=== PATIENT | male | born 1990 | race Caucasian/White ===

== ENCOUNTER 2023-03-29 13:38 | Outpatient (OUT) | payer OTHER, SELFPAY ==
--- NOTE | 2023-03-29 13:41 | MR_ITS ---
The [address] [address] Patient Name: JOSE DAVIS MRN: [facility]:[id number] date: 1990 Sex: M Assigned Patient Location: MRI Current Patient Location: Accession/Order Number: [id number] Exam Date: 03/29/2023 14:15 Report Date: 03/30/2023 05:11 At the request of: JOSÉ MANUEL MARIE Procedure: MR lumbar spine wo/w con EXAM: MR lumbar spine wo/w con HISTORY: Lumbar Myelopathy G95.9 COMPARISON: None. TECHNIQUE: Multiplanar multi sequential images of the lumbar spine were acquired with and without IV contrast. FINDINGS: There is mild straightening of the normal lumbar lordotic curvature. Vertebral body heights are preserved. The lumbar spine alignment is maintained without evidence for spondylolisthesis. Multilevel Schmorl's nodes are visualized. There is a Schmorl's visualized along the superior and inferior endplate of T12. Schmorl's node along the inferior endplate of L1, superior endplate of L2, L3 and L4. Moderate disc space narrowing at L5-S1 and mild disc space narrowing within the remainder of the lumbar spine. Multilevel disc desiccation noted. No occult fractures are visualized. No abnormal marrow infiltrative lesions. The conus medullaris terminates at the L1 level. The conus appears normal in size and configuration. No pathologic enhancement is visualized within the lumbar spine. 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 L1-L2: Mild disc bulge, the central canal is patent. No significant neuroforaminal narrowing visualized. L2-L3: Disc bulge and with facet arthrosis and mild ligamentum flavum thickening, the central canal is mildly narrowed and measures approximately 8 mm in AP diameter. No significant neuroforaminal narrowing visualized. L3-L4: Disc bulging with mild facet arthrosis and ligamentum flavum thickening, the central canal is minimally narrowed and measures approximately 9 mm in AP diameter. Mild right neuroforaminal narrowing. L4-L5: Disc bulge extending into the bilateral neuroforamina with moderate right and mild left facet arthrosis, the central canal is patent. There is mild to moderate right and moderate left neuroforaminal narrowing. There is abutment of the exiting left L4 nerve root from the adjacent disc protrusion. L5-S1: There is a left foraminal/extraforaminal zone disc protrusion with annular fissure, the central canal is patent. Mild facet arthrosis visualized with mild to moderate left neuroforaminal narrowing. There is abutment of the exiting left L5 nerve root from the adjacent disc protrusion. MR/MR lumbar spine wo/w con IMPRESSION: 1. Disc bulge at the L4-L5 level extending into the bilateral neuroforamina with associated facet arthrosis the central canal is patent. There is mild to moderate right and moderate left neuroforaminal narrowing with abutment of the exiting left L4 nerve root from the adjacent disc protrusion. 2. There is a left foraminal/extraforaminal zone disc protrusion with annular fissure at the L5-S1 level without evidence for central canal narrowing. Mild facet arthrosis visualized with mild to moderate left neuroforaminal narrowing with abutment of the exiting left L5 nerve root from the adjacent disc protrusion. 3. 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 Electronically authenticated by: HUMA GONZALEZ Date: 03/30/2023 05:11
== END 2023-03-29 13:39 | disposition home or self-care (01) ==
LOC: MRI 13:38
PROVIDERS: PCP Family Medicine; Visit Provider Family Medicine
DX: G95.9 Disease of spinal cord, unspecified (principal); M42.00 Juvenile osteochondrosis of spine, site unspecified
CPT/HCPCS: 72158; A9575

== ENCOUNTER 2024-01-22 15:15 | Emergency (ER) | payer OTHER, SELFPAY ==
[2024-01-22 15:23] VITALS: BP 136/86; PULSE 91; O2SAT 99; BMI 19.8
--- OUTSIDE RECORDS SUMMARY | 2024-01-22 15:32 | XMS_ITS | CCD ---
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 Name Role Phone NICO WEBB Unavailable Unavailable LYNN BOOKER Unavailable Unavailable HOUSE, DR BLOOD Attending Unavailable HOUSE, DR BLOOD Consulting Unavailable HOUSE, DR BLOOD Primary Care Unavailable HOUSE, DR BLOOD Admitting Unavailable House, DO Blood Primary Care Provider MD Kareem Crocker Attending Provider [phone] ALIA Rodgers Attending Provider JEREMI MARIE Primary Care Physician [phone] DO Jeremi Marie Primary Care Provider MD Kareem Crocker Attending Provider DO Laci Moss Attending Provider DO Jeremi Marie Primary Care Provider [phone] ALIA Rodgers Attending Provider Laci Elder Admitting Unavailable Laci Moss Attending Unavailable Jeremi Marie Primary Care Unavailable Jaime Rodgers Admitting Unavailable Jaime Rodgers Attending Unavailable Jeremi Marie Primary Care Unavailable Kareem Crocker Admitting Unavailable Kareem Crocker Attending Unavailable Jeremi Marie Primary Care Unavailable Jaime Rodgers Admitting Unavailable Jaime Rodgers Attending Unavailable Jeremi Marie Primary Care Unavailable JARON Rodgers Admitting Unavailabl e JEREMI MARIE Referring Unavailable Jessica Rodgers Attending Unavailable Laci Moss Admitting Unavailable Laci Moss Attending Unavailable JAIME RODGERS Referring Unavailable Laci Moss Attending Unavailable Laci Moss Referring Unavailable DO Laci Moss Admitting Unavailabl e Laci Moss Attending Unavailable Laci Moss Referring Unavailable Jessica Rodgers Admitting Unavailable Jessica Rodgers Attending Unavailable Jessica Rodgers Referring Unavailable JEREMI MARIE Primary Care Unavailable HOUSE, DO JEREMI P Attending Unavailable HOUSE, JEREMI P Primary Care Unavailable HOUSE, DO JEREMI P Attending Unavailable HOUSE, JEREMI P Primary Care Unavailable HOUSE, DO JEREMI P Attending Unavailable Krishan Munoz MD Attending Unavailable HOUSE, JEREMI P Primary Care Unavailable HOUSE, JEREMI P Primary Care Unavailable Krishan Munoz MD Attending Unavailable HOUSE, JEREMI P Primary Care Unavailable HOUSE, DO JEREMI P Attending Unavailable Allergies Allergy Classification Reported Allergen(s) Allergy Type Date of Onset Reaction(s) Facility Acetaminophen (1 source) Acetaminophen Drug Allergy 8 [facility] Benzodiazepines (1 source) LORazepam Drug Allergy 8 Drowsy [facility] Opioid Agonists (1 source) HYDROcodone Drug Allergy 8 [facility] Penicillins (antibiotic) (1 source) Penicillins Drug Allergy 8 [facility] (3 sources) Acetaminophen / HYDROcodone; Translations: [Vicodin] Drug Allergy 5 [facility] Repository (3 sources) LORazepam; Translations: [Ativan] Drug Allergy 5 [facility] Rep[facility] (11 sources) Penicillins; Translations: [penicillins] Drug allergy (disorder) 5 Pharyngeal swelling (finding) [facility] Repository (5 sources) Acetaminophen; Translations: [acetaminophen] Drug Allergy 8 [facility] (5 sources) HYDROcodone; Translations: [hydrocodone] Drug Allergy 8 [facility] (10 sources) LORazepam; Translations: [Lorazepam] Drug Allergy 8 Nausea and vomiting (disorder) [facility] Comment on above: NAUSEA (5 sources) Acetaminophen / HYDROcodone; Translations: [acetaminophen-hy drocodone] Drug Allergy Swelling (finding) [facility] (1 source) Penicillins Drug allergy (disorder) 4 [facility] Repository (1 source) Penicillin; Translations: [penicillin] Drug Allergy [facility] Repository Medications Current Medications Medication Drug Class(es) Dates Sig (Normalized) Sig (Original) acetaminophen 500 mg oral tablet (10 sources) Start: 09-12-2023 take 2 tablets by mouth every six hours Tylenol Extra Strength 500 mg oral tablet 1,000 mg = 2 tab(s), Oral, q6hr, Refills(s) 0 Start Date: 09/12/23 Status: Ordered Start: 07-17-2023 take 500 mg by mouth four times daily Acetaminophen Active 500 MG PO Four times daily July 17, 2023 1:00am ARIPiprazole 5 mg oral tablet (5 sources) Atypical Antipsychotic Start: 12-16-2017 take 5 mg by mouth once daily at bedtime Aripiprazole Active 5 MG PO Daily at bedtime December 16, 2017 12:00am Suboxone (10 sources) Partial Opioid Agonist, Opioid Antagonist Start: 09-12-2023 Suboxone See Instructions, Refill(s) 0, 2-8mg tab BID Start Date: 09/12/23 Status: Ordered Start: 12-09-2017 take 8.2 mg under th e tongue twice daily Buprenorphine-Naloxone Active 8.2 MG SUBLINGUAL Twice daily December 09, 2017 12:00am busPIRone hydrochloride 10 mg oral tablet (5 sources) Start: 12-16-2017 take 10 mg by mouth three times daily Buspirone Active 10 MG PO Three times daily December 16, 2017 12:00am clonazePAM 0.5 mg oral tablet (15 sources) Benzodiazepine Start: 07-17-2023 take 1 tablet by mouth twice daily ClonazePAM 0.5 mg Tab 0.5 mg = 1 tab(s), Oral, BID, Refills(s) 0 Start Date: 09/12/23 Status: Ordered Start: 12-09-2017 End: 12-16-2017 take 0.5 mg by mouth twice daily Clonazepam Discontinued 0.5 MG PO Twice daily December 09, 2017 12:00am December 16, 2017 11:25am Rx filled 10/21/17 gabapentin 400 mg oral capsule (10 sources) Anti-epileptic Agent Start: 12-16-2017 take 400 mg by mouth three times daily Gabapentin Active 400 MG PO Three times daily December 16, 2017 12:00am Start: 06-09-2012 take 300 mg by mouth three times daily Neurontin 300 mg, Oral, TID, Refills(s) 0 Start Date: 06/09/12 Status: Ordered lidocaine 0.05 mg/mg medicated patch (5 sources) Antiarrhythmic, Amide Local Anesthetic Start: 07-17-2023 apply 1 dose topically once daily Lidocaine Active 1 PATCH TOPICAL Daily July 17, 2023 1:00am leave on most painful area for up to 12 hrs mirtazapine 30 mg oral tablet (5 sources) Start: 12-16-2017 take 30 mg by mouth once daily at bedtime Mirtazapine Active 30 MG PO Daily at bedtime December 16, 2017 12:00am nicotine 2 mg chewing gum (5 sources) Cholinergic Nicotinic Agonist Start: 12-16-2017 Nicotine (Polacrilex) (Nicorelief) 2 mg Gum Active 4 MG BUCCAL Q2H 60 December 16, 2017 12:00am prazosin 1 mg oral capsule (5 sources) alpha-Adrenergic Jessica Start: 12-16-2017 take 1 mg by mouth once daily at bedtime Prazosin Active 1 MG PO Daily at bedtime December 16, 2017 12:00am QUEtiapine 50 mg oral tablet (15 sources) Atypical Antipsychotic Start: 07-17-2023 take 1 tablet by mouth at bedtime quetiapine 50 mg oral tablet 50 mg = 1 tab(s), Oral, Bedtime, Refills(s) 0 Start Date: 09/12/23 Status: Ordered Start: 12-09-2017 End: 12-16-2017 take 1 tablet by mouth once daily Quetiapine (Seroquel) 200 mg Tablet Discontinued 200 MG PO Daily December 09, 2017 12:00am December 16, 2017 11:26am Rx filled 10/12/17 vilazodone hydrochloride 40 mg oral tablet (10 sources) Start: 07-17-2023 take 1 tablet by mouth once daily vilazodone 40 mg oral tablet 40 mg = 1 tab(s), Oral, Daily, Refills(s) 0 Start Date: 09/12/23 Status: Ordered Completed/Discontinued Medications Medication Drug Class(es) Dates Sig (Normalized) Sig (Original) amphetamine aspartate 2.5 mg / amphetamine sulfate 2.5 mg / dextroamphetamine saccharate 2.5 mg / dextroamphetamine sulfate 2.5 mg oral tablet (5 sources) Central Nervous System Stimulant Start: 12-09-2017 End: 12-16-2017 take 1 tablet by mouth three times daily Dextroamphetamine- Amphetamine (Adderall) 10 mg Tablet Discontinued 10 MG PO Three times daily December 09, 2017 12:00am December 16, 2017 11:25am Rx filled 11/09/17 One A Day [employer] Complete (5 sources) Start: 09-12-2023 take 1 tablet by mouth once daily One A Day [employer] Complete 1 tab(s), Oral, Daily, Refill(s) 0 Start Date: 09/12/23 Status: Ordered predniSONE 20 mg oral tablet (5 sources) Start: 07-17-2023 End: 12-12-2023 Prednisone Discontinued 0 PO daily July 17, 2023 1:00am December 12, 2023 1:05pm Take 3 tablets by mouth once daily for three day , then two tablets by mouth once daily for three days, then one tablet by mouth for 1 day traZODone hydrochloride 50 mg oral tablet (5 sources) Serotonin Reuptake Inhibitor Start: 12-16-2017 End: 12-12-2023 take 150 mg by mouth once daily at bedtime Trazodone Discontinued 150 MG PO Daily at bedtime 45 December 16, 2017 12:00am December 12, 2023 1:06pm vortioxetine 20 mg oral tablet (5 sources) Start: 12-09-2017 End: 12-16-2017 take 1 tablet by mouth once daily Vortioxetine (Trintellix) 20 mg Tablet Discontinued 20 MG PO Daily December 09, 2017 12:00am December 16, 2017 11:26am Rx filled 10/11/17 Problems Active Problems Problem Classification Problem Date Documented Date Episodic/Chronic Anxiety disorders (5 sources) Anxiety 09-12-2023 Chronic Medical examination/evaluatio n (1 source) Encounter for other general examination; Translations: [Encounter for other general examination] Onset: 11-30-2017 Episodic Mood disorders (13 sources) Episodic mood disorder; Translations: [Unspecified mood [affective] disorder] Onset: 08-22-2023 12-09-2017 Chronic Osteoarthritis (5 sources) Osteoarthritis 09-12-2023 Chronic Other nervous system disorders (5 sources) Neuropathy; Translations: [Polyneuropathy, unspecified] 07-17-2023 Chronic Other nervous system disorders (3 sources) Polyneuropathy, unspecified; Translations: [Mononeuritis of unspecified site] Onset: 08-22-2023 07-17-2023 Chronic Spondylosis; intervertebral disc disorders; other back problems (8 sources) Degeneration of lumbar intervertebral disc; Translations: [Other intervertebral disc degeneration, lumbar region] Onset: 08-22-2023 07-17-2023 Chronic Spondylosis; intervertebral disc disorders; other back problems (13 sources) Spinal stenosis of lumbar region; Translations: [Spinal stenosis, lumbar region without neurogenic claudication] Onset: 08-22-2023 07-18-2023 Episodic Substance-related disorders (5 sources) Smoker 09-12-2023 Chronic Comment on above: Added secondary to d ocumentation in Social History. Unclassified (3 sources) CONTACT W/AND (SUSP) EXPOS COVID-19; Translations: [CONTACT W/AND (SUSP) EXPOS COVID-19] Onset: 12-28-2020 Unclassified (1 source) Low back pain, unspecified; Translations: [Low back pain, unspecified] Onset: 09-19-2023 Past or Other Problems Problem Classification Problem Date Documented Da te Episodic/Chronic Unclassified (1 source) CONTACT W/AND (SUSP) EXPOS COVID-19; Translations: [CONTACT W/AND (SUSP) EXPOS COVID-19] Onset: 12-19-2020 Results Test Name Value Interpretation Reference Range Facility Insuranceon 01-08-2024 Insurance [id number]#1.00OTGTIFF [facility] Main OR Intraoperative Recor don 12-30-2023 Main OR Intraoperative Record Main OR Intraoperative Record IntraOp Document Type FTPM Summary Primary Physician: Laci Moss DO Finalized Date/Time: 12/30/23 14:56:10 Pt. Name: JOSE JANE/Sex: 1990 Male Med Rec #: [id number] Physician: Laci Moss DO Financial #: [id number] Pt. Type: P Room/Bed: / Admit/Disch: 12/30/23 13:25:36 - Institution: Case Times FTPM Entry 1 Patient Times In Room 12/30/23 14:47:00 Out Room 12/30/23 14:57:00 Procedure Times Start 12/30/23 14:50:00 Stop 12/30/23 14:56:00 Anesthesia Times Last Modified By: Zhanna Coronado RN 12/30/23 14:56:06 Case Attendance FTPM Entry 1 Entry 2 Entry 3 Case Attendee Laci Moss DO, RN, Zhanna Dent RN, Susan Quinn Role Performed Surgeon - Primary Firm Administrator - Primary Scrub - Primary Time In 12/30/23 14:47:00 12/30/23 14:47:00 12/30/23 14:47:00 Time Out 12/30/23 14:57:00 12/30/23 14:57:00 12/30/23 14:57:00 Procedure TRANSFORAMINAL EPIDURAL TRANSFORAMINAL EPIDURAL TRANSFORAMINAL EPIDURAL STEROID STEROID STEROID INJECTIO(Bilateral) INJECTIO(Bilateral) INJECTIO(Bilateral) Comments Last Modified By: Cliff QUINTANILLA, Zhanna Coronado RN, Zhanna Gaytan RN 12/30/23 14:56:07 12/30/23 14:56:07 12/30/23 14:56:07 Entry 4 Case Attendee Cely Whitaker Role Performed Drapery Installer Time In 12/30/23 14:47:00 Time Out 12/30/23 14:57:00 Procedure TRANSFORAMINAL EPIDURAL STEROID INJECTIO(Bilateral) Comments Last Modified By: Zhanna Coronado RN 12/30/23 14:56:07 Perioperative Protocols FTPM Pre-Care Text: Implements protective measures prior to operative or invasive procedure, confirms identity before the operative or invasive procedure, verifies operative procedure, surgical site, and laterality Entry 1 Procedure(s) TRANSFORAMINAL EPIDURAL Patient Identity Birthday, ID Band STEROID Verified (select at Check, Patient INJECTIO(Bilateral) least 2): Participation Consents / H and P H&P, Surgery/Procedure Operative Site Present Verified Consent Marking Verified Surgical Site Yes Laterality Verified Yes Verified Procedure Verified Yes Correct Patient Yes Position Verified Availability Equipment, Medication, Prep Dry Yes Verified (If X-ray Applicable) PreOp Antibiotic No Time Out Cliff QUINTANILLA, Zhanna Hollingsworth, Harsha Dent RN, Ajay Monroy DO, Bradford A., Ott, Amy Time Out Complete 12/30/23 14:47:00 Outcomes Met? Yes Last Modified By: Zhanna Coronado RN 12/30/23 14:47:49 Post-Care Text: The patient is free from signs and symptoms of injury caused by extraneous objects Allergy Information FTPM Pre-Care Text: Verifies allergies Entry 1 Allergies Reviewed? Yes Allergies Reviewed Self/Patient With Outcomes Met? Yes Last Modified By: Zhanna Coronado RN 12/30/23 14:46:16 Post-Care Text: The patient received appropriate medication(s) safely administered during the perioperative period Surgical Procedures FTPM Entry 1 Procedure Description Procedure TRANSFORAMINAL EPIDURAL Modifiers Bilateral STEROID INJECTION Surgeon Description L5/S1 TFESI Primary Procedure Yes Primary Surgeon Laci Moss DO 12/30/23 14:50:00 Stop 12/30/23 14:56:00 Anesthesia Type None Surgical Service Pain Management Wound Class 1 - Clean Last Modified By: Zhanna Coronado RN 12/30/23 14:56:08 General Case Data FTPM Pre-Care Text: Classifies surgical wound, implements aseptic technique, initiates traffic control Entry 1 Case Information OR Pain Proc Room Case Level Level 2 Wound Class 1 - Clean Specialty Pain Management Preop Diagnosis M54.16 Postop Same As Preop Yes Postop Diagnosis M54.16 Outcomes Met? Yes Last Modified By: Zhanna Coronado RN 12/30/23 14:48:01 Post-Care Text: The patient is free from signs and symptoms of infection Skin Assessment (Pre Procedure) FTPM Pre-Care Text: Implements protective measures to prevent skin/ tissue injury due to thermal or mechanical sources Evaluates for signs and symptoms of physical injury to skin and tissue Entry 1 Skin Integrity Intact, [place], Warm, & Skin Abnormality No Dry Outcomes Met? Yes Last Modified By: Zhanna Coronado RN 12/30/23 14:46:23 Post-Care Text: The patient is free from signs and symptoms of injury caused by extraneous objects Patient Positioning FTPM Pre-Care Text: Identifies physical alterations that require additional precautions for procedure-specific positioning, verifies presence of prosthetics or corrective devices, positions the patient, evaluates the patient for signs and symptoms of injury as a result of positioning Entry 1 Procedure TRANSFORAMINAL EPIDURAL Body Position Prone STEROID INJECTIO(Bilateral) Feet Uncrossed? Yes Left Arm Position Resting at Side Right Arm Position Resting at Side Left Leg Position Extended Right Leg Position Extended Positioning Device Pillow Under Head Large, Safety Stra (more content not included)... Normal [facility] Main OR Preoperative Recordo n 12-30-2023 Main OR Preoperative Record Main OR Preoperative Record Holding Area Document Type FTPM Summary Primary Physician: Laci Moss DO Finalized Date/Time: 12/30/23 13:34:55 Pt. Name: JOSE JANE Julissa Gonsalez/Sex: 1990 Male Med Rec #: [id number] Physician: Laci Moss DO Financial #: [id number] Pt. Type: P Room/Bed: / Admit/Disch: 12/30/23 13:25:36 - Institution: Case Times Holding FTPM Pre-Care Text: Verifies consent for planned procedure, identifies individual values and wishes concerning care, includes family members in perioperative teaching Secures patient's records' belongings, and valuables, maintains patient's dignity and privacy, and maintains patient confidentiality Entry 1 In Holding 12/30/23 13:27:00 Outcomes Met? Yes Last Modified By: Armando Stuart RN 12/30/23 13:28:01 Post-Care Text: The patient participates in decisions affecting his or her perioperative plan of care The patient's right to privacy is maintained Surgery Checklist FTPM Entry 1 Patient Birthday, ID Band Procedure History and Physical, Identification: Check, Patient Verification: Surgical Consent, With Participation Patient NPO after Midnight: No Date/Time: 12/30/23 13:28:00 Results Reviewed Yovani darden 0930 Personal Items: Glasses Comments: Personal Items Glasses Complaints of Pain: Yes Comment: Pain Comment: 12/20 Lower back Operative Site Yes Marking: Marked By: Dr. Moss Location: Bilateral L5/S1 Availability Equipment, X-Ray Verified: Does Patient Smoke Yes If Yes to Smoking. 1 PPD Cigars or Cigarettes. How much per day? Patient states Yes Comment - Adult Delma Neighbor postop adult Supervision supervision available Case Cancelled in No Holding Area see comments below for reason Last Modified By: Armando Stuart RN 12/30/23 13:30:46 Finalized By: Armando Stuart RN Document Signatures Signed By: Armando Stuart RN 12/30/23 13:34 Normal [facility] Rad - MRI Reporton 4 Rad - MRI Report [id number]#1.00OTGTIFF [facility] Rad - Other Radiology Report on 12-16-2023 Rad - Other Radiology Report [id number]#1.00OTGTIFF [facility] MRI Spine Cervical w/o Contr felice 12-13-2023 MRI Spine Cervical w/o Contrast Exam Date/Time: 12/10/2023 18:51 EDT Reason for Exam: M54.12 M54.2 Report IMPRESSION: NO HIGH-GRADE NEUROFORAMINAL OR SPINAL CANAL STENOSIS. NORMAL APPEARANCE OF THE CERVICAL SPINAL CORD. EXAM: MRI of the cervical spine without contrast. History: Status. Posterior left shoulder pain. Bilateral arm weakness. Technique: Multiplanar multisequence MRI of the cervical spine was performed without contrast. Comparison: Cervical spine radiographs 12/10/2023 Findings: Craniocervical junction is within normal limits. No cervical cord signal abnormality is identified. No aggressive bone marrow signal abnormality. Cervical spine alignment is preserved. Intervertebral disc heights are preserved. C2-C3: No significant disc bulge. Mild bilateral uncovertebral hypertrophy. No neuroforaminal or spinal canal stenosis. C3-C4: No significant disc bulge, spinal canal or neuroforaminal stenosis. C4-C5: No significant disc bulge, spinal canal or neuroforaminal stenosis. C5-C6: No significant disc bulge, spinal canal or neuroforaminal stenosis. C6-C7: No significant disc bulge, spinal canal or neuroforaminal stenosis. C7-T1: No significant disc bulge, spinal canal or neuroforaminal stenosis. Visualized paravertebral soft tissues are grossly unremarkable. Report Ordering Provider: Jessica Rodgers FINAL REPORT Dictated: 12/13/2023 11:48 am aCrlos Figueroa DO Signed (Electronic Signature): 12/13/2023 11:48 am Signed by: Carlos Figueroa DO Transcribed by: MAGGI Technologist: IVETT Technical Comments None Normal [facility] XR Spine Cervical 4 or 5 Vie wson 12-13-2023 XR Spine Cervical 4 or 5 Views Exam Date/Time: 12/10/2023 19:04 EDT Reason for Exam: Neck Pain Report IMPRESSION: ESSENTIALLY NEGATIVE CERVICAL SPINE. EXAM: XR Spine Cervical 4 or 5 Views DATE: 12/10/2023 6:49 PM CLINICAL HISTORY: Neck Pain. COMPARISON: None available. TECHNIQUE: AP, lateral, oblique, and odontoid radiographs of the cervical spine were obtained. FINDINGS: Straightening of the normal cervical lordosis is probably related to patient positioning and/or muscle spasm. There is no compression, fracture, significant degenerative changes, subluxation, bony neural foraminal narrowing, worrisome bone destruction, or other findings of concern identified. The visualized paraspinous soft tissues are unremarkable. Ordering Provider: Jessica Rodgers FINAL REPORT Dictated: 12/13/2023 1:47 pm Jostin Garza MD Signed (Electronic Signature): 12/13/2023 1:47 pm Signed by: Jostin Garza MD Transcribed by: MAGGI Technologist: SERGEY Technical Comments Radiation Dose: Ka,r in mGy = na DAP = na Normal [facility] Consultation/Specialist Note on 12-12-2023 Consultation/Special ist Note [id number] Insurance [id number] spine 6V w bending on 12-12-2023 XR lumbar spine 6V w bending [facility] Main Central [address] [place] [address] XRay Report Signed Patient: Jose Jane MR#: [id number] : 1990 Acct:[id number] Age/Sex: 33 / M ADM Date: 12/12/23 Loc: XD Room: Type: [facility] Attending Dr: Jaime Rodgers BANDOLEER PACKER-C Copies to: ALIA Duran Ordering Provider: ALIA Duran Date of Service: 12/12/23 XR/XR lumbar spine 6V w bending: M48.061 - Spinal stenosis, lumbar region without neurogen... LUMBAR SPINE - 6 views CLINICAL HISTORY: Low back pain for 15 years radiating into both hips and legs. COMPARISON: Lumbar spine 02/29/2012 FINDINGS: Vertebral body heights appear maintained. Mild diffuse degenerative disc disease with endplate and facet joint degenerative changes. No pathological motion on flexion or extension views. Restricted sidebending. XR/XR lumbar spine 6V w bending IMPRESSION: MILD DIFFUSE DEGENERATIVE DISC DISEASE WITHOUT ACUTE BONY PROCESS. Impression dictated by: Reece Polo Jr., D.O.12/12/2023 3:18 PM Dictation Location: [place] [address] Transcribed By: [facility] 12/12/23 1518 Dictated By: Reece Polo Jr, DO 12/12/23 1517 Signed By: 12/12/23 1518 Normal [facility] Outside Recordson 11-29-2023 Outside Records [id number]#1.00OTGTIFF Normal [facility] Outside Records Officeon Outside Records Office [id number]#1.00TIFF Normal [facility] Consent for Procedure/Surger yon 10-16-2023 Consent for Procedure/Surgery [id number]#1.00TIFF Normal [facility] Discharge Instructionson Discharge Instructions [id number]#1.00TIFF Normal [facility] IntraOperative Documentson 0 10-16-2023 IntraOperative Documents [id number]#1.00TIFF Normal [facility] IntraOperative Documents [id number]#1.00TIFF [facility] Consent for Treatmenton Consent for Treatment [id number]#1.00TIFF [facility] Main OR Intraoperative Recor don 10-15-2023 Main OR Intraoperative Record IntraOp Document Type FT Summary Primary Physician: Laci Moss DO Finalized Date/Time: 10/15/23 15:13:45 Pt. Name: JOSE JANE Julissa DarbyB./Sex: 1990 Male Med Rec #: [id number] Physician: Laci Moss DO Financial #: [id number] Pt. Type: P Room/Bed: / Admit/Disch: 10/15/23 13:39:34 - Institution: Case Times FTPM Entry 1 Patient Times In Room 10/15/23 15:08:00 Out Room 10/15/23 15:14:00 Procedure Times Start 10/15/23 15:11:00 Stop 10/15/23 15:13:00 Anesthesia Times Last Modified By: Cliff QUINTANILLA, Zhanna Hollingsworth 10/15/23 15:13:34 Case Attendance FTPM Entry 1 Entry 2 Entry 3 Case Attendee Laci Moss DO, RN, Saira Hallman RN Role Performed Surgeon - Primary Firm Administrator - Primary Scrub - Primary Time In 10/15/23 15:08:00 10/15/23 15:08:00 10/15/23 15:08:00 Time Out 10/15/23 15:14:00 10/15/23 15:14:00 10/15/23 15:14:00 Procedure LUMBAR EPIDURAL STEROID LUMBAR EPIDURAL STEROID LUMBAR EPIDURAL STEROID INJECTION(.) INJECTION(.) INJECTION(.) Comments Last Modified By: Cliff QUINTANILLA, Zhanna Coronado RN, Zhanna Coronado RN, Zhanna Hollingsworth 10/15/23 15:13:35 10/15/23 15:13:35 10/15/23 15:13:35 Entry 4 Entry 5 Case Attendee Hamida Nickerson RTKrishan Role Performed Drapery Installer Drapery Installer Time In 10/15/23 15:08:00 10/15/23 15:08:00 Time Out 10/15/23 15:14:00 10/15/23 15:14:00 Procedure LUMBAR EPIDURAL STEROID LUMBAR EPIDURAL STEROID INJECTION(.) INJECTION(.) Comments Last Modified By: Cliff QUINTANILLA, Zhanna Coronado RN, Zhanna Hollingsworth 10/15/23 15:13:35 10/15/23 15:13:35 Perioperative Protocols FTPM Pre-Care Text: Implements protective measures prior to operative or invasive procedure, confirms identity before the operative or invasive procedure, verifies operative procedure, surgical site, and laterality Entry 1 Procedure(s) LUMBAR EPIDURAL STEROID Patient Identity Birthday, ID Band INJECTION(.) Verified (select at Check, Patient least 2): Participation Consents / H and P HandP, Surgery/Procedure Operative Site Present Verified Consent Marking Verified Surgical Site Yes Laterality Verified Yes Verified Procedure Verified Yes Correct Patient Yes Position Verified Availability Equipment, Medication, Prep Dry Yes Verified (If X-ray Applicable) PreOp Antibiotic No Time Out Zhanna Coronado RN, Harsha Ardon RN, Ajay Chávez DO, Bradford A., Hamida Nickerson, Alexi RTKrishan P Time Out Complete 10/15/23 15:08:00 Outcomes Met? Yes Last Modified By: Zhanna Coronado RN 10/15/23 15:10:33 Post-Care Text: The patient is free from signs and symptoms of injury caused by extraneous objects Allergy Information FTPM Pre-Care Text: Verifies allergies Entry 1 Allergies Reviewed? Yes Allergies Reviewed Self/Patient With Outcomes Met? Yes Last Modified By: Zhanna Coronado RN 10/15/23 15:10:39 Post-Care Text: The patient received appropriate medication(s) safely administered during the perioperative period Surgical Procedures FTPM Entry 1 Procedure Description Procedure LUMBAR EPIDURAL STEROID Modifiers . INJECTION Surgeon Description L4/5 AKILA Primary Procedure Yes Primary Surgeon Laci Moss DO Start 10/15/23 15:11:00 Stop 10/15/23 15:13:00 Anesthesia Type None Surgical Service Pain Management Wound Class 1 - Clean Last Modified By: Zhanna Coronado RN 10/15/23 15:13:36 General Case Data FTPM Pre-Care Text: Classifies surgical wound, implements aseptic technique, initiates traffic control Entry 1 Case Information OR Pain Proc Room Case Level Level 2 Wound Class 1 - Clean Specialty Pain Management Preop Diagnosis M48.062 Postop Same As Preop Yes Postop Diagnosis M48.062 Outcomes Met? Yes Last Modified By: Zhanna Coronado RN 10/15/23 15:10:49 Post-Care Text: The patient is free from signs and symptoms of infection Skin Assessment (Pre Procedure) FTPM Pre-Care Text: Implements protective measures to prevent skin/ tissue injury due to thermal or mechanical sources Evaluates for signs and symptoms of physical injury to skin and tissue Entry 1 Skin Integrity Intact, [place], Warm, and Skin Abnormality No Dry Outcomes Met? Yes Last Modified By: Zhanna Coronado RN 10/15/23 15:10:58 Post-Care Text: The patient is free from signs and symptoms of injury caused by extraneous objects Patient Positioning FTPM Pre-Care Text: Identifies physical alterations that require additional precautions for procedure-specific positioning, verifies presence of prosthetics or corrective devices, positions the patient, evaluates the patient for signs and symptoms of injury as a result of positioning Entry 1 Procedure LUMBAR EPIDURAL STEROID Body Position Prone INJECTION(.) Feet Uncrossed? Yes Left Arm Position Resting at Side Right Arm Position Resting at Side Left Leg Position Extended Right Leg Position Extended Positioning Device Pillow (more content not included)... Normal [facility] Main OR Preoperative Recordo n 10-15-2023 Main OR Preoperative Record Holding Area Document Type FTPM Summary Primary Physician: Laci Moss DO Finalized Date/Time: 10/15/23 14:01:15 Pt. Name: JOSE JANE/Sex: 1990 Male Med Rec #: [id number] Physician: Laci Moss DO Financial #: [id number] Pt. Type: P Room/Bed: / Admit/Disch: 10/15/23 13:39:34 - Institution: Case Times Holding FTPM Pre-Care Text: Verifies consent for planned procedure, identifies individual values and wishes concerning care, includes family members in perioperative teaching Secures patient's records' belongings, and valuables, maintains patient's dignity and privacy, and maintains patient confidentiality Entry 1 In Holding 10/15/23 13:59:00 Outcomes Met? Yes Last Modified By: Elyse Badillo RN 10/15/23 13:59:41 Post-Care Text: The patient participates in decisions affecting his or her perioperative plan of care The patient's right to privacy is maintained Surgery Checklist FTPM Entry 1 Patient Birthday, ID Band Procedure History and Physical, Identification: Check, Patient Verification: Surgical Consent, With Participation Patient NPO after Midnight: No Date/Time: 10/15/23 13:59:00 Results Reviewed 1100 cup of coffee Personal Items: Glasses Comments: Personal Items Pt. wearing glasses. Complaints of Pain: Yes Comment: Pain Comment: 12/20 lower back pain Operative Site Yes Marking: Marked By: Dr. Moss Location: L4-L5 Availability Equipment, X-Ray Verified: Does Patient Smoke Yes If Yes to Smoking. 1 1/2 PPD cigarettes Cigars or Cigarettes. How much per day? Patient states Yes Comment - Adult uncle-Goran postop adult Supervision supervision available Case Cancelled in No Holding Area see comments below for reason Last Modified By: Elyse Badillo RN 10/15/23 14:01:13 Finalized By: Elyse Badillo RN Document Signatures Signed By: Elyse Badillo RN 10/15/23 14:01 [facility] Outside Records Officeon Outside Records Office [id number]#1.00TIFF [facility] Patient Correspondenceon Patient Correspondence [id number]#1.00TIFF [facility] Insurance Correspondence Off iceon 09-24-2023 Insurance Correspondence Office [id number]#2.00TIFF [facility] Orders Officeon 09-18-2023 Orders Office [id number]#1.00TIFF [facility] Outside Records Officeon Outside Records Office [id number]#1.00TIFF [facility] Consent for Treatmenton Consent for Treatment [id number]#1.00TIFF [facility] Consultation Noteon 09-12-19 Consultation Note Patient is presentin with complaints of neck and low back pain. He states that his low back pain is worse with any standing or walking but is present all the time he rates his pain as a 5/10 but can be a 10/10 in severity. He also has neck pain without radiation into his bilateral upper extremities. 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 He has had pain for several years and has been maintained on Suboxone therapy as well as gabapentin for his pain. We did review his lumbar spine MRI and discussed that he has mild central canal stenosis at L2/3 and L3/4. He has completed a full course of recent physical therapy per his report for his neck and low back without significant lasting relief. He has medication use is limited due to his current pain contract and he would like to see what else can be done about his pain. MARTÍN Score: 72% PHQ-2: 6 Patient denies any symptoms of progressively worsening upper/lower extremity weakness, progressively worsening gait abnormality, new onset bowel/bladder incontinence/ urinary retention, or saddle anesthesia. No new or worsening symptoms of fever, chills, night sweats. 14 Point Review of systems negative unless otherwise noted. General: No acute distress. Patient appears well-nourished. HEENT: Head is normocephalic and external ears are normal in appearance. Cardiovascular: No signs of poor perfusion and no peripheral edema Pulmonary: Nonlabored breathing, symmetric chest movement. GI: Abdomen nondistended Integumentary: No lesions Musculoskeletal: Tender palpation cervical lumbar paraspinal musculature. Neurologic: Alert, oriented x3. 5/5 strength grossly in the bilateral upper extremities. Sensation intact to light touch in the bilateral upper extremities. 5/5 strength grossly in the bilateral lower extremities. Sensation intact to light touch in the bilateral lower extremities. Special Testing: Positive Randa sign on the left only, Spurling's negative bilaterally, mild tenderness palpation in cervical paraspinal musculature, seated straight leg raise test did reproduce mild radicular symptoms bilaterally. History, physical examination, and personal review of pertinent imaging results indicate a diagnosis of: -Lumbar stenosis with neurogenic claudication -Cervical radiculopathy Plan: -We lengthy discussion about current symptoms and treatments for this, we discussed performing L4-5 interlaminar epidural steroid injection under fluoroscopic guidance -Relation to his neck we discussed performing cervical spine x-rays and if there are no significant findings on this we can consider an MRI, we also discussed that if he develops any symptoms of significant narrowing in his neck such as weakness in his upper extremities gait instability or any other red flag signs such as loss of bowel or bladder function or changes that are significant bowel or bladder function he should seek emergent care in the ED Patient was counseled on the above diagnosis and treatment, all questions were answered and patient agrees to adhere to the plan above. Risk and benefits of appropriate procedures and medications were reviewed as well with patient, who voiced understanding and agreeance. Patient was counseled on appropriate use of opioids if prescribed or renewed today and naloxone was offered to patient if opioids were prescribed or maintained at this visit. PHQ-2 scoring reviewed with patient and discussed seeking treatment for depression or mood disorder as appropriate. Patient was counseled on smoking cessation and/or continuing to abstain from nicotine/tobacco products as appropriate based on history; as smoking/nicotine can contribute to increased pain overall and decreased wound healing. Patient counseled on maintaining a healthy BMI as part of the total treatment of their pain and to reduce stress/strain on joints. Patient invited to return or call with any questions or concerns that arise. [facility] Comment on above: Result Comment: Elec tronically Signed By: Laci Moss DO\.br\Date and Time Signed: 09/12/23 12:36 EDT HIPAA Forms Officeon 024 HIPAA Forms Office [id number]#1.00TIFF [facility] Legal Correspondence Officeo n 09-12-2023 Legal Correspondence Office [id number]#1.00TIFF [facility] Legal Correspondence Office [id number]#1.00TIFF [facility] Office/Clinic Note-Physician on 09-12-2023 Office/Clinic Note-Physician [id number]#1.00TIFF [facility] Patient Correspondenceon Patient Correspondence [id number]#1.00TIFF [facility] Patient Correspondence [id number]#1.00TIFF Normal [facility] Patient Correspondence [id number]#1.00TIFF Normal [facility] Patient Correspondence [id number]#1.00TIFF Normal [facility] Patient Correspondence [id number]#1.00TIFF Normal [facility] Patient History Officeon Patient History Office [id number]#1.00TIFF Normal [facility] Physician Orderon 09-12-2023 Physician Order [id number]#1.00TIFF Normal [facility] Outside Records Officeon Outside Records Office [id number]#1.00TIFF Normal [facility] Radiology Outside Office Deputy Clerk Of [address] yon 08-23-2023 Radiology Outside Office Copy [id number]#1.00TIFF Normal [facility] Referrals Officeon Referrals Office [id number]#1.00TIFF Normal [facility] A1C with Estimated Average G luon 08-22-2023 Glucose [Mass/Vol] 111 mg/dL Normal [facility] Comment on above: Result Comment: PERF ORMED BY: [place] [address] PATHOLOGIST HEALTH AND WELLNESS DIRECTOR BRENDA MOE M.D. Performed By: #### A NA, VITB6, RPR W RFX, RA #### [facility] , #### CRP, [id number], TSH3, T4F, A1C WTH eA, ESR #### [address] [place] Antinuclear Antibodieson 08-22-2023 Antinuclear Abs, IFA Negative Normal . [facility] Comment on above: Result Comment: Nega tive <1:80 Borderline 1:80 Positive >1:80 ICAP nomenclature: AC-0 For more information about Hep-2 cell patterns use ANApatterns.org, the official website for the International Consensus on Antinuclear Antibody ([place]) Patterns (ICAP). Performed at: [facility] [address] [id number] Wedding Coordinator: Reuben Couch PhD, Phone: [phone] Performed By: #### A NA, VITB6, RPR W RFX, RA #### [facility] , #### CRP, [id number], TSH3, T4F, A1C WT eA, ESR #### [address] C reactive protein [Mass/vol ume] in Serum or PlasmaOrdered By: Jaime Rodgers on 08-22-2023 CRP [Mass/Vol] < 0.5 mg/dL 0.0-0.5 [facility] C-Reactive Proteinon 024 CRP [Mass/Vol] mg/L Normal 0.0-0.5 [facility] Comment on above: Performed By: #### A NA, VITB6, RPR W RFX, RA #### [facility] , #### CRP, [id number], TSH3, T4F, A1C [facility] eA, ESR #### [facility] [address] [place] [address] Erythrocyte Sedimentation Ra sandeep 08-22-2023 ESR (Bld) [Velocity] 8 mm/h Normal 0-14 [facility] Comment on above: Result Comment: PERF ORMED BY: [place] [address] PATHOLOGIST HEALTH AND WELLNESS DIRECTOR BRENDA MOE M.D. Performed By: #### A NA, VITB6, RPR W RFX, RA #### [facility] , #### CRP, [id number], TSH3, T4F, A1C WTH eA, ESR #### [facility] [address] [id number] [facility] Erythrocyte sedimentation ra te by Photometric methodOrdered By: Jaime Rodgers on 08-22-2023 ESR Photometric method (Bld) [Velocity] 8 mm/hr 0-14 [facility] Folate [Mass/volume] in Seru m or PlasmaOrdered By: Jaime Rodgers on 08-22-2023 Folate [Mass/Vol] 39.0 ng/mL >5.9 [facility] Comment on above: Folate reference ran ge: >5.9 ng/mlThe WHO technical consultation on folate and vitamin [id number] has determined that folate concentrations lessthan 4 ng/ml are considered deficient. Glucose mean value [Mass/vol ume] in Blood Estimated from glycated hemoglobinOrdered By: Jaime Rodgers on 08-22-2023 Average glucose Estimated from glycated hemoglobin (Bld) [Mass/Vol] 111 mg/dL [facility] Hemoglobin A1c percentageOrd ered By: Jaime Rodgers on 08-22-2023 HbA1c (Bld) [Mass fraction] 5.5 % Normal 4.3-5.6 [facility] Comment on above: Increased risk for d iabetes: 5.7 - 6.4diabetes: >6.4glycemic control for adults with diabetes: <7.0 Result Comment: Incr eased risk for diabetes: 5.7 - 6.4 diabetes: >6.4 glycemic control for adults with diabetes: <7.0 Performed By: #### A NA, VITB6, RPR W RFX, RA #### [facility] , #### CRP, [id number], TSH3, T4F, A1C WT eA, ESR #### [facility] [address] [id number] [facility] Patient Letteron 08-22-2023 Patient Letter [id number]#1.00OTGTIFF [facility] RPR w/rfx to Quant TP Abson 08-22-2023 RPR, Rfx Quant RPR Non-Reactive Normal Non Reactive [facility] Comment on above: Result Comment: Perf ormed at: - [facility] [place] [address] Wedding Coordinator: Reuben Couch PhD, Phone: [phone] PERFORMED BY: [place] [address] PATHOLOGIST HEALTH AND WELLNESS DIRECTOR BRENDA MOE M.D. Performed By: #### A NA, VITB6, RPR W RFX, RA #### [facility] , #### CRP, [id number], TSH3, T4F, A1C WTH eA, ESR #### [facility] [address] [place] [address] [place] Reagin Ab [Presence] in Seru m by RPROrdered By: Jaime Rodgers on 08-22-2023 Reagin Ab RPR Ql (S) Non-Reactive Non Reactive [facility] Comment on above: Performed at: [facility] [place] [address]Lab Director: Reuben Couch PhD, Phone: [phone] Rheumatoid Factoron 08-22-19 Rheumatoid Factor <10.0 Normal <14.0 [facility] Comment on above: Result Comment: Perf ormed at: - [facility] [address] [id number] Wedding Coordinator: Reuben Couch PhD, Phone: [phone] Performed By: #### A NA, VITB6, RPR W RFX, RA #### [facility] , #### CRP, [id number], TSH3, T4F, A1C WTH eA, ESR #### [facility] [address] [place] [address] [place] Serum homogeneous pattern an tinuclear antibody ([place]) titerOrdered By: Jaime Rodgers on 08-22-2023 Homogenous nuclear Ab pattern (S) [Titer] N/A [facility] Serum nuclear antibody titer Ordered By: Jaime Rodgers on 08-22-2023 Nuclear Ab (S) [Titer] Negative . [facility] Comment on above: Negative <1:80 Borde rline 1:80 Positive >1:80ICAP nomenclature: AC-0For more information about Hep-2 cell patterns useANApatterns.org, the official website for theInternational Consensus on Antinuclear Antibody ([place])Patterns (ICAP).Performed at: [address] [id number] Director: Reuben Couch PhD, Phone: [phone] Serum or plasma pyridoxine m easurement (mass/volume)Ordered By: Jaime Rodgers on 08-22-2023 Pyridoxine [Mass/Vol] 31.5 ug/L 3.4-65.2 [facility] Comment on above: This test was develo ped and its performance characteristicsdetermined by [employer]. It has not been cleared orapproved by the Food and Drug Administration. Deficiency: <3.4 Marginal: 3.4 - 5.1 Adequate: >5.1Performed at: [address] [id number] Director: Houston Bobo MD, Phone: [phone] Serum or plasma rheumatoid f actor measurement (units/volume)Ordered By: Jaime Rodgers on 08-22-2023 Rheumatoid factor Qn [IU]/mL <14.0 [facility] Comment on above: Performed at: [facility] [address] [id number] Director: Reuben Couch PhD, Phone: [phone] Thyrotropin [Units/volume] i n Serum or PlasmaOrdered By: Jaime Rodgers on 08-22-2023 TSH Qn 1.29 m[IU]/L Normal 0.45-5.33 [facility] Comment on above: Result Comment: PERF ORMED BY: [facility] [address] [place] [address] PATHOLOGIST HEALTH AND WELLNESS DIRECTOR BRENDA MOE M.D. Performed By: #### A NA, VITB6, RPR W RFX, RA #### [facility] , #### CRP, [id number], TSH3, T4F, A1C WTH eA, ESR #### [facility] [address] Thyroxine (T4) free [Mass/vo lume] in Serum or PlasmaOrdered By: Jaime Rodgers on 08-22-2023 Free T4 [Mass/Vol] 0.90 ng/dL Normal 0.61-1.12 [facility] Comment on above: Performed By: #### A NA, VITB6, RPR W RFX, RA #### [facility] , #### CRP, [id number], TSH3, T4F, A1C WTH eA, ESR #### [facility] [address] [place] [address] Vit. B12/Folate Profileon Folate 39.0 ng/mL Normal >5.9 [facility] Comment on above: Result Comment: Khadra te reference range: >5.9 ng/ml The WHO technical consultation on folate and vitamin b12 deficiencies has determined that folate concentrations less than 4 ng/ml are considered deficient. Performed By: #### A NA, VITB6, RPR W RFX, RA #### [facility] , #### CRP, [id number], TSH3, T4F, A1C WT eA, ESR #### [facility] [address] [place] [address] Vitamin B12 ser/plasOrdered By: Jaime Rodgers on 08-22-2023 Cobalamin (Vitamin B12) [Mass/Vol] 710 pg/mL Normal 180-914 [facility] Comment on above: Performed By: #### A NA, VITB6, RPR W RFX, RA #### [facility] , #### CRP, [id number], TSH3, T4F, A1C WT eA, ESR #### [facility] [address] [place] [address] Vitamin B6on 08-22-2023 Vitamin B6 31.5 Normal 3.4-65.2 [facility] Comment on above: Result Comment: This test was developed and its performance characteristics determined by [facility]. It has not been cleared or approved by the Food and Drug Administration. Deficiency: <3.4 Marginal: 3.4 - 5.1 Adequate: >5.1 Performed at: [facility] [address] [id number] Wedding Coordinator: Houston Bobo MD, Phone: [phone] PERFORMED BY: [facility] [address] [place] [address] PATHOLOGIST HEALTH AND WELLNESS DIRECTOR BRENDA MOE M.D. Performed By: #### A NA, VITB6, RPR W RFX, RA #### [facility] , #### CRP, [id number], TSH3, T4F, A1C WTH eA, ESR #### [place] [id number] [facility] Outside Recordson 07-18-2023 Outside Records [id number]#1.00[facility] Rad - Other Radiology Report on 06-26-2023 Rad - Other Radiology Report [id number]#1.00[facility] Patient Provided Health Data on 02-14-2023 Patient Provided Health Data [id number]#1.00[facility] Patient Handouton 02-13-2023 Patient Handout [id number]#[address] [place] [address] Covid-19 PCR (CVDTBH)on SARS-CoV-2 (COVID-19) RNA JAHAIRA+probe Ql (Unsp spec) Not detected Normal NOT DETECTED [facility] Comment on above: Result Comment: This test is not yet approved or cleared by the [place] FDA. When there are no FDA-approved or cleared tests available, and other criteria are met, FDA can make tests available under an emergency access mechanism called an Emergency Use Authorization (EUA). The EUA for this test is supported by the Adjunct Instructor Of Women'S Studies of Health and Human Service's (HHS's) declaration that circumstances exist to justify the emergency use of in vitro diagnostics for the detection and/or diagnosis of the virus that causes COVID-19. This EUA will remain in effect (meaning this test can be used) for the duration of the COVID-19 declaration justifying emergency of IVDs, unless it is terminated or revoked by FDA (after which the test may no longer be used). When diagnostic testing is negative, the possibility of a false negative should be considered in the context of a patient's recent exposures and the presence of clinical signs and symptoms consistent with SARS-CoV-2. Performed By: #### C PRIYANKAAGS, CVDTB #### [facility] [address] [place] [address] Renetta Lafleur SYMPTOMATIC COVID-19 ANTIGEN on 12-19-2020 EUA Statement SEE BELOW Normal [facility] Comment on above: Result Comment: This test has not been FDA cleared or approved, but has been authorized by the FDA under an Emergency Use Authorization (EUA) for use by authorized laboratories certified under CLIA that meet the requirements to perform moderate or high complexity testing. This test has been authorized only for the detection of proteins from SARS-CoV-2, not for any other viruses or pathogens. The emergency use of this test is authorized for the duration of the declaration that circumstances exist justifying the authorization of emergency use of in vitro diagnostic tests for detection and/or diagnosis of Covid-19 under section 564(b)(1) of the Act, 21 U.S.C. 360bbb-3(b)(1), unless the declaration is terminated or authorization is revoked sooner. Performed By: #### C VDAGS, CVDTB #### [facility] [address] [place] [id number] Renetta Lafleur SARS-CoV-2 (COVID-19) RNA JAHAIRA+probe Ql (Unsp spec) Negative Normal NEGATIVE [facility] Comment on above: Result Comment: CONF IRMATION BY PCR PENDING PER CDC GUIDELINES/ SYMPTOMATIC PATIENT. Performed By: #### C VDAGS, CVDTB #### [facility] [address] [place] [address] Renetta Lafleur CBC with Diffon 11-30-2017 Abs. Basophil 0.10 k/uL Normal 0.0-0.2 [facility] Comment on above: Performed By: #### C DP, CP, LIP, EDTOX ####[facility] [place] [address] Abs.Neutrophil (Seg) 6.70 k/uL Normal 1.3-9.[address] [facility] Comment on above: Performed By: #### C DP, CP, LIP, EDTOX ####[facility] [place] [address] Basophils/100 WBC Auto (Bld) 1 % Normal 0-2 [facility] Comment on above: Performed By: #### C DP, CP, LIP, EDTOX ####[address] [address] Eosinophils 0.10 10*3/uL Normal 0.0-0.4 [facility] Comment on above: Performed By: #### C DP, CP, LIP, EDTOX ####[address] [facility] [place] [address] Eosinophils/100 leukocytes 2 % Normal 0-4 [facility] Comment on above: Performed By: #### C DP, CP, LIP, EDTOX ####[place] [address] [place] [facility] [place] [address] Erythrocyte distribution width Auto Ratio (RBC) 12.7 % Normal 11.5-14.9 [facility] Comment on above: Performed By: #### C DP, CP, LIP, EDTOX ####[address] [place] [address] Erythrocytes (RBC) 4.38 10*6/uL Low 4.5-5.[address] [facility] Comment on above: Performed By: #### C DP, CP, LIP, EDTOX ####[facility] [place] [address].[place] [address] Hematocrit (HCT) 39.1 % Low 41-53 [facility] Comment on above: Performed By: #### C DP, CP, LIP, EDTOX ####[address] [address] Hemoglobin mass conc (Bld) 13.2 g/dL Low 13.5-17.5 [facility] Comment on above: Performed By: #### C DP, CP, LIP, EDTOX ####[address] [address] Lymphocytes 1.80 10*3/uL Normal 1.0-4.8 [facility] Comment on above: Performed By: #### C DP, CP, LIP, EDTOX ####[address] [address] Lymphocytes/100 leukocytes 19 % Low 24-44 [facility] Comment on above: Performed By: #### C DP, CP, LIP, EDTOX ####[address] [address] MCH 30.1 pg Normal 26-34 [facility] Comment on above: Performed By: #### C DP, CP, LIP, EDTOX ####[address] [address] MCHC mass conc (RBC) 33.7 g/dL Normal 31-[address] [facility] Comment on above: Performed By: #### C DP, CP, LIP, EDTOX ####[address] [address] MCV 89.3 fL Normal 80-100 [facility] Comment on above: Performed By: #### C DP, CP, LIP, EDTOX ####[facility] [place] [address] Monocytes 0.60 10*3/uL Normal 0.1-1.3 [facility] Comment on above: Performed By: #### C DP, CP, LIP, EDTOX ####[facility] [place] [address] Monocytes/100 leukocytes 7 % Normal 1-7 [facility] Comment on above: Performed By: #### C DP, CP, LIP, EDTOX ####[facility] [place] [address].[place] [address] Neutrophil (Seg) 71 % High 36-66 [facility] Comment on above: Performed By: #### C DP, CP, LIP, EDTOX ####[facility] [place] [address].[place] [address] Platelet mean volume (PMV) 7.7 fL Normal 6.0-12.0 [facility] Comment on above: Performed By: #### C DP, CP, LIP, EDTOX ####[facility] [place] [address].[place] [address] Platelets 249 10*3/uL Normal 150-450 [facility] Comment on above: Performed By: #### C DP, CP, LIP, EDTOX ####[facility] [place], [place] [address] [address] WBC (Leukocytes) 9.3 10*3/uL Normal 3.5-11.0 [facility] Comment on above: Performed By: #### C DP, CP, LIP, EDTOX ####[place] [address] [place] [address] Abs.Imm.Granulocyte NOT REPORTED Normal 0.00-0.30 [facility] Comment on above: Performed By: #### C DP, CP, LIP, EDTOX ####[facility] [facility] [place] [address] Auto Diff Performed NOT REPORTED Normal [facility] Comment on above: Performed By: #### C DP, CP, LIP, EDTOX ####[facility] [place] [address] Erythrocyte morphology NOT REPORTED Normal [facility] Comment on above: Performed By: #### C DP, CP, LIP, EDTOX ####[address] [place] [address] Immature granulocytes #/vol (Bld) NOT REPORTED Normal 0 [facility] Comment on above: Performed By: #### C DP, CP, LIP, EDTOX ####[address] [place] [address] NRBC Automated NOT REPORTED Normal [facility] Comment on above: Performed By: #### C DP, CP, LIP, EDTOX ####[address] [place] [address] Platelets NOT REPORTED Normal [facility] Comment on above: Performed By: #### C DP, CP, LIP, EDTOX ####[address] [place] [address] WBC Morphology NOT REPORTED Normal [facility] Comment on above: Performed By: #### C DP, CP, LIP, EDTOX ####[address] [place] [address] Comp Metabolic Profon 2017 (cont.) Normal [facility] Comment on above: Result Comment: Aver age GFR for 20-29 years old: 116 mL/min/1.73sq mChronic Kidney Disease: <60 mL/min/1.73sq mKidney failure: <15 mL/min/1.73sq meGFR calculated using average adult body mass. Additional eGFR calculator available at:http://www.[employer].com/multiple_crcl_2012.htm Performed By: #### C DP, CP, LIP, EDTOX ####[facility] [place] [address] Alanine aminotransferase (ALT) 26 U/L Normal 5-41 [facility] Comment on above: Performed By: #### C DP, CP, LIP, EDTOX ####[facility] [place] [address] Albumin 4.1 g/dL Normal 3.5-5.2 [facility] Comment on above: Performed By: #### C DP, CP, LIP, EDTOX ####[address] [facility] [place] [address] Alkaline Phos 78 U/L Normal 40-129 [facility] Comment on above: Performed By: #### C DP, CP, LIP, EDTOX ####[address] [place] [address] Anion gap 12 mmol/L Normal 9-17 [facility] Comment on above: Performed By: #### C DP, CP, LIP, EDTOX ####[address] [place] [address] Aspartate aminotransferase (AST) 24 U/L Normal <40 [facility] Comment on above: Performed By: #### C DP, CP, LIP, EDTOX ####[address] [place] [address] Bilirubin Ql (U) 0.56 mg/dL Normal 0.3-1.2 [facility] Comment on above: Performed By: #### C DP, CP, LIP, EDTOX ####[address] [place] [address] Calcium 9.0 mg/dL Normal 8.6-10.4 [facility] Comment on above: Performed By: #### C DP, CP, LIP, EDTOX ####[place] [address] [place] [address] Chloride 103 mmol/L Normal 98-107 [facility] Comment on above: Performed By: #### C DP, CP, LIP, EDTOX ####[place] [address] [place] [address] CO2 24 mmol/L Normal 20-31 [facility] Comment on above: Performed By: #### C DP, CP, LIP, EDTOX ####[place] [address] [place] [address] Creatinine 0.62 mg/dL Low 0.70-1.20 [facility] Comment on above: Performed By: #### C DP, CP, LIP, EDTOX ####[place] [address] [place] [address] GFR, Amer >60 Normal >60 [facility] Comment on above: Performed By: #### C DP, CP, LIP, EDTOX ####[place] [address] [place] [address] GFR,non Amer >60 Normal >[address] [facility] Comment on above: Performed By: #### C DP, CP, LIP, EDTOX ####[place] [address] [place] [address] Glucose mass conc 80 mg/dL Normal 70-99 [facility] Comment on above: Performed By: #### C DP, CP, LIP, EDTOX ####[place] [address] [place] [address] Potassium molar conc 4.0 mmol/L Normal 3.7-5.[address] [facility] Comment on above: Performed By: #### C DP, CP, LIP, EDTOX ####[facility] [place] [address] Protein 6.4 g/dL Normal 6.4-8.3 [facility] Comment on above: Performed By: #### C DP, CP, LIP, EDTOX ####[facility] [place] [address] Sodium 139 mmol/L Normal 135-144 [facility] Comment on above: Performed By: #### C DP, CP, LIP, EDTOX ####[facility] [place] [address] Urea nitrogen 15 mg/dL Normal 6-20 [facility] Comment on above: Performed By: #### C DP, CP, LIP, EDTOX ####[facility] [place] [address] Albumin/Globulin Ratio NOT REPORTED Normal 1.0-2.5 [facility] Comment on above: Performed By: #### C DP, CP, LIP, EDTOX ####[facility] [place] [address] BUN/CRE Ratio NOT REPORTED Normal 9-20 [facility] Comment on above: Performed By: #### C DP, CP, LIP, EDTOX ####[facility] [place] [address] Staging: NOT REPORTED Normal [facility] Comment on above: Performed By: #### C DP, CP, LIP, EDTOX ####[facility] [place] [address] Drug Scr, Abuse, Uron 2017 Amphetamine(s),Ur Negative Normal NEG [facility] Comment on above: Result Comment: (Pos itive cutoff 1000 ng/mL) Performed By: #### U AX, SORAIDA ####[address] [address] Barbiturate(s),Ur Negative Normal NEG [facility] Comment on above: Result Comment: (Pos itive cutoff 200 ng/mL) Performed By: #### U AX, SORAIDA ####[address] [address] Base excess Negative Normal NEG [facility] Comment on above: Result Comment: (Pos itive cutoff 300 ng/mL) Performed By: #### U AX, SORAIDA ####[address] [address] Benzodiazepine(s) Negative Normal NEG [facility] Comment on above: Result Comment: (Pos itive cutoff 200 ng/mL) Performed By: #### U AX, SORAIDA ####[address] [address] Cannabinoid(s),Ur Negative Normal NEG [facility] Comment on above: Result Comment: (Pos itive cutoff 50 ng/mL) Performed By: #### U AX, SORAIDA ####[address] [address] Interpretive Info Assay provides medic al screening only. The absence of expected drug(s) and/or Normal [facility] Comment on above: Result Comment: meta bolite(s) may indicate diluted or adulterated urine, limitations of testing or timing of collection.Testing for legal purposes should be confirmed by another method. To request confirmation of test result, please call the lab within 7 days of sample submission. Performed By: #### U AX, SORAIDA ####[address] [address] Opiate(s), Ur Negative Normal NEG [facility] Comment on above: Result Comment: (Pos itive cutoff 300 ng/mL) Performed By: #### U AX, SORAIDA ####[address] [address] Oxycodone, Urine Negative Normal NEG [facility] Comment on above: Result Comment: (Pos itive cutoff 100 ng/mL) Performed By: #### U AX, SORAIDA ####[address] [address] Phencyclidine, Ur Negative Normal NEG [facility] Comment on above: Result Comment: (Pos itive cutoff 25 ng/mL) Performed By: #### U AX, SORAIDA ####[address] [address] Urine, methadone presence Negative Normal NEG [facility] Comment on above: Result Comment: (Pos itive cutoff 300 ng/mL) Performed By: #### U AX, SORAIDA ####[address] [address] Buprenorphrine, Ur NOT REPORTED Normal NEG [facility] Comment on above: Performed By: #### U AX, SORAIDA ####[address] [address] MDMA, Urine NOT REPORTED Normal NEG [facility] Comment on above: Performed By: #### U AX, SORAIDA ####[address] [address] Methamphetamine, Ur NOT REPORTED Normal NEG [facility] Comment on above: Performed By: #### U AX, SORAIDA ####[address] [address] Propoxyphene,Urine NOT REPORTED Normal NEG [facility] Comment on above: Performed By: #### U AX, SORAIDA ####[address] [address] Urine, tricyclic antidepressants NOT REPORTED Normal NEG [facility] Comment on above: Performed By: #### U AX, SORAIDA ####[address] [address] Lactic Acidon 11-30-2017 Lactate 0.5 mmol/L Normal 0.5-2.2 [facility] Comment on above: Performed By: #### L ACTIC ####[address] [address] Lactic Acid,Whole Bl NOT REPORTED Normal 0.7-2.1 [facility] Comment on above: Performed By: #### L ACTIC ####[address] [address] Lipaseon 11-30-2017 Lipase 9 U/L Low 13-60 [facility] Comment on above: Performed By: #### C DP, CP, LIP, EDTOX ####[address] [address] Tox Scr, Bld, EDon 8 Acetaminophen mass conc <5 Low 10-30 [facility] Comment on above: Performed By: #### C DP, CP, LIP, EDTOX ####[address] [address] Salicylate <1 Low 3-10 [facility] Comment on above: Performed By: #### C DP, CP, LIP, EDTOX ####[address] [address] Ethanol mg/dL Normal <10 [facility] Comment on above: Performed By: #### C DP, CP, LIP, EDTOX ####[address] [address] Ethanol percent <0.010 Normal [facility] Comment on above: Performed By: #### C DP, CP, LIP, EDTOX ####[address] [address] UA w/Reflex Cultureon 2017 Acetoacetic Acid,Ur Negative Normal NEG [facility] Comment on above: Performed By: #### U AX, SORAIDA ####[address] [address] Bilirubin, SemiQt,Ur Negative Normal NEG [facility] Comment on above: Performed By: #### U AX, SORAIDA ####[address] [address] Color YELLOW Normal YEL [facility] Comment on above: Performed By: #### U AX, SORAIDA ####[address] [address] Comment Microscopic exam not performed based on chemical results unless requested in Normal [facility] Comment on above: Result Comment: orig inal order. Performed By: #### U AX, SORAIDA ####[address] [address] Glucose,Semi-qnt,Ur Negative Normal NEG [facility] Comment on above: Performed By: #### U AX, SORAIDA ####[address] [address] Hemoglobin, Ur Negative Normal NEG [facility] Comment on above: Performed By: #### U AX, SORAIDA ####[address] [address] Leuckocyte Esterase Negative Normal NEG [facility] Comment on above: Performed By: #### U AX, SORAIDA ####[address] [address] Nitrite,Ur Negative Normal NEG [facility] Comment on above: Performed By: #### U AX, SORAIDA ####[address] [address] PH,Ur 6.5 Normal 5.0-8.0 [facility] Comment on above: Performed By: #### U AX, SORAIDA ####[address] [address] Protein, Semi-qnt,Ur Negative Normal NEG [facility] Comment on above: Performed By: #### U AX, SORAIDA ####[address] [address] Spec. [place],Ur 1.003 Normal 1.000-1.030 [facility] Comment on above: Performed By: #### U AX, SORAIDA ####[address] [address] Turbidity CLEAR Normal CLEAR [facility] Comment on above: Performed By: #### U AX, SORAIDA ####[address] [address] Urobilinogen,Ur Normal Normal NORM [facility] Comment on above: Performed By: #### U AX, SORAIDA ####[address] [address] Vital Signs Date Time Vital Sign Value Performing Clinician Facility 12-30-2023 14:58-0400 Heart rate 73 /min Laci Moss [facility] 12-30-2023 14:58-0400 SaO2% (BldA) [Mass fraction] 95 % Laci Moss [facility] 12-30-2023 14:58-0400 Diastolic blood pressure 82 mm[Hg] Laci Moss [facility] 12-30-2023 14:58-0400 Mean blood pressure 93 mm[Hg] Laci Moss [facility] 12-30-2023 14:58-0400 Systolic blood pressure 115 mm[Hg] Laci Moss [facility] 12-30-2023 14:58-0400 Respiratory rate 16 /min Laci Moss [facility] 12-30-2023 14:49-0400 Diastolic blood pressure 75 mm[Hg] Laci Moss [facility] 12-30-2023 14:49-0400 Heart rate 74 /min Laci Moss [facility] 12-30-2023 14:49-0400 SaO2% (BldA) [Mass fraction] 98 % Laci Moss [facility] 12-30-2023 14:49-0400 Systolic blood pressure 124 mm[Hg] Laci Moss [facility] 12-30-2023 13:29-0400 Heart rate 98 /min Laci Moss [facility] 12-30-2023 13:29-0400 SaO2% (BldA) [Mass fraction] 95 % Laci Moss [facility] 12-30-2023 13:29-0400 Body temperature 98.06 [degF] Laci Ajay [facility] 12-30-2023 13:28-0400 Diastolic blood pressure 64 mm[Hg] Laci Ajay [facility] 12-30-2023 13:28-0400 Mean blood pressure 87 mm[Hg] Laci Moss [facility] 12-30-2023 13:28-0400 Systolic blood pressure 134 mm[Hg] Laci Moss [facility] 12-30-2023 13:27-0400 Respiratory rate 14 /min Laci Moss [facility] 12-12-2023 12:59-0400 Body weight 67.13 kg DO Jeremi Marie Work Phone: [facility] 11-18-2023 14:41-0400 Diastolic blood pressure 84 mm[Hg] Jessica Rodgers [facility] 11-18-2023 14:41-0400 Heart rate 103 /min Jessicajuany Rodgers [facility] 11-18-2023 14:41-0400 Mean blood pressure 99 mm[Hg] Jessica Rodgers [facility] 11-18-2023 14:41-0400 Respiratory rate 14 /min Jessica Rodgers [facility] 11-18-2023 14:41-0400 Systolic blood pressure 130 mm[Hg] Jessica Rodgers [facility] 10-15-2023 15:17-0400 Heart rate 60 /min Laci Moss [facility] 10-15-2023 15:17-0400 SaO2% (BldA) [Mass fraction] 98 % Laci Moss [facility] 10-15-2023 15:17-0400 Diastolic blood pressure 68 mm[Hg] Laci Moss [facility] 10-15-2023 15:17-0400 Mean blood pressure 87 mm[Hg] Laci Moss [facility] 10-15-2023 15:17-0400 Systolic blood pressure 125 mm[Hg] Laci Moss [facility] 10-15-2023 15:17-0400 Respiratory rate 16 /min Laci Moss [facility] 10-15-2023 15:12-0400 Diastolic blood pressure 78 mm[Hg] Aguero Moss [facility] 10-15-2023 15:12-0400 Heart rate 61 /min Aguero Ajay [facility] 10-15-2023 15:12-0400 SaO2% (BldA) [Mass fraction] 99 % Aguero Ajay [facility] 10-15-2023 15:12-0400 Systolic blood pressure 120 mm[Hg] Laci Moss [facility] 10-15-2023 13:51-0400 Heart rate 106 /min Laci Moss [facility] 10-15-2023 13:51-0400 SaO2% (BldA) [Mass fraction] 96 % Aguero Ajay [facility] 10-15-2023 13:50-0400 Diastolic blood pressure 86 mm[Hg] Laci Moss [facility] 10-15-2023 13:50-0400 Mean blood pressure 104 mm[Hg] Laci Moss [facility] 10-15-2023 13:50-0400 Systolic blood pressure 138 mm[Hg] Laci Moss [facility] 10-15-2023 13:50-0400 Body temperature 98.06 [degF] Laci Moss [facility] 10-15-2023 13:50-0400 Respiratory rate 16 /min Laci Moss [facility] 09-12-2023 10:52-0400 Diastolic blood pressure 74 mm[Hg] Laci Moss [facility] 09-12-2023 10:52-0400 Heart rate 86 /min Laci Moss [facility] 09-12-2023 10:52-0400 Mean blood pressure 90 mm[Hg] Laci Moss [facility] 09-12-2023 10:52-0400 Respiratory rate 16 /min Laci Moss [facility] 09-12-2023 10:52-0400 Systolic blood pressure 122 mm[Hg] Laci Moss [facility] 07-17-2023 11:15-0500 Body height 177.8 cm DO Jeremi Marie Work Phone: [facility] 07-17-2023 11:15-0500 Body mass index (BMI) [Ratio] 22.6 kg/m2 DO Jeremi Marie Work Phone: [facility] 07-17-2023 11:15-0500 Body weight 71.66 kg DO Jeremi Marie Work Phone: [facility] Encounters Encounter Date Encounter Type Care Provider Facility Start: 01-16-2024 End: 01-16-2024 ambulatory JEREMI P HOUSE Facility:[facility]ennifer Start: 01-01-2024 End: 01-01-2024 ambulatory JEREMI P HOUSE Facility:[facility]ennifer Start: 12-30-2023 End: 12-30-2023 ambulatory Laci Moss [place] [place]: 12-30-2023 End: 12-30-2023 Pain Management Laci Moss [facility] Start: 12-12-2023 End: 12-12-2023 Patient encounter procedure DO Jeremi Jamel Work Phone: [facility] Neuro[facility] Work Phone: Start: 12-12-2023 End: 12-12-2023 ambulatory DO Jeremi House Work Phone: [facility] Work Phone: Start: 12-10-2023 End: 12-10-2023 ambulatory Jessica Rodgers [place] Start: 12-10-2023 End: 12-10-2023 Patient encounter procedure Jessica Rodgers [facility] Start: 11-18-2023 End: 11-18-2023 ambulatory PA-C Jessica Rodgers [place] Start: 11-18-2023 End: 11-18-2023 Pain Management Jessicajuany Rodgers [facility] Start: 10-24-2023 End: 10-24-2023 ambulatory DO Jeremi House Work Phone: [facility] Work Phone: Start: 10-24-2023 End: 10-24-2023 Discharged Recurring DO Jeremi House Work Phone: [facility] [place] Work Phone: Start: 10-15-2023 End: 10-15-2023 ambulatory Laci Moss [place] Start: 10-15-2023 End: 10-15-2023 Pain Management Laci Moss [facility] Start: 10-02-2023 End: 10-02-2023 ambulatory JEREMI P HOUSE Facility:[facility] Cli jennifer Start: 09-19-2023 End: 09-19-2023 ambulatory DO Jeremi House Work Phone: [facility] Work Phone: Start: 09-19-2023 End: 09-19-2023 Discharged Recurring DO Jeremi House Work Phone: [facility] [place] Work Phone: Start: 09-12-2023 End: 09-12-2023 ambulatory Laci Moss [place] Start: 09-12-2023 End: 09-12-2023 Pain Management Laci QuinnSadiq Moss [facility] Start: 08-22-2023 End: 08-22-2023 Patient encounter procedure DO Jeremi Marie Work Phone: [facility] [place] Work Phone: Start: 08-22-2023 End: 08-22-2023 ambulatory DO Jeremi Marie Work Phone: [facility] Work Phone: Start: 08-22-2023 Registered Recurring DO Abdelrahman s Jamel Work Phone: [facility] [place] Work Phone: Start: 07-17-2023 End: 07-17-2023 Patient encounter procedure DO Jeremi Marie Work Phone: [facility] Neuro[facility] Work Phone: Start: 07-02-2023 End: 07-02-2023 ambulatory [facility]I MARIE [facility] Start: 05-16-2023 End: 05-16-2023 ambulatory Krishan Munoz MD [facility]ennifer Start: 02-13-2023 End: 02-13-2023 ambulatory JEREMI MARIE [facility] jennifer Start: 12-19-2020 End: 12-20-[address] JEREMI MARIE Facility: Start: 11-30-2017 End: 11-30-2017 Emergency department patient visit NICO WEBB [facility] Procedures Date Procedure Procedure Detail Performing Clinician Start: 12-12-2023 X-ray of lumbar spin e, six views including bending views DO Jeremi Marie Work Phone: Start: 10-15-2023 Epidural injection o f lumbar spine using fluoroscopic guidance Jessica Rodgers Comment on above: L4-L5 60% relief x 2 days Start: 11-30-2017 Assay of lipase NICO GIORDANO Start: 11-30-2017 Blood count complete auto&auto difrntl wbc NICO WEBB Start: 11-30-2017 Comprehensive metabo lic panel NICO WEBB Start: 11-30-2017 LACTIC ACID, PLASMA JAM ZARA WEBB Start: 11-30-2017 TOX SCR, BLD, ED NICO WEBB Start: 11-30-2017 EKG 12-LEAD NICO HENRY Start: 11-30-2017 URINE DRUG SCREEN NICO WEBB Start: 11-30-2017 URINE RT REFLEX TO CULTURE NICO TRACEY ft (qualifier value) Rubens Moss Comment on above: 4th grade Knee region structur e (body structure) Laci Moss Plan of Treatment Date Care Activity Detail Author Start: 12-12-2023 X-ray of lumbar spin e, six views including bending views XR lumbar spine 6V w bending [facility] Start: 08-22-2023 Pyridoxine [Mass/vol ume] in Serum or Plasma [facility] Start: 08-22-2023 Rheumatoid factor [Units/volume] in Serum or Plasma [facility] Start: 08-22-2023 [facility] Start: 07-17-2023 Patient referral [facility] Work Phone: Glucose measurement estimated from glycated hemoglobin [facility] Homogenous nuclear A b pattern [Titer] in Serum [facility] Nuclear Ab [Titer] i n Serum [facility] Patient referral [facility] Work Phone: Reagin Ab [Presence] in Serum by RPR [facility] XR Lumbar spine Views [facility] Payers Date Payer Category Payer Self-pay [id number] 1990 Unknown [id number] 2.16.84 [id number] 1990 Unknown [id number] 2.16.8 [id number] 1988 Unknown [id number] 2.16.8 40.1.694728.3.579.2.727 1988 Unknown [id number] 2.16.8 40.1.533803.3.579.2.727 1988 Unknown [id number] 2.16.8 40.1.671541.3.579.2.727 1988 Unknown [id number] 2.16.8 40.1.775632.3.579.2.727 1988 Unknown [id number] 2.16.8 40.1.591330.3.579.2.718 1988 Unknown [id number] 2.16.8 40.1.558600.3.579.2.718 1988 Unknown [id number] 2.16.8 40.1.223733.3.579.2.718 1988 Unknown [id number] 2.16.8 40.1.804709.3.579.2.718 1988 Unknown [id number] 2.16.8 40.1.335660.3.579.2.718 1988 Unknown [id number] 2.16.8 40.1.847674.3.579.2.718 1959 Unknown [id number] Unknown [facility] [id number] Unknown [id number] 2.16.8 40.1.103321.3.579.2.531 Unknown [id number] 2.16.8 40.1.834306.3.579.2.531 Unknown [id number] 2.16.8 40.1.504932.3.579.2.531 Unknown [id number] 2.16.8 40.1.201362.3.579.2.531 Social History Date Type Detail Facility Start: 12[facility]09[facility] Start: 1990 Sex Assigned At Male [facility] Start: 09-12-2023 Tobacco smoking status Heavy t obacco smoker (finding) [facility] Sex Assigned At Male [facility] Functional Status Date Assessment Result Facility 12-30-2023 Functional Status N/A [facility] 11-18-2023 Functional Status N/A [facility] 10-15-2023 Functional Status N/A [facility] 09-12-2023 Functional Status N/A [facility] Clinical Notes 04-18-2023 to 12-30-2023 Note Date & Type Note Facility 12-30-2023 Note Operative Report Diagnosis: M54.16, lumbar radiculopathy Procedure: Bilateral L5/S1 lumbar transforaminal epidural steroid injections under fluoroscopic guidance Anesthesia: Local Complications: none After informed consent was obtained, the patient was brought to the procedure suite placed in the prone position. Pulse oximetry and blood pressure were monitored throughout. The low back area is prepped and draped in usual sterile fashion. Using fluoroscopic guidance, skin and subcutaneous tissue overlying the medial trajectory of the neuroforamina were anesthetized with 2% lidocaine. A 22-gauge Sprotte needles were then advanced under fluoroscopic guidance to the appropriate foramina. Needle tip positions were confirmed under at least 2 fluoroscopic views. Injection of contrast revealed appropriate spread of the dye without vascular uptake. Next, at each site, 1.5 mL of 1.0% lidocaine with 5 mg of dexamethasone was injected through each needle tip. The needles were then removed and the patient was then transferred to the recovery room in stable condition. The pain tolerated the procedure well. There were no apparent complications. Follow-up: The patient will update us on the response to this procedure, and agrees to comply to currently prescribed/recommended therapies. [facility] Comment on above: Result Comment: Elec tronically Signed By: Laci Moss DO\.br\Date and Time Signed: 12/30/23 14:56 EDT 12-30-2023 Evaluation + Plan note Extrac faraz from: Title:Bilateral L5/S1 transf oraminal epidural steroid injection Author:Laci Moss DO Date:12/30/23 Diagnosis: M54.16, lumbar ra diculopathy Procedure: Bilateral L5/S1 lumbar transforaminal epidural steroid injections under fluoroscopic guidance Anesthesia: Local Complications: none After informed consent was obtained, the patient was brought to the procedure suite placed in the prone position. Pulse oximetry and blood pressure were monitored throughout. The low back area is prepped and draped in usual sterile fashion. Using fluoroscopic guidance, skin and subcutaneous tissue overlying the medial trajectory of the neuroforamina were anesthetized with 2% lidocaine. A 22-gauge Sprotte needles were then advanced under fluoroscopic guidance to the appropriate foramina. Needle tip positions were confirmed under at least 2 fluoroscopic views. Injection of contrast revealed appropriate spread of the dye without vascular uptake. Next, at each site, 1.5 mL of 1.0% lidocaine with 5 mg of dexamethasone was injected through each needle tip. The needles were then removed and the patient was then transferred to the recovery room in stable condition. The pain tolerated the procedure well. There were no apparent complications. Follow-up: The patient will update us on the response to this procedure, and agrees to comply to currently prescribed/recommended therapies. Future Appointments Appointment Date:01/24/2024 01:15:00 PM Scheduled Provider:Jessica Rodgers PA-C Location:.[facility] [place] Appointment Type:Pain Management - Follow Up (FT) [facility] 07-31-2024 Note From: JEREMI MARIE DO To: [facility] Clinical Pool ([facility]); Sent: 12/11/2023 11:56:05 EDT Subject: FW: Medication Management Due Date/Time: 12/12/2023 11:45:00 EDT Caller Name: JOSE JANE; Caller Number: H From: [id number] To: JEREMI MARIE DO Sent: December 11, 2023 10:45:18 AM CDT Subject: Medication Management Due: December 12, 2023 12:08:27 AM CDT On Hold Pending Signature Drug: clonazePAM (clonazePAM 0.5 mg oral tablet), 1 tab(s) Oral BID Quantity: 60 tab(s) Days Supply: 30 Refills: 0 Substitutions Allowed Notes from Pharmacy: Dispensed Drug: clonazePAM (clonazePAM 0.5 mg oral tablet), take 1 tablet by mouth twice a day Quantity: 60 tab(s) Days Supply: 30 Refills: 0 Substitutions Allowed Notes from Pharmacy: From: Lina Meneses MA To: [facility][id number] Sent: 12/11/2023 13:39:16 EDT Subject: FW: Medication Management Not Approved: Refill not appropriate, proposal sent to provider clonazePAM (CLONAZEPAM 0.5 MG TABLET) take 1 tablet by mouth twice a day Qty: 60 tab(s) Days Supply: 30 Refills: 0 Substitutions Allowed Route To Pharmacy - [facility] #[id number] Signed by Lina Meneses [facility]07-18-2024 Note From: JEREMI MARIE DO To: [facility] Clinical Pool ([facility]); Sent: 11/28/2023 16:30:55 EDT Subject: FW: Medication Management Due Date/Time: 11/29/2023 15:43:00 EDT Caller Name: RYAN JOSE; Caller Number: H From: [facility] #[id number] To: JEREMI MARIE DO Sent: November 28, 2023 2:43:31 PM CDT Subject: Medication Management Due: November 29, 2023 12:12:54 AM CDT On Hold Pending Signature Drug: gabapentin (gabapentin 300 mg oral capsule), 1 cap(s) Oral TID Quantity: 90 cap(s) Days Supply: 30 Refills: 0 Substitutions Allowed Notes from Pharmacy: Dispensed Drug: gabapentin (gabapentin 300 mg oral capsule), take 1 capsule by mouth three times a day Quantity: 90 cap(s) Days Supply: 30 Refills: 0 Substitutions Allowed Notes from Pharmacy: From: Fanny Raman To: [facility] #[id number] Sent: 11/28/2023 17:19:25 EDT Subject: FW: Medication Management Not Approved: proposed to provider gabapentin (GABAPENTIN 300 MG CAPSULE) take 1 capsule by mouth three times a day Qty: 90 cap(s) Days Supply: 30 Refills: 0 Substitutions Allowed Route To Pharmacy - [facility] #[id number] Signed by [facility]07-08-2024 NoteConsultation Note Patient: JOSE JANE Age: 33 years Sex: Male : 1990 Associated Diagnoses: None Author: Jessica Rodgers PA-C Subjective Chief complaint 11/18/2023 14:41 EDT lower back pain . Patient is a 33-year-old male. He presents today for follow-up after undergoing an L4-5 epidural steroid injection. This gave him 60% relief but unfortunate, only for 2 days. He continues to have lower back pain with left greater than right radiating leg pain. He has pain that goes down both legs to his ankles but he states that the left leg is worse. He rates it a 5/10 but states that he is miserable. His pain is unbearable. He previously saw a surgeon and they recommended him to have injections first. He states that this most recent injection did help but only short-term. He states that if he cannot get some long-term relief he wants to just have the surgery. He also has neck pain with intermittent arm pain and numbness and tingling in his hands. He did nothave the x-ray and the MRI was denied due to his insurance with no therapy. He has since done a full course of physical therapy and unfortunately, did not get any long-term relief. He still continuesto have the above-mentioned symptoms. This affects his ability to do things throughout the day. Affects his quality of life. Affects his activities. He is not having the MRI once again. In regards to his pain he has been on gabapentin with some relief. He is also on Suboxone. He is aware that his medication options are limited. Health Status Allergies: Allergic Reactions (Selected) Severe Penicillins- Swelling of throat. Vicodin- Swelling. Mild Ativan- Nausea and vomiting., Allergies (3) Active Severity Reaction penicillins Severe Swelling of throat Vicodin Severe Swelling Ativan Mild Nausea and vomiting Current medications: (Selected) Documented Medications Documented ClonazePAM 0.5 mg Tab: 0.5 mg = 1 tab(s), Oral, BID, Refills(s) 0 Neurontin: 300 mg, Oral, TID, Refills(s) 0 One A Day Men's Complete: 1 tab(s), Oral, Daily, Refill(s) 0 Suboxone: See Instructions, Refill(s) 0, 2-8mg tab BID Tylenol Extra Strength 500 mg oral tablet: 1,000 mg = 2 tab(s), Oral, q6hr, Refills(s) 0 quetiapine 50 mg oral tablet: 50 mg = 1 tab(s), Oral, Bedtime, Refills(s) 0 vilazodone 40 mg oral tablet: 40 mg = 1 tab(s), Oral, Daily, Refills(s) 0 Problem list: All Problems Smoker / SNOMED CT 523948713 / Confirmed Added secondary to documentation in Social History. Anxiety / SNOMED CT 48810313 / Confirmed Depression / SNOMED CT 9046506267 / Confirmed Osteoarthritis / SNOMED CT 2861610504 / Confirmed Objective Vital Signs 11/18/2023 14:41 EDT Peripheral Pulse Rate 103 bpm HI Respiratory Rate 14 br/min Systolic Blood Pressure 130 mmHg Diastolic Blood Pressure 84 mmHg Mean Arterial Pressure, Cuff 99 mmHg General: Alert and oriented, No acute distress. Eye: Normal conjunctiva. HENT: Normocephalic, Normal hearing. Cardiovascular: No edema. Musculoskeletal Normal range of motion. Normal strength. 5/5 strength throughout Left positive straight leg raise Negative Randa's Integumentary: Warm, Dry, [place]. Neurologic: Alert, Oriented. Psychiatric: Cooperative, Appropriate mood & affect. 14 point review of systems was negative unless otherwise noted. Results Review Lumbar MRI. 07/19/2023. L4-5 disc bulge extending into the bilateral neural foramina with moderate right and mild left facet arthritis. Mild to moderate right and moderate left foraminal narrowing. L5-S1 left-sided disc protrusion with annular tear. Facet arthritis. Mild to moderate left-sided foraminal narrowing. Impression and Plan Patient is a 33-year-old male with a past medical history significant for lumbar stenosis, lumbar neuritis, lumbar degenerative disease, lumbar disc bulge, cervical neuritis and neck pain. At this time, unfortunately patient continues to have lower back pain with left greater than right radiating leg pain. This affects his ambulatory status. This affects his quality of life. This affects his activities and affects his ability to do the things he wants to do. We once again reviewed the MRI. We discussed different options. I recommended to patient a bilateral L5-S1 transforaminal epidural steroid injection under fluoroscopy for both diagnostic and therapeutic purposes based on his MRI findings, his pain pattern, and his failure to improve with conservative treatments. He will follow-up 2 weeks after the injection for reevaluation. Call the clinic sooner if necessary. In the meantime, in regards to his neck pain with intermittent arm pain he has since undergone a full course of physical therapy without improvement. Since he has now failed all reasonable conservative treatments I recommended to patient a cervical x-ray as well as MRI scan for possible injection options versus surgicalconsultation depend on the results. Patient is agreeab (more content not included)...[facility]:Result Comment: Electronically Signed By: Jessica Rodgers PA-C\.br\Date and Time Signed: 11/18/23 15:04 [id number] Evaluation + Plan noteExtracted from: Title:Pain Managment Follow up Author:Jessica Bustos Date:11/18/23 Impression and Plan Patient is a 33-year-old male with a past medical history significant for lumbar stenosis, lumbar neuritis, lumbar degenerative disease, lumbar disc bulge, cervical neuritis and neck pain. At this time, unfortunately patient continues to have lower back pain with left greater than right radiating leg pain. This affects his ambulatory status. This affects his quality of life. This affects his activities and affects his ability to do the things he wants to do. We once again reviewed the MRI. We discussed different options. I recommended to patient a bilateral L5-S1 transforaminal epidural steroid injection under fluoroscopy for both diagnostic and therapeutic purposes based on his MRI findings, his pain pattern, and his failure to improve with conservative treatments. He will follow-up 2 weeks after the injection for reevaluation. Call the clinic sooner if necessary. In the meantime, in regards to his neck pain with intermittent arm pain he has since undergone a full course of physical therapy without improvement. Since he has now failed all reasonable conservative treatments I recommended to patient a cervical x-ray as well as MRI scan for possible injection options versus surgical consultation depend on the results. Patient is agreeable. Follow-up after. MARTÍN score: 62%. [facility]07-01-2024 Note From: JEREMI MARIE DO To: [facility] Clinical [facility] Sent: 11/09/2023 11:52:39 EDT Subject: FW: Medication Management Due Date/Time: 11/09/2023 11:51:00 EDT Caller Name: JOSE JANE; Caller Number: H From: [facility] #[id number] To: JEREMI MARIE DO Sent: November 08, 2023 10:51:33 AM CDT Subject: Medication Management Due: November 09, 2023 12:18:39 AM CDT On Hold Pending Signature Drug: clonazePAM (clonazePAM 0.5 mg oral tablet), 1 tab(s) Oral BID Quantity: 60 tab(s) Days Supply: 30 Refills: 0 Substitutions Allowed Notes from Pharmacy: Dispensed Drug: clonazePAM (clonazePAM 0.5 mg oral tablet), take 1 tablet by mouth twice a day Quantity: 60 tab(s) Days Supply: 30 Refills: 0 Substitutions Allowed Notes from Pharmacy: From: Fanny Raman To: [facility] #[id number] Sent: 11/11/2023 08:52:56 EDT Subject: FW: Medication Management Not Approved: proposed to provider clonazePAM (CLONAZEPAM 0.5 MG TABLET) take 1 tablet by mouth twice a day Qty: 60 tab(s) Days Supply: 30 Refills: 0 Substitutions Allowed Route To [facility]acy - [facility][id number] Signed by [facility]06-21-2024 Note From: JEREMI MARIE DO Cc: [facility] Clinical [place] ([facility]); Sent: 10/31/2023 20:40:39 EDT Subject: FW: Medication Management Due Date/Time: 11/01/2023 18:43:00 EDT Caller Name: JOSE JANE; Caller Number: H From: [facility] #[id number] To: JEREMI MARIE DO Sent: October 31, 2023 5:43:21 PM CDT Subject: Medication Management Due: November 01, 2023 12:06:54 AM CDT On Hold Pending Signature Drug: gabapentin (gabapentin 300 mg oral capsule), 1 cap(s) Oral TID Quantity: 90 cap(s) Days Supply: 30 Refills: 0 Substitutions Allowed Notes from Pharmacy: Dispensed Drug: gabapentin (gabapentin 300 mg oral capsule), take 1 capsule by mouth three times a day Quantity: 90 cap(s) Days Supply: 30 Refills: 0 Substitutions Allowed Notes from Pharmacy: From: Susy Parra LPN To: [facility] #[id number] Sent: 11/01/2023 08:19:24 EDT Subject: FW: Medication Management Not Approved: proposal sent to provider gabapentin (GABAPENTIN 300 MG CAPSULE) take 1 capsule by mouth three times a day Qty: 90 cap(s) Days Supply: 30 Refills: 0 Substitutions Allowed Route To Pharmacy - [facility] #[id number] Signed by Susy Parra [facility]06-05-2024 Note [id number] NoteDiagnosis: M48.062, lumbar stenosis with neurogenic claudication Procedure: L4/5 lumbar interlaminar epidural steroid injection under fluoroscopic guidance Anesthesia: Local Complications: none After informed consent was obtained, the patient was brought to the procedure suite and placed in the prone position. Pulse oximetry and blood pressure were monitored throughout. Low back areas prepped and draped in the usual sterile fashion. Using fluoroscopic guidance, the skin and subcutaneous tissue overlying the needle trajectory were anesthetized with 2% lidocaine. A 17-gauge Touhy needle was inserted and directed by fluoroscopy. Entry into the epidural space was confirmed using the [id number] technique and 2 cc of air. Injection of contrast revealed appropriate spread without vascular uptake. 4 mL of normal saline plus 40 mg of methylprednisolone was then injected. The needlewas removed and the patient was then transferred to the recovery room in stable condition. The patient tolerated the procedure well. There were no apparent complications. Follow-up: The patient will update us on the response to this procedure, and agrees to continue currently prescribed/recommended therapies.[facility] Comment on above:Result Comment: Electronically Signed By: Laci Moss DO\Date and Time Signed: 10/15/23 15:14 [id number] Note From: JEREMI MARIE DO To: [facility] Sent: 10/10/2023 14:17:56 EDT Subject: FW: Medication Management Due Date/Time: 10/11/2023 12:32:00 EDT Caller Name: RYAN JOSE; Caller Number: H From: [facility][id number] To: JEREMI MARIE DO Sent: October 10, 2023 11:32:09 AM CDT Subject: Medication Management Due: October 11, 2023 12:13:46 AM CDT On Hold Pending Signature Drug: clonazePAM (clonazePAM 0.5 mg oral tablet), 1 tab(s) Oral BID Quantity: 60 tab(s) Days Supply: 30 Refills: 0 Substitutions Allowed Notes from Pharmacy: Dispensed Drug: clonazePAM (clonazePAM 0.5 mg oral tablet), take 1 tablet by mouth twice a day Quantity: 60 tab(s) Days Supply: 30 Refills: 0 Substitutions Allowed Notes from Pharmacy: From: Fanny Raman To: [facility] #[id number] Sent: 10/10/2023 16:25:15 EDT Subject: FW: Medication Management Not Approved: proposed to provider clonazePAM (CLONAZEPAM 0.5 MG TABLET) take 1 tablet by mouth twice a day Qty: 60 tab(s) Days Supply: 30 Refills: 0 Substitutions Allowed Route To Pharmacy - [facility] #[id number] Signed by [facility]05-20-2024 Note From: JEREMI MARIE DO To: [facility] Sent: 09/30/2023 07:45:59 EDT Subject: FW: Medication Management Due Date/Time: 09/30/2023 11:11:00 EDT Caller Name: RYAN JOSE; Caller Number: From: [facility][id number] To: JEREMI MARIE DO Sent: September 29, 2023 10:11:05 AM CDT Subject: Medication Management Due: September 30, 2023 12:03:08 AM CDT On Hold Pending Signature Drug: gabapentin (gabapentin 300 mg oral capsule), 1 cap(s) Oral TID Quantity: 90 cap(s) Days Supply: 30 Refills: 0 Substitutions Allowed Notes from Pharmacy: Dispensed Drug: gabapentin (gabapentin 300 mg oral capsule), take 1 capsule by mouth three times a day Quantity: 90 cap(s) Days Supply: 30 Refills: 0 Substitutions Allowed Notes from Pharmacy: From: Fanny Raman To: [facility] #[id number] Sent: 09/30/2023 11:50:18 EDT Subject: FW: Medication Management Not Approved: proposed to provider gabapentin (GABAPENTIN 300 MG CAPSULE) take 1 capsule by mouth three times a day Qty: 90 cap(s) Days Supply: 30 Refills: 0 Substitutions Allowed Route To Pharmacy - [facility] #[id number] Signed by [facility]05-02-2024 Evaluation + Plan note Extracted from: Title:chronic pain Author:Laci Moss DO Date:09/12/23 Patient is presenting with c omplaints of neck and low back pain. He states that his low back pain is worse with any standing or walking but is present all the time he rates his pain as a 5/10 but can be a 10/10 in severity. He also has neck pain without radiation into his bilateral upper extremities. 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 He has had pain for several years and has been maintained on Suboxone therapy as well as gabapentin for his pain. We did review his lumbar spine MRI and discussed that he has mild central canal stenosis at L2/3 and L3/4. He has completed a full course of recent physical therapy per his report for his neck and low back without significant lasting relief. He has medication use is limited due to his current pain contract and he would like to see what else can be done about his pain. MARTÍN Score: 72% PHQ-2: 6 Patient denies any symptoms of progressively worsening upper/lower extremity weakness, progressively worsening gait abnormality, new onset bowel/bladder incontinence/ urinary retention, or saddle anesthesia. No new or worsening symptoms of fever, chills, night sweats. 14 Point Review of systems negative unless otherwise noted. General: No acute distress. Patient appears well-nourished. HEENT: Head is normocephalic and external ears are normal in appearance. Cardiovascular: No signs of poor perfusion and no peripheral edema Pulmonary: Nonlabored breathing, symmetric chest movement. GI: Abdomen nondistended Integumentary: No lesions Musculoskeletal: Tender palpation cervical lumbar paraspinal musculature. Neurologic: Alert, oriented x3. 5/5 strength grossly in the bilateral upper extremities. Sensation intact to light touch in the bilateral upper extremities. 5/5 strength grossly in the bilateral lower extremities. Sensation intact to light touch in the bilateral lower extremities. Special Testing: Positive Randa sign on the left only, Spurling's negative bilaterally, mild tenderness palpation in cervical paraspinal musculature, seated straight leg raise test did reproduce mild radicular symptoms bilaterally. History, physical examination, and personal review of pertinent imaging results indicate a diagnosis of: -Lumbar stenosis with neurogenic claudication -Cervical radiculopathy Plan: -We lengthy discussion about current symptoms and treatments for this, we discussed performing L4-5 interlaminar epidural steroid injection under fluoroscopic guidance -Relation to his neck we discussed performing cervical spine x-rays and if there are no significant findings on this we can consider an MRI, we also discussed that if he develops any symptoms of significant narrowing in his neck such as weakness in his upper extremities gait instability or any other red flag signs such as loss of bowel or bladder function or changes that are significant bowel or bladder function he should seek emergent care in the ED Patient was counseled on the above diagnosis and treatment, all questions were answered and patient agrees to adhere to the plan above. Risk and benefits of appropriate procedures and medications were reviewed as well with patient, who voiced understanding and agreeance. Patient was counseled on appropriate use of opioids if prescribed or renewed today and naloxone was offered to patient if opioids were prescribed or maintained at this visit. PHQ-2 scoring reviewed with patient and discussed seeking treatment for depression or mood disorder as appropriate. Patient was counseled on smoking cessation and/or continuing to abstain from nicotine/tobacco products as appropriate based on history; as smoking/nicotine can contribute to increased pain overall and decreased wound healing. Patient counseled on maintaining a healthy BMI as part of the total treatment of their pain and to reduce stress/strain on joints. Patient invited to return or call with any questions or concerns that arise. [facility]04-18-2024 Note From: JEREMI MARIE DO To: [facility] Clinical Pool ([facility]); Sent: 08/29/2023 12:16:35 EDT Subject: FW: Medication Management Due Date/Time: 08/30/2023 11:21:00 EDT Caller Name: JOSE JANE; Caller Number: H From: [facility] #[id number] To: JEREMI MARIE DO Sent: August 29, 2023 10:21:53 AM CDT Subject: Medication Management Due: August 30, 2023 12:07:54 AM CDT On Hold Pending Signature Drug: gabapentin (gabapentin 300 mg oral capsule), 1 cap(s) Oral TID Quantity: 90 cap(s) Days Supply: 30 Refills: 0 Substitutions Allowed Notes from Pharmacy: Dispensed Drug: gabapentin (gabapentin 300 mg oral capsule), take 1 capsule by mouth three times a day Quantity: 90 cap(s) Days Supply: 30 Refills: 0 Substitutions Allowed Notes from Pharmacy: From: Fanny Raman To: [id number] Sent: 08/29/2023 13:12:35 EDT Subject: FW: Medication Management Not Approved: proposed to provider gabapentin (GABAPENTIN 300 MG CAPSULE) take 1 capsule by mouth three times a day Qty: 90 cap(s) Days Supply: 30 Refills: 0 Substitutions Allowed Route To Pharmacy - [facility] #[id number] Signed by [facility]04-05-2024 Evaluation + Plan note Extracted from: Title:L4/5 interlaminar epid ural steroid injection Author:Laci Moss DO Date:10/15/23 Diagnosis: M48.062, lumbar s tenosis with neurogenic claudication Procedure: L4/5 lumbar interlaminar epidural steroid injection under fluoroscopic guidance Anesthesia: Local Complications: none After informed consent was obtained, the patient was brought to the procedure suite and placed in the prone position. Pulse oximetry and blood pressure were monitored throughout. Low back areas prepped and draped in the usual sterile fashion. Using fluoroscopic guidance, the skin and subcutaneous tissue overlying the needle trajectory were anesthetized with 2% lidocaine. A 17-gauge Touhy needle was inserted and directed by fluoroscopy. Entry into the epidural space was confirmed using the wyvl-hw-glvhwgbujn technique and 2 cc of air. Injection of contrast revealed appropriate spread without vascular uptake. 4 mL of normal saline plus 40 mg of methylprednisolone was then injected. The needle was removed and the patient was then transferred to the recovery room in stable condition. The patient tolerated the procedure well. There were no apparent complications. Follow-up: The patient will update us on the response to this procedure, and agrees to continue currently prescribed/recommended therapies. Future Appointments Appointment Date:11/18/2023 02:30:00 PM Scheduled Provider:Jessica Rodgers PA-C Location:[facility] Appointment Type:Pain Management - Follow Up (FT) [facility]04-03-2024 Note From: JEREMI MARIE DO To: [facility] Clinical Pool ([facility]); Sent: 08/13/2023 16:05:42 EDT Subject: FW: Medication Management Due Date/Time: 08/14/2023 15:36:00 EDT Caller Name: JOSE JANE; Caller Number: H From: [id number] To: JEREMI MARIE DO Sent: August 13, 2023 2:36:52 PM CDT Subject: Medication Management Due: August 14, 2023 12:03:34 AM CDT On Hold Pending Signature Drug: clonazePAM (clonazePAM 0.5 mg oral tablet), 1 tab(s) Oral BID Quantity: 60 tab(s) Days Supply: 30 Refills: 0 Substitutions Allowed Notes from Pharmacy: Dispensed Drug: clonazePAM (clonazePAM 0.5 mg oral tablet), take 1 tablet by mouth twice a day Quantity: 60 tab(s) Days Supply: 30 Refills: 0 Substitutions Allowed Notes from Pharmacy: From: Fanny Raman To: [facility] #[id number] Sent: 08/14/2023 08:44:23 EDT Subject: FW: Medication Management Not Approved: proposed to provider for signature clonazePAM (CLONAZEPAM 0.5 MG TABLET) take 1 tablet by mouth twice a day Qty: 60 tab(s) Days Supply: 30 Refills: 0 Substitutions Allowed Route To Pharmacy - [facility] #[id number] Signed by [facility]03-19-2024 Note From: JEREMI MARIE DO To: [facility] Sent: 07/30/2023 13:51:47 EDT Subject: FW: Medication Management Due Date/Time: 07/31/2023 12:36:00 EDT Caller Name: JOSE JANE; Caller Number: H From: [facility] #[id number] To: JEREMI MARIE DO Sent: July 30, 2023 11:36:56 AM CDT Subject: Medication Management Due: July 31, 2023 12:08:59 AM CDT On Hold Pending Signature Drug: gabapentin (gabapentin 300 mg oral capsule), 1 cap(s) Oral TID Quantity: 90 cap(s) Days Supply: 30 Refills: 0 Substitutions Allowed Notes from Pharmacy: Dispensed Drug: gabapentin (gabapentin 300 mg oral capsule), take 1 capsule by mouth three times a day Quantity: 90 cap(s) Days Supply: 30 Refills: 0 Substitutions Allowed Notes from Pharmacy: From: Fanny Raman To: [facility] #[id number] Sent: 07/30/2023 17:25:12 EDT Subject: FW: Medication Management Not Approved: PROPOSED TO PROVIDER FOR SIGNATURE gabapentin (GABAPENTIN 300 MG CAPSULE) take 1 capsule by mouth three times a day Qty: 90 cap(s) Days Supply: 30 Refills: 0 Substitutions Allowed Route To Pharmacy - [facility] #[id number] Signed by [facility]03-04-2024 Note From: JEREMI MARIE DO To: [facility] Clinical Pool ([facility]); Sent: 07/15/2023 11:01:10 EST Subject: FW: Medication Management Due Date/Time: 07/16/2023 10:53:00 EST Caller Name: JOSE JANE; Caller Number: H From: [facility] #[id number] To: JEREMI MARIE DO Sent: July 15, 2023 9:53:25 AM [employer]OR [employer] Subject: Medication Management Due: July 16, 2023 12:01:35 AM 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 Pending Signature Drug: clonazePAM (clonazePAM 0.5 mg oral tablet), 1 tab(s) Oral BID Quantity: 60 tab(s) Days Supply: 30 Refills: 0 Substitutions Allowed Notes from Pharmacy: Dispensed Drug: clonazePAM (clonazePAM 0.5 mg oral tablet), take 1 tablet by mouth twice a day Quantity: 60 tab(s) Days Supply: 30 Refills: 0 Substitutions Allowed Notes from Pharmacy: From: Fanny Raman To: [facility] #[id number] Sent: 07/15/2023 13:44:06 EST Subject: FW: Medication Management Not Approved: sent clonazePAM (CLONAZEPAM 0.5 MG TABLET) take 1 tablet by mouth twice a day Qty: 60 tab(s) Days Supply: 30 Refills: 0 Substitutions Allowed Route To Pharmacy - [facility] #[id number] Signed by [facility]12-07-2023 Note From: JEREMI MARIE DO To: [facility] Clinical Pool ([facility] Sent: 04/15/2023 13:44:09 EST Subject: FW: Medication Management Due Date/Time: 04/16/2023 13:30:00 EST Caller Name: JOSE JANE; Caller Number: H From: [facility] #[id number] To: JEREMI MARIE DO Sent: April 15, 2023 12:30:06 PM [employer] Subject: Medication Management Due: April 16, 2023 12:04:19 AM 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 Pending Signature Drug: clonazePAM (clonazePAM 0.5 mg oral tablet), 1 tab(s) PO BID Quantity: 60 tab(s) Days Supply: 30 Refills: 0 Substitutions Allowed Notes from Pharmacy: Dispensed Drug: clonazePAM (clonazePAM 0.5 mg oral tablet), take 1 tablet by mouth twice a day Quantity: 60 tab(s) Days Supply: 30 Refills: 0 Substitutions Allowed Notes from Pharmacy: From: JESSICA MENESES To: [facility] #[id number] Sent: 04/18/2023 10:50:58 EST Subject: FW: Medication Management Not Approved: duplicate clonazePAM (CLONAZEPAM 0.5 MG TABLET) take 1 tablet by mouth twice a day Qty: 60 tab(s) Days Supply: 30 Refills: 0 Substitutions Allowed Route To Pharmacy - [facility] #[id number] Signed by JESSICA MENESES [facility]* Diagnosis Onset Date Resolution Status Lumbar degenerative disc disease acute Lumbar stenosis acute Mood disorder acute Neuropathy acute [facility] Work Phone: Evaluation noteNo assessment information available [facility] Work Phone: Evaluation note* Diagnosis Onset Date Resolution Status Lumbar radiculopathy acute Sacral radiculopathy acute [facility] Work Phone: Hospital course Narrative No data available for this section [facility] No data available for this section [facility] No data available for this section [facility] Summary Purpose Family History No Family History Records FoundNo Family History Records Found No data available for this section No data available for this section No data available for this section No data available for this section No Family History Records Found No data available for this section No Family History Records FoundNo Family History Records Found Advance Directives No Advanced Directives Records Found Advance Directive Response Recorded Date/ Time Advance Directives No May 23, 2018 2:08pm Chief Complaint and Reason for Visit Chief Complaint Ref Dr Marie lumbar myelopathy spinal stenosis lumbar,strenth endurance balance Reason for Visit Lumbar degenerative disc disease Lumbar stenosis Mood disorder Neuropathy Chief Complaint Ref Dr Marie lumbar myelopathy M48.061 M51.36 G62.9 F39 spinal stenosis lumbar,strenth endurance balance Reason for Visit Lumbar degenerative disc disease Lumbar stenosis Mood disorder Neuropathy Chief Complaint M48.061 M51.36 G62.9 F39 spinal stenosis lumbar,strenth endurance balance radiculopathy , Cervical region Chief Complaint spinal stenosis lumb ar,strenth endurance balance radiculopathy , Cervical region m48.061 m51.36 f39 follow up low back up Chief Complaint spinal stenosis lumb ar,strenth endurance balance radiculopathy , Cervical region m48.061 m51.36 f39 follow up low back up Reason for Visit Lumbar radiculopathy Sacral radiculopathy Additional Source Comments (unrecognized sect ion and content) No Status Records FoundNo Status Records FoundNo Status Records FoundNo Status Records FoundNo Status Records Found INFORMATION SOURCE (unrecogn ized section and content) DATE CREATED AUTHOR 12/01/2017 [facility] DATE CREATED AUTHOR AUTHOR'S ORGANIZ ATION 12/30/2020 [facility] DATE CREATED AUTHOR AUTHOR'S ORGANIZ ATION 12/15/2023 [facility] DATE CREATED AUTHOR AUTHOR'S ORGANIZ ATION 01/02/2024 [facility] DATE CREATED AUTHOR AUTHOR'S ORGANIZ ATION 01/18/2024 [facility] Care Teams (unrecognized sec tion and content) Team Status: Active Member Role Status Dates Jeremi Marie DO Primary Care Provider Active Team Status: Inactive Member Role Status Dates ALIA Griggs Attending Provider Active Start: July 17, 2023 End: July 17, 2023 Jeremi Marie DO Primary Care Provider Active Start: July 17, 2023 End: July 17, 2023 Team Status: Active Member Role Status Dates Jeremi Marie DO Primary Care Provider Active Start: August 22, 2023 Kareem Crocker MD Attending Provider Active Star t: August 22, 2023 Team Status: Inactive Member Role Status Dates Jeremi Marie DO Primary Care Provider Active Start: August 22, 2023 End: August 22, 2023 ALIA Griggs Attending Provider Active Start: August 22, 2023 End: August 22, 2023 Team Status: Inactive Member Role Status Dates Jeremi Marie DO Primary Care Provider Active Start: September 19, 2023 End: September 19, 2023 Kareem Crocker MD Attending Provider Active Star t: September 19, 2023 End: September 19, 2023 Team Status: Inactive Member Role Status Dates Jeremi Marie DO Primary Care Provider Active Start: October 24, 2023 End: October 24, 2023 Laci Moss DO Attending Provider Active St art: October 24, 2023 End: October 24, 2023 Team Status: Active Member Role Status Vianney Jeremi Marie DO Primary Care Provider Active Start: December 12, 2023 ALIA Griggs Attending Provider Active Start: December 12, 2023 Team Status: Inactive Member Role Status Vianney Marie DO Primary Care Provider Active Start: December 12, 2023 End: December 12, 2023 Radha Snowden APRN Attending Provider Active Start: December 12, 2023 End: December 12, 2023 Team Status: Inactive Member Role Status Vianney Jeremi Marie DO Primary Care Provider Active Start: December 12, 2023 End: December 12, 2023 ALIA Griggs Attending Provider Active Start: December 12, 2023 End: December 12, 2023 Goals (unrecognized section and content) Goals may be documented in a n alternate section No data available for this sectionGoals may be documented in an alternate section No data available for this sectionGoals may be documented in an alternate section No data available for this section No data available for this sectionGoals may be documented in an alternate sectionGoals may be documented in an alternate section No data available for this section FOR RECORDS PERTAINING TO PATIENTS WHO ARE OR HAVE BEEN ENROLLED IN A CHEMICAL DEPENDENCY/SUBSTANCEABUSE PROGRAM, SOME INFORMATION MAY BE OMITTED. This clinical summary was aggregated from multiple sources. Caution should be exercised in using it in the provision of clinical care. This summary normalizes information from multiple sources, and as a consequence, information in this document may materially change the coding, format and clinical context of patient data. In addition, data may be omitted in some cases. CLINICAL DECISIONS SHOULD BE BASED ON THE PRIMARY CLINICAL RECORDS. [facility]. provides no warranty or guarantee of the accuracy or completeness of information in this document.
[2024-01-22] MEDS: KETOROLAC TROMETHAMINE 60 MG/2 ML VIAL IM (16:00)
--- NOTE | 2024-01-22 16:10 | CT_ITS ---
[address] [address] Patient Name: JOSE DAVIS MRN: [id number] date: 1990 Sex: M Assigned Patient Location: ER Current Patient Location: Accession/Order Number: [id number] Exam Date: 01/22/2024 17:19 Report Date: 01/22/2024 19:14 At the request of: LUIS HUERTA Procedure: CT lumbar spine wo con EXAMINATION: CT lumbar spine wo con HISTORY: radicular pain injection 2 weeks ago. COMPARISON: MRI lumbar spine 03/29/2023 TECHNIQUE: CT lumbar spine without contrast. Dose reduction techniques were achieved by using: automated exposure control and/or adjustment of mA and /or kV according to patient size and/or use of iterative reconstruction technique.. FINDINGS: Straightening of the lumbar spine. Dextroconvex scoliosis. Degenerative trace retrolisthesis at L3-L4. No compression fractures. Endplate undulation at all levels throughout the lumbar spine suggestive of endplate Schmorl's nodes. Scattered mild to moderate disc space narrowing. L5-S1: Mild bilateral facet arthropathy. No spinal canal stenosis. Asymmetric moderate left foraminal stenosis. L4-L5: Moderate facet arthropathy without spinal canal stenosis. Moderate right and severe left foraminal stenosis. L3-L4: Disc bulge and mild facet arthropathy with mild spinal canal stenosis. No foraminal stenosis. L2-L3: Disc bulge with mild spinal canal stenosis. No foraminal stenosis. T12-L1 and L1-L2: No stenosis. CT/CT lumbar spine wo con IMPRESSION: 1. No compression fracture or subluxation. 2. No bony destruction or erosion. Redemonstration of scattered degenerative endplate Schmorl's nodes throughout the lumbar spine. If there is concern for infection, MRI with intravenous contrast recommended. 3. Moderate degenerative disc disease and facet arthropathy in the lumbar spine as described above. Electronically authenticated by: KG STOREY Date: 01/22/2024 19:14
--- NOTE | 2024-01-22 16:47 | ED.GENADUL1 ---
HPI HPI - General Adult General Chief complaint: Back Pain/Injury Stated complaint: Back Pain Time Seen by Provider: 01/22/24 15:27 Source: patient Mode of arrival: walk-in Limitations: no limitations History of Present Illness HPI narrative: Patient presents ED complaining of low back pain. This is a chronic problem for him. He is in pain management and he gets injections in his back. He is on Suboxone as well. He states he did not do anything new or different to his back but it has been flared up the past couple of days. He said it hurts to lay flat but feels better when he is kneeling down and bending over. He has a doctor's appointment tomorrow that he is just trying to make it to. No numbness or tingling in the lower extremities. I watched him ambulate in the ED. No loss of bowel or bladder function. No fevers no vomiting. Patient just reports the pain is difficult to manage so he came in for further evaluation. Related Data Home Medications ?Medication ?Instructions ?Recorded ?Confirmed buprenorphine 8 mg-naloxone 2 mg tab sublingual 01/22/24 sublingual tablet clonazepam 0.5 mg tablet mg 01/22/24 gabapentin 300 mg capsule mg 01/22/24 lidocaine 5 % topical patch patch 01/22/24 quetiapine 50 mg tablet mg 01/22/24 vilazodone 40 mg tablet mg 01/22/24 Allergies Allergy/AdvReac Type Severity Reaction Status Date / Time Penicillins Allergy Severe Anaphylaxis Verified 01/22/24 15:23 acetaminophen [From Vicodin] AdvReac Mild Hives Verified 01/22/24 15:23 hydrocodone [From Vicodin] AdvReac Mild Hives Verified 01/22/24 15:23 lorazepam [From Ativan] AdvReac Mild Confusion Verified 01/22/24 15:23 Opioid HPI Opioid Management Most Recent Opioid Data: Last Pain Scale 10 01/22/24 16:52 Last MAR Pain Assessment 01/22/24 16:52 Review of Systems ROS Status of ROS 10 or more systems reviewed and unremarkable except as noted in history and below PFSH PFSH Social History Little interest or pleasure in doing things: not at all Feeling down, depressed, or hopeless: not at all Exam Narrative Exam Narrative: Time Seen: [] Vital Signs: [Per nurse's notes.] General: [Alert] Skin: [Warm, dry, no rash.] Head: [Normocephalic, atraumatic.] Neck: [Supple, trachea midline.] Eye: [Pupils are equal, round and reactive to light, extraocular movements are intact, normal conjunctiva.] Cardiovascular: [Regular rate and rhythm, no murmur.] Respiratory: [Lungs are clear to auscultation, respirations are non-labored, breath sounds are equal.] Chest wall: [No tenderness, no deformity.] Gastrointestinal: [Soft, nontender, non distended, normal bowel sounds.] MSK: 5 out of 5 muscle strength x 4 extremities no calf pain or edema. Tenderness in the lumbar spine worse in the right paraspinal area. Normal distal pulses and sensation Psychiatric: [Cooperative, appropriate mood & affect.] Neurological: [Alert and oriented to person, place, time, and situation, no focal neurological deficit observed.] Constitutional Vital Signs, click to edit/add: Last Vital Signs Pulse 62 01/22/24 18:06 Resp 22 H 01/22/24 18:06 BP 115/85 01/22/24 18:06 Pulse Ox 96 01/22/24 18:06 O2 Del Method Room Air 01/22/24 15:23 Course Vital Signs Vital signs: Vital Signs Pulse Rate 91 H 01/22/24 15:23 Respiratory Rate 22 H 01/22/24 15:23 Blood Pressure 136/86 01/22/24 15:23 Pulse Oximetry 99 01/22/24 15:23 Oxygen Delivery Method Room Air 01/22/24 15:23 Pulse Rate 62 01/22/24 18:06 Respiratory Rate 22 H 01/22/24 18:06 Blood Pressure 115/85 01/22/24 18:06 Pulse Oximetry 96 01/22/24 18:06 Oxygen Delivery Method Room Air 01/22/24 15:23 Medical Decision Making MDM Narrative Medical decision making narrative: CT scan shows degenerative changes. Patient has chronic back issues and is scan is consistent with chronic findings. Patient has denied any fevers denies IV drug use. Patient was given Toradol which was not enough for the pain. I did give him IM Dilaudid and some Valium to help with muscle relaxation and pain control. He states it slightly better and was able to lay down for the CAT scan but he still tearful and states his pain just never really goes away. I offered admission for pain control and he declined because he states he has to make it to his appointment tomorrow for his Suboxone. Patient instructed to return if worsening symptoms, follow-up tomorrow as scheduled. Differential Diagnosis Differential Diagnosis: Lumbar radiculopathy, epidural abscess, epidural hematoma, cauda equina, sc Medical Records Medical records reviewed: Yes I reviewed the patient's medical records Imaging Data CT scan - abdomen: Radiologist's impression: ITS Impressions Lumbar Spine CT 01/22/24 16:10 IMPRESSION: 1. No compression fracture or subluxation. 2. No bony destruction or erosion. Redemonstration of scattered degenerative endplate Schmorl's nodes throughout the lumbar spine. If there is concern for infection, MRI with intravenous contrast recommended. 3. Moderate degenerative disc disease and facet arthropathy in the lumbar spine as described above. Electronically authenticated by: KG STOREY Date: 01/22/2024 18:13 Discharge Plan Discharge Chief Complaint: Back Pain/Injury Clinical Impression: Lumbar radiculopathy Patient Disposition: Home, Self-Care Time of Disposition Decision: 18:20 Condition: Fair Mode of Transportation: Private Vehicle Prescriptions / Home Meds: No Action clonazepam 0.5 mg tablet lidocaine 5 % adhesive patch,medicated gabapentin 300 mg capsule buprenorphine-naloxone 8-2 mg tablet, sublingual SUBLINGUAL quetiapine 50 mg tablet vilazodone 40 mg tablet Print Language: Kiswahili Instructions: Back Pain (ED) Referrals: JOSÉ MANUEL MARIE [Primary Care Provider] - 1 week
[2024-01-22] MEDS: DIAZEPAM 2 MG TABLET PO (16:52)
[2024-01-22] MEDS: HYDROMORPHONE HCL 0.5 MG/0.5 ML SYRINGE IM (16:52)
[2024-01-22 18:06] VITALS: BP 115/85; PULSE 62; O2SAT 96
== END 2024-01-22 18:27 | disposition home or self-care (01) ==
PROVIDERS: Emergency Provider Emergency Medicine; PCP Family Medicine
DX: M51.16 Intervertebral disc disorders with radiculopathy, lumbar region (principal); F11.20 Opioid dependence, uncomplicated
CPT/HCPCS: 72131; 96372; 99285; J1170; J1885

== ENCOUNTER 2024-07-11 17:34 | Emergency (ER) | payer OTHER, SELFPAY ==
--- NOTE | 2024-07-11 17:39 | ED.GENADUL1 ---
HPI HPI - General Adult General Chief complaint: Allergic Reaction Stated complaint: allergic reaction Time Seen by Provider: 07/11/24 17:38 History of Present Illness HPI narrative: Patient is a 34-year-old male with a history of IV drug abuse currently on Buprenorphine-Nalox 8-2 Mg Tab treatment who presents with concerns of itching palms. Pt reports on Saturday he was cleaning with bleach and he was with his cousin who is mixing together multiple ingredients to try a new topical cream ( bees wax, almond oil. oregano, coconut oil. purple corn flour, eva hip and white tea) - from memory, he notes the swelling and irritation since very localized to bilateral hands mostly involving the palms. Patient denies any difficulty breathing denies abdominal pain denies any lip or tongue swelling. Notes relief with using topical ice packs but feels the need to constantly itch his palms. He denies any new medications and denies any drug use. Patient admits he has not slept in a few days because of symptoms and thought he should have come sooner for treatment. He does not know if it was the bleach or the hand cream that he tried that was homemade that irritated his hands. Related Data Home Medications ?Medication ?Instructions ?Recorded ?Confirmed buprenorphine 8 mg-naloxone 2 mg 1 tab sublingual BID 01/22/24 07/11/24 sublingual tablet clonazepam 0.5 mg tablet 0.5 mg PO BID 01/22/24 07/11/24 gabapentin 300 mg capsule 300 mg PO TID 01/22/24 07/11/24 quetiapine 50 mg tablet 50 mg PO BEDTIME 01/22/24 07/11/24 vilazodone 40 mg tablet 40 mg PO DAILY 01/22/24 07/11/24 Previous Rx's ?Medication ?Instructions ?Recorded famotidine 20 mg tablet (Pepcid) 20 mg PO BID 7 days #14 tabs 07/11/24 hydroxyzine pamoate 25 mg capsule 25 mg PO TID PRN itching 7 days 07/11/24 #21 caps prednisone 20 mg tablet 20 mg PO BID 5 days #10 tabs 07/11/24 Allergies Allergy/AdvReac Type Severity Reaction Status Date / Time Penicillins Allergy Severe Anaphylaxis Verified 01/22/24 15:23 acetaminophen (From Vicodin) AdvReac Mild Hives Verified 01/22/24 15:23 hydrocodone (From Vicodin) AdvReac Mild Hives Verified 01/22/24 15:23 lorazepam (From Ativan) AdvReac Mild Confusion Verified 01/22/24 15:23 Opioid HPI Opioid Management Most Recent Opioid Data: Last Pain Scale 10 01/22/24 16:52 01/22/24 Review of Systems ROS Constitutional Denies: fever or chills Eyes Denies: change in vision Ears, nose, mouth, and throat Denies: throat pain, neck pain or throat swelling Cardiovascular Denies: chest pain, palpitations or edema Respiratory Denies: shortness of breath, cough or wheezing Gastrointestinal Denies: abdominal pain, nausea or vomiting Genitourinary Denies: painful urination Musculoskeletal Denies: back pain, neck pain, extremity pain or extremity swelling Integumentary/Breast Reports: itching and redness; Denies: rash, skin pain, skin tenderness or skin swelling Neurological Denies: headache Psychiatric Denies: anxiety, mood swings or panic attacks Endocrine Denies: excessive urination Hematologic/Lymphatic Denies: easy bruising PFSH PFSH Social History Little interest or pleasure in doing things: not at all Feeling down, depressed, or hopeless: not at all Exam Narrative Exam Narrative: Nurses notes and vital signs reviewed and patient is not hypoxic. General: The patient appears well and in no apparent distress. Patient is resting comfortably on cart. Skin: Warm, dry, no pallor noted. Hive formation noted to bilateral volar wrists palms both diffusely erythematous from patient constantly rubbing no skin peeling or sloughing. No petechiae patient has full motion of fingers and thumb bilateral hands without evidence of pain or infection. No evidence of burrowing or crusting . Age indeterminate scarring and track torrez greatest in left ac region. no abscess. Head: Normocephalic, atraumatic Neck: Supple, trachea mid-line, no tenderness, no lymphadenopathy Eye: Pupils are equal, round and reactive to light, EOMI Ears, Nose, Mouth, and Throat: external exam unremarkable. No lip or tongue swelling. uvula without swelling, voice is clear. Cardiovascular: Regular Rate and Rhythm Respiratory: Patient is in no distress, no accessory muscle use, lungs are clear to auscultation, no wheezing, rales or rhonchi. Chest Wall: no tenderness Back: non-tender, no CVA tenderness Musculoskeletal: normal ROM, no tenderness, no swelling GI: Normal bowel sounds, no tenderness to palpation, no masses appreciated. No rebound, guarding, or rigidity noted. Neurological: A&O x4 Psychiatric: Cooperative Constitutional Vital Signs, click to edit/add: Last Vital Signs Temp 98.1 F 07/11/24 17:40 Pulse 85 07/11/24 17:40 Resp 18 07/11/24 17:40 BP 149/76 H 07/11/24 17:40 Pulse Ox 99 07/11/24 17:47 O2 Del Method Room Air 07/11/24 17:47 Course Vital Signs Vital signs: Vital Signs Temperature 98.1 F 07/11/24 17:40 Pulse Rate 85 07/11/24 17:40 Respiratory Rate 18 07/11/24 17:40 Blood Pressure 149/76 H 07/11/24 17:40 Pulse Oximetry 99 07/11/24 17:40 Oxygen Delivery Method Room Air 07/11/24 17:40 Temperature 98.1 F 07/11/24 17:40 Pulse Rate 85 07/11/24 17:40 Respiratory Rate 18 07/11/24 17:40 Blood Pressure 149/76 H 07/11/24 17:40 Pulse Oximetry 99 07/11/24 17:47 Oxygen Delivery Method Room Air 07/11/24 17:47 Medical Decision Making MDM Narrative Medical decision making narrative: No evidence of systemic allergic reaction patient has very localized reaction to the bilateral palms slight hive formation on the volar wrist, and was examined with evidence of remote track torrez from IV drug abuse but no diffuse hives or irritation. We discussed the precipitating events with using bleach on his hands for cleaning and then using a homemade hand rub. Patient will avoid this hand rub we discussed using ice 20 minutes on 20 minutes off but avoid thermal injury he will be prescribed Vistaril for the itching and a short course of prednisone for hopeful relief along with Pepcid twice a day. Patient encouraged to follow-up with his family doctor for reevaluation and may return to the ER if symptoms worsen or new symptoms develop. The patient is to followup with primary care physician in next 1-2 days or to return to the emergency department should any of the signs or symptoms worsen or new symptoms develop. Patient had questions answered. The patient agrees with the following Diagnosis and Treatment plan and the patient will be discharged home. Discharge Plan Discharge Chief Complaint: Allergic Reaction Clinical Impression: Allergic reaction, Localized hives, Pruritus of both hands Patient Disposition: Home, Self-Care Time of Disposition Decision: 17:50 Condition: Good Prescriptions / Home Meds: New prednisone 20 mg tablet 20 mg PO BID 5 Days Qty: 10 0RF hydroxyzine pamoate 25 mg capsule 25 mg PO TID PRN (Reason: itching) 7 Days Qty: 21 0RF famotidine [Pepcid] 20 mg tablet 20 mg PO BID 7 Days Qty: 14 0RF No Action clonazepam 0.5 mg tablet 0.5 mg PO BID gabapentin 300 mg capsule 300 mg PO TID buprenorphine-naloxone 8-2 mg tablet, sublingual 1 tab SUBLINGUAL BID quetiapine 50 mg tablet 50 mg PO BEDTIME vilazodone 40 mg tablet 40 mg PO DAILY Print Language: [place] Instructions: Urticaria (ED) Additional Instructions: recommend cool compress. avoid latex gloves Call pcp for close follow up. Referrals: JOSÉ MANUEL MARIE [Primary Care Provider] - As soon as possible Discharge Date/Time: 07/11/24 18:11
[2024-07-11 17:40] VITALS: BP 149/76; PULSE 85; TEMP 36.7; O2SAT 99; BMI 20.1
--- OUTSIDE RECORDS SUMMARY | 2024-07-11 17:40 | XMS_ITS | CCD ---
Author Organization [facility] CliniSynv Care Team Providers Care Assurance Manager Name Role Phone NICO WEBB Unavailable Unavailable LYNN BOOKER Unavailable Unavailable HOUSE, DR BLOOD Attending Unavailable HOUSE, DR BLOOD Consulting Unavailable HOUSE, DR BLOOD Primary Care Unavailable HOUSE, DR BLOOD Admitting Unavailable Cynthia, DO Blood Primary Care Provider MD Kareem Crocker Attending Provider ALIA Low Attending Provider JEREMI MARIE Primary Care Physician [phone] DO Jeremi Marie Primary Care Provider MD Kareem Crocker Attending Provider DO Laci Moss Attending Provider [phone] DO Jeremi Marie Primary Care Provider ALIA Low Attending Provider Laci Elder Admitting Unavailable Laci Moss Attending Unavailable Jeremi Marie Primary Care Unavailable Lesvia Low Admitting Unavailable Lesvia Low Attending Unavailable Jeremi Marie Primary Care Unavailable Kareem Crocker Admitting Unavailable Kareem Crocker Attending Unavailable Jeremi Marie Primary Care Unavailable Lesvia Low Admitting Unavailable Lesvia Low Attending Unavailable Jeremi Marie Primary Care Unavailable Yanet Low Admitting Unavailable Yanet Low Attending Unavailable Ana Maria Yanet Referring Unavailable CLARITA LowC Yanet Admitting Unavailabl e JEREMI MARIE Referring Unavailable Yanet Low Attending Unavailable JEREMI MARIE Referring Unavailable Ana Maria Yanet Admitting Unavailable Yanet Low Attending Unavailable Laci Moss Admitting Unavailable Laci Moss Attending Unavailable LESVIA LOW Referring Unavailable Laci Moss Attending Unavailable Laci Moss Referring Unavailable DO Laci Moss Admitting Unavailabl e Laci Moss Attending Unavailable Laci Moss Referring Unavailable House, DO Blood Primary Care Provider BAILEY WORTHINGTON Attending Unavailable HOUSE, JEREMI Ramos Referring Unavailable Sarah MEHTA, Jessica Costa Unavailable Cynthia PETTY, Jeremi Ramos Primary Care Provider Maribel SENIOR SHAREPOINT DEVELOPER.COMPUTER GRAPHIC ARTIST, Radha Unavailable Unavailable Primary Care Provider UnavailEVETTE Covarrubias S Attending Unavailable MARIBEL, RADHA Referring Unavailable JAY, EVETTE Attending Unavailable ELIA, JALEN C Admitting Unavailable ELIA, JALEN C Attending Unavailable ELIA, JALEN C Attending Unavailable SALLOUHAJESSIKA Attending Unavailable HOUSE, DO JEREMI P Attending Unavailable HOUSE, JEREMI P Primary Care Unavailable HOUSE, JEREMI P Primary Care Unavailable HOUSE, DO JEREMI P Attending Unavailable HOUSE, DO JEREMI P Attending Unavailable [...] Facility Acetaminophen (1 source) Acetaminophen Drug Allergy 12-10-19 18 [facility] Benzodiazepines (1 source) LORazepam Drug Allergy 12-10-19 18 Drowsy [facility] Opioid Agonists (1 source) HYDROcodone Drug Allergy 12-10-19 18 [facility] Penicillins (antibiotic) (1 source) Penicillins Drug Allergy 12-10-19 18 [facility] (3 sources) Acetaminophen / HYDROcodone; Translations: [Vicodin] Drug Allergy 12-19-19 15 [facility] Repository (3 sources) LORazepam; Translations: [Ativan] Drug Allergy 12-19-19 15 [facility] Repository (16 sources) Penicillins; Translations: [penicillins] Drug allergy (disorder) 02-19-20 02 Pharyngeal swelling (finding) [facility] Repository (14 sources) Acetaminophen; Translations: [acetaminophen] Drug Allergy 12-10-19 18 [facility] (17 sources) HYDROcodone; Translations: [hydrocodone] Drug Allergy 12-10-19 18 [facility] (20 sources) LORazepam; Translations: [Lorazepam] Drug Allergy 06-12-19 14 Nausea and vomiting (disorder), Swelling, Confusion [facility] Comment on above: NAUSEA (11 sources) Acetaminophen / HYDROcodone; Translations: [acetaminophen-hy drocodone] Drug Allergy 06-12-19 14 Swelling (finding), [facility] (1 source) Penicillins Drug allergy (disorder) 12-12-19 [facility] Repository (8 sources) Acetaminophen / HYDROcodone; Translations: [HYDROCODONE-ACET AMINOPHEN] Drug Allergy 06-12-19 14 [facility] (6 sources) Penicillins Drug Intolerance 02-19-20 02 Anaphylaxis [facility] (7 sources) Penicillins Propensity to adverse reactions 02-19-20 Anaphylaxis [facility] (1 source) Penicillin; Translations: [penicillin] Drug Allergy [facility] Repository Medications Current Medications Medication Drug Class(es) Dates Sig (Normalized) Sig (Original) acetaminophen 500 mg oral tablet (20 sources) Start: 09-12-2023 take 2 tablets by mouth every six hours Tylenol Extra Strength 500 mg oral tablet 1,000 mg = 2 tab(s), Oral, q6hr, Refills(s) 0 Start Date: 09/12/23 Status: Ordered Start: 07-17-2023 Acetaminophen 500 MG capsule Four times daily 07/17/2023 Active take 1 tablet by leola th every eight hours as needed acetaminophen (Tylenol 8 HOUR) 650 mg ER tablet Take 1 tablet (650 mg) by mouth every 8 hours if needed for mild pain (1 - 3). Do not crush, chew, or split. Active ARIPiprazole 5 mg oral tablet (6 sources) Atypical Antipsychotic Start: 12-16-2017 take 5 mg by mouth once daily at bedtime Aripiprazole Active 5 MG PO Daily at bedtime December 16, 2017 12:00am buprenorphine 8 mg / naloxone 2 mg sublingual tablet (20 sources) Partial Opioid Agonist, Opioid Antagonist Start: 01-23-2024 buprenorphine-nalo xone (Suboxone) 8-2 MG SL tablet DISSOLVE ONE TABLET UNDER THE TONGUE TWICE DAILY 01/23/2024 Active Start: 09-12-2023 Suboxone See I nstructions, Refill(s) 0, 2-8mg tab BID Start Date: 09/12/23 Status: Ordered Start: 12-09-2017 buprenorphine- nalOXone SL (SUBOXONE) 8-2 mg subl DISSOLVE ONE TABLET UNDER THE TONGUE TWICE DAILY 12/09/2017 Active buprenorphine HCl/naloxone HCl (SUBOXONE SUBLINGUAL) (3 sources) Start: 09-12-2023 take 1 tablet under the tongue twice daily buprenorphine HCl/naloxone HCl (SUBOXONE SUBLINGUAL) See Instructions, Refill(s) 0, 2-8mg tab BID 09/12/2023 Active busPIRone hydrochloride 10 mg oral tablet (6 sources) Start: 12-16-2017 take 10 mg by mouth three times daily Buspirone Active 10 MG PO Three times daily December 16, 2017 12:00am calcium chloride 0.0014 meq/ml / potassium chloride 0.004 meq/ml / sodium chloride 0.103 meq/ml / sodium lactate 0.028 meq/ml injectable solution (1 source) Start: 06-12-2024 End: 06-12-2024 take 75 mL intravenously every hour 75 mL/hr, intravenous, Continuous, Starting on Sat06/12/24 at 1045, For 2 hours, Recovery (only) cephalexin 500 mg oral capsule (2 sources) Cephalosporin Antibacterial Start: 06-12-2024 End: 06-19-2024 take 1 capsule by mouth twice daily cephalexin (Keflex) 500 mg capsule Indications: Nasal congestion , Deviated nasal septum , Nasal deformity Take 1 capsule (500 mg) by mouth 2 times a day for 7 days. 14 capsule 06/12/2024 06/19/2024 Active clonazePAM 0.5 mg oral tablet (20 sources) Benzodiazepine Start: 07-17-2023 take 1 tablet by mouth twice daily ClonazePAM 0.5 mg Tab 0.5 mg = 1 tab(s), Oral, BID, Refills(s) 0 Start Date: 09/12/23 Status: Ordered Start: 12-09-2017 End: 12-16-2017 take 0.5 mg by mouth twice daily Clonazepam Discontinued 0.5 MG PO Twice daily December 09, 2017 12:00am December 16, 2017 11:25am Rx filled 10/21/17 fluticasone propionate 0.05 mg/actuat metered dose nasal spray (8 sources) Corticosteroid Start: 02-25-2024 End: 02-24-2025 fluticasone (Flonase) 50 mcg/actuation nasal spray 2 sprays once daily. 02/25/2024 02/24/2025 Active Start: 02-25-2024 End: 02-24-2025 take 2 spray(s) nasal route once daily fluticasone (Flonase) 50 MCG/ACT nasal spray Indications: DNS (deviated nasal septum) Administer 2 sprays into each nostril Daily Shake gently. Before first use, prime pump. After use, clean tip and replace cap. 48 g 3 02/25/2024 02/24/2025 Active gabapentin 300 mg oral capsule (20 sources) Anti-epileptic Agent Start: 01-28-2024 End: 01-28-2024 take 300 mg by mouth three times daily Gabapentin Discontinued 300 MG PO Three times daily January 28, 2024 9:50am January 28, 2024 9:51am Start: 12-16-2017 End: 01-28-2024 take 400 mg by mouth three times daily Gabapentin Discontinued 400 MG PO Three times daily December 16, 2017 12:00am January 28, 2024 9:50am Start: 06-09-2012 gabapentin (Ne urontin) 300 MG capsule Three times daily 01/28/2024 Active lidocaine 0.05 mg/mg medicated patch (10 sources) Antiarrhythmic, Amide Local Anesthetic Start: 07-17-2023 apply 1 dose topically once daily Lidocaine Active 1 PATCH TOPICAL Daily July 17, 2023 1:00am leave on most painful area for up to 12 hrs Start: 05-20-2013 LIDOCAINE 5 %( 700 mg/patch) as directed. 05/20/2013 Active mirtazapine 30 mg oral tablet (6 sources) Start: 12-16-2017 take 30 mg by mouth once daily at bedtime Mirtazapine Active 30 MG PO Daily at bedtime December 16, 2017 12:00am mupirocin 0.02 mg/mg topical ointment (2 sources) RNA Synthetase Inhibitor Antibacterial Start: 06-12-2024 End: 07-12-2024 mupirocin (Bactroban) 2 % ointment Indications: Nasal congestion , Deviated nasal septum , Nasal deformity Apply 1 Application topically 3 times a day. Apply to inner nostrils. 15 g 06/12/2024 07/12/2024 Active ondansetron 4 mg disintegrating oral tablet (2 sources) Serotonin-3 Receptor Antagonist Start: 06-12-2024 End: 06-15-2024 take 1 tablet by mouth every eight hours for nausea ondansetron ODT (Zofran-ODT) 4 mg disintegrating tablet Indications: Nasal congestion , Deviated nasal septum , Nasal deformity Dissolve 1 tablet (4 mg) in the mouth every 8 hours if needed for nausea or vomiting for up to 3 days. 9 tablet 06/12/2024 06/15/2024 Active Start: 06-12-2024 4 mg, intraven ous, Once as needed, nausea/vomiting, first line, Starting on Sat06/12/24 at 1015, For 1 dose, Recovery (only), When administering via IV Push, administer over 3-5 minutes. oxyCODONE hydrochloride 5 mg oral tablet (2 sources) Opioid Agonist Start: 06-12-2024 End: 06-19-2024 take 2 tablets by mouth every six hours for pain oxyCODONE (Roxicodone) 5 mg immediate release tablet Indications: Nasal congestion , Deviated nasal septum , Nasal deformity Take 2 tablets (10 mg) by mouth every 6 hours if needed for severe pain (7 - 10) for up to 7 days. 28 tablet 06/12/2024 06/19/2024 Active oxygen (O2) therapy (1 source) Start: 06-12-2024 take 1 mL by inhalation every hour inhalation, at 2 mL/hr, Continuous PRN - O2/gases, other, Starting on Sat06/12/24 at 1015, Recovery (only), Titrate cannula versus simple face mask to O2 saturation , Device: Nasal Cannula, Rate in liters per minute: 2 LPM, Keep O2 Sat Above: 92%, Indications: invasive surgical procedure oxymetazoline hydrochloride 0.5 mg/ml nasal spray (2 sources) Start: 06-12-2024 End: 06-26-2024 take 1 spray(s) nasal route twice daily as needed oxymetazoline 0.05 % nasal spray Indications: Nasal congestion , Deviated nasal septum , Nasal deformity Administer 1 spray into each nostril 2 times a day as needed (Only for nose bleeds as needed) for up to 14 days. Use as needed for post operative bleeding from the nose. 15 mL 06/12/2024 06/26/2024 Active prazosin 1 mg oral capsule (6 sources) alpha-Adrenergic Jessica Start: 12-16-2017 take 1 mg by mouth once daily at bedtime Prazosin Active 1 MG PO Daily at bedtime December 16, 2017 12:00am QUEtiapine 50 mg oral tablet (20 sources) Atypical Antipsychotic Start: 07-17-2023 take 1 tablet by mouth at bedtime quetiapine 50 mg oral tablet 50 mg = 1 tab(s), Oral, Bedtime, Refills(s) 0 Start Date: 09/12/23 Status: Ordered Start: 12-09-2017 End: 12-16-2017 take 1 tablet by mouth once daily Quetiapine (Seroquel) 200 mg Tablet Discontinued 200 MG PO Daily December 09, 2017 12:00am December 16, 2017 11:26am Rx filled 10/12/17 sodium chloride 0.111 meq/ml nasal spray (2 sources) Start: 06-12-2024 End: 07-12-2024 sodium chloride (Page) 0.65 % nasal spray Indications: Nasal congestion , Deviated nasal septum , Nasal deformity Administer 1 spray into each nostril every 4 hours. Every 4 hours while awake. 50 mL 2 06/12/2024 07/12/2024 Active vilazodone hydrochloride 40 mg oral tablet (20 sources) Start: 07-17-2023 take 1 tablet by mouth once daily vilazodone 40 mg oral tablet 40 mg = 1 tab(s), Oral, Daily, Refills(s) 0 Start Date: 09/12/23 Status: Ordered Completed/Discontinued Medications Medication Drug Class(es) Dates Sig (Normalized) Sig (Original) albuterol 0.83 mg/ml inhalation solution (1 source) beta2-Adrenergic Agonist Start: 06-12-2024 End: 06-12-2024 2.5 mg, nebulization, Once, On Sat06/12/24 at 1045, For 1 dose, Preprocedure Start: 06-12-2024 End: 06-12-2024 2.5 mg, nebulization, Once, On Sat06/12/24 at 1045, For 1 dose, Preprocedure amphetamine aspartate 2.5 mg / amphetamine sulfate 2.5 mg / dextroamphetamine saccharate 2.5 mg / dextroamphetamine sulfate 2.5 mg oral tablet (6 sources) Central Nervous System Stimulant Start: 12-09-2017 End: 12-16-2017 take 1 tablet by mouth three times daily Dextroamphetamine-Amphetamine (Adderall) 10 mg Tablet Discontinued 10 MG PO Three times daily December 09, 2017 12:00am December 16, 2017 11:25am Rx filled 11/09/17 methylPREDNISolone 4 mg oral tablet (3 sources) Corticosteroid End: 05-21-2024 methylPREDNISolone (Medrol Dospak) 4 mg tablets TAKE BY MOUTH DIRECTED ON PACKAGE 05/21/2024 Discontinued (Med List Cleanup) nicotine 2 mg chewing gum (6 sources) Cholinergic Nicotinic Agonist Start: 12-16-2017 End: 01-28-2024 Nicotine (Polacrilex) (Nicorelief) 2 mg Gum Discontinued 4 MG BUCCAL Q2H 60 December 16, 2017 12:00am January 28, 2024 9:50am One A Day Men's Complete (6 sources) Start: 09-12-2023 take 1 tablet by mouth once daily One A Day Men's Complete 1 tab(s), Oral, Daily, Refill(s) 0 Start Date: 09/12/23 Status: Ordered predniSONE 20 mg oral tablet (6 sources) Start: 07-17-2023 End: 12-12-2023 Prednisone Discontinued 0 PO daily July 17, 2023 1:00am December 12, 2023 1:05pm Take 3 tablets by mouth once daily for three day , then two tablets by mouth once daily for three days, then one tablet by mouth for 1 day traZODone hydrochloride 50 mg oral tablet (6 sources) Serotonin Reuptake Inhibitor Start: 12-16-2017 End: 12-12-2023 take 150 mg by mouth once daily at bedtime Trazodone Discontinued 150 MG PO Daily at bedtime 45 December 16, 2017 12:00am December 12, 2023 1:06pm vortioxetine 20 mg oral tablet (6 sources) Start: 12-09-2017 End: 12-16-2017 take 1 tablet by mouth once daily Vortioxetine (Trintellix) 20 mg Tablet Discontinued 20 MG PO Daily December 09, 2017 12:00am December 16, 2017 11:26am Rx filled 6/1/18 Problems Active Problems Problem Classification Problem Date Documented Date Episodic/Chronic Anxiety disorders (9 sources) Anxiety; Translations: [Anxiety disorder, unspecified] Onset: 06-12-2024 09-12-2023 Chronic Cancer; other and unspecified primary (3 sources) H/O: malignant neoplasm; Translations: [Personal history of malignant neoplasm of other organs and systems] Onset: 06-12-2024 06-12-2024 Episodic Medical examination/evaluatio n (1 source) Encounter for other general examination; Translations: [Encounter for other general examination] Onset: 11-30-2017 Episodic Mood disorders (20 sources) Episodic mood disorder; Translations: [Unspecified mood [affective] disorder] Onset: 08-22-2023 12-09-2017 Chronic Osteoarthritis (9 sources) Osteoarthritis; Translations: [Unspecified osteoarthritis, unspecified site] Onset: 06-12-2024 09-12-2023 Chronic Other acquired deformities (1 source) Alar collapse; Translations: [Nasal alar collapse] 05-21-2024 Episodic Other acquired deformities (7 sources) Finding of nasal deformity; Translations: [Acquired deformity of nose] Onset: 05-21-2024 05-21-2024 Episodic Other acquired deformities (4 sources) Acquired deformity of nose; Translations: [Acquired deformity of nose] Onset: 05-21-2024 Episodic Other bone disease and musculoskeletal deformities (10 sources) Juvenile osteochondrosis of spine; 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, site unspecified] Onset: 02-17-2024 02-17-2024 Chronic Other lower respiratory disease (1 source) Difficulty breathing; Translations: [Other abnormalities of breathing] 05-21-2024 Episodic Other nervous system disorders (12 sources) Neuropathy; Translations: [Polyneuropathy, unspecified] Onset: 02-17-2024 07-17-2023 Chronic Other nervous system disorders (3 sources) Polyneuropathy, unspecified; Translations: [Mononeuritis of unspecified site] Onset: 08-22-2023 07-17-2023 Chronic Other nervous system disorders (1 source) Chronic pain syndrome; Translations: [Chronic pain syndrome] 06-16-2024 Chronic Other nervous system disorders (1 source) Other chronic pain; Translations: [Chronic bilateral low back pain with bilateral sciatica] Onset: 04-17-2024 Chronic Other upper respiratory disease (17 sources) Deviated nasal septum; Translations: [Deviated nasal septum] Onset: 02-25-2024 02-25-2024 Episodic Other upper respiratory disease (13 sources) Hypertrophy of nasal turbinates; Translations: [Hypertrophy of nasal turbinates] Onset: 02-25-2024 02-25-2024 Episodic Other upper respiratory disease (7 sources) Nasal obstruction; Translations: [Other specified disorders of nose and nasal sinuses] Onset: 05-21-2024 04-15-2024 Episodic Other upper respiratory disease (8 sources) Nasal congestion; Translations: [Nasal congestion] Onset: 05-21-2024 05-21-2024 Episodic Other upper respiratory disease (2 sources) Nasal congestion; Translations: [Nasal congestion] Onset: 05-21-2024 Episodic Other upper respiratory disease (4 sources) Deviated nasal septum; Translations: [Deviated nasal septum] Onset: 05-21-2024 Episodic Other upper respiratory disease (4 sources) Hypertrophy of nasal turbinates; Translations: [Hypertrophy of nasal turbinates] Onset: 05-21-2024 Episodic Other upper respiratory disease (2 sources) Other specified disorders of nose and nasal sinuses; Translations: [Other specified disorders of nose and nasal sinuses] Onset: 06-18-2024 Episodic Spondylosis; intervertebral disc disorders; other back problems (15 sources) Degeneration of lumbar intervertebral disc; Translations: [Other intervertebral disc degeneration, lumbar region] Onset: 08-22-2023 07-17-2023 Chronic Spondylosis; intervertebral disc disorders; other back problems (20 sources) Spinal stenosis of lumbar region; Translations: [Spinal stenosis, lumbar region without neurogenic claudication] Onset: 08-22-2023 07-18-2023 Episodic Substance-related disorders (16 sources) Smoker; Translations: [Nicotine dependence, unspecified, uncomplicated] Onset: 02-17-2024 09-12-2023 Chronic Comment on above: Added secondary to d ocumentation in Social History. Substance-related disorders (3 sources) Opioid abuse; Translations: [Opioid use, unspecified, uncomplicated] Onset: 06-12-2024 06-12-2024 Episodic Unclassified (3 sources) CONTACT W/AND (SUSP) EXPOS COVID-19; Translations: [CONTACT W/AND (SUSP) EXPOS COVID-19] Onset: 12-28-2020 Unclassified (1 source) Low back pain, unspecified; Translations: [Low back pain, unspecified] Onset: 09-19-2023 Past or Other Problems Problem Classification Problem Date Documented Da te Episodic/Chronic Unclassified (1 source) CONTACT W/AND (SUSP) EXPOS COVID-19; Translations: [CONTACT W/AND (SUSP) EXPOS COVID-19] Onset: 12-19-2020 Unclassified (3 sources) Onset: 05-21-2024 Resolved: 06-18-2024 05-21-2024 Results Test Name Value Interpretation Reference Range Facility Controlled Substances Agreem mel 06-24-2024 Controlled Substances Agreements [id number] ) GILLES JANE ([id number]) 1990 M Date Time Provider Department 06/16/24 2:20 PM EVETTE SINGH SPNSMN During your visit today, we recorded the following information about you: Pulse Respiration Blood pressure Weight 75/minute 18/minute 123/68 67.5 kg Height 1.803 m Evette Singh APRN.COMPUTER GRAPHIC ARTIST 06/16/2024 4:49 PM Signed SPINE SURGERY NEW PATIENT This is an in person visit DATE OF SERVICE: June 16, 2024 This is an in-person visit. SUBJECTIVE HISTORY OF PRESENT ILLNESS: Gilles Jane is a 34 year old male presenting with father. CHIEF COMPLAINT: chronic back pain into BLE PREVIOUS SPINAL SURGERY: None DURATION OF SYMPTOMS: Greater Than 1 Year Saw Evette Thompson PA-C 04/17/2024: Gilles Jane is a 34 year old male presenting today with chronic back pain > bilateral leg pain. CT lumbar spine reviewed. Patient states that he does have lumbar MRI, which was done in June 2023. He will request that imaging be sent over to office for review. He will contact office when this is sent over. Consider VV with surgical JERICHO for review. Gilles Jane will proceed with getting lumbar MRI uploaded to [facility] for review. BUBBA Thompson is currently on leave and patient was scheduled with me today for follow up to review previous MRI. He reports chronic back pain since he was 18 yo Pain Radiation: midline lumbar spine, into the tailbone, in the anus, bilateral posterior thigh, left posterior and anterior lower leg into the left foot; right lower leg PREVIOUS CONSERVATIVE TREATMENTS: -Suboxone -opioids: oxycodone 5mg -Gabapentin 300 mg TID -Physical Therapy (Multiple courses) -Lumbar Epidural Steroid Injections (Multiple) -Lumbar Radiofrequency Ablation (Multiple) ACTIVE PROBLEM LIST Scheuermann Disease Smoker PAST MEDICAL HISTORY Diagnosis Date Scheuermann disease Smoker PAST SURGICAL HISTORY Procedure Laterality Date PAST SURGICAL HISTORY OF left leg repair-fracture, ACL. meniscus, Social History Tobacco Use Smoking status: Every Day Current packs/day: 1.00 Types: Cigarettes Substance Use Topics Alcohol use: No Drug use: No ALLERGIES Allergen Reactions Lorazepam Swelling Penicillins Vicodin [Hydrocodon* Hives MEDICATIONS: clonazePAM (KLONOPIN) 0.5 mg tablet Take 0.5 mg by mouth two times a day. gabapentin (NEURONTIN) 300 mg capsule Take 300 mg by mouth three times a day. buprenorphine HCl/naloxone HCl (SUBOXONE SUBLINGUAL) See Instructions, Refill(s) 0, 2-8mg tab BID vilazodone (VIIBRYD) 40 mg tablet Take 40 mg by mouth once daily. QUEtiapine (SEROQUEL) 50 mg tablet Take 50 mg by mouth once daily. buprenorphine-nalOXone SL (SUBOXONE) 8-2 mg subl DISSOLVE ONE TABLET UNDER THE TONGUE TWICE DAILY LIDOCAINE 5 %(700 mg/patch) as directed. OBJECTIVE: PHYSICAL EXAM GENERAL APPEARANCE: Well nourished, well developed. NEURO PSYCH: Patient oriented to person, place, and time. Tearful, in distress MUSCULOSKELETAL VISUAL INSPECTION CERVICAL: WNL THORACIC: WNL LUMBAR: WNL GAIT: Normal. DATA REVIEW [facility] records independently reviewed Images independently reviewed with the patient 03/2023 MRI lumbar spine images and REPORT reviewed - mild-moderate left L4 foraminal stenosis - mild facet arthropathy L3/4, L4/5 12/2023 XR lumbar 01/2024 CT lumbar ASSESSMENT/PLAN G89.4 Chronic pain syndrome (primary encounter diagnosis) M54.41, M54.42, G89.29 Chronic 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 Gilles Jane is a 34 year old male with CC of chronic back pain into BLE. Notes sx since 18yo. Lumbar spine imaging with mild spondylosis without neural compression of significance Gilles Jane is not a candidate for surgery at this time. Surgery is not indicated [facility] Follow up with spine surgery: Not required I spent a total of 15 minutes on the date of the service which included preparing to see the patient, [id number] patient care, completing clinical documentation, obtaining and/or reviewing separately obtained history, performing a medically appropriate examination, counseling and educating the patient/family/caregiver, and independently interpreting results (not separately reported). SIGNATURE: Evette Singh APRN.COMPUTER GRAPHIC ARTIST PATIENT NAME: Gilles Jane DATE: June 16, 2024 TIME: 2:55 PM PAGER: Allergies As of Date: 06/16/2024 Noted Allergy Reaction LORAZEPAM 06/12/2013 7 - Swelling PENICILLINS 02/18/2002 VICODIN (HYDROCODONE-ACETAMINOPHE* 4 - Hives Date Reviewed: 06/16/2024 Reviewed by: Lyudmila Hutson MA - Fully Assessed Reason for Visit: Established Patient [175] Primary Visit Diagnosis:Chronic pain syndrome [G89.4] Other Visit Diagnosis: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, M54.42, G89.29] Order(s):CONSULT TO CENTER (more content not included)... Normal [facility] Tirso 05-29-2024 HASMUKHN Telephone (NIQ) BUCKGILLES Costa ([id number]) 1990 M Date Time Provider Department 05/29/24 EVETTE THOMPSON During your visit today, we recorded the following information about you: Ankit Parragalo 05/29/2024 9:58 AM Signed Pt called to check on his MRI imaging from [facility]. It's not available on [employer] AND no report scanned. Pt asked me to obtain imaging AND report and update him and wanted to schedule another appt. Pls call back with update He will request that imaging be sent over to office for review. He will contact office when this is sent over. Consider VV with surgical JERICHO for review MekhialejandraAnkit castanogalo 06/02/2024 9:14 AM Signed Received the following record(s) via fax. -Cathy - Report MR Lumbar Spine wo/w 03/29/23 Record(s) scanned into pt's chart. Lizbet Parra Ankit Parragalo 06/04/2024 2:31 PM Signed MRI is available on [employer] Allergies As of Date: 05/29/2024 Noted Allergy Reaction LORAZEPAM 06/12/2013 7 - Swelling PENICILLINS 02/18/2002 VICODIN (HYDROCODONE-ACETAMINOPHE* 4 - Hives Date Reviewed: 04/17/2024 Reviewed by: Mi French OCCA - Fully Assessed Reason for Visit: Patient Question [6787] Prescriptions as of 06/04/2024 - clonazePAM (KLONOPIN) 0.5 mg tablet Take 0.5 mg by mouth two times a day. - gabapentin (NEURONTIN) 300 mg capsule Take 300 mg by mouth three times a day. - buprenorphine HCl/naloxone HCl (SUBOXONE SUBLINGUAL) See Instructions, Refill(s) 0, 2-8mg tab BID - vilazodone (VIIBRYD) 40 mg tablet Take 40 mg by mouth once daily. - QUEtiapine (SEROQUEL) 50 mg tablet Take 50 mg by mouth once daily. - buprenorphine-nalOXone SL (SUBOXONE) 8-2 mg subl DISSOLVE ONE TABLET UNDER THE TONGUE TWICE DAILY - LIDOCAINE 5 %(700 mg/patch) as directed. Problem List As Of Date 05/29/2024 Noted Resolved Scheuermann disease [M42.00] Smoker [F17.200] Encounter Status:Closed by ANTASARI, MOERVITA on 06/04/24 [facility] CNOVon 04-17-2024 CNOV Office Visit (SPNSMN ) GILLES JANE ([id number]) 1990 M Date Time Provider Department 04/17/24 2:20 PM EVETTE THOMPSON SPNSMN During your visit today, we recorded the following information about you: Pulse Blood pressure Weight Height 92/minute 125/84 68.5 kg 1.803 m Evette Thompson PA-C 04/17/2024 3:17 PM Signed SPINE SURGERY OUTPATIENT CONSULT This is an in-person visit. SERVICE DATE: 04/17/2024 PCP: No primary care provider on file. REFERRING PROVIDER: [facility] [id number] Consult requested for an opinion regarding the evaluation and treatment of back pain. My final impression and recommendations will be communicated back to the requesting physician by way of the shared medical record or letter via US mail. SUBJECTIVE Gilles Jane is a 34 year old male presenting alone. CHIEF COMPLAINT: Back pain, leg pain HISTORY OF PRESENT ILLNESS C/o chronic back pain (lumbar > thoracic) > left leg pain > right leg pain (L4-L5) x many years. Notes subjective leg weakness and difficulty walking. Pain is constant without specific aggravating or alleviating factors. Patient is not currently working due to pain. 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 CMT: -Suboxone -Gabapentin 300 mg TID -Physical Therapy (Multiple courses) -Lumbar Epidural Steroid Injections (Multiple) -Lumbar Radiofrequency Ablation (Multiple) PRECIPITATING EVENT: None DURATION OF SYMPTOMS: Greater Than 1 Year PAIN EVALUATION 04/17/2024 1432 Pain Level: 5 Pain Location: Back Description: Sharp;Shooting;Tingling;Numb ness;Aching;Tightness Duration Amount of Time: 16 Duration Units: Years Frequency: Continuous Intervention/Comfort measure: Relaxation Pain Radiation: down the right and left thigh, below the right and left knee, and to the right and left foot/feet DERMATOMAL DISTRIBUTION: Right: L4 and L5 Left: L4 and L5 AMBULATORY STATUS: Independent Community Distances ANTIPLATELET OR ANTICOAGULATION STATUS: No PREVIOUS CONSERVATIVE TREATMENTS: SEE HPI PREVIOUS SPINAL SURGERY: None ACTIVE PROBLEM LIST Scheuermann Disease Smoker PAST MEDICAL HISTORY Diagnosis Date Scheuermann disease Smoker PAST SURGICAL HISTORY Procedure Laterality Date PAST SURGICAL HISTORY OF left leg repair-fracture, ACL. meniscus, FAMILY HISTORY Problem Relation Age of Onset other (DDD [Other]) Mother Social History Tobacco Use Smoking status: Every Day Current packs/day: 1.00 Types: Cigarettes Substance Use Topics Alcohol use: No Drug use: No ALLERGIES Allergen Reactions Lorazepam Swelling Penicillins Vicodin [Hydrocodon* Hives MEDICATIONS: clonazePAM (KLONOPIN) 0.5 mg tablet Take 0.5 mg by mouth two times a day. gabapentin (NEURONTIN) 300 mg capsule Take 300 mg by mouth three times a day. buprenorphine HCl/naloxone HCl (SUBOXONE SUBLINGUAL) See Instructions, Refill(s) 0, 2-8mg tab BID vilazodone (VIIBRYD) 40 mg tablet Take 40 mg by mouth once daily. QUEtiapine (SEROQUEL) 50 mg tablet Take 50 mg by mouth once daily. buprenorphine-nalOXone SL (SUBOXONE) 8-2 mg subl DISSOLVE ONE TABLET UNDER THE TONGUE TWICE DAILY LIDOCAINE 5 %(700 mg/patch) as directed. REVIEW OF SYSTEMS: PAIN ASSESSMENT: See HPI. GENERAL: Denies fever, chills malaise and weight loss. HEENT: No recent change in vision or hearing. CARDIOVASCULAR: Denies chest pain, history of A-fib, valvular disease, or pacemaker/ICD. RESPIRATORY: Denies SOB, sputum production, and hemoptysis. GI: Denies GI ulcers, inflammatory disease, or liver disease. : Denies change in frequency or urgency, kidney disease, and burning with urination. MUSCULOSKELETAL: Positive for See HPI SKIN: Denies rash or itching. PSYCHOLOGICAL: Denies uncontrolled depression or anxiety. NEURO: Denies CVA, seizures, headaches. ENDOCRINE: Denies diabetes, thyroid disease. HEMATOLOGY/LYMPHOLOGY: Denies cancer, bleeding or clotting disorders, anemia,and DVT's. ALLERGIC/IMMUNOLOGICAL: Denies risks for infection, or recent MRSA infections. Patient Entered Questionnaires PROMIS Score Percentiles Percentiles provide an indication of how the patient's score ranks in relation to the general population. Higher percentile rankings indicate better function/quality of life. 50th percentile is the average of the general population and indicates half of respondents had a worse score. Depression Screenin06/12/2013 PHQ-9 Score 10 06/12/2013 PHQ-9 Self-harm Question Question 9 Not at all PHQ-9 Self-Harm (Item 9) response options: 0 Not at all 1 Several days 2 More than half the days 3 Nearly every day PHQ-9 Levels: 0-4 No to mild depression 5-9 Mild depression 10-14 Moderate depression 15-19 Moderately severe depression 20-27 Severe depression OBJECTIVE: PHYSICAL EXAM BP 125/84 Pu (more content not included)... Normal [facility] Consultation/Specialist Note on 03-04-2024 Consultation/Special ist Note [id number][facility]ation/Specialist Note on 01-29-2024 Consultation/Special ist Note [id number]#1.[facility] Consultation/Special ist Note [id number]#1.[facility] Outside Recordson 01-23-2024 Outside Records [id number]#[facility]-2024 Insurance [id number]#1.[facility] Main OR Intraoperative Recor don 12-30-2023 Main OR Intraoperative Record Main OR Intraoperative Record IntraOp Document Type FTPM Summary Primary Physician: Laci Moss DO Finalized Date/Time: 12/30/23 14:56:10 Pt. Name: GILLES JANE/Sex: 1990 Male Med Rec #: [id number] Physician: Laci Moss DO Financial #: [id number] Pt. Type: P Room/Bed: / Admit/Disch: 12/30/23 [...] Susan Quinn Role Performed Surgeon - Primary Machine Operator Packaging - Primary Scrub - Primary Time In 12/30/23 14:47:00 12/30/23 14:47:00 12/30/23 14:47:00 Time Out 12/30/23 14:57:00 12/30/23 14:57:00 12/30/23 14:57:00 Procedure TRANSFORAMINAL EPIDURAL TRANSFORAMINAL EPIDURAL TRANSFORAMINAL EPIDURAL STEROID STEROID STEROID INJECTIO(Bilateral) INJECTIO(Bilateral) INJECTIO(Bilateral) Comments Last Modified By: Cliff QUINTANILLA, Zhanna Coronado RN, Zhanna Gaytan RN 12/30/23 14:56:07 12/30/23 14:56:07 12/30/23 14:56:07 Entry 4 Case Attendee Cely Whitaker Role Performed Heliotherapist Time In 12/30/23 14:47:00 Time Out 12/30/23 [...] No Time Out Zhanna Coronado RN, Harsha Dent RN, Ajay Monroy DO, Bradford [...] Yes Primary Surgeon Laci Moss DO Start 12/30/23 14:50:00 Stop 12/30/23 14:56:00 Anesthesia Type [...] and tissue Entry 1 Skin Integrity Intact, College, Warm, & Skin Abnormality No Dry Outcomes [...] Safety Stra (more content not included)... Normal [facility] Main OR Preoperative Recordo n 12-30-2023 Main OR Preoperative Record Main OR Preoperative Record Holding Area Document Type FTPM Summary Primary Physician: Laci Moss DO Finalized Date/Time: 12/30/23 13:34:55 Pt. Name: GILLES JANE/Sex: 1990 Male Med Rec #: [id number] Physician: Laci Moss DO Financial #: [id number] Pt. Type: P Room/Bed: / Admit/Disch: 12/30/23 [...] Date/Time: 12/30/23 13:28:00 Results Reviewed Yovani darden 0777 Personal Items: Halina Comments: Personal Items Glasses Complaints of Pain: [...] By: Armando Stuart RN 12/30/23 13:34 Normal [facility] Rad - MRI Reporton Rad - MRI Report [id number]#1.00OTGTIFF [facility] Rad - Other Radiology Report on 12-16-2023 Rad - Other Radiology Report [id number]#1.00OTGTIFF [facility] MRI Spine Cervical w/o Contr felice 12-13-2023 [...] tissues are grossly unremarkable. Report Ordering Provider: Yanet Low FINAL REPORT Dictated: 12/13/2023 11:48 am Carlos Figueroa DO Signed (Electronic Signature): 12/13/2023 11:48 am Signed by: Carlos Figueroa DO Transcribed by: MAGGI Technologist: IVETT Technical Comments None Normal [facility] XR Spine Cervical 4 or 5 Vie [...] paraspinous soft tissues are unremarkable. Ordering Provider: Yanet Low FINAL REPORT Dictated: 12/13/2023 1:47 pm Jostin Garza MD Signed (Electronic Signature): 12/13/2023 1:47 pm Signed by: Jostin Garza MD Transcribed by: MAGGI Technologist: SERGEY Technical Comments Radiation Dose: Ka,r in mGy = na DAP = na Normal [facility] Consultation/Specialist Note on 12-12-2023 Consultation/Special ist Note [id number]#1.00OTGTIFF [facility] Insuranceon 12-12-2023 Insurance [id number]#1.00OTGTIFF [facility] XR lumbar spine 6V w bending on 12-12-2023 XR lumbar spine 6V w bending [facility] Main [address] [address] XRay Report Signed Patient: Gilles Jane MR#: [id number] 1409 : 1990 Acct:[id number] Age/Sex: 33 / M ADM Date: 12/12/23 Loc: XD Room: Type: [facility] Attending Dr: Lesvia ROJO Copies to: ALIA Duran Ordering Provider: ALIA [...] Polo Jr., D.O.12/12/2023 3:18 PM Dictation Location: [place] [address] Transcribed By: [facility] 12/12/23 1518 Dictated By: Reece Polo Jr, DO 12/12/23 1517 Signed By: 12/12/23 1518 Normal [facility] Outside Recordson 11-29-2023 Outside Records [id number]#1.00OTGTIFF [facility] Outside Records Officeon Outside Records Office [id number]#1.00TIFF Normal [facility] Consent for Procedure/Surger yon 10-16-2023 Consent for Procedure/Surgery [id number]#1.00TIFF Normal [facility] Discharge Instructionson Discharge Instructions [id number]#1.00TIFF Normal [facility] IntraOperative Documentson 0 10-16-2023 IntraOperative Documents [id number]#1.00TIFF Normal [facility] IntraOperative Documents [id number]#1.00TIFF Normal [facility] Consent for Treatmenton Consent for Treatment [id number]#1.00TIFF Normal [facility] Main OR Intraoperative Recor don 10-15-2023 Main OR Intraoperative Record IntraOp Document Type FTPM Summary Primary Physician: Laci Moss DO Finalized Date/Time: 10/15/23 15:13:45 Pt. Name: BUCKGILLES/Sex: 1990 Male Med Rec #: [id number] Physician: Laci Moss DO Financial #: [id number] Pt. Type: P Room/Bed: / Admit/Disch: 10/15/23 13:39:34 - Institution: Case Times FTPM Entry 1 Patient Times In Room 10/15/23 15:08:00 Out Room 10/15/23 15:14:00 Procedure Times Start 10/15/23 15:11:00 Stop 10/15/23 15:13:00 Anesthesia Times Last Modified By: Cliff QUINTANILLA, Zhanna Hollingsworth 10/15/23 15:13:34 Case Attendance FTPM Entry 1 Entry 2 Entry 3 Case Attendee Laci Moss DO, RN, Zhanna Ardon RN, Saira Role Performed Surgeon - Primary Machine Operator Packaging - Primary Scrub - Primary Time In 10/15/23 15:08:00 10/15/23 15:08:00 10/15/23 15:08:00 Time Out 10/15/23 15:14:00 10/15/23 15:14:00 10/15/23 15:14:00 Procedure LUMBAR EPIDURAL STEROID LUMBAR EPIDURAL STEROID LUMBAR EPIDURAL STEROID INJECTION(.) INJECTION(.) INJECTION(.) Comments Last Modified By: Cliff QUINTANILLA, Zhanna Croonado RN, Zhanna Gaytan RN 10/15/23 15:13:35 10/15/23 15:13:35 10/15/23 15:13:35 Entry 4 Entry 5 Case Attendee Hamida Nickerson, Krishan P Role Performed Heliotherapist Heliotherapist Time In 10/15/23 15:08:00 10/15/23 15:08:00 Time Out 10/15/23 15:14:00 10/15/23 15:14:00 Procedure LUMBAR EPIDURAL STEROID LUMBAR EPIDURAL STEROID INJECTION(.) INJECTION(.) Comments Last Modified By: Zhanna Coronado RN, RN, Kayla J 10/15/23 15:13:35 10/15/23 15:13:35 Perioperative Protocols FTPM [...] Antibiotic No Time Out Zhanna Coronado RN, Given María Elena Ardon RN, Ajay Chávez DO, Bradford A., Daniel, Alissa M, Roll RT, Daniel P Time Out Complete 10/15/23 15:08:00 Outcomes [...] and tissue Entry 1 Skin Integrity Intact, College, Warm, and Skin Abnormality No Dry Outcomes [...] Device Pillow (more content not included)... Normal [facility] Main OR Preoperative Recordo n 10-15-2023 Main OR Preoperative Record Holding Area Document Type FTPM Summary Primary Physician: Laci Moss DO Finalized Date/Time: 10/15/23 14:01:15 Pt. Name: GILLES JANE/Sex: 1990 Male Med Rec #: [id number] Physician: Laci Moss DO Financial #: [id number] Pt. Type: P Room/Bed: / Admit/Disch: 10/15/23 [...] Signed By: Elyse Badillo RN 10/15/23 14:01 Normal [facility] Outside Records Officeon Outside Records Office [id number]#1.00TIFF Normal [facility] Patient Correspondenceon Patient Correspondence [id number]#1.00TIFF Normal [facility] Insurance Correspondence Off iceon 09-24-2023 Insurance Correspondence Office [id number]#2.00TIFF Normal [facility] Orders Officeon 09-18-2023 Orders Office [id number]#1.00TIFF Normal [facility] Outside Records Officeon Outside Records Office [id number]#1.00TIFF Normal [facility] Consent for Treatmenton Consent for Treatment [id number]#1.00TIFF Normal [facility] Consultation Noteon 09-12-19 Consultation Note Patient [...] 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 [facility] Comment on above: Result Comment: Elec tronically Signed By: Laci Moss DO\.br\Date and Time Signed: 09/12/23 12:36 EDT HIPAA Forms Officeon 024 HIPAA Forms Office [id number]#1.00TIFF [facility] Legal Correspondence Officeo n 09-12-2023 Legal Correspondence Office [id number]#1.00TIFF [facility] Legal Correspondence Office [id number]#1.00TIFF Normal [facility] Office/Clinic Note-Physician on 09-12-2023 Office/Clinic Note-Physician [id number]#1.00TIFF Normal [facility] Patient Correspondenceon Patient Correspondence [id number]#1.00TIFF Normal [facility] Patient Correspondence [id number]#1.00TIFF Normal [facility] Patient Correspondence [id number]#1.00TIFF Normal [facility] Patient Correspondence [id number]#1.00TIFF Normal [facility] Patient Correspondence [id number]#1.00TIFF Normal [facility] Patient History Officeon Patient History Office [id number]#1.00TIFF Normal [facility] Physician Orderon 09-12-2023 Physician Order [id number]#1.00TIFF Normal [facility] Outside Records Officeon Outside Records Office [id number]#1.00TIFF Normal [facility] Radiology Outside Office Fabric Inspector yon 08-23-2023 Radiology Outside Office Copy [id number]#1.00TIFF Normal [facility] Referrals Officeon Referrals Office [id number]#1.00TIFF Normal [facility] A1C with Estimated Average G luon 08-22-2023 Glucose [Mass/Vol] 111 mg/dL Normal [facility] Comment on above: Result Comment: PERF ORMED BY: [place] [address] PATHOLOGIST LIVESTOCK NUTRITIONIST BRENDA MOE M.D. Performed By: #### A NA, VITB6, RPR W RFX, RA #### [facility] , #### CRP, [id number], TSH3, T4F, A1C WTH eA, ESR #### [address] [place] Antinuclear Antibodieson 08-22-2023 Antinuclear Abs, IFA Negative Normal . [facility] Comment on above: Result Comment: Nega tive <1:80 Borderline 1:80 Positive >1:80 ICAP nomenclature: AC-0 For more information about Hep-2 cell patterns use ANApatterns.org, the official website for the International Consensus on Antinuclear Antibody ([place]) Patterns (ICAP). Performed at: - [facility] [id number] T[employer] Specialist: Reuben Couch PhD, Phone: [phone] Performed By: #### A NA, VITB6, RPR W RFX, RA #### [facility] , #### CRP, [id number], TSH3, T4F, A1C WTH eA, ESR #### [address] C reactive protein [Mass/vol ume] in Serum or PlasmaOrdered By: Lesvia Low on 08-22-2023 CRP [Mass/Vol] < 0.5 mg/dL 0.0-0.5 [facility] C-Reactive Proteinon 024 CRP [Mass/Vol] mg/L Normal 0.0-0.5 [facility] Comment on above: Performed By: #### A NA, VITB6, RPR W RFX, RA #### [facility] , #### CRP, [id number], TSH3, T4F, A1C WTH eA, ESR #### [place] [address] [place] Erythrocyte Sedimentation Ra sandeep 08-22-2023 ESR (Bld) [Velocity] 8 mm/h Normal 0-14 [facility] Comment on above: Result Comment: PERF ORMED BY: [facility] [address] [place] [address] PATHOLOGIST LIVESTOCK NUTRITIONIST BRENDA MOE M.D. Performed By: #### A NA, VITB6, RPR W RFX, RA #### [facility] , #### CRP, [id number], TSH3, T4F, A1C WTH eA, ESR #### [facility] [address] [place] [id number] [facility] Erythrocyte sedimentation ra te by Photometric methodOrdered By: Lesvia Low on 08-22-2023 ESR Photometric method (Bld) [Velocity] 8 mm/hr 0-14 [facility] Folate [Mass/volume] in Seru m or PlasmaOrdered By: Lesvia Low on 08-22-2023 Folate [Mass/Vol] 39.0 ng/mL >5.9 [facility] Comment on above: Folate reference ran ge: >5.9 ng/mlThe WHO technical consultation on folate and vitamin [id number] has determined that folate concentrations lessthan 4 ng/ml are considered deficient. Glucose mean value [Mass/vol ume] in Blood Estimated from glycated hemoglobinOrdered By: Lesvia Low on 08-22-2023 Average glucose Estimated from glycated hemoglobin (Bld) [Mass/Vol] 111 mg/dL [facility] Hemoglobin A1c percentageOrd ered By: Lesvia Low on 08-22-2023 HbA1c (Bld) [Mass fraction] 5.5 % Normal 4.3-5.6 [facility] Comment on above: Increased risk for d iabetes: 5.7 - 6.4diabetes: >6.4glycemic control for adults with diabetes: <7.0 Result Comment: Incr eased risk for diabetes: 5.7 - 6.4 diabetes: >6.4 glycemic control for adults with diabetes: <7.0 Performed By: #### A NA, VITB6, RPR W RFX, RA #### [facility] , #### CRP, [id number], TSH3, T4F, A1C WTH eA, ESR #### [facility] [address] [place] [address] [place] Patient Letteron 08-22-2023 Patient Letter [id number]#1.00OTGTIFF [facility] RPR w/rfx to Quant TP Abson 08-22-2023 RPR, Rfx Quant RPR Non-Reactive Normal Non Reactive [facility] Comment on above: Result Comment: Perf ormed at: [facility] [id number] T[employer] Specialist: Reuben Couch PhD, Phone: [phone] PERFORMED BY: [place] [address] PATHOLOGIST LIVESTOCK NUTRITIONIST BRENDA MOE M.D. Performed By: #### A NA, VITB6, RPR W RFX, RA #### [facility] , #### CRP, [id number], TSH3, T4F, A1C WTH eA, ESR #### [facility] [address] [place] [address] Reagin Ab [Presence] in Seru m by RPROrdered By: Lesvia Low on 08-22-2023 Reagin Ab RPR Ql (S) Non-Reactive Non Reactive [facility] Comment on above: Performed at: [facility] [employer] [id number] Director: Reuben Couch PhD, Phone: [phone] Rheumatoid Factoron 08-22-19 Rheumatoid Factor <10.0 Normal <14.0 [facility] Comment on above: Result Comment: Perf ormed at: [facility] [facility] [id number] T[employer] Specialist: Reuben Couch PhD, Phone: [phone] Performed By: #### A NA, VITB6, RPR W RFX, RA #### [facility] , #### CRP, [id number], TSH3, T4F, A1C WTH eA, ESR #### [facility] [address] Serum homogeneous pattern an tinuclear antibody ([place]) titerOrdered By: Lesvia Low on 08-22-2023 Homogenous nuclear Ab pattern (S) [Titer] N/A [facility] Serum nuclear antibody titer Ordered By: Lesvia Low on 08-22-2023 Nuclear Ab (S) [Titer] Negative . [facility] Comment on above: Negative <1:80 Borde rline 1:80 Positive >1:80ICAP nomenclature: AC-0For more information about Hep-2 cell patterns useANApatterns.org, the official website for theInternational Consensus on Antinuclear Antibody ([place])Patterns (ICAP).Performed at: [facility] [employer] [id number] Director: eRuben Couch PhD, Phone: [phone] Serum or plasma pyridoxine m easurement (mass/volume)Ordered By: Lesvia Low on 08-22-2023 Pyridoxine [Mass/Vol] 31.5 ug/L 3.4-65.2 [facility] Comment on above: This test was develo ped and its performance characteristicsdetermined by [employer]. It has not been cleared orapproved by the Food and Drug Administration. Deficiency: <3.4 Marginal: 3.4 - 5.1 Adequate: >5.1Performed at: [facility] [employer] [id number] Director: Houston Bobo MD, Phone: [phone] Serum or plasma rheumatoid f actor measurement (units/volume)Ordered By: Lesvia Low on 08-22-2023 Rheumatoid factor Qn [IU]/mL <14.0 [facility] Comment on above: Performed at: [address] [id number] Director: Reuben Couch PhD, Phone: [phone] Thyrotropin [Units/volume] i n Serum or PlasmaOrdered By: Lesvia Low on 08-22-2023 TSH Qn 1.29 m[IU]/L Normal 0.45-5.33 [facility] Comment on above: Result Comment: PERF ORMED BY: [place] [address] PATHOLOGIST LIVESTOCK NUTRITIONIST BRENDA MOE M.D. Performed By: #### A NA, VITB6, RPR W RFX, RA #### [facility] , #### CRP, [id number], TSH3, T4F, A1C WTH eA, ESR #### [facility] [address] [place] [address] Thyroxine (T4) free [Mass/vo lume] in Serum or PlasmaOrdered By: Lesvia Low on 08-22-2023 Free T4 [Mass/Vol] 0.90 ng/dL Normal 0.61-1.12 [facility] Comment on above: Performed By: #### A NA, VITB6, RPR W RFX, RA #### [facility] , #### CRP, [id number], TSH3, T4F, A1C WT eA, ESR #### [facility] [address] [place] [address] Vit. B12/Folate Profileon Folate 39.0 ng/mL Normal >5.9 [facility] Comment on above: Result Comment: Khadra te reference range: >5.9 ng/ml The WHO technical consultation on folate and vitamin b12 deficiencies has determined that folate concentrations less than 4 ng/ml are considered deficient. Performed By: #### A NA, VITB6, RPR W RFX, RA #### [facility] , #### CRP, [id number], TSH3, T4F, A1C WT eA, ESR #### [facility] [address] [place] [address] Vitamin B12 ser/plasOrdered By: Lesvia Low on 08-22-2023 Cobalamin (Vitamin B12) [Mass/Vol] 710 pg/mL Normal 180-914 [facility] Comment on above: Performed By: #### A NA, VITB6, RPR W RFX, RA #### [facility] , #### CRP, [id number], TSH3, T4F, A1C WTH eA, ESR #### [facility] [address] [id number] [facility] Vitamin B6on 08-22-2023 Vitamin B6 31.5 Normal 3.4-65.2 [facility] Comment on above: Result Comment: This test was developed and its performance characteristics determined by [facility]. It has not been cleared or approved by the Food and Drug Administration. Deficiency: <3.4 Marginal: 3.4 - 5.1 Adequate: >5.1 Performed at: [address] [id number] [employer] Specialist: Houston Bobo MD, Phone: [phone] PERFORMED BY: [place] [address] PATHOLOGIST LIVESTOCK NUTRITIONIST BRENDA MOE M.D. Performed By: #### A NA, VITB6, RPR W RFX, RA #### [facility] , #### CRP, [id number], TSH3, T4F, A1C WTH eA, ESR #### [address] [id number] [facility] Outside [employer]son 07-18-2023 Outside Records [id number] (CVDTBH)on SARS-CoV-2 (COVID-19) RNA JAHAIRA+probe Ql (Unsp spec) Not detected Normal NOT DETECTED [facility] Comment on above: Result Comment: This test is not yet approved or cleared by the [place] FDA. When there are no FDA-approved or cleared tests available, and other criteria are met, FDA can make tests available under an emergency access mechanism called an Emergency Use Authorization (EUA). The EUA for this test is supported by the [employer] of Health and Human Service's (HHS's) declaration [...] consistent with SARS-CoV-2. Performed By: #### C AMY, CVDTB #### [facility] [address] [place] [address] Renetta Lafleur SYMPTOMATIC COVID-19 ANTIGEN on 12-19-2020 EUA Statement SEE BELOW Normal [facility] Comment on above: Result Comment: This test [...] is revoked sooner. Performed By: #### C AMY, CVDTB #### [facility] [address] [place] [address] Renetta Lafleur SARS-CoV-2 (COVID-19) RNA JAHAIRA+probe Ql (Unsp spec) Negative Normal NEGATIVE [facility] Comment on above: Result Comment: CONF IRMATION BY PCR PENDING PER CDC GUIDELINES/ SYMPTOMATIC PATIENT. Performed By: #### C AMY, CVDTB #### [facility] [address] [place] [address] Renetta Lafleur CBC with Diffon 11-30-2017 Abs. Basophil 0.10 k/uL Normal 0.0-0.2 [facility] Comment on above: Performed By: #### C DP, CP, LIP, EDTOX ####[facility] [place] [address] Abs.Neutrophil (Seg) 6.70 k/uL Normal 1.3-9.[address] [facility] Comment on above: Performed By: #### C DP, CP, LIP, EDTOX ####[facility] [place] [address] Basophils/100 WBC Auto (Bld) 1 % Normal 0-2 [facility] Comment on above: Performed By: #### C DP, CP, LIP, EDTOX ####[address] [place] [address] Eosinophils 0.10 10*3/uL Normal 0.0-0.4 [facility] Comment on above: Performed By: #### C DP, CP, LIP, EDTOX ####[facility] [facility] [address] Eosinophils/100 leukocytes 2 % Normal 0-4 [facility] Comment on above: Performed By: #### C DP, CP, LIP, EDTOX ####[facility] [place] [address].[place] [address] Erythrocyte distribution width Auto Ratio (RBC) 12.7 % Normal 11.5-14.9 [facility] Comment on above: Performed By: #### C DP, CP, LIP, EDTOX ####[address] [facility] [address] Erythrocytes (RBC) 4.38 10*6/uL Low 4.5-5.[address] [facility] Comment on above: Performed By: #### C DP, CP, LIP, EDTOX ####[address] [address] [place] [address] Hematocrit (HCT) 39.1 % Low 41-53 [facility] Comment on above: Performed By: #### C DP, CP, LIP, EDTOX ####[facility] [place] [address] Hemoglobin mass conc (Bld) 13.2 g/dL Low 13.5-17.5 [facility] Comment on above: Performed By: #### C DP, CP, LIP, EDTOX ####[facility] [place], [place] [address] [place] [address] Lymphocytes 1.80 10*3/uL Normal 1.0-4.8 [facility] Comment on above: Performed By: #### C DP, CP, LIP, EDTOX ####[address] [place] [address] Lymphocytes/100 leukocytes 19 % Low 24-44 [facility] Comment on above: Performed By: #### C DP, CP, LIP, EDTOX ####[address] [place] [address] MCH 30.1 pg Normal 26-34 [facility] Comment on above: Performed By: #### C DP, CP, LIP, EDTOX ####[address] [facility] [address] MCHC mass conc (RBC) 33.7 g/dL Normal 31-[address] [facility] Comment on above: Performed By: #### C DP, CP, LIP, EDTOX ####[address] [place] [address] MCV 89.3 fL Normal 80-100 [facility] Comment on above: Performed By: #### C DP, CP, LIP, EDTOX ####[address] [address] [place] [address] Monocytes 0.60 10*3/uL Normal 0.1-1.3 [facility] Comment on above: Performed By: #### C DP, CP, LIP, EDTOX ####[facility] [place] [address] Monocytes/100 leukocytes 7 % Normal 1-7 [facility] Comment on above: Performed By: #### C DP, CP, LIP, EDTOX ####[facility] [place] [address] Neutrophil (Seg) 71 % High 36-66 [facility] Comment on above: Performed By: #### C DP, CP, LIP, EDTOX ####[address] [address] [place] [address] Platelet mean volume (PMV) 7.7 fL Normal 6.0-12.0 [facility] Comment on above: Performed By: #### C DP, CP, LIP, EDTOX ####[facility] [place], [place] [address]fr[address] [place] [address] Platelets 249 10*3/uL Normal 150-450 [facility] Comment on above: Performed By: #### C DP, CP, LIP, EDTOX ####[address] [place] [address] WBC (Leukocytes) 9.3 10*3/uL Normal 3.5-11.0 [facility] Comment on above: Performed By: #### C DP, CP, LIP, EDTOX ####[address] [address] [place] [address] Abs.Imm.Granulocyte NOT REPORTED Normal 0.00-0.30 [facility] Comment on above: Performed By: #### C DP, CP, LIP, EDTOX ####[address] [address] [facility] [place] [address] Auto Diff Performed NOT REPORTED Normal [facility] Comment on above: Performed By: #### C DP, CP, LIP, EDTOX ####[facility] [facility] [place] [address] Erythrocyte morphology NOT REPORTED Normal [facility] Comment on above: Performed By: #### C DP, CP, LIP, EDTOX ####[address] [place] [address] Immature granulocytes #/vol (Bld) NOT REPORTED Normal 0 [facility] Comment on above: Performed By: #### C DP, CP, LIP, EDTOX ####[address] [place] [address] NRBC Automated NOT REPORTED Normal [facility] Comment on above: Performed By: #### C DP, CP, LIP, EDTOX ####[address] [address] Platelets NOT REPORTED Normal [facility] Comment on above: Performed By: #### C DP, CP, LIP, EDTOX ####[address] [address] WBC Morphology NOT REPORTED Normal [facility] Comment on above: Performed By: #### C DP, CP, LIP, EDTOX ####[address] [address] Comp Metabolic Profon 2017 (cont.) Normal [facility] Comment on above: Result Comment: Aver age GFR for 20-29 years old: 116 mL/min/1.73sq mChronic Kidney Disease: <60 mL/min/1.73sq mKidney failure: <15 mL/min/1.73sq meGFR calculated using average adult body mass. Additional eGFR calculator available at:http://www.[employer].com/multiple_crcl_2012.htm Performed By: #### C DP, CP, LIP, EDTOX ####[facility] [place] [address] Alanine aminotransferase (ALT) 26 U/L Normal 5-41 [facility] Comment on above: Performed By: #### C DP, CP, LIP, EDTOX ####[address] [facility] [address] Albumin 4.1 g/dL Normal 3.5-5.2 [facility] Comment on above: Performed By: #### C DP, CP, LIP, EDTOX ####[address] [place] [address] Alkaline Phos 78 U/L Normal 40-129 [facility] Comment on above: Performed By: #### C DP, CP, LIP, EDTOX ####[facility] [place] [address].[place] [address] Anion gap 12 mmol/L Normal 9-17 [facility] Comment on above: Performed By: #### C DP, CP, LIP, EDTOX ####[address] [place] [address] Aspartate aminotransferase (AST) 24 U/L Normal <40 [facility] Comment on above: Performed By: #### C DP, CP, LIP, EDTOX ####[address] [place] [address] Bilirubin Ql (U) 0.56 mg/dL Normal 0.3-1.2 [facility] Comment on above: Performed By: #### C DP, CP, LIP, EDTOX ####[address] [place] [address] Calcium 9.0 mg/dL Normal 8.6-10.4 [facility] Comment on above: Performed By: #### C DP, CP, LIP, EDTOX ####[facility] [place] [address] Chloride 103 mmol/L Normal 98-107 [facility] Comment on above: Performed By: #### C DP, CP, LIP, EDTOX ####[facility] [place] [address] CO2 24 mmol/L Normal 20-31 [facility] Comment on above: Performed By: #### C DP, CP, LIP, EDTOX ####[facility] [place] [address] Creatinine 0.62 mg/dL Low 0.70-1.20 [facility] Comment on above: Performed By: #### C DP, CP, LIP, EDTOX ####[facility] [place] [address] GFR, Amer >60 Normal >60 [facility] Comment on above: Performed By: #### C DP, CP, LIP, EDTOX ####[facility] [place] [address] GFR,non Amer >60 Normal >[address] [facility] Comment on above: Performed By: #### C DP, CP, LIP, EDTOX ####[facility] [place] [address] Glucose mass conc 80 mg/dL Normal 70-99 [facility] Comment on above: Performed By: #### C DP, CP, LIP, EDTOX ####[facility] [place] [address] Potassium molar conc 4.0 mmol/L Normal 3.7-5.[address] [facility] Comment on above: Performed By: #### C DP, CP, LIP, EDTOX ####[facility] [place] [address] Protein 6.4 g/dL Normal 6.4-8.3 [facility] Comment on above: Performed By: #### C DP, CP, LIP, EDTOX ####[address] [address] [place] [address] Sodium 139 mmol/L Normal 135-144 [facility] Comment on above: Performed By: #### C DP, CP, LIP, EDTOX ####[facility] [place] [address] Urea nitrogen 15 mg/dL Normal 6-20 [facility] Comment on above: Performed By: #### C DP, CP, LIP, EDTOX ####[address] [address] [place] [address] Albumin/Globulin Ratio NOT REPORTED Normal 1.0-2.5 [facility] Comment on above: Performed By: #### C DP, CP, LIP, EDTOX ####[facility] [place] [address] BUN/CRE Ratio NOT REPORTED Normal 9-20 [facility] Comment on above: Performed By: #### C DP, CP, LIP, EDTOX ####[facility] [place] [address] Staging: NOT REPORTED Normal [facility] Comment on above: Performed By: #### C DP, CP, LIP, EDTOX ####[address] [address] [place] [address] Drug Scr, Abuse, Uron 2017 Amphetamine(s),Ur Negative Normal NEG [facility] Comment on above: Result Comment: (Pos itive cutoff 1000 ng/mL) Performed By: #### U AX, SORAIDA ####[address] [address] Barbiturate(s),Ur Negative Normal [facility] Comment on above: Result Comment: (Pos itive cutoff 200 ng/mL) Performed By: #### U AX, SORAIDA ####[address] [address] Base excess Negative Normal [facility] Comment on above: Result Comment: (Pos itive cutoff 300 ng/mL) Performed By: #### U AX, SORAIDA ####[address] [address] Benzodiazepine(s) Negative Normal [facility] Comment on above: Result Comment: (Pos itive cutoff 200 ng/mL) Performed By: #### U AX, SORAIDA ####[address] [address] Cannabinoid(s),Ur Negative Normal [facility] Comment on above: Result Comment: (Pos itive cutoff 50 ng/mL) Performed By: #### U AX, SORAIDA ####[address] [address] Interpretive Info Assay provides medic al screening only. The absence of expected drug(s) and/or Normal [facility] Comment on above: Result Comment: meta bolite(s) may indicate diluted or adulterated urine, limitations of testing or timing of collection.Testing for legal purposes should be confirmed by another method. To request confirmation of test result, please call the lab within 7 days of sample submission. Performed By: #### U AX, SORAIDA ####[address] [address] Opiate(s), Ur Negative Normal NEG [facility] Comment on above: Result Comment: (Pos itive cutoff 300 ng/mL) Performed By: #### U AX, SORAIDA ####[address] [address] Oxycodone, Urine Negative Normal NEG [facility] Comment on above: Result Comment: (Pos itive cutoff 100 ng/mL) Performed By: #### U AX, SORAIDA ####[address] [address] Phencyclidine, Ur Negative Normal NEG [facility] Comment on above: Result Comment: (Pos itive cutoff 25 ng/mL) Performed By: #### U AX, SORAIDA ####[address] [address] Urine, methadone presence Negative Normal NEG [facility] Comment on above: Result Comment: (Pos itive cutoff 300 ng/mL) Performed By: #### U AX, SORAIDA ####[address] [address] Buprenorphrine, Ur NOT REPORTED Normal NEG [facility] Comment on above: Performed By: #### U AX, SORAIDA ####[address] [address] MDMA, Urine NOT REPORTED Normal NEG [facility] Comment on above: Performed By: #### U AX, SORAIDA ####[address] [address] Methamphetamine, Ur NOT REPORTED Normal NEG [facility] Comment on above: Performed By: #### U AX, SORAIDA ####[address] [address] Propoxyphene,Urine NOT REPORTED Normal NEG [facility] Comment on above: Performed By: #### U AX, SORAIDA ####[facility] [place] [address] Urine, tricyclic antidepressants NOT REPORTED Normal NEG [facility] Comment on above: Performed By: #### U AX, SORAIDA ####[address] [address] Lactic Acidon 11-30-2017 Lactate 0.5 mmol/L Normal 0.5-2.2 [facility] Comment on above: Performed By: #### L ACTIC ####[address] [address] Lactic Acid,Whole Bl NOT REPORTED Normal 0.7-2.1 [facility] Comment on above: Performed By: #### L ACTIC ####[address] [address] Lipaseon 11-30-2017 Lipase 9 U/L Low 13-60 [facility] Comment on above: Performed By: #### C DP, CP, LIP, EDTOX ####[address] [address] Tox Scr, Bld, EDon 8 Acetaminophen mass conc <5 Low 10-30 [facility] Comment on above: Performed By: #### C DP, CP, LIP, EDTOX ####[address] [address] Salicylate <1 Low 3-10 [facility] Comment on above: Performed By: #### C DP, CP, LIP, EDTOX ####[address] [address] Ethanol mg/dL Normal <10 [facility] Comment on above: Performed By: #### C DP, CP, LIP, EDTOX ####[address] [place] [address] Ethanol percent <0.010 Normal [facility] Comment on above: Performed By: #### C DP, CP, LIP, EDTOX ####[address] [place] [address] UA w/Reflex Cultureon 2017 Acetoacetic Acid,Ur Negative Normal NEG [facility] Comment on above: Performed By: #### U AX, SORAIDA ####[address] [address] Bilirubin, SemiQt,Ur Negative Normal NEG [facility] Comment on above: Performed By: #### U AX, SORAIDA ####[address] [address] Color YELLOW Normal YEL [facility] Comment on above: Performed By: #### U AX, SORAIDA ####[address] [address] Comment Microscopic exam not performed based on chemical results unless requested in Normal [facility] Comment on above: Result Comment: orig inal order. Performed By: #### U AX, SORAIDA ####[address] [address] Glucose,Semi-qnt,Ur Negative Normal NEG [facility] Comment on above: Performed By: #### U AX, SORAIDA ####[address] [address] Hemoglobin, Ur Negative Normal NEG [facility] Comment on above: Performed By: #### U AX, SORAIDA ####[address] [place] [address] Leuckocyte Esterase Negative Normal NEG [facility] Comment on above: Performed By: #### U AX, SORAIDA ####[facility] [place] [address] Nitrite,Ur Negative Normal NEG [facility] Comment on above: Performed By: #### U AX, SORAIDA ####[address] [address] PH,Ur 6.5 Normal 5.0-8.0 [facility] Comment on above: Performed By: #### U AX, SORAIDA ####[facility] [place] [address] Protein, Semi-qnt,Ur Negative Normal NEG [facility] Comment on above: Performed By: #### U AX, SORAIDA ####[address] [address] Spec. [place],Ur 1.003 Normal 1.000-1.030 [facility] Comment on above: Performed By: #### U AX, SORAIDA ####[address] [address] Turbidity CLEAR Normal CLEAR [facility] Comment on above: Performed By: #### U AX, SORAIDA ####[address] [address] Urobilinogen,Ur Normal Normal NORM [facility] Comment on above: Performed By: #### U AX, SORAIDA ####[address] [address] Vital Signs Date Time Vital Sign Value Performing Clinician Facility 06-18-2024 11:21-0500 Body height 177.8 cm Jessika Lainez PA-C Work Phone: [facility] 06-18-2024 11:21-0500 Body mass index (BMI) [Ratio] 22.1 kg/m2 Jessika Lainez PA-C Work Phone: [facility] 06-18-2024 11:21-0500 Body weight 69.85 kg Jessika Lainez PA-C Work Phone: [facility] 06-16-2024 15:16-0500 Body height 180.3 cm Evette Samantha SENIOR SHAREPOINT DEVELOPER.COMPUTER GRAPHIC ARTIST Work Phone: [facility] 06-16-2024 15:16-0500 Body mass index (BMI) [Ratio] 20.77 kg/m2 Evette Samantha SENIOR SHAREPOINT DEVELOPER.COMPUTER GRAPHIC ARTIST Work Phone: [facility] 06-16-2024 15:16-0500 Body weight 67.55 kg Evette Samantha SENIOR SHAREPOINT DEVELOPER.COMPUTER GRAPHIC ARTIST Work Phone: [facility] 06-16-2024 15:16-0500 Diastolic blood pressure 68 mm[Hg] Evette Samantha SENIOR SHAREPOINT DEVELOPER.COMPUTER GRAPHIC ARTIST Work Phone: [facility] 06-16-2024 15:16-0500 Heart rate 75 /min Evette Samantha SENIOR SHAREPOINT DEVELOPER.COMPUTER GRAPHIC ARTIST Work Phone: [facility] 06-16-2024 15:16-0500 Respiratory rate 18 /min Evette Samantha SENIOR SHAREPOINT DEVELOPER.COMPUTER GRAPHIC ARTIST Work Phone: [facility] 06-16-2024 15:16-0500 Systolic blood pressure 123 mm[Hg] Evette Samantha SENIOR SHAREPOINT DEVELOPER.COMPUTER GRAPHIC ARTIST Work Phone: [facility] 06-12-2024 11:25-0500 Body temperature 97.7 [degF] Jalen Rodrigez MD Work Phone: [facility] 06-12-2024 11:25-0500 Diastolic blood pressure 82 mm[Hg] Jalen Rodrigez MD Work Phone: [facility] 06-12-2024 11:25-0500 Heart rate 62 /min Jalen Rodrigez MD Work Phone: [facility] 06-12-2024 11:25-0500 Respiratory rate 16 /min Jalen Rodrigez MD Work Phone: 0([phone] [place] [address] 06-12-2024 11:25-0500 SaO2% (BldA) [Mass fraction] 96 % Jalen Rodrigez MD Work Phone: 5(616)177-196536 [place] [address] 06-12-2024 11:25-0500 Systolic blood pressure 138 mm[Hg] Jalen Rodrigez MD Work Phone: 3(873)079-242836 [place] [address] 06-12-2024 07:34-0500 Body height 177.8 cm Jalen Rodrigez MD Work Phone: 9(095)667-640236 [place] [address] 06-12-2024 07:34-0500 Body mass index (BMI) [Ratio] 21.98 kg/m2 Jalen Rodrigez MD Work Phone: 3([phone])952-742036 [place] [address] 06-12-2024 07:34-0500 Body weight 69.5 kg Jalen Rodrigez MD Work Phone: 4(780)192-861836 [place] [address] 05-21-2024 15:17-0500 Body height 172.7 cm Jalen Rodrigez MD Work Phone: 5(728)909-720936 [place] [address] 05-21-2024 15:17-0500 Body mass index (BMI) [Ratio] 22.06 kg/m2 Jalen Rodrigez MD Work Phone: [phone])774-573936 [place] [address] 05-21-2024 15:17-0500 Body weight 65.82 kg Jalen Rodrigez MD Work Phone: 3(276)614-937536 [place] [address] 04-17-2024 14:46-0500 Body height 180.3 cm Evette Thompson PA-C Work Phone: [facility] 04-17-2024 14:46-0500 Body mass index (BMI) [Ratio] 21.06 kg/m2 Evette Thompson PA-C Work Phone: [facility] 04-17-2024 14:46-0500 Body weight 68.49 kg Evette Thompson PA-C Work Phone: [facility] 04-17-2024 14:46-0500 Diastolic blood pressure 84 mm[Hg] Evette Thompson PA-C Work Phone: [facility] 04-17-2024 14:46-0500 Heart rate 92 /min Evette Thompson PA-C Work Phone: [facility] 04-17-2024 14:46-0500 Systolic blood pressure 125 mm[Hg] Evette Thompson PA-C Work Phone: [facility] 04-15-2024 14:31-0500 Body height 177.8 cm Bailey Worthington MD Work Phone: [facility] 04-15-2024 14:31-0500 Body mass index (BMI) [Ratio] 21.81 kg/m2 Bailey Worthington MD Work Phone: [facility] 04-15-2024 14:31-0500 Body weight 68.95 kg Bailey Worthington MD Work Phone: [facility] 04-15-2024 14:31-0500 Diastolic blood pressure 63 mm[Hg] Bailey Worthington MD Work Phone: [facility] 04-15-2024 14:31-0500 Systolic blood pressure 105 mm[Hg] Bailey Worthington MD Work Phone: [facility] 02-25-2024 13:54-0400 Body height 177.8 cm Bailey Worthington MD Work Phone: [facility] 02-25-2024 13:54-0400 Body mass index (BMI) [Ratio] 21.24 kg/m2 Bailey Worthington MD Work Phone: [facility] 02-25-2024 13:54-0400 Body weight 67.13 kg Bailey Worthington MD Work Phone: [facility] 02-25-2024 13:54-0400 Diastolic blood pressure 60 mm[Hg] Bailey Worthington MD Work Phone: [facility] 02-25-2024 13:54-0400 Systolic blood pressure 103 mm[Hg] Bailey Worthington MD Work Phone: [facility] 01-28-2024 09:36-0400 Body height 177.8 cm DO Jeremi Marie Work Phone: [facility] 01-28-2024 09:36-0400 Body mass index (BMI) [Ratio] 20.7 kg/m2 DO Jeremi Marie Work Phone: [facility] 01-28-2024 09:36-0400 Body weight 65.77 kg DO Jeremi Marie Work Phone: [facility] 01-24-2024 13:44-0400 Diastolic blood pressure 99 mm[Hg] Yanetjuany Low [facility] 01-24-2024 13:44-0400 Heart rate 129 /min Yanetjuany Low [facility] 01-24-2024 13:44-0400 Mean blood pressure 109 mm[Hg] Yanet Low [facility] 01-24-2024 13:44-0400 Respiratory rate 20 /min Yanet Low [facility] 01-24-2024 13:44-0400 Systolic blood pressure 129 mm[Hg] Yanetjuany Low [facility] 12-30-2023 14:58-0400 Heart rate 73 /min Laci Moss [facility] 12-30-2023 14:58-0400 SaO2% (BldA) [Mass fraction] 95 % Laci Moss [facility] 12-30-2023 14:58-0400 Diastolic blood pressure 82 mm[Hg] Laci Moss [facility] 12-30-2023 14:58-0400 Mean blood pressure 93 mm[Hg] Laci Moss [facility] 12-30-2023 14:58-0400 Systolic blood pressure 115 mm[Hg] Laci Moss [facility] 12-30-2023 14:58-0400 Respiratory rate 16 /min Aguero Ajay [facility] 12-30-2023 14:49-0400 Diastolic blood pressure 75 mm[Hg] Aguero Ajay [facility] 12-30-2023 14:49-0400 Heart rate 74 /min Laci Moss [facility] 12-30-2023 14:49-0400 SaO2% (BldA) [Mass fraction] 98 % Aguero Ajay [facility] 12-30-2023 14:49-0400 Systolic blood pressure 124 mm[Hg] Laci Moss [facility] 12-30-2023 13:29-0400 Heart rate 98 /min Laci Moss [facility] 12-30-2023 13:29-0400 SaO2% (BldA) [Mass fraction] 95 % Laci Ajay [facility] 12-30-2023 13:29-0400 Body temperature 98.06 [degF] Laci Moss [facility] 12-30-2023 13:28-0400 Diastolic blood pressure 64 mm[Hg] Laci Moss [facility] 12-30-2023 13:28-0400 Mean blood pressure 87 mm[Hg] Laci Moss [facility] 12-30-2023 13:28-0400 Systolic blood pressure 134 mm[Hg] Laci Moss [facility] 12-30-2023 13:27-0400 Respiratory rate 14 /min Laci Moss [facility] 12-12-2023 12:59-0400 Body weight 67.13 kg DO Jeremi Marie Work Phone: [facility] 11-18-2023 14:41-0400 Diastolic blood pressure 84 mm[Hg] Yanet Low [facility] 11-18-2023 14:41-0400 Heart rate 103 /min Yanet Low [facility] 11-18-2023 14:41-0400 Mean blood pressure 99 mm[Hg] Yanet Low [facility] 11-18-2023 14:41-0400 Respiratory rate 14 /min Yanet Low [facility] 11-18-2023 14:41-0400 Systolic blood pressure 130 mm[Hg] Yanet Low [facility] 10-15-2023 15:17-0400 Heart rate 60 /min Laci Moss [facility] 10-15-2023 15:17-0400 SaO2% (BldA) [Mass fraction] 98 % Laci Moss [facility] 10-15-2023 15:17-0400 Diastolic blood pressure 68 mm[Hg] Laci Moss [facility] 10-15-2023 15:17-0400 Mean blood pressure 87 mm[Hg] Laci Moss [facility] 10-15-2023 15:17-0400 Systolic blood pressure 125 mm[Hg] Laci Moss [facility] 10-15-2023 15:17-0400 Respiratory rate 16 /min Laci Moss [facility] 10-15-2023 15:12-0400 Diastolic blood pressure 78 mm[Hg] Laci Moss [facility] 10-15-2023 15:12-0400 Heart rate 61 /min Laci Moss [facility] 10-15-2023 15:12-0400 SaO2% (BldA) [Mass fraction] 99 % Laci Moss [facility] 10-15-2023 15:12-0400 Systolic blood pressure 120 mm[Hg] Laci Moss [facility] 10-15-2023 13:51-0400 Heart rate 106 /min Laci Moss [facility] 10-15-2023 13:51-0400 SaO2% (BldA) [Mass fraction] 96 % Laci Moss [facility] 10-15-2023 13:50-0400 Diastolic blood pressure 86 mm[Hg] Laci Moss [facility] 10-15-2023 13:50-0400 Mean blood pressure 104 mm[Hg] Laci Moss [facility] 10-15-2023 13:50-0400 Systolic blood pressure 138 mm[Hg] Laci Moss [facility] 10-15-2023 13:50-0400 Body temperature 98.06 [degF] Laci Moss [facility] 10-15-2023 13:50-0400 Respiratory rate 16 /min Laci Ajay [facility] 09-12-2023 10:52-0400 Diastolic blood pressure 74 mm[Hg] Laci Moss [facility] 09-12-2023 10:52-0400 Heart rate 86 /min Aguero Ajay [facility] 09-12-2023 10:52-0400 Mean blood pressure 90 mm[Hg] Laci Moss [facility] 09-12-2023 10:52-0400 Respiratory rate 16 /min Laci Moss [facility] 09-12-2023 10:52-0400 Systolic blood pressure 122 mm[Hg] Laci Moss [facility] 07-17-2023 11:15-0500 Body height 177.8 cm DO Jeremi Marie Work Phone: [facility] 07-17-2023 11:15-0500 Body mass index (BMI) [Ratio] 22.6 kg/m2 DO Jeremi Marie Work Phone: [facility] 07-17-2023 11:15-0500 Body weight 71.66 kg DO Jeremi Marie Work Phone: [facility] Encounters Encounter Date Encounter Type Care Provider Facility Start: 06-30-2024 End: 06-30-2024 ambulatory JEREMI MARIE Facility:[facility] Cli jennifer Start: 06-23-2024 ambulatory DO JEREMI MARIE Faci lity:[facility] Start: 06-18-2024 End: 06-18-2024 ambulatory [facility] Ambulatory Start: 06-18-2024 End: 06-18-2024 Postop follow up visit related to original px [facility] JARON Work Phone: [facility] Comment on above: Nasal deformity (Noemí elisabet Dx); Nasal obstruction; Hypertrophy of inferior nasal turbinate; Deviated nasal septum Start: 06-16-2024 End: 06-16-2024 ambulatory EVETTE SINGH Facility:[facility] Start: 06-16-2024 End: 06-16-2024 Patient encounter procedure Evette Singh SENIOR SHAREPOINT DEVELOPER.COMPUTER GRAPHIC ARTIST Work Phone: [facility] Comment on above: Chronic pain syndrom e (Primary Dx); Chronic 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 Start: 06-12-2024 End: 06-12-2024 ambulatory JALEN RODRIGEZ [facility] Start: 06-12-2024 End: 06-12-2024 Subsequent hospital visit by physician Jalen Rodrigez MD Work Phone: [facility] Comment on above: Nasal congestion (Pr imary Dx); Deviated nasal septum; Nasal deformity Start: 05-29-2024 End: 06-04-2024 Telephone encounter Evette Thompson PA-C Work Phone: Neurology Comment on above: Patient Question Start: 05-21-2024 End: 05-21-2024 ambulatory JALEN RODRIGEZ [facility] Ambulatory Start: 05-21-2024 End: 05-21-2024 Office consultation new/estab patient 40 min Jalen Rodrigez MD Work Phone: [facility] Comment on above: Deviated septum (Noemí elisabet Dx); Deviated nasal septum; Nasal alar collapse; Hypertrophy of inferior nasal turbinate; Nasal congestion; Nasal obstruction; Nasal deformity; Difficulty breathing Start: 04-17-2024 End: 04-17-2024 ambulatory RADHA LÓPEZ Facility:[facility] Start: 04-17-2024 End: 04-17-2024 Patient encounter procedure Evette Thompson PA-C Work Phone: [facility] Comment on above: Chronic bilateral lo w back pain with bilateral sciatica (Primary Dx) Start: 04-15-2024 End: 04-15-2024 Office outpatient visit 15 minutes Bailey Worthington MD Work Phone: [facility] Comment on above: Nasal obstruction (P rimary Dx); DNS (deviated nasal septum) Start: 04-15-2024 End: 04-15-2024 Bamboo flowsheet Bailey Worthington MD Work Phone: [facility] Start: 04-15-2024 End: 04-15-2024 Bamboo flowsdaniel Worthington MD Work Phone: [facility] Start: 03-23-2024 End: 03-23-2024 ambulatory DO JEREMI MARIE Facility:[facility] Cli jennifer Start: 02-25-2024 End: 02-25-2024 Nathanboo flowsdaniel Worthington MD Work Phone: [facility] Start: 02-25-2024 End: 02-25-2024 Bamboo flowsheet Bailey Worthington MD Work Phone: [facility] Start: 02-25-2024 End: 02-25-2024 ambulatory BAILEY WORTHINGTON Not Available Start: 02-25-2024 End: 02-25-2024 Office outpatient new 45 minutes Bailey Worthington MD Work Phone: [facility] Comment on above: DNS (deviated nasal septum) (Primary Dx); Hypertrophy of both inferior nasal turbinates Start: 02-06-2024 End: 04-01-2024 Chart abstracting Unk Pcp (Hist) Neurology Start: 01-28-2024 End: 01-28-2024 ambulatory DO Jeremi House Work Phone: [facility] Work Phone: Start: 01-28-2024 End: 01-28-2024 Patient encounter procedure DO Jeremi House Work Phone: [facility] Work Phone: Start: 01-24-2024 End: 01-24-2024 ambulatory JEREMI P HOUSE Facility:[facility] Start: 01-24-2024 End: 01-24-2024 Patient encounter procedure Yanet Low [facility] Start: 01-16-2024 End: 01-16-2024 ambulatory DO JEREMI P HOUSE Facility:[facility] Cli jennifer Start: 01-01-2024 End: 01-01-2024 ambulatory DO JEREMI P HOUSE Facility:[facility] Cli jennifer Start: 12-30-2023 End: 12-30-2023 ambulatory Laci Moss Facility:[facility] Start: 12-30-2023 End: 12-30-2023 Pain Management Laci Moss [facility] Start: 12-12-2023 End: 12-12-2023 Patient encounter procedure DO Jeremi House Work Phone: [facility] Work Phone: Start: 12-12-2023 End: 12-12-2023 ambulatory DO Jeremi House Work Phone: [facility] Work Phone: Start: 12-10-2023 End: 12-10-2023 ambulatory Yanetjuany Low Facility:[facility] Start: 12-10-2023 End: 12-10-2023 Patient encounter procedure Yanet Low [facility] Start: 11-18-2023 End: 11-18-2023 ambulatory PA-C Yanet Low Facility:[facility] Start: 11-18-2023 End: 11-18-2023 Pain Management Yanetjuany Low [facility] Start: 10-24-2023 End: 10-24-2023 ambulatory DO Jeremi House Work Phone: [facility] Work Phone: Start: 10-24-2023 End: 10-24-2023 Discharged Recurring DO Jeremi House Work Phone: [facility] [place] Work Phone: Start: 10-15-2023 End: 10-15-2023 ambulatory Laci Moss Facility:[facility] Start: 10-15-2023 End: 10-15-2023 Pain Management Laci Moss [facility] Start: 10-02-2023 End: 10-02-2023 ambulatory JEREMI P HOUSE Facility:[facility] Cli jennifer Start: 09-19-2023 End: 09-19-2023 ambulatory DO Jeremi House Work Phone: [facility] Work Phone: Start: 09-19-2023 End: 09-19-2023 Discharged Recurring DO Jeremi House Work Phone: [facility] [place] Work Phone: Start: 09-12-2023 End: 09-12-2023 ambulatory Laic Moss Facility:[facility] Start: 09-12-2023 End: 09-12-2023 Pain Management Laci Moss [facility] Start: 08-22-2023 End: 08-22-2023 Patient encounter procedure DO Jeremi Marie Work Phone: [facility] [place] Work Phone: Start: 08-22-2023 End: 08-22-2023 ambulatory DO Jeremi Marie Work Phone: [facility] Work Phone: Start: 08-22-2023 Registered Recurring DO Abdelrahman s Cynthia Work Phone: [facility] [place] Work Phone: Start: 07-17-2023 End: 07-17-2023 Patient encounter procedure DO Jeremi Marie Work Phone: [facility] Work Phone: Start: 07-02-2023 End: 07-02-2023 ambulatory JEREMI MARIE Facility:[facility] Cli jennifer Start: 12-19-2020 End: 12-20-[address] JEREMI MARIE Facility:[facility] Start: 11-30-2017 End: 11-30-2017 Emergency department patient visit [facility] Procedures Date Procedure Procedure Detail Performing Clinician Start: 06-12-2024 PULSE OXIMETRY, CONTINUOUS Bentley Vásquez MD Work Phone: Start: 12-30-2023 Injection of nerve r oot of lumbar spine using fluoroscopic guidance Yanet Low Comment on above: Relief 0% Start: 12-12-2023 X-ray of lumbar spin e, six views including bending views DO Jeremi Marie Work Phone: Start: 10-15-2023 Epidural injection o f lumbar spine using fluoroscopic guidance Yanet Low Comment on above: L4-L5 60% relief x 2 days Start: 11-30-2017 Assay of lipase NICO Rachel GIORDANO Start: 11-30-2017 Blood count complete auto&auto difrntl wbc NICO WEBB Start: 11-30-2017 Comprehensive metabo lic panel NICO WEBB Start: 11-30-2017 LACTIC ACID, PLASMA JAM ZARA ZIMMERMANJULIETTETHI Start: 11-30-2017 TOX SCR, BLD, ED NICO TRACEY Start: 11-30-2017 EKG 12-LEAD NICO HENRY Start: 11-30-2017 URINE DRUG SCREEN NICO WEBB Start: 11-30-2017 URINE RT REFLEX TO CULTURE NICO TRACEY Start: 08-10-2005 Lipid 1996 panel - S gladis or Plasma Unk (Hist) ft (qualifier value) Rubens Moss Comment on above: 4th grade Knee region structur e (body structure) Laci Moss Plan of Treatment Date Care Activity Detail Author Start: 2038 Zoster Vaccines (1 o f 2) Zoster Vaccines (1 of 2) [facility] Start: 08-14-2024 End: 08-14-2024 Patient encounter procedure 08/14/2024 1:00 PM EDT Office Visit [facility] [address] [place] [address] [place] [address] [place], [place] [id number] 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, M54.42, G89.29] [facility] Comment on above: 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, M54.42, G89.29] Start: 06-17-2024 End: 06-17-2024 Patient encounter procedure 06/17/2024 11:00 AM EST Office Visit [facility] [address] [place] [address] Jessika Lainez PA-C [address] [place] [address] [facility] Start: 06-12-2024 Subsequent hospital visit by physician 06/12/[address] [facility] [place] [address] [place] [address] [place] [address] [place] [address] [facility] OR Start: 06-12-2024 End: 06-12-2024 Septoplasty/submucous resecj w/wo cartilage grf SEPTOPLASTY, NOSE, WITH NASAL TURBINATE REDUCTION Deviated nasal septum Hypertrophy of inferior nasal turbinate Nasal congestion Nasal deformity 06/12/2024 8:40 AM EST [facility] Start: 04-17-2024 End: 04-17-2024 Patient encounter procedure 04/17/2024 2:20 PM EST Office Visit [facility] [address] [id number] Evette Thompson PA-C [address] [place] [address] [facility]bar [facility] Comment on above: Lumbar Spine Start: 01-28-2024 Patient referral [facility] Work Phone: Start: 01-12-2024 Covid-19 Vaccine ( season) Covid-19 Vaccine ( season) [facility] Start: 01-12-2024 Influenza vaccination Influenza Vacc ine (#1) [facility] Start: 12-12-2023 X-ray of lumbar spin e, six views including bending views XR lumbar spine 6V w bending [facility] Start: 08-22-2023 Pyridoxine [Mass/volume] in Serum or Plasma [facility] Start: 08-22-2023 Rheumatoid factor [Units/volume] in Serum or Plasma [facility] Start: 08-22-2023 [facility] Start: 07-17-2023 Patient referral [facility] Work Phone: Start: 2023 Lipid panel Lipid Screening [facility] Start: 2010 DTaP/Tdap/Td Vaccine s (1 - Tdap) DTaP/Tdap/Td Vaccines (1 - Tdap) [facility] Start: 2007 Hepatitis A Vaccines (1 of 2 - Risk 2-dose series) Hepatitis A Vaccines (1 of 2 - Risk 2-dose series) [facility] Start: 2007 Hepatitis B Vaccine (1 of 3 - 19+ 3-dose series) Hepatitis B Vaccine (1 of 3 - 19+ 3-dose series) [facility] Start: 2007 Hepatitis B Vaccines (1 of 3 - 19+ 3-dose series) Hepatitis B Vaccines (1 of 3 - 19+ 3-dose series) [facility] Start: 2007 Pneumococcal vaccination Pneumococcal Vaccine (1 of 2 - PCV) [facility] Start: 2007 Pneumococcal Vaccine : Pediatrics and At-Risk Adult Patients (1 of 2 - PCV) Pneumococcal Vaccine: Pediatrics and At-Risk Adult Patients (1 of 2 - PCV) [facility] Start: 2007 Urine microalbumin profile DTaP,Tdap,Td Vaccine (1 - Tdap) [facility] Start: 2006 Anxiety Screening Anxiety Screening [facility] Start: 2006 Depression Screening Depression Scre ening [facility] Start: 2006 Hepatitis C screening Hepatitis C Sc reening [facility] Start: 2006 HIV screening HIV Screening [facility] Start: 2001 Varicella vaccination Varicell a Vaccines (1 of 2 - 13+ 2-dose series) [facility] Start: 1994 Pneumococcal vaccination Pneumococcal Vaccine (1 of 2 - PCV) [facility] Start: 1989 MMR Vaccines (1 of 1 - Standard series) MMR Vaccines (1 of 1 - Standard series) [facility] Start: 1988 HIV screening HIV Screening [facility] Start: 1988 Lipid panel Lipid Panel [facility] Start: 1988 Yearly Adult Physical Yearly Adult P [facility] Glucose measurement estimated from glycated hemoglobin [facility] Homogenous nuclear A b pattern [Titer] in Serum [facility] Nuclear Ab [Titer] i n Serum [facility] Patient referral [facility] Work Phone: Reagin Ab [Presence] in Serum by RPR [facility] Septoplasty/submucou s resecj w/wo cartilage grf SEPTOPLASTY, NOSE, WITH NASAL TURBINATE REDUCTION Deviated nasal septum Hypertrophy of inferior nasal turbinate Nasal congestion Nasal deformity [facility] XR Lumbar spine Views [facility] Payers Date Payer Category Payer Self-pay [id number] 2023 Medicaid [employer] [facility] [id number] 2023-Present [phone] [address] [place] [address] Medicaid [id number] 2023 Medicaid (Managed Care) 1.2. [id number] 2023 [facility] [id number] 1988 Unknown [id number] 2.840.1.454030.3.579.2. 593 1988 Unknown [id number] 2.16.840.1.632959.3.579.2. 727 1988 Unknown [id number] 2.16.840.1.276170.3.579.2. 727 1988 Unknown [id number] 2.16.840.1.072705.3.579.2. 727 1988 Unknown [id number] 2.16.840.1.403425.3.579.2. 727 1988 Unknown [id number] 2.16.840.1.074778.3.579.2. 727 1988 Unknown [id number] 2.16.840.1.674647.3.579.2. 727 1988 Unknown [id number] 2.16.840.1.825627.3.579.2. 1259 1988 Unknown [id number] 2.16.840.1.057672.3.579.2. 1245 1988 Unknown [id number] 2.16.840.1.566900.3.579.2. 1244 1988 Unknown [id number] 2.16.840.1.091986.3.579.2. 1244 1988 Unknown [id number] 2.16.840.1.441602.3.579.2. 718 1988 Unknown [id number] 2.16.840.1.353654.3.579.2. 718 1988 Unknown [id number] 2.16.840.1.379431.3.579.2. 718 1988 Unknown [id number] 2.16.840.1.769644.3.579.2. 718 1988 Unknown [id number] 2.16.840.1.817223.3.579.2. 718 1988 Unknown [id number] 2.16.840.1.895233.3.579.2. 718 1959 Unknown [id number] Unknown [facility] [id number] Unknown [id number] 2.16.840.1.651180.3.579.2. 531 Unknown [id number] 2.16.840.1.592055.3.579.2. 531 Unknown [id number] 2.16.840.1.394266.3.579.2. 531 Unknown [id number] 2.16.840.1.951125.3.579.2. 531 Social History Date Type Detail Facility Start: 12-09-2017 [facility] Start: 1990 Sex Assigned At Male F [facility] Start: 09-12-2023 Tobacco smoking status Heavy t obacco smoker (finding) [facility] Start: 02-25-2024 End: 05-21-2024 Sex Assigned At Male [facility] Start: 02-25-2024 End: 05-21-2024 Tobacco smoking status NHIS Smokes tobacco daily [facility] History of tobacco use Cigarette Smoker [facility] Start: 02-25-2024 Tobacco use and exposure Former smokeless tobacco user [facility] History of tobacco use Chews Tobacco [facility] Start: 02-25-2024 End: 04-15-2024 Alcoholic beverage intake Ex-drinker (finding) [facility] Start: 02-25-2024 End: 05-21-2024 History of Social function [facility] Start: 1988 Sex assigned at Not on file [facility] Start: 12-27-2021 End: 06-16-2024 Alcoholic beverage intake Current non-drinker of alcohol (finding) [facility] National Score (1-100), lower number is lower risk 73 [facility] Start: 05-21-2024 Tobacco use and exposure User of smokeless tobacco [facility] Work Phone: Start: 05-21-2024 End: 06-18-2024 Alcoholic beverage intake Lifetime non-drinker (finding) [facility] Work Phone: Start: 05-11-2024 End: 06-18-2024 Exposure to SARS-CoV-2 (event) Not sure [facility] Functional Status Date Assessment Result Facility 01-24-2024 Functional Status N/A [facility] 12-30-2023 Functional Status N/A [facility] 11-18-2023 Functional Status N/A [facility] 10-15-2023 Functional Status N/A [facility] 09-12-2023 Functional Status N/A [facility] Clinical Notes 07-15-2023 to 06-30-2024 Jessika Lainez PA-C - 06/18/2024 11:15 AM Evette Almaguer APRN.CNP - 06/16/2024 2:20 PM ESTDischarleonor Sánchez MD - 06/12/2024 7:22 AM Kelvin Sánchez MD - 06/12/2024 7:22 AM EST Note Date & Type Note Facility 06-30-2024 Note Entered by PRATEEK MARIE DO on June 30, 2024 12:12:52 EST From: JEREMI MARIE DO To: [id number] Sent: 06/30/2024 12:12:51 EST Subject: Medication Management Submitted: Complete:vilazodone (vilazodone 40 mg oral tablet) Signed by JEREMI MARIE DO 06/30/2024 12:12:00 EST Approved with modifications: vilazodone (vilazodone 40 mg tablet) TAKE 1 TABLET BY MOUTH ONCE DAILY Qty: 30 tab(s) Days Supply: 30 Refills: 2 Substitutions Allowed Route To Pharmacy - [id number] Patient matched by JEREMI MARIE DO on 06/30/2024 12:12:17 EST From: [id number] To: CYNTHIAJEREMI Rachel Sent: June 30, 2024 10:52:19 AM PLASTICS TECHNICIAN Subject: Medication Management Due: July 01, 2024 10:31:01 AM PLASTICS TECHNICIAN On Hold Pending Signature Drug: vilazodone (vilazodone 40 mg oral tablet), TAKE 1 TABLET BY MOUTH ONCE DAILY Quantity: 30 tab(s) Days Supply: 30 Refills: 0 Substitutions Allowed Notes from Pharmacy: Dispensed Drug: vilazodone (vilazodone 40 mg oral tablet), TAKE 1 TABLET BY MOUTH ONCE DAILY Quantity: 30 tab(s) Days Supply: 30 Refills: 1 Substitutions Allowed Notes from Pharmacy: [facility] 06-18-2024 History of Presen t illness Narrative Images from the original note were not included. Facial Plastic & Reconstructive Surgery POV s/p nasal surgery on 06/12/24 Doing well, endorses improved breathing bilaterally Continues salt water sprays and ointment to nares Nasal splint removed Septum midline Nasal airway patent Incisions c/d/I Plan: Continue nasal saline sprays and ointment to nares RTC 4-6 months or sooner if needed Jessika Lainez PA-C documented in this encounter [facility] Work Phone: 06-16-2024 History of Presen t illness Narrative SPINE SURGERY NEW PATIENT This is an in person visit DATE OF SERVICE: June 16, 2024 This is an in-person visit. SUBJECTIVE HISTORY OF PRESENT ILLNESS: Gilles Jane is a 34 year old male presenting with father. CHIEF COMPLAINT: chronic back pain into BLE PREVIOUS SPINAL SURGERY: None DURATION OF SYMPTOMS: Greater Than 1 Year Saw Evette Thompson PA-C 04/17/2024: Gilles Jane is a 34 year old male presenting today with chronic back pain > bilateral leg pain. CT lumbar spine reviewed. Patient states that he does have lumbar MRI, which was done in June 2023. He will request that imaging be sent over to office for review. He will contact office when this is sent over. Consider VV with surgical JERICHO for review. Gilles Jane will proceed with getting lumbar MRI uploaded to [facility] for review. BUBBA Thompson is currently on leave and patient was scheduled with me today for follow up to review previous MRI. He reports chronic back pain since he was 18 yo Pain Radiation: midline lumbar spine, into the tailbone, in the anus, bilateral posterior thigh, left posterior and anterior lower leg into the left foot; right lower leg PREVIOUS CONSERVATIVE TREATMENTS: -Suboxone -opioids: oxycodone 5mg -Gabapentin 300 mg TID -Physical Therapy (Multiple courses) -Lumbar Epidural Steroid Injections (Multiple) -Lumbar Radiofrequency Ablation (Multiple) ACTIVE PROBLEM LIST Scheuermann Disease Smoker PAST MEDICAL HISTORY Diagnosis Date Scheuermann disease Smoker PAST SURGICAL HISTORY Procedure Laterality Date PAST SURGICAL HISTORY OF left leg repair-fracture, ACL. meniscus, Social History Tobacco Use Smoking status: Every Day Current packs/day: 1.00 Types: Cigarettes Substance Use Topics Alcohol use: No Drug use: No ALLERGIES Allergen Reactions Lorazepam Swelling Penicillins Vicodin [Hydrocodon* Hives MEDICATIONS: clonazePAM (KLONOPIN) 0.5 mg tablet Take 0.5 mg by mouth two times a day. gabapentin (NEURONTIN) 300 mg capsule Take 300 mg by mouth three times a day. buprenorphine HCl/naloxone HCl (SUBOXONE SUBLINGUAL) See Instructions, Refill(s) 0, 2-8mg tab BID vilazodone (VIIBRYD) 40 mg tablet Take 40 mg by mouth once daily. QUEtiapine (SEROQUEL) 50 mg tablet Take 50 mg by mouth once daily. buprenorphine-nalOXone SL (SUBOXONE) 8-2 mg subl DISSOLVE ONE TABLET UNDER THE TONGUE TWICE DAILY LIDOCAINE 5 %(700 mg/patch) as directed. OBJECTIVE: PHYSICAL EXAM GENERAL APPEARANCE: Well nourished, well developed. NEURO PSYCH: Patient oriented to person, place, and time. Tearful, in distress MUSCULOSKELETAL VISUAL INSPECTION CERVICAL: WNL THORACIC: WNL LUMBAR: WNL GAIT: Normal. DATA REVIEW [facility] records independently reviewed Images independently reviewed with the patient 03/2023 MRI lumbar spine images and REPORT reviewed - mild-moderate left L4 foraminal stenosis - mild facet arthropathy L3/4, L4/5 12/2023 XR lumbar 01/2024 CT lumbar ASSESSMENT/PLAN G89.4 Chronic pain syndrome (primary encounter diagnosis) M54.41, M54.42, G89.29 Chronic 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 Gilles Jane is a 34 year old male with CC of chronic back pain into BLE. Notes sx since 18yo. Lumbar spine imaging with mild spondylosis without neural compression of significance Gilles Jane is not a candidate for surgery at this time. Surgery is not indicated [facility] Follow up with spine surgery: Not required I spent a total of 15 minutes on the date of the service which included preparing to see the patient, [id number] patient care, completing clinical documentation, obtaining and/or reviewing separately obtained history, performing a medically appropriate examination, counseling and educating the patient/family/caregiver, and independently interpreting results (not separately reported). SIGNATURE: Evette Singh APRN.CNP PATIENT NAME: Gilles Jane DATE: June 16, 2024 TIME: 2:55 PM PAGER: documented in this encounter [facility] 06-16-2024 Note HNO ID: [id number] Author: EVETTE SINGH APRN.CNP Service: ? Author Type: Nurse Practitioner Type: Progress Notes Filed: 06/16/2024 16:49 Note Text: SPINE SURGERY NEW PATIENT This is an in person visit DATE OF SERVICE: June 16, 2024 This is an in-person visit. SUBJECTIVE HISTORY OF PRESENT ILLNESS: Gilles Jane is a 34 year old male presenting with father. CHIEF COMPLAINT: chronic back pain into BLE PREVIOUS SPINAL SURGERY: None DURATION OF SYMPTOMS: Greater Than 1 Year Saw Evette Thompson PA-C 04/17/2024: Gilles Jane is a 34 year old male presenting today with chronic back pain > bilateral leg pain. CT lumbar spine reviewed. Patient states that he does have lumbar MRI, which was done in June 2023. He will request that imaging be sent over to office for review. He will contact office when this is sent over. Consider VV with surgical JERICHO for review. Gilles Jane will proceed with getting lumbar MRI uploaded to [facility] for review. BUBBA Thompson is currently on leave and patient was scheduled with me today for follow up to review previous MRI. He reports chronic back pain since he was 18 yo Pain Radiation: midline lumbar spine, into the tailbone, in the anus, bilateral posterior thigh, left posterior and anterior lower leg into the left foot; right lower leg PREVIOUS CONSERVATIVE TREATMENTS: -Suboxone -opioids: oxycodone 5mg -Gabapentin 300 mg TID -Physical Therapy (Multiple courses) -Lumbar Epidural Steroid Injections (Multiple) -Lumbar Radiofrequency Ablation (Multiple) ACTIVE PROBLEM LIST Scheuermann Disease Smoker PAST MEDICAL HISTORY Diagnosis Date Scheuermann disease Smoker PAST SURGICAL HISTORY Procedure Laterality Date PAST SURGICAL HISTORY OF left leg repair-fracture, ACL. meniscus, Social History Tobacco Use Smoking status: Every Day Current packs/day: 1.00 Types: Cigarettes Substance Use Topics Alcohol use: No Drug use: No ALLERGIES Allergen Reactions Lorazepam Swelling Penicillins Vicodin [Hydrocodon* Hives MEDICATIONS: clonazePAM (KLONOPIN) 0.5 mg tablet Take 0.5 mg by mouth two times a day. gabapentin (NEURONTIN) 300 mg capsule Take 300 mg by mouth three times a day. buprenorphine HCl/naloxone HCl (SUBOXONE SUBLINGUAL) See Instructions, Refill(s) 0, 2-8mg tab BID vilazodone (VIIBRYD) 40 mg tablet Take 40 mg by mouth once daily. QUEtiapine (SEROQUEL) 50 mg tablet Take 50 mg by mouth once daily. buprenorphine-nalOXone SL (SUBOXONE) 8-2 mg subl DISSOLVE ONE TABLET UNDER THE TONGUE TWICE DAILY LIDOCAINE 5 %(700 mg/patch) as directed. OBJECTIVE: PHYSICAL EXAM GENERAL APPEARANCE: Well nourished, well developed. NEURO PSYCH: Patient oriented to person, place, and time. Tearful, in distress MUSCULOSKELETAL VISUAL INSPECTION CERVICAL: WNL THORACIC: WNL LUMBAR: WNL GAIT: Normal. DATA REVIEW [facility] records independently reviewed Images independently reviewed with the patient 03/2023 MRI lumbar spine images and REPORT reviewed - mild-moderate left L4 foraminal stenosis - mild facet arthropathy L3/4, L4/5 12/2023 XR lumbar 01/2024 CT lumbar ASSESSMENT/PLAN G89.4 Chronic pain syndrome (primary encounter diagnosis) M54.41, M54.42, G89.29 Chronic 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 Gilles Jane is a 34 year old male with CC of chronic back pain into BLE. Notes sx since 18yo. Lumbar spine imaging with mild spondylosis without neural compression of significance Gilles Jane is not a candidate for surgery at this time. Surgery is not indicated [facility] Follow up with spine surgery: Not required I spent a total of 15 minutes on the date of the service which included preparing to see the patient, [id number] patient care, completing clinical documentation, obtaining and/or reviewing separately obtained history, performing a medically appropriate examination, counseling and educating the patient/family/caregiver, and independently interpreting results (not separately reported). SIGNATURE: Evette Singh APRN.COMPUTER GRAPHIC ARTIST PATIENT NAME: Gilles Jane DATE: June 16, 2024 TIME: 2:55 PM PAGER: [facility] 06-12-2024 Hospital Discharg e saman Rodrigez MD - 06/12/2024 7:25 AM EST NASAL SURGERY Important Phone Numbers Dr. Jalen Rodrigez: [phone] Evenings/Weekends Emergency: [phone] - please ask for the ENT resident on-call At Home after Surgery: Head Elevation: Keep your head elevated (the height of 2 pillows is appropriate) for 3 days to help with swelling. Ice: Apply cold compresses to the cheeks and forehead, up to 20 minutes of each hour while awake after surgery, for the first 48 hours. This will help reduce swelling and bruising. Nasal Packing: If you have splints inside the nose that are sutured into place, they will be removed at your follow-up appointment. Nasal Care: Use nasal saline spray, 4 sprays to each nostril every 2-3 hours while awake. This will help keep the nasal passages moist and prevent scabbing in the nose. It is normal to feel congested for several weeks after surgery. Do not blow your nose for two weeks after surgery. Incision/Cast Care: If you have an incision on the nose, apply antibiotic ointment four times a day. The incision will heal most optimally if it is kept moist and clean. You can use hydrogen peroxide on Q-tips to gently clean any crusts. Do not rub but gently dab the incision to clean. If you have a cast or dressing on the outside of your nose, this will remain in place until follow-up. If the cast falls off, do not worry. Tape it to your nose at nighttime while you sleep and if/when you wear glasses. Shower: You may shower 24 hours after surgery. Do not let the shower spray hit your face/nose directly and do not soak your face in water. If you have a cast or dressing on the outside of the nose, try to keep it as dry as possible. Towel blot your nose/cast after your shower. Bleeding: Most patients have mild, active bleeding the first night. Some blood-tinged drainage is normal for 1-2 weeks after surgery. Afrin nasal spray may be helpful for bleeding after surgery but should not be used for more than 3 days. Excessive bleeding that does not stop is not expected; please call the office or seek medical attention if this occurs. Medications: Take the medications as prescribed. You can take Tylenol in addition to the narcotic pain medication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 Description: Sharp;Shooting;Tingling;Numbnes s;Aching;Tightness Duration Amount of Time: 16 Duration Units: Years Frequency: Continuous Intervention/Comfort measure: Relaxation Pain Radiation: down the right and left thigh, below the right and left knee, and to the right and left foot/feet DERMATOMAL DISTRIBUTION: Right: L4 and L5 Left: L4 and L5 AMBULATORY STATUS: Independent Community Distances ANTIPLATELET OR ANTICOAGULATION STATUS: No PREVIOUS CONSERVATIVE TREATMENTS: SEE HPI PREVIOUS SPINAL SURGERY: None ACTIVE PROBLEM LIST Scheuermann Disease Smoker PAST MEDICAL HISTORY Diagnosis Date Scheuermann disease Smoker PAST SURGICAL HISTORY Procedure Laterality Date PAST SURGICAL HISTORY OF left leg repair-fracture, ACL. meniscus, FAMILY HISTORY Problem Relation Age of Onset other (DDD [Other]) Mother Social History Tobacco Use Smoking status: Every Day Current packs/day: 1.00 Types: Cigarettes Substance Use Topics Alcohol use: No Drug use: No ALLERGIES Allergen Reactions Lorazepam Swelling Penicillins Vicodin [Hydrocodon* Hives MEDICATIONS: clonazePAM (KLONOPIN) 0.5 mg tablet Take 0.5 mg by mouth two times a day. gabapentin (NEURONTIN) 300 mg capsule Take 300 mg by mouth three times a day. buprenorphine HCl/naloxone HCl (SUBOXONE SUBLINGUAL) See Instructions, Refill(s) 0, 2-8mg tab BID vilazodone (VIIBRYD) 40 mg tablet Take 40 mg by mouth once daily. QUEtiapine (SEROQUEL) 50 mg tablet Take 50 mg by mouth once daily. buprenorphine-nalOXone SL (SUBOXONE) 8-2 mg subl DISSOLVE ONE TABLET UNDER THE TONGUE TWICE DAILY LIDOCAINE 5 %(700 mg/patch) as directed. REVIEW OF SYSTEMS: PAIN ASSESSMENT: See HPI. GENERAL: Denies fever, chills malaise and weight loss. HEENT: No recent change in vision or hearing. CARDIOVASCULAR: Denies chest pain, history of A-fib, valvular disease, or pacemaker/ICD. RESPIRATORY: Denies SOB, sputum production, and hemoptysis. GI: Denies GI ulcers, inflammatory disease, or liver disease. : Denies change in frequency or urgency, kidney disease, and burning with urination. MUSCULOSKELETAL: Positive for See HPI SKIN: Denies rash or itching. PSYCHOLOGICAL: Denies uncontrolled depression or anxiety. NEURO: Denies CVA, seizures, headaches. ENDOCRINE: Denies diabetes, thyroid disease. HEMATOLOGY/LYMPHOLOGY: Denies cancer, bleeding or clotting disorders, anemia,and DVT's. ALLERGIC/IMMUNOLOGICAL: Denies risks for infection, or recent MRSA infections. Patient Entered Questionnaires PROMIS Score Percentiles Percentiles provide an indication of how the patient's score ranks in relation to the general population. Higher percentile rankings indicate better function/quality of life. 50th percentile is the average of the general population and indicates half of respondents had a worse score. Depression Screenin06/12/2013 PHQ-9 Score 10 06/12/2013 PHQ-9 Self-harm Question Question 9 Not at all PHQ-9 Self-Harm (Item 9) response options: 0 Not at all 1 Several days 2 More than half the days 3 Nearly every day PHQ-9 Levels: 0-4 No to mild depression 5-9 Mild depression 10-14 Moderate depression 15-19 Moderately severe depression 20-27 Severe depression OBJECTIVE: PHYSICAL EXAM BP 125/84 Pulse 92 Ht 180.3 cm (5' 11 ) Wt 68.5 kg (151 lb) BMI 21.06 kg/m GENERAL APPEARANCE: Well nourished, well developed, and no apparent distress. NEURO PSYCH: Patient oriented to person, place, and time. Mood pleasant. Benign affect. MUSCULOSKELETAL VISUAL INSPECTION CERVICAL: WNL THORACIC: WNL LUMBAR: WNL PALPATION: SPINOUS PROCESS: No pain. PARASPINALS: No pain. MUSCLE BULK: Normal and symmetrical in the upper & lower extremities. MUSCLE TONE: Normal. MOTOR: 5/5 in all muscle groups. SENSORY: Normal sensory exam GAIT: Normal. REFLEXES: +2 to bilateral U/L extremities. PROPRIOCEPTION: Normal. LONG TRACT SIGNS: No clonus. No Hoffmans. STRAIGHT LEG TEST: Ipsilateral: Negative. Contralateral: Negative. L'HERMITTES SIGN: Not tested. SPURLING'S TEST: Not tested. DATA REVIEW Imaging and outside records independently reviewed Images independently reviewed with the patient CT L 01/22/24: - No compression fracture or subluxation - No bony destruction or erosion. Re demonstration of scattered Degenerative end plate schmorl's nodes throughout. - Moderate DDD, foraminal stenosis, and facet arthropathy - No spinal canal stenosis ASSESSMENT/PLAN (M54.42, M54.41, G89.29) Chronic bilateral low back pain with bilateral sciatica (primary encounter diagnosis) Gilles Jane is a 34 year old male presenting today with chronic back pain > bilateral leg pain. CT lumbar spine reviewed. Patient states that he does have lumbar MRI, which was done in June 2023. He will request that imaging be sent over to office for review. He will contact office when this is sent over. Consider VV with surgical JERICHO for review. Gilles Jane will proceed with getting lumbar MRI uploaded to [facility] for review. 1. No Orders Entered Today 2. Follow up: Following above Imaging Ordered: None The majority of the visit was spent counseling and/or coordinating care for the patient. The patient was counseled regarding low back pain. Total face to face time was 45 minutes. SIGNATURE: Evette Thompson PA-C PATIENT NAME: Gilles Jane DATE: April 17, 2024 TIME: 2:58 PM PAGER:[phone] documented in this encounter [facility] 04-15-2024 History of Presen t illness Narrative Subjective Patient ID: Gilles Jane is a 34 y.o. male who presents for Deviated Nasal Septum (Recheck nose.) Pt reports no sig improvement in sx. Has had multiple untreated nasal fx. Review of Systems All other systems reviewed and are negative. Family History Problem Relation Name Age of Onset Cancer Mother Hypertension Father Active Ambulatory Problems Diagnosis Date Noted Lumbar degenerative disc disease 02/17/2024 Lumbar stenosis 02/17/2024 Mood disorder (CMS/HCC) 02/17/2024 Neuropathy 02/17/2024 Lumbar radiculopathy 02/17/2024 Sacral radiculopathy 02/17/2024 Scheuermann disease 02/17/2024 Smoker 02/17/2024 DNS (deviated nasal septum) 02/25/2024 Hypertrophy of both inferior nasal turbinates 02/25/2024 Resolved Ambulatory Problems Diagnosis Date Noted No Resolved Ambulatory Problems Past Medical History: Diagnosis Date Fracture of nasal bones Nasal septal deformity Past Surgical History: Procedure Laterality Date COLONOSCOPY 2013 FOOT SURGERY around 4th grade [employer] 2006 Allergies Allergen Reactions Penicillins Anaphylaxis Other Reaction(s): Hives Acetaminophen Hives Hydrocodone Other Reaction(s): Hives Hydrocodone-Acetaminophen Hives Lorazepam Swelling Other Reaction(s): Confusion, Drowsy Current Outpatient Medications on File Prior to Visit Medication Sig Dispense Refill Acetaminophen 500 MG capsule Four times daily buprenorphine-naloxone (Suboxone) 8-2 MG SL tablet DISSOLVE ONE TABLET UNDER THE TONGUE TWICE DAILY clonazePAM (KlonoPIN) 0.5 MG tablet fluticasone (Flonase) 50 MCG/ACT nasal spray Administer 2 sprays into each nostril Daily Shake gently. Before first use, prime pump. After use, clean tip and replace cap. 48 g 3 gabapentin (Neurontin) 300 MG capsule Three times daily methylPREDNISolone (Medrol Dospak) 4 MG tablets TAKE BY MOUTH DIRECTED ON PACKAGE QUEtiapine (SEROquel) 50 MG tablet vilazodone (Viibryd) 40 mg tablet Take 40 mg by mouth Daily No current facility-administered medications on file prior to visit. Objective Last Recorded Vitals Vitals: 04/15/24 1431 BP: 105/63 ENT Physical Exam Constitutional Appearance: patient appears well-developed, well-nourished and well-groomed, Communication/Voice: communication appropriate for developmental age; vocal quality normal; Nose Nose comments: Severe cartilaginous deviation to the left with displacement of the caudal septum into the RT nostril Assessment/Plan Diagnoses and all orders for this visit: Nasal obstruction DNS (deviated nasal septum) Pt has a severe cartilaginous deviation but will clearly benefit from surgery. Due to the severity of the deviation I will have him see Dr Rodrigez documented in this encounter [facility] 04-13-2024 Note - From: JEREMI MARIE DO To: [facility] Clinical Pool ([facility]); Sent: 04/13/2024 07:31:36 EST Subject: FW: Medication Management Due Date/Time: 04/13/2024 11:38:00 EST Caller Name: GILLES JANE; Caller Number: Rosa From: [facility] [id number] To: JEREMI MARIE DO Sent: April 10, 2024 10:38:07 AM PLASTICS TECHNICIAN Subject: Medication Management Due: April 11, 2024 12:19:32 AM PLASTICS TECHNICIAN On Hold Pending Signature Drug: clonazePAM (clonazePAM 0.5 mg oral tablet), 1 tab(s) Oral BID,x30 day(s) Quantity: 60 tab(s) Days Supply: 0 Refills: 0 Substitutions Allowed Notes from Pharmacy: Dispensed Drug: clonazePAM (clonazePAM 0.5 mg oral tablet), TAKE 1 TABLET BY MOUTH TWICE DAILY Quantity: 60 tab(s) Days Supply: 30 Refills: 0 Substitutions Allowed Notes from Pharmacy: On Hold Pending Signature Drug: clonazePAM (clonazePAM 0.5 mg oral tablet), 1 tab(s) Oral BID,x30 day(s) Quantity: 60 tab(s) Days Supply: 0 Refills: 0 Substitutions Allowed Notes from Pharmacy: Dispensed Drug: clonazePAM (clonazePAM 0.5 mg oral tablet), TAKE 1 TABLET BY MOUTH TWICE DAILY Quantity: 60 tab(s) Days Supply: 30 Refills: 0 Substitutions Allowed Notes from Pharmacy: On Hold Pending Signature Drug: clonazePAM (clonazePAM 0.5 mg oral tablet), 1 tab(s) Oral BID,x30 day(s) Quantity: 60 tab(s) Days Supply: 0 Refills: 0 Substitutions Allowed Notes from Pharmacy: Dispensed Drug: clonazePAM (clonazePAM 0.5 mg oral tablet), TAKE 1 TABLET BY MOUTH TWICE DAILY Quantity: 60 tab(s) Days Supply: 30 Refills: 0 Substitutions Allowed Notes from Pharmacy: From: Fanny Raman To: [id number] Sent: 04/13/2024 08:47:18 EST Subject: FW: Medication Management Not Approved: proposed to provider clonazePAM (clonazepam 0.5 mg tablet) TAKE 1 TABLET BY MOUTH TWICE DAILY Qty: 60 tab(s) Days Supply: 30 Refills: 0 Substitutions Allowed Route To Pharmacy - [id number] Signed by Fanny Raman Not Approved: proposed to provider clonazePAM (clonazepam 0.5 mg tablet) TAKE 1 TABLET BY MOUTH TWICE DAILY Qty: 60 tab(s) Days Supply: 30 Refills: 0 Substitutions Allowed Route To Pharmacy - [id number] Signed by Fanny Raman Not Approved: proposed to provider clonazePAM (clonazepam 0.5 mg tablet) TAKE 1 TABLET BY MOUTH TWICE DAILY Qty: 60 tab(s) Days Supply: 30 Refills: 0 Substitutions Allowed Route To Pharmacy - [facility] Signed by Fanny Raman [facility] 04-01-2024 Note HNO ID: [id number] Author: JENNY HILLIARD APRN.COMPUTER GRAPHIC ARTIST Service: ? Author Type: Nurse Practitioner Type: Progress Notes Filed: 04/01/2024 14:11 Note Text: Per Triage: Gilles Jane is a 34 year old male that reports symptoms of LBP, pelvic pain, R>L leg pian, numbness, weakness, difficulty walking. Referring provider: Radha López MD Is this a 2nd opinion and offered surgery?: yes, not offered surgery Out of state: no BMI: 21 A1C: n/a Previous Spine Surgery: no CMT: PT Injection Gabapentin Tylenol Topicals Suboxone Studies (Reports unless indicated) CT L 01/22/24: - No compression fracture or subluxation - No bony destruction or erosion. Re demonstration of scattered Degenerative end plate schmorl's nodes throughout. - Moderate DDD, foraminal stenosis, and facet arthropathy - No spinal canal stenosis Disposition: Please schedule with medical spine or surgical spine JERIC[facility]. Indications for recommendations: will need an MRI for evaluation of neural compression Please advise pt to send/upload images prior to visit or hand carry on CD to visit (spine MRIs, xrays) [facility] 04-01-2024 History of Presen t illness Narrative Per Triage: Gilles Jane is a 34 year old male that reports symptoms of LBP, pelvic pain, R>L leg pian, numbness, weakness, difficulty walking. Referring provider: Radha López MD Is this a 2nd opinion and offered surgery?: yes, not offered surgery Out of state: no BMI: 21 A1C: n/a Previous Spine Surgery: no CMT: PT Injection Gabapentin Tylenol Topicals Suboxone Studies (Reports unless indicated) CT L 01/22/24: - No compression fracture or subluxation - No bony destruction or erosion. Re demonstration of scattered Degenerative end plate schmorl's nodes throughout. - Moderate DDD, foraminal stenosis, and facet arthropathy - No spinal canal stenosis Disposition: Please schedule with medical spine or surgical spine JERICHO. Indications for recommendations: will need an MRI for evaluation of neural compression Please advise pt to send/upload images prior to visit or hand carry on CD to visit (spine MRIs, xrays) Patient name: Gilles Jane Are you being referred by a [facility] Provider or Pain Management Provider at [facility]? No If answer is YES please schedule directly with surgeon, triage does not need to be completed. Is this a self-referral No If not, who is the Referring Provider Radha López MD Is this a 2nd opinion from another spine surgeon? Yes Were you offered surgery? No MRI/CT/myelogram within 12 months? Yes If NO , please refer to medical spine or PCP to complete above imaging, triage does not need to be completed If YES, please ask for the name/address of the facility where the MRI/CT/myelogram was completed: [facility] - [address] [place] [address] MRI/CT/myelogram viewable in Epic: No If not, please provide [phone] to fax in imaging reports for review. Also, please inform patient to hand carry imaging disc to appointment. XR (spine) within 12 months: Yes If YES, please ask for the name/address of the facility where the XR was completed: [address] [place] [id number] Dr. Pinzon's patients: Have you had previous EMG/Nerve Conduction Study, Ultrasound, or MRI for these same symptoms? If YES, please ask for the name/address of the facility where they were completed: Requested provider (First and Last name): Are you interested in a virtual visit if offered? Yes 1. Where are you having symptoms related to this visit? Lb/hips/legs/feet - pelvis area feels the worse - r worse then l - numbness & tinglyness in legs - feels like I was butt raped & they broke my back - weakness in legs - pain is different everyday mostly intense throbbing/sharp - pt has to change position every 5-10 mins due to pain, no walking devices, adls slowed Back pain Yes Leg pain Yes Arm pain No Neck pain No 2. Are you having any of the following symptoms: Difficulty walking Yes Numbness Yes Weakness Yes Trouble using your hands? No 3. Have you had any injections or physical therapy in the last 12 months? Yes If YES then please ask for the name/address of the facility where the injections and/or physical therapy was completed [facility]j - [facility] - [address], [place] [address] PT - [address] [place] [id number] [facility] - [address], [place] [address] Have you tried any other kinds of non-surgical treatments in the last 12 months? (For example: NSAIDS, muscle relaxants, analgesics, oral steroids, Chiropractor, Acupuncture): gabapentin, tylenol, can't tolerate heat, ice, lidocaine patches 4. Are you currently taking daily prescribed narcotic medications for your current symptoms (For example Oxycodone, Hydrocodone, Tramadol, Morphine, Other)? Yes suboxone for pain 5. Have you had previous spinal surgery for this same symptoms? No If YES please ask for the name of facility/address of where the surgery was completed: Additional Comments [phone] documented in this encounter [facility] 2024 Note - From: JEREMI MARIE DO To: [facility] Clinical [place] [place] Sent: 03/05/2024 16:00:43 EDT Subject: FW: Medication Management Due Date/Time: 2024 14:54:00 EDT Caller Name: GILLES JANE; Caller Number: H From: [facility] #[id number] To: JEREMI MARIE DO Sent: March 05, 2024 1:54:49 PM CDT Subject: Medication Management Due: 2024 9:47:20 AM CDT On Hold Pending Signature Drug: gabapentin (gabapentin 300 mg oral capsule), 1 cap(s) Oral TID Quantity: 90 cap(s) Days Supply: 0 Refills: 0 Substitutions Allowed Notes from Pharmacy: Dispensed Drug: gabapentin (gabapentin 300 mg oral capsule), TAKE 1 CAPSULE BY MOUTH THREE TIMES DAILY Quantity: 90 cap(s) Days Supply: 30 Refills: 0 Substitutions Allowed Notes from Pharmacy: From: Fanny Raman To: [facility] #[id number] Sent: 2024 09:01:05 EDT Subject: FW: Medication Management Not Approved: proposed to provider gabapentin (gabapentin 300 mg capsule) TAKE 1 CAPSULE BY MOUTH THREE TIMES DAILY Qty: 90 cap(s) Days Supply: 30 Refills: 0 Substitutions Allowed Route To Pharmacy - [facility] #[id number] Signed by Danisha [facility] 02-25-2024 History of Presen t illness Narrative Subjective Patient ID: Gilles Jane is a 33 y.o. male who presents for Deviated Nasal Septum Pt reports he has nasal obstruction, especially at night. Blockage especially bad in the left. Pt has had multiple untreated nasal fractures. Pt states he has had no tx yet. Review of Systems All other systems reviewed and are negative. Family History Problem Relation Name Age of Onset Cancer Mother Hypertension Father Active Ambulatory Problems Diagnosis Date Noted Lumbar degenerative disc disease 02/17/2024 Lumbar stenosis 02/17/2024 Mood disorder (CMS/HCC) 02/17/2024 Neuropathy 02/17/2024 Lumbar radiculopathy 02/17/2024 Sacral radiculopathy 02/17/2024 Scheuermann disease 02/17/2024 Smoker 02/17/2024 Resolved Ambulatory Problems Diagnosis Date Noted No Resolved Ambulatory Problems Past Medical History: Diagnosis Date Fracture of nasal bones Nasal septal deformity Past Surgical History: Procedure Laterality Date COLONOSCOPY 2013 FOOT SURGERY around 4th grade KNEE JOINT MANIPULATION 2007 Allergies Allergen Reactions Penicillins Anaphylaxis Other Reaction(s): Hives Acetaminophen Hives Hydrocodone Other Reaction(s): Hives Hydrocodone-Acetaminophen Hives Lorazepam Swelling Other Reaction(s): Confusion, Drowsy Current Outpatient Medications on File Prior to Visit Medication Sig Dispense Refill Acetaminophen 500 MG capsule Four times daily buprenorphine-naloxone (Suboxone) 8-2 MG SL tablet DISSOLVE ONE TABLET UNDER THE TONGUE TWICE DAILY clonazePAM (KlonoPIN) 0.5 MG tablet gabapentin (Neurontin) 300 MG capsule Three times daily QUEtiapine (SEROquel) 50 MG tablet vilazodone (Viibryd) 40 mg tablet Take 40 mg by mouth Daily No current facility-administered medications on file prior to visit. Objective Last Recorded Vitals Vitals: 02/25/24 1354 BP: 103/60 ENT Physical Exam Constitutional Appearance: patient appears well-developed and well-nourished, Head and Face Appearance: head appears normal and face appears atraumatic; Ear Ear comments: Sergio ears normal Nose External Nose: external nose normal; Internal Nose: nasal obstruction present; nasal septal deviation present; bilateral inferior turbinates with hypertrophy; Oral Cavity/Oropharynx Lips: normal; Teeth: normal; Gums: gingiva normal; Tongue: normal; Oral mucosa: normal; Hard palate: normal; Neck Neck: neck normal; neck palpation normal; Thyroid: thyroid normal; Respiratory Inspection: breathing unlabored; normal breathing rate; Auscultation: breath sounds are clear; Cardiovascular Inspection: extremities are warm and well perfused; no peripheral edema present; Auscultation: regular rate and rhythm; Assessment/Plan Diagnoses and all orders for this visit: DNS (deviated nasal septum) Hypertrophy of both inferior nasal turbinates Pt has a sig DNS to the left and sergio IT hyp. I will tx with flonase 6 weeks to see if improved. May need plastics referral due to severe cartilaginous bowing documented in this encounter [facility] 02-11-2024 Note - From: JEREMI MARIE DO To: [facility] Clinical Pool ([facility]); Sent: 02/11/2024 11:54:36 EDT Subject: FW: Medication Management Due Date/Time: 02/12/2024 11:25:00 EDT Caller Name: GILLES JANE; Caller Number: H From: [facility] #[id number] To: JEREMI MARIE DO Sent: February 11, 2024 10:25:35 AM CDT Subject: Medication Management Due: February 12, 2024 12:04:16 AM CDT On Hold Pending Signature Drug: clonazePAM (clonazePAM 0.5 mg oral tablet), 1 tab(s) Oral BID Quantity: 60 tab(s) Days Supply: 0 Refills: 0 Substitutions Allowed Notes from Pharmacy: Dispensed Drug: clonazePAM (clonazePAM 0.5 mg oral tablet), TAKE 1 TABLET BY MOUTH TWICE DAILY Quantity: 60 tab(s) Days Supply: 30 Refills: 0 Substitutions Allowed Notes from Pharmacy: From: Fanny Raman To: [facility] #[id number] Sent: 02/11/2024 12:02:46 EDT Subject: FW: Medication Management Not Approved: proposed to provider clonazePAM (clonazepam 0.5 mg tablet) TAKE 1 TABLET BY MOUTH TWICE DAILY Qty: 60 tab(s) Days Supply: 30 Refills: 0 Substitutions Allowed Route To Pharmacy - [facility] #[id number] Signed by Fanny Raman [facility] 02-06-2024 Note HNO ID: [id number] Author: ?, ?, ? Service: ? Author Type: ? Type: Progress Notes Filed: 04/01/2024 14:11 Note Text: Patient name: Gilles Jane Are you being referred by a [facility] for Spine Health Provider or Pain Management Provider at [facility]? No If answer is YES please schedule directly with surgeon, triage does not need to be completed. Is this a self-referral No If not, who is the Referring Provider Radha López MD Is this a 2nd opinion from another spine surgeon? Yes Were you offered surgery? No MRI/CT/myelogram within 12 months? Yes If NO , please refer to medical spine or PCP to complete above imaging, triage does not need to be completed If YES,? please ask for the name/address of the facility where the MRI/CT/myelogram was completed: [address] [address] MRI/CT/myelogram viewable in Epic: No If not, please provide [phone] to fax in imaging reports for review. Also, please inform patient to hand carry imaging disc to appointment. XR (spine) within 12 months: Yes If YES,? please ask for the name/address of the facility where the XR was completed: [place] [address] [place] [address] Dr. Pinzon's patients: Have you had previous EMG/Nerve Conduction Study, Ultrasound, or MRI for these same symptoms? If YES,? please ask for the name/address of the facility where they were completed: Requested provider (First and Last name): Are you interested in a virtual visit if offered? Yes 1. Where are you having symptoms related to this visit? Lb/hips/legs/feet - pelvis area feels the worse - r worse then l - numbness AND tinglyness in legs - feels like I was butt raped AND they broke my back - weakness in legs - pain is different everyday mostly intense throbbing/sharp - pt has to change position every 5-10 mins due to pain, no walking devices, adls slowed Back pain Yes Leg pain Yes Arm pain No Neck pain No 2. Are you having any of the following symptoms: Difficulty walking Yes Numbness Yes Weakness Yes Trouble using your hands? No 3. Have you had any injections or physical therapy in the last 12 months? Yes If YES then please ask for the name/address of the facility where the injections and/or physical therapy was completed [facility] - [facility] - [address] [place] [address] PT - [facility] - [address] [place] [id number] [facility] - [address], [place] [phone] Have you tried any other kinds of non-surgical treatments in the last 12 months? (For example: NSAIDS, muscle relaxants, analgesics, oral steroids, Chiropractor, Acupuncture): gabapentin, tylenol, can't tolerate heat, ice, lidocaine patches 4. Are you currently taking daily prescribed narcotic medications for your current symptoms (For example Oxycodone, Hydrocodone, Tramadol, Morphine, Other)? Yes suboxone for pain 5. Have you had previous spinal surgery for this same symptoms? No If YES? please ask for the name of facility/address of where the surgery was completed: Additional Comments [phone] [facility] 02-04-2024 Note - From: JEREMI MARIE DO To: [facility] Clinical Pool ([facility]); Sent: 02/03/2024 16:23:38 EDT Subject: FW: Medication Management Due Date/Time: 02/04/2024 15:09:00 EDT Caller Name: GILLES JANE; Caller Number: H From: [facility] #[id number] To: JEREMI MARIE DO Sent: February 03, 2024 2:09:49 PM CDT Subject: Medication Management Due: February 04, 2024 12:05:35 AM CDT On Hold Pending Signature Drug: gabapentin (gabapentin 300 mg oral capsule), 1 cap(s) Oral TID Quantity: 90 cap(s) Days Supply: 0 Refills: 0 Substitutions Allowed Notes from Pharmacy: Dispensed Drug: gabapentin (gabapentin 300 mg oral capsule), TAKE 1 CAPSULE BY MOUTH THREE TIMES DAILY Quantity: 90 cap(s) Days Supply: 30 Refills: 0 Substitutions Allowed Notes from Pharmacy: From: Fanny Raman To: [facility] #72 Sent: 02/04/2024 08:27:41 EDT Subject: FW: Medication Management Not Approved: proposed to provider gabapentin (gabapentin 300 mg capsule) TAKE 1 CAPSULE BY MOUTH THREE TIMES DAILY Qty: 90 cap(s) Days Supply: 30 Refills: 0 Substitutions Allowed Route To Pharmacy - [facility] #[id number] Signed by Fanny Raman [facility] 01-24-2024 Note Consultation Note Patient: GILLES JANE Age: 33 years Sex: Male : 1990 Associated Diagnoses: None Author: Yanet Low PA-C Subjective Chief complaint 01/24/2024 13:44 EDT Left lower back . Patient is a 33-year-old male. He presents today for follow-up after undergoing bilateral L5-S1 transforaminal epidural steroid injection. Patient states he did not get any relief and in fact, is here on the floor today writhing around in pain. He is kneeling on 1 knee and spinning around and states that nothing he does is getting him comfortable. He states that he was in the [place] ED recently and they were going to admit him for pain control but he decided not to be admitted because he wanted to be able to come to this appointment. Historically he underwent an L4-5 epidural steroid injection. This gave him 60% relief but unfortunate, only for 2 days. He continues to have lower back pain with left greater than right radiating leg pain. He has pain that goes down both legs to his ankles but he states that the left leg is worse. He rates it an 8?10/10 today and he states that with any sort of activity his pain becomes unbearable. In regards to his pain he has been on gabapentin with some relief. He is also on Suboxone. He is aware that his medication options are limited. He previously saw a nurse practitioner at Dr. Liao's office. He states that she then left so he saw another nurse practitioner and he really wants to get into see the doctor to see what options he has available as he cannot continue to live like this and the amount of pain that he is in. Health Status Allergies: Allergic Reactions (Selected) Severe [...] list: All Problems Smoker / SNOMED CT 262029958 / Confirmed Added secondary to documentation in Social History. Anxiety / SNOMED CT 20436056 / Confirmed Depression / SNOMED CT 5861758260 / Confirmed Osteoarthritis / SNOMED CT 0497818553 / Confirmed Objective Vital Signs 01/24/2024 13:44 EDT Peripheral Pulse Rate 129 bpm HI Respiratory Rate 20 br/min Systolic Blood Pressure 129 mmHg Diastolic Blood Pressure 99 mmHg HI Mean Arterial Pressure, Cuff 109 mmHg General: Alert and oriented, Moderate distress. Tearful, writhing around in pain on the floor Eye: Normal conjunctiva. HENT: Normocephalic, Normal hearing. Cardiovascular: No edema. Musculoskeletal Normal range of motion. Normal strength. On his right knee with his left leg extended spinning around with difficulty getting up. Tearful and states that he is just in pain and cannot continue like this. Integumentary: Warm, Dry, College. Neurologic: Alert, Oriented. Psychiatric: Cooperative, Appropriate mood & affect. 14 point review of systems was negative unless otherwise noted. Results Review * Final Report * Reason For Exam M54.12 M54.2 [facility] REPORT IMPRESSION: NO HIGH-GRADE NEUROFORAMINAL OR SPINAL CANAL [...] Visualized paravertebral soft tissues are grossly unremarkable. Ordering Provider: Yanet Low Signature Line FINAL REPORT Dict (more content not included)... [facility] Comment on above: Result Comment: Elec tronically Signed By: Yanet Low PA-C\.br\Date and Time Signed: 01/24/24 14:08 EDT 01-24-2024 Evaluation + Plan note Extrac faraz from: Title:Pain Managment Follow up Author:Yanet Bustos Date:01/24/24 Impression and Plan Patient is a 33-year-old male with a past medical history significant for lumbar neuritis, lumbar degenerative disease, lumbar disc bulge and lumbar foraminal stenosis. He is tearful today. He states that he cannot continue to have pain like this. I offered multiple times to take him to the ED. He declines. He was recently at the [place] ED. I would like to get these records. He has previously seen somebody in Dr. Crocker's office. I would also like to get these records. I recommended he follow-up with them once again to discuss his surgical options. He states that he did not understand as the last time he saw them he states they told him they could help his leg pain but not his back pain. He did not understand what that meant but at this time, he would like to see them and see what his options are. [facility] reviewed. He is going to follow-up with her services as needed. He is going to see Dr. Crocker's office and he can follow-up with us as needed. MARTÍN score: 80%. [facility] 08-19-2024 NoteOperative Report Diagnosis: M54.16, lumbar radiculopathy Procedure: Bilateral [...] neuroforamina were anesthetized with 2% lidocaine. A 22-gaugeSprotte needles were then advanced under fluoroscopic guidance [...] and agrees to comply to currently prescribed/recommended therapies.[facility] Comment on above:Result Comment: Electronically Signed By: Laci Moss DO\.br\Date and Time Signed: 12/30/23 14:56 [id number] Evaluation + Plan note Extracted from: Title:Bilateral L5/S1 transf oraminal epidural steroid injection Author:Laic Moss DO Date:12/30/23 Diagnosis: M54.16, lumbar ra [...] Future Appointments Appointment Date:01/24/2024 01:15:00 PM Scheduled Provider:Yanet Low PA-C Location:.[facility] Appointment Type:Pain Management - Follow Up (FT) [facility] 07-31-2024 Note From: JEREMI MARIE DO To: [facility] Clinical Pool ([facility]); Sent: 12/11/2023 11:56:05 EDT Subject: FW: Medication Management Due Date/Time: 12/12/2023 11:45:00 EDT Caller Name: GILLES JANE; Caller Number: H From: [facility] #[id number] To: JEREMI MARIE DO Sent: December 11, [...] from Pharmacy: From: Lina Meneses MA To: [facility] #[id number] Sent: 12/11/2023 13:39:16 EDT Subject: FW: Medication Management Not Approved: Refill not appropriate, proposal sent to provider clonazePAM (CLONAZEPAM 0.5 MG TABLET) take 1 tablet by mouth twice a day Qty: 60 tab(s) Days Supply: 30 Refills: 0 Substitutions Allowed Route To Pharmacy - [facility] #[id number] Signed by Lina Meneses [facility]07-18-2024 Note From: JEREMI MARIE DO To: [facility] Clinical [place] ([facility]); Sent: 11/28/2023 16:30:55 EDT Subject: FW: Medication Management Due Date/Time: 11/29/2023 15:43:00 EDT Caller Name: GILLES JANE; Caller Number: H From: [facility] #[id number] To: CYNTHIA JEREMI Rachel SANCHEZ Sent: November 28, 2023 2:43:31 PM CDT [...] Substitutions Allowed Notes from Pharmacy: From: Fanny Ramna To: [facility] #[id number] Sent: 11/28/2023 17:19:25 EDT Subject: FW: Medication Management Not Approved: proposed to provider gabapentin (GABAPENTIN 300 MG CAPSULE) take 1 capsule by mouth three times a day Qty: 90 cap(s) Days Supply: 30 Refills: 0 Substitutions Allowed Route To [facility]acy - [id number] [facility] NoteConsultation Note Patient: GILLES JANE Age: 33 years Sex: Male : 1990 Associated Diagnoses: None Author: Yanet Low PA-C Subjective Chief complaint 11/18/2023 14:41 EDT [...] list: All Problems Smoker / SNOMED CT 711637444 / Confirmed Added secondary to documentation in Social History. Anxiety / SNOMED CT 96529441 / Confirmed Depression / SNOMED CT 0968273217 / Confirmed Osteoarthritis / SNOMED CT 1734962255 / Confirmed Objective Vital Signs 11/18/2023 14:41 [...] leg raise Negative Randa's Integumentary: Warm, Dry, College. Neurologic: Alert, Oriented. Psychiatric: Cooperative, Appropriate mood [...] results. Patient is agreeab (more content not included)...[facility]Result Comment: Electronically Signed By: Yanet Low PA-C\isiah\Date and Time Signed: 11/18/23 15:04 [id number] Evaluation + Plan noteExtracted from: Title:Pain Managment Follow up Author:Yanet Bustos Date:11/18/23 Impression and Plan Patient is [...] agreeable. Follow-up after. MARTÍN score: 62%. [facility]07-01-2024 Note From: JEREMI MARIE DO To: [facility] Clinical Pool ([facility]); Sent: 11/09/2023 11:52:39 EDT Subject: FW: Medication Management Due Date/Time: 11/09/2023 11:51:00 EDT Caller Name: GILLES JANE; Caller Number: H From: [facility] #[id number] To: JEREMI MARIE DO Sent: November 08, [...] Pharmacy: From: Fanny Raman To: [facility] #[id number] Sent: 11/11/2023 08:52:56 EDT Subject: FW: Medication Management Not Approved: proposed to provider clonazePAM (CLONAZEPAM 0.5 MG TABLET) take 1 tablet by mouth twice a day Qty: 60 tab(s) Days Supply: 30 Refills: 0 Substitutions Allowed Route To Pharmacy - [facility] #[id number] Signed by Danisha [facility]06-21-2024 Note From: JEREMI MARIE DO Cc: [facility] Clinical Pool ([facility]); Sent: 10/31/2023 20:40:39 EDT Subject: FW: Medication Management Due Date/Time: 11/01/2023 18:43:00 EDT Caller Name: GILLES JANE; Caller Number: H From: [facility] #[id number] To: JEREMI MARIE DO Sent: October 31, [...] From: Susy Parra LPN To: [facility] #[id number] Sent: 11/01/2023 08:19:24 EDT Subject: FW: Medication Management Not Approved: proposal sent to provider gabapentin (GABAPENTIN 300 MG CAPSULE) take 1 capsule by mouth three times a day Qty: 90 cap(s) Days Supply: 30 Refills: 0 Substitutions Allowed Route To Pharmacy - [facility] #[id number] Signed by Susy [facility] Note [id number] 10-15-2023 NoteDiagnosis: M48.062, lumbar stenosis with neurogenic [...] the epidural space was confirmed using the resi-uc-uzouwafslg technique and 2 cc of air. Injection [...] procedure, and agrees to continue currently prescribed/recommended therapies.[facility] Comment on above:Result Comment: Electronically Signed By: Laci Moss DO\Date and Time Signed: 10/15/23 15:14 [id number] Note From: JEREMI MARIE DO To: [facility] Clinical Pool ([facility]); Sent: 10/10/2023 14:17:56 EDT Subject: FW: Medication Management Due Date/Time: 10/11/2023 12:32:00 EDT Caller Name: GILLES JANE; Caller Number: H From: [facility] #[id number] To: JEREMI MARIE DO Sent: October 10, [...] Pharmacy: From: Fanny Raman To: [facility] #[id number] Sent: 10/10/2023 16:25:15 EDT Subject: FW: Medication Management Not Approved: proposed to provider clonazePAM (CLONAZEPAM 0.5 MG TABLET) take 1 tablet by mouth twice a day Qty: 60 tab(s) Days Supply: 30 Refills: 0 Substitutions Allowed Route To Pharmacy - [facility][id number] [facility] Note From: JEREMI MARIE DO To: [facility] Clinical [place] ([facility]); Sent: 09/30/2023 07:45:59 EDT Subject: FW: Medication Management Due Date/Time: 09/30/2023 11:11:00 EDT Caller Name: GILLES JANE; Caller Number: H From: [facility] #[id number] To: JEREMI MARIE DO Sent: September 29, [...] Pharmacy: From: Fanny Raman To: [facility] #[id number] Sent: 09/30/2023 11:50:18 EDT Subject: FW: Medication Management Not Approved: proposed to provider gabapentin (GABAPENTIN 300 MG CAPSULE) take 1 capsule by mouth three times a day Qty: 90 cap(s) Days Supply: 30 Refills: 0 Substitutions Allowed Route To Pharmacy - [facility] #[id number] Signed by Danisha [facility]05-02-2024 Evaluation + Plan note Extracted from: Title:chronic [...] 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 [facility]04-18-2024 Note From: JEREMI MARIE DO To: [facility] Clinical [place] ([facility]); Sent: 08/29/2023 12:16:35 EDT Subject: FW: Medication Management Due Date/Time: 08/30/2023 11:21:00 EDT Caller Name: GILLES JANE; Caller Number: H From: [facility] #[id number] To: JEREMI MARIE DO Sent: August 29, [...] Pharmacy: From: Fanny Raman To: [facility] #[id number] Sent: 08/29/2023 13:12:35 EDT Subject: FW: Medication Management Not Approved: proposed to provider gabapentin (GABAPENTIN 300 MG CAPSULE) take 1 capsule by mouth three times a day Qty: 90 cap(s) Days Supply: 30 Refills: 0 Substitutions Allowed Route To Pharmacy - [facility] #[id number] Signed by Danisha [facility]04-05-2024 Evaluation + Plan note Extracted from: Title:L4/5 [...] the epidural space was confirmed using the twhw-lv-milboiehzw technique and 2 cc of air. Injection [...] Future Appointments Appointment Date:11/18/2023 02:30:00 PM Scheduled Provider:Yanet Low PA-C Location[facility] Appointment Type:Pain Management - Follow Up (FT) [facility]04-03-2024 Note From: JEREMI MARIE DO To: [facility] Clinical Pool ([facility]); Sent: 08/13/2023 16:05:42 EDT Subject: FW: Medication Management Due Date/Time: 08/14/2023 15:36:00 EDT Caller Name: GILLES JANE; Caller Number: H From: [id number] To: JEREMI MARIE DO Sent: August 13, [...] Notes from Pharmacy: From: Fanny Raman To: [id number] Sent: 08/14/2023 08:44:23 EDT Subject: FW: Medication Management Not Approved: proposed to provider for signature clonazePAM (CLONAZEPAM 0.5 MG TABLET) take 1 tablet by mouth twice a day Qty: 60 tab(s) Days Supply: 30 Refills: 0 Substitutions Allowed [facility] To [id number] Note From: JEREMI MARIE DO To: [facility] Clinical Pool ([facility]); Sent: 07/30/2023 13:51:47 EDT Subject: FW: Medication Management Due Date/Time: 07/31/2023 12:36:00 EDT Caller Name: GILLES JANE; Caller Number: H From: [id number] To: JEREMI MARIE DO Sent: July 30, [...] Pharmacy: From: Fanny Raman To: [facility][id number] Sent: 07/30/2023 17:25:12 EDT Subject: FW: Medication Management Not Approved: PROPOSED TO PROVIDER FOR SIGNATURE gabapentin (GABAPENTIN 300 MG CAPSULE) take 1 capsule by mouth three times a day Qty: 90 cap(s) Days Supply: 30 Refills: 0 Substitutions Allowed [id number] Note From: JEREMI MARIE DO To: [facility] Clinical [place] [place] [place] Sent: 07/15/2023 11:01:10 EST Subject: FW: Medication Management Due Date/Time: 07/16/2023 10:53:00 EST Caller Name: GILLES JANE; Caller Number: H From: [id number] To: JEREMI MARIE DO Sent: July 15, 2023 9:53:25 AM PLASTICS TECHNICIAN Subject: Medication Management Due: July 16, 2023 12:01:35 AM PLASTICS TECHNICIAN On Hold Pending Signature Drug: clonazePAM (clonazePAM 0.5 mg oral tablet), 1 tab(s) Oral BID Quantity: 60 tab(s) Days Supply: 30 Refills: 0 Substitutions Allowed Notes from Pharmacy: Dispensed Drug: clonazePAM (clonazePAM 0.5 mg oral tablet), take 1 tablet by mouth twice a day Quantity: 60 tab(s) Days Supply: 30 Refills: 0 Substitutions Allowed Notes from Pharmacy: From: Fanny Raman To: [facility][id number] Sent: 07/15/2023 13:44:06 EST Subject: FW: Medication Management Not Approved: sent clonazePAM (CLONAZEPAM 0.5 MG TABLET) take 1 tablet by mouth twice a day Qty: 60 tab(s) Days Supply: 30 Refills: 0 Substitutions Allowed Route To [facility] - [id number]* Diagnosis Onset Date Resolution Status Lumbar degenerative disc disease acute Lumbar stenosis acute Mood disorder acute Neuropathy acute [facility] Work Phone: Evaluation noteNo assessment information available [facility] Work Phone: Evaluation note* Diagnosis Onset Date Resolution Status Lumbar radiculopathy acute Sacral radiculopathy acute [facility] Work Phone: Evaluation note* Diagnosis DNS (deviated nasal septum)- Primary Deviated nasal septum Hypertrophy of both inferior nasal turbinates documented in this encounter [facility]* Diagnosis Nasal obstruction- Primary Other diseases of nasal cavity and sinuses DNS (deviated nasal septum) Deviated nasal septum [facility] Diagnosis Chronic bilateral low back pain with bilateral sciatica- Primary [facility] Diagnosis Deviated septum- Primary Deviated nasal septum Deviated nasal septum Nasal alar collapse Hypertrophy of inferior nasal turbinate Nasal congestion Other diseases of nasal cavity and sinuses Nasal obstruction Other diseases of nasal cavity and sinuses Nasal deformity Acquired deformity of nose Difficulty breathing Other dyspnea and respiratory abnormality Deviated nasal septum Hypertrophy of inferior nasal turbinate Nasal congestion Other diseases of nasal cavity and sinuses Nasal deformity Acquired deformity of nose documented in this encounter [facility] Work Phone: Evaluation note* Diagnosis Nasal congestion- Primary Other diseases of nasal cavity and sinuses Nasal congestion Other diseases of nasal cavity and sinuses Deviated nasal septum Nasal deformity Acquired deformity of nose Deviated nasal septum Hypertrophy of inferior nasal turbinate Nasal deformity Acquired deformity of nose Opioid use disorder Anxiety Anxiety state, unspecified Depression Depressive disorder, not elsewhere classified Osteoarthritis Osteoarthrosis, unspecified whether generalized or localized, unspecified site History of musculoskeletal cancer Spinal stenosis Spinal stenosis, unspecified region other than cervical documented in this encounter [facility] Work Phone: Evaluation note* Diagnosis Chronic pain syndrome- Primary Chronic 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 [facility] Diagnosis Nasal deformity- Primary Acquired deformity of nose Nasal obstruction Other diseases of nasal cavity and sinuses Hypertrophy of inferior nasal turbinate Deviated nasal septum documented in this encounter [facility] Work Phone: Hospital course Narrative No data available for this section [facility] No data available for this section [facility] Discharge instructionsAmbulatory Orders* Referral to Neurosurgery Location: None Selected [facility] Work Phone: Progress note No data available for this section [facility] N[facility]* Auth/Cert Specialty Diagnoses / Procedures Referred By Sola t Referred To Contact Diagnoses Deviated nasal septum Hypertrophy of inferior nasal turbinate Nasal congestion Nasal deformity Deviated nasal septum [J34.2] Hypertrophy of inferior nasal turbinate [J34.3] Nasal congestion [R09.81] Nasal deformity [M95.0] Procedures VT SEPTOPLASTY/SUBMUCOUS RESECJ W/WO CARTILAGE GRF VT CARTILAGE GRAFT NASAL SEPTUM VT REPAIR NASAL VESTIBULAR STENOSIS VT FRACTURE NASAL INFERIOR TURBINATE THERAPEUTIC VT ABLTJ SOF TISS INF TURBS UNI/BI SUPFC INTRAMURAL SEPTOPLASTY, INFERIOR TURBINATE REDUCTION, NASAL VALVE REPAIR, [place] [address] [place] [address] Phone: tel: fax: [facility] [place] [address] [place] [phone] Phone: tel: fax: Referral ID Status Reason Start Date Expiration Date Visits Re quested Visits Authorized [id number] 1 [facility] Work Phone: Summary Purpose Family History No Family History [...] Family History Records FoundNo Family History Records FoundNo Family History Records FoundNo Family History Records [...] Reason for Visit Lumbar radiculopathy Sacral radiculopathy Chief Complaint m48.061 m51.36 f39 follow up low back up f/u after pain mgmt Reason for Visit Lumbar radiculopathy Sacral radiculopathy Reason for Referral Specialty Diagnoses / Procedures Referred By Sola berry Referred To [facility] [place] Diagnoses Chronic 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 Procedures [facility]SULT TO [facility] ([facility]) OFFICE/OUTPATIENT [facility] 60 MINUTES Evette Singh, SENIOR SHAREPOINT DEVELOPER.COMPUTER GRAPHIC ARTIST [address] [place] [address] Referral ID Status Reason Start Date Expiration Date Visits Requested Visits Authorized [id number] Pending Review PCP Requested Referral 06/16/2024 06/16/2025 1 1 Additional Source Comments (unrecognized sect ion and content) No Status Records FoundNo Status Records FoundNo Status Records FoundNo Status Records FoundNo Status Records FoundNo Status Records FoundNo Status Records FoundNo Status Records FoundNo Status Records Found INFORMATION SOURCE (unrecogn ized section and content) DATE CREATED AUTHOR 12/01/2017 [facility] DATE CREATED AUTHOR AUTHOR'S ORGANIZ ATION 12/30/2020 [facility] DATE CREATED AUTHOR AUTHOR'S ORGANIZ ATION 12/15/2023 [facility] DATE CREATED AUTHOR AUTHOR'S ORGANIZ ATION 01/28/2024 [facility] DATE CREATED AUTHOR AUTHOR'S ORGANIZ ATION 02/27/2024 [facility] DATE CREATED AUTHOR AUTHOR'S ORGANIZ ATION 06/18/2024 [facility] DATE CREATED AUTHOR AUTHOR'S ORGANIZ ATION 06/20/2024 [facility] DATE CREATED AUTHOR AUTHOR'S ORGANIZ ATION 06/22/2024 [facility] DATE CREATED AUTHOR AUTHOR'S ORGANIZ ATION 07/02/2024 [facility] Teams (unrecognized sec tion and content) Team Status: Active Member Role Status Dates Jeremi Marie DO Primary Care Provider Active Team Status: Inactive Member Role Status Dates ALIA Griggs Attending Provider Active Start: July 17, 2023 End: July 17, 2023 Jeremi Marie DO Primary Care Provider Active Start: July 17, 2023 End: July 17, 2023 Team Status: Active Member Role Status Vianney Marie DO Primary [...] Team Status: Active Member Role Status Vianney Marie DO Primary Care Provider Active Start: December 12, 2023 ALIA Griggs Attending Provider Active Start: December 12, 2023 Team Status: Inactive Member Role Status Vianney Marie DO Primary Care Provider Active Start: December 12, 2023 End: December 12, 2023 Radha López APRN Attending Provider Active Start: December 12, 2023 End: December 12, 2023 Team Status: Inactive Member Role Status Dates Jeremi Marie DO Primary Care Provider Active Start: December 12, 2023 End: December 12, 2023 ALIA Griggs Attending Provider Active Start: December 12, 2023 End: December 12, 2023 Team Status: Inactive Member Role Status Dates Jeremi Marie DO Primary Care Provider Active Start: January 28, 2024 End: January 28, 2024 Radha López APRN Attending Provider Active Start: January 28, 2024 End: January 28, 2024 Assurance Manager Relationship Specialty Start Date End Date Jessica Smith NP [address] [place] [address] PCP - [facility] 08/12/23 Jeremi Marie MD [address] [place] [address] PCP - General Family Medicine 02/10/24 Assurance Manager Relationship Specialty Start Date End Date Jessica Smith NP [address] [place] [address] PCP - [facility] 08/12/23 Jeremi Marie MD [address] [place] [address] PCP - General Family Medicine 02/10/24 Assurance Manager Relationship Specialty Start Date End Date Radha López APRN.COMPUTER GRAPHIC ARTIST [facility] [place] [address] Nurse Practitioner 02/06/24 Assurance Manager Relationship Specialty Start Date End Date Jeremi Marie MD [address] [place] [address] PCP - General Family Medicine 02/10/24 Assurance Manager Relationship Specialty Start Date End Date Jeremi Marie MD [address] [place] [address] PCP - General Family Medicine 02/10/24 Assurance Manager Relationship Specialty Start Date End Date Radha López, MELLO.COMPUTER GRAPHIC ARTIST [address] [place] [address] Nurse Practitioner 02/06/24 Assurance Manager Relationship Specialty Start Date End Date Radha López, SENIOR SHAREPOINT DEVELOPER.COMPUTER GRAPHIC ARTIST [address] [place] [address] Nurse Practitioner 02/06/24 Goals (unrecognized section and content) Goals may [...] section No data available for this section Reason for Visit (unrecogniz ed section and content) Reason Comments Deviated Nasal Septum Reason Comments Deviated Nasal Septum Recheck nose. Reason Comments New Patient Reason Comments nasal obstruction Reason Comments Patient Question Reason Comments Established Patient Reason Comments Post-op Source Comments (unrecognize d section and content) In the event this informatio n is protected by the Federal Confidentiality of Alcohol and Drug Abuse Patient Records regulations: The Federal rules restrict any use of the information to criminally investigate or prosecute any alcohol or drug abuse patient.[facility] the event this information is protected by the Federal Confidentiality of Alcohol and Drug Abuse Patient Records regulations: The Federal rules restrict any use of the information to criminally investigate or prosecute any alcohol or drug abuse patient.[facility] the event this information is protected by the Federal Confidentiality of Alcohol and Drug Abuse Patient Records regulations: The Federal rules restrict any use of the information to criminally investigate or prosecute any alcohol or drug abuse patient.[facility] the event this information is protected by the Federal Confidentiality of Alcohol and Drug Abuse Patient Records regulations: The Federal rules restrict any use of the information to criminally investigate or prosecute any alcohol or drug abuse patient.[facility] Scheduled Active and Recently Administ ered Medications (unrecognized section and content) Medication Order 06/10/2024 06/11/2024 06/12/2024 albuterol 2.5 mg /3 mL (0.083 %) nebulizer solution 2.5 mg (COMPLETED) 2.5 mg, nebulization, Once, On Sat06/12/24 at 1045, For 1 dose, Preprocedure 0830 (Given - Provid er: Katt Hooker RN - Comment: per anesthesia) gabapentin (Neurontin) capsule 300 mg 300 mg, oral, Once, On Sat06/12/24 at 1045, For 1 dose, Recovery (only), Capsules may be opened and sprinkled on food (eg, applesauce, orange juice, pudding 1045 (Due) lidocaine PF (Xylocaine) 10 mg/mL (1 %) injection 1 mg 1 mg (0.1 mL), subcutaneous, Once, On Sat06/12/24 at 1045, For 1 dose, Recovery (only), To be used for IV insertion ONLY 1045 (Due) Continuous Medication Order 06/10/2024 06/11/2024 06/12/2024 lactated Ringer's infusion 75 mL/hr, intravenous, Continuous, Starting on Sat06/12/24 at 1045, For 2 hours, Recovery (only) 1009 (Continued from OR - Provider: Mady Weathers RN)1135 (Stopped - Provider: Katt Hooker RN) PRN Medication Order 06/10/2024 06/11/2024 06/12/2024 balanced salts (BSS) intraocular solution (CANCELED) As needed, Starting on Sat06/12/24 at 0905, Intraprocedure 0905 (Given - Provid er: Jalen Rodrigez MD) BUPivacaine HCl (Marcaine) 0.5 % (5 mg/mL) injection (CANCELED) As needed, Starting on Sat06/12/24 at 0908, Intraprocedure 0908 (Given - Provid er: Jalen Rodrigez MD - Comment: part of local mlk73fm marcaine.2cc epi2cc gke92yi used) EPINEPHrine HCl (PF) (Adrenalin) injection (CANCELED) As needed, Starting on Sat06/12/24 at 0906, Intraprocedure 0906 (Given - Provid er: Jalen Rodrigez MD - Comment: part of local ohz03br marcaine.2cc epi2cc iyr70hg used) mupirocin (Bactroban) 2 % ointment (CANCELED) As needed, Starting on Sat06/12/24 at 0906, Intraprocedure 0906 (Given - Provid er: Jalen Rodrigez MD) ondansetron (Zofran) injection 4 mg 4 mg, intravenous, Once as needed, nausea/vomiting, first line, Starting on Sat06/12/24 at 1015, For 1 dose, Recovery (only), When administering via IV Push, administer over 3-5 minutes. oxygen (O2) therapy inhalation, at 2 mL/hr, Continuous PRN - O2/gases, other, Starting on Sat06/12/24 at 1015, Recovery (only), Titrate cannula versus simple face mask to O2 saturation , Device: Nasal Cannula, Rate in liters per minute: 2 LPM, Keep O2 Sat Above: 92%, Indications: invasive surgical procedure oxymetazoline (Afrin) 0.05 % nasal spray (CANCELED) As needed, Starting on Sat06/12/24 at 0907, Intraprocedure 0907 (Given - Provid er: Jalen Rodrigez MD) sodium chloride 0.9 % irrigation solution (CANCELED) As needed, Starting on Sat06/12/24 at 0908, Intraprocedure 0908 (Given - Provid er: Jalen Rodrigez MD) tranexamic acid (Cyklokapron) injection (CANCELED) As needed, Starting on Sat06/12/24 at 0908, Intraprocedure 0908 (Given - Provid er: Jalen Rodrigez MD - Comment: part of local jha92ew marcaine.2cc epi2cc [id number] used) FOR RECORDS PERTAINING TO PATIENTS WHO ARE [...] BE BASED ON THE PRIMARY CLINICAL RECORDS. [employer] [facility]. provides no warranty or guarantee of the accuracy or completeness of information in this document.
[2024-07-11 17:47] VITALS: O2SAT 99
[2024-07-11] MEDS: PREDNISONE 20 MG TABLET 60 MG PO (18:04)
[2024-07-11] MEDS: FAMOTIDINE 20 MG TABLET 40 MG PO (18:04)
[2024-07-11] MEDS: HYDROXYZINE PAMOATE 25 MG CAPSULE 50 MG PO (18:04)
== END 2024-07-11 18:11 | disposition home or self-care (01) ==
PROVIDERS: Emergency Provider Emergency Medicine; PCP Family Medicine
DX: L50.0 Allergic urticaria (principal); L29.9 Pruritus, unspecified; F19.11 Other psychoactive substance abuse, in remission
CPT/HCPCS: 99284; J7512; Q0177

== ENCOUNTER 2024-07-25 19:59 | Emergency (ER) | payer OTHER, SELFPAY ==
[2024-07-25 20:13] VITALS: BP 144/91; PULSE 83; TEMP 36.7; O2SAT 97; BMI 20.2
--- OUTSIDE RECORDS SUMMARY | 2024-07-25 20:19 | XMS_ITS | CCD ---
Author Organization [facility] CliniSydc Care Team Providers Care 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 Name Role Phone NICO WEBB Unavailable Unavailable LYNN BOOKER Unavailable Unavailable HOUSE, DR BLOOD Attending Unavailable HOUSE, DR BLOOD Consulting Unavailable HOUSE, DR BLOOD Primary Care Unavailable HOUSE, DR BLOOD Admitting Unavailable Cynthia, DO Blood Primary Care Provider [phone] MD Kareem Crocker Attending Provider [phone] ALIA Low Attending Provider JEREMI MARIE Primary Care Physician [phone] DO Jeremi Marie Primary Care Provider MD Kareem Crocker Attending Provider [phone] DO Laci Moss Attending Provider DO Jeremi Marie Primary Care Provider ALIA [...] Referring Unavailable Sarah MEHTA, Jessica Costa Unavailable Jeremi Marie MD Primary Care Provider Maribel DESIGN TEACHER.BEER COOLER, Radha Unavailable Unavailable Primary Care Provider UnavailEVETTE Covarrubias Attending Unavailable MARIBEL, RADHA Referring Unavailable EVETTE THOMPSON Attending Unavailable ELIA, JALEN C Admitting Unavailable ELIA, JALEN C Attending Unavailable ELIA, JALEN C Attending Unavailable SALLOUHAJESSIKA Attending Unavailable HOUSE, JEREMI P Primary Care [...] (1 source) Acetaminophen Drug Allergy 12-10-19 18 [facility] Benzodiazepines (1 source) LORazepam Drug Allergy 12-10-19 18 Drowsy [facility] Opioid Agonists (1 source) HYDROcodone Drug Allergy 12-10-19 18 [facility] Penicillins (antibiotic) (1 source) Penicillins Drug Allergy 12-10-19 18 [facility] (3 sources) Acetaminophen / HYDROcodone; Translations: [Vicodin] Drug Allergy 12-19-19 15 [facility] Repository (3 sources) LORazepam; Translations: [Ativan] Drug Allergy 12-19-19 15 [facility] (16 sources) Penicillins; Translations: [penicillins] Drug allergy (disorder) 02-19-20 02 Pharyngeal swelling (finding) [facility] (14 sources) Acetaminophen; Translations: [acetaminophen] Drug Allergy 12-10-19 18 [facility] (17 sources) HYDROcodone; Translations: [hydrocodone] Drug Allergy 12-10-19 18 [facility] (20 sources) LORazepam; Translations: [Lorazepam] Drug Allergy 06-12-19 14 Nausea and vomiting (disorder), Swelling, Confusion [facility] Comment on above: NAUSEA (11 sources) Acetaminophen / HYDROcodone; Translations: [acetaminophen-hy drocodone] Drug Allergy 06-12-19 14 Swelling (finding), Hives [facility] (1 source) Penicillins Drug allergy (disorder) 12-12-19 [facility] Repository (8 sources) Acetaminophen / HYDROcodone; Translations: [HYDROCODONE-ACET AMINOPHEN] Drug Allergy 06-12-[address] [facility] (6 sources) Penicillins Drug Intolerance 02-19-[address] [facility] (7 sources) Penicillins Propensity to adverse reactions 02-19-20 Anaphylaxis [facility] (1 source) Penicillin; Translations: [penicillin] Drug Allergy [facility] Repository Medications Current Medications Medication [...] Active 10 MG PO Three times daily 90 December 16, 2017 12:00am calcium chloride 0.0014 [...] sources) Start: 06-12-2024 End: 07-12-2024 sodium chloride (Nelson) 0.65 % nasal spray Indications: Nasal congestion [...] Translations: [CONTACT W/AND (SUSP) EXPOS COVID-19] Onset: 08-18-2021 Unclassified (1 source) Low back pain, unspecified; Translations: [Low back pain, unspecified] Onset: 09-19-2023 Past or Other Problems Problem Classification Problem Date Documented Da te Episodic/Chronic Unclassified (1 source) CONTACT W/AND (SUSP) EXPOS COVID-19; Translations: [CONTACT W/AND (SUSP) EXPOS COVID-19] Onset: 12-19-2020 Unclassified (3 sources) Onset: 05-21-2024 Resolved: 06-18-2024 05-21-2024 Results Test Name Value Interpretation Reference Range Facility Outside Recordson 07-22-2024 Outside Records [id number] Sub[facility] Agreem entson 06-24-2024 Controlled Substances Agreements [id number]#[facility] CN Office Visit (SPNSMN ) GILLES JANE ([id number]) 1990 M Date Time Provider Department 06/16/24 2:20 PM EVETTE SINGH SPNSMN During your visit today, we recorded the following information about you: Pulse Respiration Blood pressure Weight 75/minute 18/minute 123/68 67.5 kg Height 1.803 m Evette Singh APRN.BEER COOLER 06/16/2024 4:49 PM Signed SPINE SURGERY NEW [...] which included preparing to see the patient, [id number] patient care, completing clinical documentation, obtaining and/or reviewing separately obtained history, performing a medically appropriate examination, counseling and educating the patient/family/caregiver, and independently interpreting results (not separately reported). SIGNATURE: Evette Singh APRN.[employer] PATIENT NAME: Gilles Jane DATE: June 16, [...] TO CENTER (more content not included)... Normal [facility] Tirso 05-29-2024 [facility] Telephone (NIQ) GILLES JANE ([id number]) 1990 M Date Time Provider Department 05/29/24 EVETTE THOMPSON During your visit today, we recorded the following information about you: Lizbet Fried 05/29/2024 9:58 AM Signed Pt called to check on his MRI imaging from [place]. It's not available on [employer] AND no report scanned. Pt asked me to obtain imaging AND report and update him and wanted to schedule another appt. Pls call back with update He will request that imaging be sent over to office for review. He will contact office when this is sent over. Consider VV with surgical JERICHO for review Lizbet Fried 06/02/2024 9:14 AM Signed Received the following record(s) via fax. -Cathy - Report MR Lumbar Spine wo/w 03/29/23 Record(s) scanned into pt's chart. Lizbet Alvares 06/04/2024 2:31 PM Signed MRI is available on [employer] Allergies As of Date: 05/29/2024 Noted Allergy Reaction LORAZEPAM 06/12/2013 7 - Swelling PENICILLINS 02/18/2002 VICODIN (HYDROCODONE-ACETAMINOPHE* 4 - Hives Date Reviewed: 04/17/2024 Reviewed by: Mi French OCCA - Fully Assessed Reason for Visit: Patient Question [1247] Prescriptions as of 06/04/2024 - clonazePAM (KLONOPIN) [...] disease [M42.00] Smoker [F17.200] Encounter Status:Closed by LIZBET RFIED on 06/04/24 [facility] CNOVon 04-17-2024 CNOV Office Visit (SPNSMN ) GILLES JANE ([id number]) 1990 M Date Time Provider Department 04/17/24 2:20 PM EVETTE THOMPSON SPNSMN During your visit today, we recorded the following information about you: Pulse Blood pressure Weight Height 92/minute 125/84 68.5 kg 1.803 m Evette Thompson PA-C 04/17/2024 3:17 PM Signed SPINE SURGERY OUTPATIENT CONSULT This is an in-person visit. SERVICE DATE: 04/17/2024 PCP: No primary care provider on file. REFERRING PROVIDER: [place] [id number] Consult requested for an opinion regarding the [...] pain. 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 CMT: -Suboxone -Gabapentin 300 mg TID -Physical [...] 125/84 Pu (more content not included)... Normal [facility] Consultation/Specialist Note on 03-04-2024 Consultation/Special ist Note [id number]#1.00[facility] Consultation/Specialist Note on 01-29-2024 Consultation/Special ist Note [id number]#[facility] Consultation/Special ist Note [id number]#[facility] Outside Recordson 01-23-2024 Outside Records [id number]#[facility] Insurance[facility] 01-08-2024 Insurance [id number]#1.00[facility] Main OR Intraoperative Recor don 12-30-2023 Main OR Intraoperative Record Main OR Intraoperative Record IntraOp Document Type FTPM Summary Primary Physician: Laci Moss DO Finalized Date/Time: 12/30/23 14:56:10 Pt. Name: GILLES JANE/Sex: 1990 Male Med Rec #: [id number] Physician: Laci Moss DO Financial #: [id number] Pt. Type: P Room/Bed: / Admit/Disch: 12/30/23 [...] Susan Quinn Role Performed Surgeon - Primary Outdoor Adventure Instructor - Primary Scrub - Primary Time In 12/30/23 14:47:00 12/30/23 14:47:00 12/30/23 14:47:00 Time Out 12/30/23 14:57:00 12/30/23 14:57:00 12/30/23 14:57:00 Procedure TRANSFORAMINAL EPIDURAL TRANSFORAMINAL EPIDURAL TRANSFORAMINAL EPIDURAL STEROID STEROID STEROID INJECTIO(Bilateral) INJECTIO(Bilateral) INJECTIO(Bilateral) Comments Last Modified By: Cliff QUINTANILLA, Zhanna Coronado RN, Zhanna Gaytan RN 12/30/23 14:56:07 12/30/23 14:56:07 12/30/23 14:56:07 Entry 4 Case Attendee Cely Whitaker Role Performed Biomass Facilitator Time In 12/30/23 14:47:00 Time Out 12/30/23 [...] Out Zhanna Coronado RN, Given María Elena Dent RN, Ajay Monroy DO, Bradford A., [...] and tissue Entry 1 Skin Integrity Intact, [place], Warm, & Skin Abnormality No Dry Outcomes [...] Safety Stra (more content not included)... Normal [facility] Main OR Preoperative Recordo n 12-30-2023 Main OR Preoperative Record Main OR Preoperative Record Holding Area Document Type FTPM Summary Primary Physician: Laci Moss DO Finalized Date/Time: 12/30/23 13:34:55 Pt. Name: GILLES JANE/Sex: 1990 Male Med Rec #: [id number] Physician: Laci Moss DO Financial #: [id number] Pt. Type: P Room/Bed: / Admit/Disch: 12/30/23 [...] Date/Time: 12/30/23 13:28:00 Results Reviewed Yovani darden 4029 Personal Items: Glasses Comments: Personal Items Glasses [...] By: Armando Stuart RN 12/30/23 13:34 Normal [facility] Rad - MRI Reporton Rad - MRI Report [id number]#1.00[facility] Normal [facility] Rad - Other Radiology Report on 12-16-2023 Rad - Other Radiology Report [id number]#1.00[facility] MRI Spine Cervical w/o Contr [...] MAGGI Technologist: IVETT Technical Comments None Normal [facility] XR Spine Cervical 4 or [...] mGy = na DAP = na Normal [facility] Consultation/Specialist Note on 12-12-2023 Consultation/Special ist Note [id number]#1.00[facility] Insuranceon 12-12-2023 Insurance [id number]#1.00[facility] XR lumbar spine 6V w bending on 12-12-2023 XR lumbar spine 6V w bending [facility] [place] [address] XRay Report Signed Patient: Gilles Jane MR#: [id number] 1409 : 1990 Acct:[id number] Age/Sex: 33 / M ADM Date: 12/12/23 Loc: XD Room: Type: [facility] Attending Dr: Lesvia ROJO Copies to: ALIA [...] PROCESS. Impression dictated by: Reece Polo Jr., DSadiqOSadiq12/12/2023 3:18 PM Dictation Location: [place] [address] Transcribed By: [facility] 12/12/23 1518 Dictated By: Reece Polo Jr, DO 12/12/23 1517 Signed By: 12/12/23 1518 Normal [facility] Outside Recordson 11-29-2023 Outside Records [id number]#1.00[facility] Outside Records Officeon Outside Records Office [id number]#1.00TIFF Normal [facility] Consent for Procedure/Surger yon 10-16-2023 Consent for Procedure/Surgery [id number]#1.00TIFF Normal [facility] Discharge Instructionson Discharge Instructions [id number]#1.00TIFF Normal [facility] IntraOperative Documentson 0 10-16-2023 IntraOperative Documents [id number]#1.00TIFF Normal [facility] IntraOperative Documents [id number]#1.00TIFF Normal [facility] Consent for Treatmenton Consent for Treatment [id number]#1.00TIFF Normal [facility] Main OR Intraoperative Recor don 10-15-2023 Main OR Intraoperative Record IntraOp Document Type FTPM Summary Primary Physician: Laci Moss DO Finalized Date/Time: 10/15/23 15:13:45 Pt. Name: GILLES JANE/Sex: 1990 Male Med Rec #: [id number] Physician: Laci Moss DO Financial #: [id number] Pt. Type: P Room/Bed: / Admit/Disch: 10/15/23 [...] RN, Saira Role Performed Surgeon - Primary Outdoor Adventure Instructor - Primary Scrub - Primary Time In 10/15/23 15:08:00 10/15/23 15:08:00 10/15/23 15:08:00 Time Out 10/15/23 15:14:00 10/15/23 15:14:00 10/15/23 15:14:00 Procedure LUMBAR EPIDURAL STEROID LUMBAR EPIDURAL STEROID LUMBAR EPIDURAL STEROID INJECTION(.) INJECTION(.) INJECTION(.) Comments Last Modified By: Cliff QUINTANILLA, Zhanna Coronado RN, Zhanna Gaytan RN 10/15/23 15:13:35 10/15/23 15:13:35 10/15/23 15:13:35 Entry 4 Entry 5 Case Attendee Hamida Nickerson Daniel P Role Performed Biomass Facilitator Biomass Facilitator Time In 10/15/23 15:08:00 10/15/23 15:08:00 Time [...] and tissue Entry 1 Skin Integrity Intact, [place], Warm, and Skin Abnormality No Dry Outcomes [...] Device Pillow (more content not included)... Normal [facility] Main OR Preoperative Recordo n 10-15-2023 Main OR Preoperative Record Holding Area Document Type FTPM Summary Primary Physician: Laci Moss DO Finalized Date/Time: 10/15/23 14:01:15 Pt. Name: GILLES JANE/Sex: 1990 Male Med Rec #: [id number] Physician: Laci Moss DO Financial #: [id number] Pt. Type: P Room/Bed: / Admit/Disch: 10/15/23 [...] Complaints of Pain: Yes Comment: Pain Comment: 810 lower back pain Operative Site Yes Marking: [...] By: Elyse Badillo RN 10/15/23 14:01 Normal [facility] Outside Records Officeon Outside Records Office [id number]#1.00TIFF Normal [facility] Patient Correspondenceon Patient Correspondence [id number]#1.00TIFF Normal [facility] Insurance Correspondence Off iceon 09-24-2023 Insurance Correspondence Office [id number]#2.00TIFF Normal [facility] Orders Officeon 09-18-2023 Orders Office [id number]#1.00TIFF Normal [facility] Outside Records Officeon Outside Records Office [id number]#1.00TIFF Normal [facility] Consent for Treatmenton Consent for Treatment [id number]#1.00TIFF Normal [facility] Consultation Noteon 09-12-19 Consultation Note Patient is [...] 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 [facility] Comment on above: Result Comment: Elec tronically Signed By: Laci Moss DO\.br\Date and Time Signed: 09/12/23 12:36 EDT HIPAA Forms Officeon 024 HIPAA Forms Office [id number]#1.00TIFF [facility] Legal Correspondence Officeo n 09-12-2023 Legal Correspondence Office [id number]#1.00TIFF [facility] Legal Correspondence Office [id number]#1.00TIFF Normal [facility] Office/Clinic Note-Physician on 09-12-2023 Office/Clinic Note-Physician [id number]#1.00TIFF Normal [facility] Patient Correspondenceon Patient Correspondence [id number]#1.00TIFF Normal [facility] Patient Correspondence [id number]#1.00TIFF Normal [facility] Patient Correspondence [id number]#1.00TIFF Normal [facility] Patient Correspondence [id number]#1.00TIFF Normal [facility] Patient Correspondence [id number]#1.00TIFF Normal [facility] Patient History Officeon Patient History Office [id number]#1.00TIFF Normal [facility] Physician Orderon 09-12-2023 Physician Order [id number]#1.00TIFF Normal [facility] Outside Records Officeon Outside Records Office [id number]#1.00TIFF Normal [facility] Radiology Outside Office [employer] yon 08-23-2023 Radiology Outside Office Copy [id number]#1.00TIFF Normal [facility] Referrals Officeon Referrals Office [id number]#1.00TIFF Normal [facility] A1C with Estimated Average G luon 08-22-2023 Glucose [Mass/Vol] 111 mg/dL Normal [facility] Comment on above: Result Comment: PERF ORMED BY: [place] [address] PATHOLOGIST IT RISK ADVISOR BRENDA MOE M.D. Performed By: #### A NA, VITB6, RPR W RFX, RA #### [facility] , #### CRP, [id number], TSH3, T4F, A1C WTH eA, ESR #### [address] [place] Antinuclear Antibodieson 08-22-2023 Antinuclear Abs, IFA Negative Normal . [facility] Comment on above: Result Comment: Nega tive <1:80 Borderline 1:80 Positive >1:80 ICAP nomenclature: AC-0 For more information about Hep-2 cell patterns use ANApatterns.org, the official website for the International Consensus on Antinuclear Antibody ([place]) Patterns (ICAP). Performed at: - [facility] [address] [id number] Verse Writer: Reuben Couch PhD, Phone: [phone] Performed By: #### A NA, VITB6, RPR W RFX, RA #### [facility] , #### CRP, [id number], TSH3, T4F, A1C WTH eA, ESR #### [facility] [address] [place] [address] [place] C reactive protein [Mass/vol ume] in Serum or PlasmaOrdered By: Lesvia Low on 08-22-2023 CRP [Mass/Vol] < 0.5 mg/dL 0.0-0.5 [facility] C-Reactive Proteinon 024 CRP [Mass/Vol] mg/L Normal 0.0-0.5 [facility] Comment on above: Performed By: #### A NA, VITB6, RPR W RFX, RA #### [facility] , #### CRP, [id number], TSH3, T4F, A1C WTH eA, ESR #### [facility] [address] Erythrocyte Sedimentation Ra sandeep 08-22-2023 ESR (Bld) [Velocity] 8 mm/h Normal 0-14 [facility] Comment on above: Result Comment: PERF ORMED BY: [address] [place] [address] PATHOLOGIST IT RISK ADVISOR BRENDA MOE M.D. Performed By: #### A NA, VITB6, RPR W RFX, RA #### [facility] , #### CRP, [id number], TSH3, T4F, A1C WTH eA, ESR #### [facility] [address] Erythrocyte sedimentation ra te by Photometric methodOrdered By: Lesvia Low on 08-22-2023 ESR Photometric method (Bld) [Velocity] 8 mm/hr 0-14 [facility] Folate [Mass/volume] in Seru m or PlasmaOrdered By: Lesvia Low on 08-22-2023 Folate [Mass/Vol] 39.0 ng/mL >5.9 [facility] Comment on above: Folate reference ran ge: >5.9 ng/mlThe WHO technical consultation on folate and vitamin [id number] has determined that folate concentrations lessthan 4 ng/ml are considered deficient. Glucose mean value [Mass/vol ume] in Blood Estimated from glycated hemoglobinOrdered By: Lesvia Low on 08-22-2023 Average glucose Estimated from glycated hemoglobin (Bld) [Mass/Vol] 111 mg/dL [facility] Hemoglobin A1c percentageOrd ered By: Lesvia Low on 08-22-2023 HbA1c (Bld) [Mass fraction] 5.5 % Normal 4.3-5.6 [facility] Comment on above: Increased risk for d iabetes: 5.7 - 6.4diabetes: >6.4glycemic control for adults with diabetes: <7.0 Result Comment: Incr eased risk for diabetes: 5.7 - 6.4 diabetes: >6.4 glycemic control for adults with diabetes: <7.0 Performed By: #### A NA, VITB6, RPR W RFX, RA #### [facility] , #### CRP, [id number], TSH3, T4F, A1C WTH eA, ESR #### [address] Patient Letteron 08-22-2023 Patient Letter [id number]#1.00[facility] RPR w/rfx to Quant TP Abson 08-22-2023 RPR, Rfx Quant RPR Non-Reactive Normal Non Reactive [facility] Comment on above: Result Comment: Perf ormed at: [facility] [id number] Verse Writer: Reuben Couch PhD, Phone: [phone] PERFORMED BY: [place] [address] PATHOLOGIST IT RISK ADVISOR BRENDA MOE M.D. Performed By: #### A NA, VITB6, RPR W RFX, RA #### [facility] , #### CRP, [id number], TSH3, T4F, A1C WTH eA, ESR #### [facility] [address] [place] [address] Reagin Ab [Presence] in Seru m by RPROrdered By: Lesvia Low on 08-22-2023 Reagin Ab RPR Ql (S) Non-Reactive Non Reactive [facility] Comment on above: Performed at: [facility] [employer] [facility] [address] [id number] Director: Reuben Couch PhD, Phone: [phone] Rheumatoid Factoron 08-22-19 24 Rheumatoid Factor <10.0 Normal <14.0 [facility] Comment on above: Result Comment: Perf ormed at: [facility] [id number] Verse Writer: Reuben Couch PhD, Phone: [phone] Performed By: #### A NA, VITB6, RPR W RFX, RA #### [facility] , #### CRP, [id number], TSH3, T4F, A1C WTH eA, ESR #### [facility] [address] Serum homogeneous pattern an tinuclear antibody ([place]) titerOrdered By: Lesvia Low on 08-22-2023 Homogenous nuclear Ab pattern (S) [Titer] N/A [facility] Serum nuclear antibody titer Ordered By: Lesvia Low on 08-22-2023 Nuclear Ab (S) [Titer] Negative . [facility] Comment on above: Negative <1:80 Borde janeine 1:80 Positive >1:80ICAP nomenclature: AC-0For more information about Hep-2 cell patterns useANApatterns.org, the official website for theInternational Consensus on Antinuclear Antibody ([place])Patterns (ICAP).Performed at: [facility] [id number] Director: Reuben Couch PhD, Phone: [phone] Serum or plasma pyridoxine m easurement (mass/volume)Ordered By: Lesvia Low on 08-22-2023 Pyridoxine [Mass/Vol] 31.5 ug/L 3.4-65.2 [facility] Comment on above: This test was develo ped and its performance characteristicsdetermined by [facility]. It has not been cleared orapproved by the Food and Drug Administration. Deficiency: <3.4 Marginal: 3.4 - 5.1 Adequate: >5.1Performed at: [facility] [id number] Director: Houston Bobo MD, Phone: [phone] Serum or plasma rheumatoid f actor measurement (units/volume)Ordered By: Lesvia Low on 08-22-2023 Rheumatoid factor Qn [IU]/mL <14.0 [facility] Comment on above: Performed at: - [facility] [address] [id number] Director: Reuben Couch PhD, Phone: [phone] Thyrotropin [Units/volume] i n Serum or PlasmaOrdered By: Lesvia Low on 08-22-2023 TSH Qn 1.29 m[IU]/L Normal 0.45-5.33 [facility] Comment on above: Result Comment: PERF ORMED BY: [place] [address] PATHOLOGIST IT RISK ADVISOR BRENDA MOE M.D. Performed By: #### A NA, VITB6, RPR W RFX, RA #### [facility] , #### CRP, [id number], TSH3, T4F, A1C WT eA, ESR #### [facility] [address] [place] [address] Thyroxine (T4) free [Mass/vo lume] in Serum or PlasmaOrdered By: Lesvia Low on 08-22-2023 Free T4 [Mass/Vol] 0.90 ng/dL Normal 0.61-1.12 [facility] Comment on above: Performed By: #### A NA, VITB6, RPR W RFX, RA #### [facility] , #### CRP, [id number], TSH3, T4F, A1C [facility] eA, ESR #### [facility] [address] [place] [address] Vit. B12/Folate Profileon Folate 39.0 ng/mL Normal >5.9 [facility] Comment on above: Result Comment: Khadra te reference range: >5.9 ng/ml The WHO technical consultation on folate and vitamin b12 deficiencies has determined that folate concentrations less than 4 ng/ml are considered deficient. Performed By: #### A NA, VITB6, RPR W RFX, RA #### [facility] , #### CRP, [id number], TSH3, T4F, A1C WT eA, ESR #### [facility] [address] [place] [address] Vitamin B12 ser/plasOrdered By: Lesvia Low on 08-22-2023 Cobalamin (Vitamin B12) [Mass/Vol] 710 pg/mL Normal 180-914 [facility] Comment on above: Performed By: #### A NA, VITB6, RPR W RFX, RA #### [facility] , #### CRP, [id number], TSH3, T4F, A1C WTH eA, ESR #### [facility] [address] Vitamin B6on 08-22-2023 Vitamin B6 31.5 Normal 3.4-65.2 [facility] Comment on above: Result Comment: This test was developed and its performance characteristics determined by [facility]. It has not been cleared or approved by the Food and Drug Administration. Deficiency: <3.4 Marginal: 3.4 - 5.1 Adequate: >5.1 Performed at: [address] [id number] Verse Writer: Houston Bobo MD, Phone: [phone] PERFORMED BY: [place] [address] PATHOLOGIST IT RISK ADVISOR BRENDA MOE M.D. Performed By: #### A NA, VITB6, RPR W RFX, RA #### [facility] , #### CRP, [id number], TSH3, T4F, A1C WTH eA, ESR #### [facility] [address] Covid-19 PCR (CVDTBH)on SARS-CoV-2 (COVID-19) RNA JAHAIRA+probe Ql (Unsp spec) Not detected Normal NOT DETECTED [facility] Comment on above: Result Comment: This test is not yet approved or cleared by the [place] FDA. When there are no FDA-approved or cleared tests available, and other criteria are met, FDA can make tests available under an emergency access mechanism called an Emergency Use Authorization (EUA). The EUA for this test is supported by the [place] of Health and Human Service's (HHS's) declaration [...] consistent with SARS-CoV-2. Performed By: #### C NAHOMI REYES #### [facility] [address] [place] [address] Renetta Lafleur SYMPTOMATIC COVID-19 ANTIGEN on 12-19-2020 EUA Statement SEE BELOW Normal [facility] Comment on above: Result Comment: [...] is revoked sooner. Performed By: #### C NAHOMI REYES #### [facility] [address] [place] [address] Renetta Lafleur SARS-CoV-2 (COVID-19) RNA JAHAIRA+probe Ql (Unsp spec) Negative Normal NEGATIVE [facility] Comment on above: Result Comment: CONF IRMATION BY PCR PENDING PER CDC GUIDELINES/ SYMPTOMATIC PATIENT. Performed By: #### C MIGUEL REYESTB #### [facility] [address] [place] [address] Renetta Lafleur CBC with Diffon 11-30-2017 Abs. Basophil 0.10 k/uL Normal 0.0-0.2 [facility] Comment on above: Performed By: #### C DP, CP, LIP, EDTOX ####[facility] [place] [address] Abs.Neutrophil (Seg) 6.70 k/uL Normal 1.3-9.1 [facility] Comment on above: Performed By: #### C DP, CP, LIP, EDTOX ####[facility] [place] [address] Basophils/100 WBC Auto (Bld) 1 % Normal 0-2 [facility] Comment on above: Performed By: #### C DP, CP, LIP, EDTOX ####[facility] [place] [address] Eosinophils 0.10 10*3/uL Normal 0.0-0.4 [facility] Comment on above: Performed By: #### C DP, CP, LIP, EDTOX ####[facility] [place] [address] Eosinophils/100 leukocytes 2 % Normal 0-4 [facility] Comment on above: Performed By: #### C DP, CP, LIP, EDTOX ####[facility] [place] [address] Erythrocyte distribution width Auto Ratio (RBC) 12.7 % Normal 11.5-14.9 [facility] Comment on above: Performed By: #### C DP, CP, LIP, EDTOX ####[facility] [place] [address] Erythrocytes (RBC) 4.38 10*6/uL Low 4.5-5.9 [facility] Comment on above: Performed By: #### C DP, CP, LIP, EDTOX ####[facility] [place] [address] Hematocrit (HCT) 39.1 % Low 41-53 [facility] Comment on above: Performed By: #### C DP, CP, LIP, EDTOX ####[address] [place] [address] Hemoglobin mass conc (Bld) 13.2 g/dL Low 13.5-17.5 [facility] Comment on above: Performed By: #### C DP, CP, LIP, EDTOX ####[address] [place] [address] Lymphocytes 1.80 10*3/uL Normal 1.0-4.8 [facility] Comment on above: Performed By: #### C DP, CP, LIP, EDTOX ####[address] [place] [address] Lymphocytes/100 leukocytes 19 % Low 24-44 [facility] Comment on above: Performed By: #### C DP, CP, LIP, EDTOX ####[address] [place] [address] MCH 30.1 pg Normal 26-34 [facility] Comment on above: Performed By: #### C DP, CP, LIP, EDTOX ####[address] [place] [address] MCHC mass conc (RBC) 33.7 g/dL Normal 31-37 [facility] Comment on above: Performed By: #### C DP, CP, LIP, EDTOX ####[address] [place] [address] MCV 89.3 fL Normal 80-100 [facility] Comment on above: Performed By: #### C DP, CP, LIP, EDTOX ####[address] [place] [address] Monocytes 0.60 10*3/uL Normal 0.1-1.3 [facility] Comment on above: Performed By: #### C DP, CP, LIP, EDTOX ####[place] [address] [place] [address] Monocytes/100 leukocytes 7 % Normal 1-7 [facility] Comment on above: Performed By: #### C DP, CP, LIP, EDTOX ####[address] [place] [address] Neutrophil (Seg) 71 % High 36-66 [facility] Comment on above: Performed By: #### C DP, CP, LIP, EDTOX ####[address] [place] [address] Platelet mean volume (PMV) 7.7 fL Normal 6.0-12.0 [facility] Comment on above: Performed By: #### C DP, CP, LIP, EDTOX ####[address] [address] Platelets 249 10*3/uL Normal 150-450 [facility] Comment on above: Performed By: #### C DP, CP, LIP, EDTOX ####[address] [address] WBC (Leukocytes) 9.3 10*3/uL Normal 3.5-11.0 [facility] Comment on above: Performed By: #### C DP, CP, LIP, EDTOX ####[address] [address] Abs.Imm.Granulocyte NOT REPORTED Normal 0.00-0.30 [facility] Comment on above: Performed By: #### C DP, CP, LIP, EDTOX ####[place] [address] [place] [address] Auto Diff Performed NOT REPORTED Normal [facility] Comment on above: Performed By: #### C DP, CP, LIP, EDTOX ####[address] [address] Erythrocyte morphology NOT REPORTED Normal [facility] Comment on above: Performed By: #### C DP, CP, LIP, EDTOX ####[address] [address] Immature granulocytes #/vol (Bld) NOT REPORTED Normal 0 [facility] Comment on above: Performed By: #### C DP, CP, LIP, EDTOX ####[address] [address] NRBC Automated NOT REPORTED Normal [facility] Comment on above: Performed By: #### C DP, CP, LIP, EDTOX ####[address] [address] Platelets NOT REPORTED Normal [facility] Comment on above: Performed By: #### C DP, CP, LIP, EDTOX ####[address] [address] WBC Morphology NOT REPORTED Normal [facility] Comment on above: Performed By: #### C DP, CP, LIP, EDTOX ####[address] [address] Comp Metabolic Profon 2017 (cont.) Normal [facility] Comment on above: Result Comment: Aver age GFR for 20-29 years old: 116 mL/min/1.73sq mChronic Kidney Disease: <60 mL/min/1.73sq mKidney failure: <15 mL/min/1.73sq meGFR calculated using average adult body mass. Additional eGFR calculator available at:http://www.Octmami.com/multiple_crcl_2012.htm Performed By: #### C DP, CP, LIP, EDTOX ####[facility] [place] [address] Alanine aminotransferase (ALT) 26 U/L Normal 5-41 [facility] Comment on above: Performed By: #### C DP, CP, LIP, EDTOX ####[facility] [place] [address] Albumin 4.1 g/dL Normal 3.5-5.2 [facility] Comment on above: Performed By: #### C DP, CP, LIP, EDTOX ####[facility] [place] [address] Alkaline Phos 78 U/L Normal 40-129 [facility] Comment on above: Performed By: #### C DP, CP, LIP, EDTOX ####[facility] [place] [address] Anion gap 12 mmol/L Normal 9-17 [facility] Comment on above: Performed By: #### C DP, CP, LIP, EDTOX ####[facility] [place] [address] Aspartate aminotransferase (AST) 24 U/L Normal <40 [facility] Comment on above: Performed By: #### C DP, CP, LIP, EDTOX ####[facility] [place] [address] Bilirubin Ql (U) 0.56 mg/dL Normal 0.3-1.2 [facility] Comment on above: Performed By: #### C DP, CP, LIP, EDTOX ####[facility] [place] [address] Calcium 9.0 mg/dL Normal 8.6-10.4 [facility] Comment on above: Performed By: #### C DP, CP, LIP, EDTOX ####[facility] [place] [address] Chloride 103 mmol/L Normal 98-107 [facility] Comment on above: Performed By: #### C DP, CP, LIP, EDTOX ####[facility] [place] [address] CO2 24 mmol/L Normal 20-31 [facility] Comment on above: Performed By: #### C DP, CP, LIP, EDTOX ####[facility] [place] [address] Creatinine 0.62 mg/dL Low 0.70-1.20 [facility] Comment on above: Performed By: #### C DP, CP, LIP, EDTOX ####[facility] [place] [address] GFR, Amer >60 Normal >60 [facility] Comment on above: Performed By: #### C DP, CP, LIP, EDTOX ####[facility] [place] [address] GFR,non Amer >60 Normal >60 [facility] Comment on above: Performed By: #### C DP, CP, LIP, EDTOX ####[facility] [place] [address] Glucose mass conc 80 mg/dL Normal 70-99 [facility] Comment on above: Performed By: #### C DP, CP, LIP, EDTOX ####[facility] [place] [address] Potassium molar conc 4.0 mmol/L Normal 3.7-5.3 [facility] Comment on above: Performed By: #### C DP, CP, LIP, EDTOX ####[facility] [place] [address] Protein 6.4 g/dL Normal 6.4-8.3 [facility] Comment on above: Performed By: #### C DP, CP, LIP, EDTOX ####[address] [place] [address] Sodium 139 mmol/L Normal 135-144 [facility] Comment on above: Performed By: #### C DP, CP, LIP, EDTOX ####[address] [address] Urea nitrogen 15 mg/dL Normal 6-20 [facility] Comment on above: Performed By: #### C DP, CP, LIP, EDTOX ####[address] [address] Albumin/Globulin Ratio NOT REPORTED Normal 1.0-2.5 [facility] Comment on above: Performed By: #### C DP, CP, LIP, EDTOX ####[address] [address] BUN/CRE Ratio NOT REPORTED Normal 9-20 [facility] Comment on above: Performed By: #### C DP, CP, LIP, EDTOX ####[address] [address] Staging: NOT REPORTED Normal [facility] Comment on above: Performed By: #### C DP, CP, LIP, EDTOX ####[address] [address] Drug Scr, Abuse, Uron 2017 Amphetamine(s),Ur Negative Normal NEG [facility] Comment on above: Result Comment: (Pos itive cutoff 1000 ng/mL) Performed By: #### U AX, SORAIDA ####[address] [address] Barbiturate(s),Ur Negative Normal NEG [facility] Comment on above: Result Comment: (Pos itive cutoff 200 ng/mL) Performed By: #### U AX, SORAIDA ####[address] [address] Base excess Negative Normal NEG [facility] Comment on above: Result Comment: (Pos itive cutoff 300 ng/mL) Performed By: #### U AX, SORAIDA ####[address] [address] Benzodiazepine(s) Negative Normal NEG [facility] Comment on above: Result Comment: (Pos itive cutoff 200 ng/mL) Performed By: #### U AX, SORAIDA ####[address] [address] Cannabinoid(s),Ur Negative Normal NEG [facility] Comment on above: Result Comment: (Pos itive cutoff 50 ng/mL) Performed By: #### U AX, SORAIDA ####[address] [address] Interpretive Info Assay provides medic al screening only. The absence of expected drug(s) and/or Normal [facility] Comment on above: Result Comment: meta bolite(s) may indicate diluted or adulterated urine, limitations of testing or timing of collection.Testing for legal purposes should be confirmed by another method. To request confirmation of test result, please call the lab within 7 days of sample submission. Performed By: #### U AX, SORAIDA ####[address] [address] Opiate(s), Ur Negative Normal NEG [facility] Comment on above: Result Comment: (Pos itive cutoff 300 ng/mL) Performed By: #### U AX, SORAIDA ####[address] [address] Oxycodone, Urine Negative Normal NEG [facility] Comment on above: Result Comment: (Pos itive cutoff 100 ng/mL) Performed By: #### U AX, SORAIDA ####[address] [address] Phencyclidine, Ur Negative Normal NEG [facility] Comment on above: Result Comment: (Pos itive cutoff 25 ng/mL) Performed By: #### U AX, SORAIDA ####[address] [address] Urine, methadone presence Negative Normal NEG [facility] Comment on above: Result Comment: (Pos itive cutoff 300 ng/mL) Performed By: #### U AX, SORAIDA ####[address] [address] Buprenorphrine, Ur NOT REPORTED Normal NEG [facility] Comment on above: Performed By: #### U AX, SORAIDA ####[address] [address] MDMA, Urine NOT REPORTED Normal NEG [facility] Comment on above: Performed By: #### U AX, SORAIDA ####[address] [address] Methamphetamine, Ur NOT REPORTED Normal NEG [facility] Comment on above: Performed By: #### U AX, SORAIDA ####[address] [address] Propoxyphene,Urine NOT REPORTED Normal NEG [facility] Comment on above: Performed By: #### U AX, SORAIDA ####[address] [place] [address] Urine, tricyclic antidepressants NOT REPORTED Normal NEG [facility] Comment on above: Performed By: #### U AX, SORAIDA ####[address] [address] Lactic Acidon 2018 Lactate 0.5 mmol/L Normal 0.5-2.2 [facility] Comment on above: Performed By: #### L ACTIC ####[address] [address] Lactic Acid,Whole Bl NOT REPORTED Normal 0.7-2.1 [facility] Comment on above: Performed By: #### L ACTIC ####[address] [address] Lipaseon 11-30-2017 Lipase 9 U/L Low 13-60 [facility] Comment on above: Performed By: #### C DP, CP, LIP, EDTOX ####[address] [address] Tox Scr, Bld, EDon 8 Acetaminophen mass conc <5 Low 10-30 [facility] Comment on above: Performed By: #### C DP, CP, LIP, EDTOX ####[address] [address] Salicylate <1 Low 3-10 [facility] Comment on above: Performed By: #### C DP, CP, LIP, EDTOX ####[address] [address] Ethanol mg/dL Normal <10 [facility] Comment on above: Performed By: #### C DP, CP, LIP, EDTOX ####[address] [address] Ethanol percent <0.010 Normal [facility] Comment on above: Performed By: #### C DP, CP, LIP, EDTOX ####[address] [place] [address] UA w/Reflex Cultureon 2017 Acetoacetic Acid,Ur Negative Normal NEG [facility] Comment on above: Performed By: #### U AX, SORAIDA ####[address] [address] Bilirubin, SemiQt,Ur Negative Normal NEG [facility] Comment on above: Performed By: #### U AX, SORAIDA ####[address] [place] [address] Color YELLOW Normal YEL [facility] Comment on above: Performed By: #### U AX, SORAIDA ####[address] [address] Comment Microscopic exam not performed based on chemical results unless requested in Normal [facility] Comment on above: Result Comment: orig inal order. Performed By: #### U AX, SORAIDA ####[address] [address] Glucose,Semi-qnt,Ur Negative Normal NEG [facility] Comment on above: Performed By: #### U AX, SORAIDA ####[address] [address] Hemoglobin, Ur Negative Normal NEG [facility] Comment on above: Performed By: #### U AX, SORAIDA ####[address] [address] Leuckocyte Esterase Negative Normal NEG [facility] Comment on above: Performed By: #### U AX, SORAIDA ####[facility] [place] [address] Nitrite,Ur Negative Normal NEG [facility] Comment on above: Performed By: #### U AX, SORAIDA ####[facility] [place] [address].[place] [address] PH,Ur 6.5 Normal 5.0-8.0 [facility] Comment on above: Performed By: #### U AX, SORAIDA ####[facility] [place] [address].[place] [address] Protein, Semi-qnt,Ur Negative Normal NEG [facility] Comment on above: Performed By: #### U AX, SORAIDA ####[facility] [place] [address] Spec. [place],Ur 1.003 Normal 1.000-1.030 [facility] Comment on above: Performed By: #### U AX, SORAIDA ####[facility] [place] [address] Turbidity CLEAR Normal CLEAR [facility] Comment on above: Performed By: #### U AX, SORAIDA ####[facility] [place] [address] Urobilinogen,Ur Normal Normal NORM [facility] Comment on above: Performed By: #### U AX, SORAIDA ####[address] [address] Vital Signs Date Time Vital Sign Value Performing Clinician Facility 06-18-2024 11:21-0500 Body height 177.8 cm Jessika Lainez PA-C Work Phone: [facility] 06-18-2024 11:21-0500 Body mass index (BMI) [Ratio] 22.1 kg/m2 Jessika Lainez PA-C Work Phone: [facility] 06-18-2024 11:21-0500 Body weight 69.85 kg Jessika Lainez PA-C Work Phone: [facility] 06-16-2024 15:16-0500 Body height 180.3 cm Evette Samantha DESIGN TEACHER.BEER COOLER Work Phone: [facility] 06-16-2024 15:16-0500 Body mass index (BMI) [Ratio] 20.77 kg/m2 Evette Samantha DESIGN TEACHER.BEER COOLER Work Phone: [facility] 06-16-2024 15:16-0500 Body weight 67.55 kg Evette Samantha DESIGN TEACHER.BEER COOLER Work Phone: [facility] 06-16-2024 15:16-0500 Diastolic blood pressure 68 mm[Hg] Evette Samantha DESIGN TEACHER.BEER COOLER Work Phone: [facility] 06-16-2024 15:16-0500 Heart rate 75 /min Evette Samantha DESIGN TEACHER.BEER COOLER Work Phone: [facility] 06-16-2024 15:16-0500 Respiratory rate 18 /min Evette Samantha DESIGN TEACHER.BEER COOLER Work Phone: [facility] 06-16-2024 15:16-0500 Systolic blood pressure 123 mm[Hg] Evette Samantha DESIGN TEACHER.BEER COOLER Work Phone: [facility] 06-12-2024 11:25-0500 Body temperature 97.7 [degF] Jalen Rodrigez MD Work Phone: [facility] 06-12-2024 11:25-0500 Diastolic blood pressure 82 mm[Hg] Jalen Rodrigez MD Work Phone: [facility] 06-12-2024 11:25-0500 Heart rate 62 /min Jalen Rodrigez MD Work Phone: [facility] 06-12-2024 11:25-0500 Respiratory rate 16 /min Jalen Rodrigez MD Work Phone: [facility] 06-12-2024 11:25-0500 SaO2% (BldA) [Mass fraction] 96 % Jalen Rodrigez MD Work Phone: [facility] 06-12-2024 11:25-0500 Systolic blood pressure 138 mm[Hg] Jalen Rodrigez MD Work Phone: [facility] 06-12-2024 07:34-0500 Body height 177.8 cm Jalen Rodrigez MD Work Phone: [facility] 06-12-2024 07:34-0500 Body mass index (BMI) [Ratio] 21.98 kg/m2 Jalen Rodrigez MD Work Phone: [facility] 06-12-2024 07:34-0500 Body weight 69.5 kg Jalen Rodrigez MD Work Phone: [phone] [place] [address] 05-21-2024 15:17-0500 Body height 172.7 cm Jalen Rodrigez MD Work Phone: [facility] 05-21-2024 15:17-0500 Body mass index (BMI) [Ratio] 22.06 kg/m2 Jalen Rodrigez MD Work Phone: [facility] 05-21-2024 15:17-0500 Body weight 65.82 kg Jalen Rodrigez MD Work Phone: [facility] 04-17-2024 14:46-0500 Body height 180.3 cm Evette Thompson PA-C Work Phone: [facility] 04-17-2024 14:46-0500 Body mass index (BMI) [Ratio] 21.06 kg/m2 Evette Thompson PA-C Work Phone: [facility] 04-17-2024 14:46-0500 Body weight 68.49 kg Evette Thompson PA-C Work Phone: [facility] 04-17-2024 14:46-0500 Diastolic blood pressure 84 mm[Hg] Evette Thompson PA-C Work Phone: [facility] 04-17-2024 14:46-0500 Heart rate 92 /min Evette Menjivarht PA-C Work Phone: [facility] 04-17-2024 14:46-0500 Systolic blood pressure 125 mm[Hg] Evette Thompson PA-C Work Phone: [facility] 04-15-2024 14:31-0500 Body height 177.8 cm Bailey Worthington MD Work Phone: [facility] 04-15-2024 14:31-0500 Body mass index (BMI) [Ratio] 21.81 kg/m2 Bailey Worthington MD Work Phone: [facility] 04-15-2024 14:31-0500 Body weight 68.95 kg Bailey Worthington MD Work Phone: [facility] 04-15-2024 14:31-0500 Diastolic blood pressure 63 mm[Hg] Bailey Worthington MD Work Phone: [facility] 04-15-2024 14:31-0500 Systolic blood pressure 105 mm[Hg] Bailey Worthington MD Work Phone: [facility] 02-25-2024 13:54-0400 Body height 177.8 cm Bailey Worthington MD Work Phone: [facility] 02-25-2024 13:54-0400 Body mass index (BMI) [Ratio] 21.24 kg/m2 Bailey Worthington MD Work Phone: [facility] 02-25-2024 13:54-0400 Body weight 67.13 kg Bailey Worthington MD Work Phone: [facility] 02-25-2024 13:54-0400 Diastolic blood pressure 60 mm[Hg] Bailey Worthington MD Work Phone: [facility] 02-25-2024 13:54-0400 Systolic blood pressure 103 mm[Hg] Bailey Worthington MD Work Phone: [facility] 01-28-2024 09:36-0400 Body height 177.8 cm DO Jeremi Marie Work Phone: [facility] 01-28-2024 09:36-0400 Body mass index (BMI) [Ratio] 20.7 kg/m2 DO Jeremi Marie Work Phone: [facility] 01-28-2024 09:36-0400 Body weight 65.77 kg DO Jeremi Marie Work Phone: [facility] 01-24-2024 13:44-0400 Diastolic blood pressure 99 mm[Hg] Yanet Low [facility] 01-24-2024 13:44-0400 Heart rate 129 /min Yanet Low [facility] 01-24-2024 13:44-0400 Mean blood pressure 109 mm[Hg] Yanet Low [facility] 01-24-2024 13:44-0400 Respiratory rate 20 /min Yanet Low [facility] 01-24-2024 13:44-0400 Systolic blood pressure 129 mm[Hg] Yanet Low [facility] 12-30-2023 14:58-0400 Heart rate 73 /min Laci Moss [facility] 12-30-2023 14:58-0400 SaO2% (BldA) [Mass fraction] 95 % Laci Moss [facility] 12-30-2023 14:58-0400 Diastolic blood pressure 82 mm[Hg] Laci Moss [facility] 12-30-2023 14:58-0400 Mean blood pressure 93 mm[Hg] Laci Moss [facility] 12-30-2023 14:58-0400 Systolic blood pressure 115 mm[Hg] Laci Moss [facility] 12-30-2023 14:58-0400 Respiratory rate 16 /min Laci Moss [facility] 12-30-2023 14:49-0400 Diastolic blood pressure 75 mm[Hg] Laci Moss [facility] 12-30-2023 14:49-0400 Heart rate 74 /min Laci Moss [facility] 12-30-2023 14:49-0400 SaO2% (BldA) [Mass fraction] 98 % Laci Moss [facility] 12-30-2023 14:49-0400 Systolic blood pressure 124 mm[Hg] Laci Moss [facility] 12-30-2023 13:29-0400 Heart rate 98 /min Laci Moss [facility] 12-30-2023 13:29-0400 SaO2% (BldA) [Mass fraction] 95 % Laci Moss [facility] 12-30-2023 13:29-0400 Body temperature 98.06 [degF] Laci Moss [facility] 12-30-2023 13:28-0400 Diastolic blood pressure 64 mm[Hg] Laci Ajay [facility] 12-30-2023 13:28-0400 Mean blood pressure 87 mm[Hg] Laci Moss [facility] 12-30-2023 13:28-0400 Systolic blood pressure 134 mm[Hg] Laci Ajay [facility] 12-30-2023 13:27-0400 Respiratory rate 14 /min Laci Moss [facility] 12-12-2023 12:59-0400 Body weight 67.13 kg DO Jeremi Marie Work Phone: [facility] 11-18-2023 14:41-0400 Diastolic blood pressure 84 mm[Hg] Yanet Low [facility] 11-18-2023 14:41-0400 Heart rate 103 /min Yanet Low [facility] 11-18-2023 14:41-0400 Mean blood pressure 99 mm[Hg] Yanet Low [facility] 11-18-2023 14:41-0400 Respiratory rate 14 /min Yanet Low [facility] 11-18-2023 14:41-0400 Systolic blood pressure 130 mm[Hg] Yanet Low [facility] 10-15-2023 15:17-0400 Heart rate 60 /min Laci Moss [facility] 10-15-2023 15:17-0400 SaO2% (BldA) [Mass fraction] 98 % Laci Moss [facility] 10-15-2023 15:17-0400 Diastolic blood pressure 68 mm[Hg] Laci Moss [facility] 10-15-2023 15:17-0400 Mean blood pressure 87 mm[Hg] Laci Moss [facility] 10-15-2023 15:17-0400 Systolic blood pressure 125 mm[Hg] Laci Moss [facility] 10-15-2023 15:17-0400 Respiratory rate 16 /min Laci Moss [facility] 10-15-2023 15:12-0400 Diastolic blood pressure 78 mm[Hg] Laci Moss [facility] 10-15-2023 15:12-0400 Heart rate 61 /min Laci Moss [facility] 10-15-2023 15:12-0400 SaO2% (BldA) [Mass fraction] 99 % Laci Moss [facility] 10-15-2023 15:12-0400 Systolic blood pressure 120 mm[Hg] Laci Moss [facility] 10-15-2023 13:51-0400 Heart rate 106 /min Laci Moss [facility] 10-15-2023 13:51-0400 SaO2% (BldA) [Mass fraction] 96 % Laci Moss [facility] 10-15-2023 13:50-0400 Diastolic blood pressure 86 mm[Hg] Laci Moss [facility] 10-15-2023 13:50-0400 Mean blood pressure 104 mm[Hg] Laci Moss [facility] 10-15-2023 13:50-0400 Systolic blood pressure 138 mm[Hg] Laci Moss [facility] 10-15-2023 13:50-0400 Body temperature 98.06 [degF] Laci Moss [facility] 10-15-2023 13:50-0400 Respiratory rate 16 /min Aguero Ajay [facility] 09-12-2023 10:52-0400 Diastolic blood pressure 74 mm[Hg] Aguero Ajay [facility] 09-12-2023 10:52-0400 Heart rate 86 /min Aguero Ajay [facility] 09-12-2023 10:52-0400 Mean blood pressure 90 mm[Hg] Laci Ajay [facility] 09-12-2023 10:52-0400 Respiratory rate 16 /min Laci Ajay [facility] 09-12-2023 10:52-0400 Systolic blood pressure 122 mm[Hg] Laci Moss [facility] 07-17-2023 11:15-0500 Body height 177.8 cm DO Jeremi Marie Work Phone: [facility] 07-17-2023 11:15-0500 Body mass index (BMI) [Ratio] 22.6 kg/m2 DO Jeremi Marie Work Phone: [facility] 07-17-2023 11:15-0500 Body weight 71.66 kg DO Jeremi Marie Work Phone: [facility] Encounters Encounter Date Encounter Type Care Provider Facility Start: 06-30-2024 End: 06-30-2024 ambulatory JEREMI MARIE Facility:[facility] Cli jennifer Start: 06-23-2024 ambulatory DO JEREMI MARIE Faci lity:[facility] Clinic Start: 06-18-2024 End: 06-18-2024 ambulatory [facility] Ambulatory Start: 06-18-2024 End: 06-18-2024 Postop follow up visit related to original px [facility] JARON Work Phone: [facility] Comment on above: Nasal deformity (Noemí elisabet Dx); Nasal obstruction; Hypertrophy of inferior nasal turbinate; Deviated nasal septum Start: 06-16-2024 End: 06-16-2024 ambulatory EVETTE SINGH Facility:[facility] Start: 06-16-2024 End: 06-16-2024 Patient encounter procedure Evette Singh DESIGN TEACHER.BEER COOLER Work Phone: [facility] Comment on above: Chronic pain syndrom e (Primary Dx); Chronic 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 Start: 06-12-2024 End: 06-12-2024 ambulatory JALEN RODRIGEZ [facility] Start: 06-12-2024 End: 06-12-2024 Subsequent hospital visit by physician Jalen Rodrigez MD Work Phone: [facility] Comment on above: Nasal congestion (Pr imary Dx); Deviated nasal septum; Nasal deformity Start: 05-29-2024 End: 06-04-2024 Telephone encounter Evette Thompson PA-C Work Phone: Neurology Comment on above: Patient Question Start: 05-21-2024 End: 05-21-2024 ambulatory JALEN RODRIGEZ [facility] Ambulatory Start: 05-21-2024 End: 05-21-2024 Office consultation new/estab patient 40 min Jalen Rodrigez MD Work Phone: [facility] Comment on above: Deviated septum (Noemí elisabet Dx); Deviated nasal septum; Nasal alar collapse; Hypertrophy of inferior nasal turbinate; Nasal congestion; Nasal obstruction; Nasal deformity; Difficulty breathing Start: 04-17-2024 End: 04-17-2024 ambulatory RADHA LÓPEZ Facility:[facility] Start: 04-17-2024 End: 04-17-2024 Patient encounter procedure Evette Thompson PA-C Work Phone: [facility] Comment on above: Chronic bilateral lo w back pain with bilateral sciatica (Primary Dx) Start: 04-15-2024 End: 04-15-2024 Office outpatient visit 15 minutes Bailey Worthington MD Work Phone: [facility] Comment on above: Nasal obstruction (P rimary Dx); DNS (deviated nasal septum) Start: 04-15-2024 End: 04-15-2024 Bamboo flowsheet Bailey Worthington MD Work Phone: [facility] Start: 04-15-2024 End: 04-15-2024 Bamboo flowsheet Bailey Worthington MD Work Phone: [facility] Start: 03-23-2024 End: 03-23-2024 ambulatory DO JEREMI MARIE Facility:[facility] Cli jennifer Start: 02-25-2024 End: 02-25-2024 Bamboo flowsheet Bailey [...] 01-28-2024 ambulatory DO Jeremi House Work Phone: [facility] Work Phone: Start: 01-28-2024 End: 01-28-2024 Patient encounter procedure DO Jeremi House Work Phone: [facility] Neurosurgery Work Phone: Start: 01-24-2024 End: 01-24-2024 ambulatory JEREMI P HOUSE Facility:[facility] Start: 01-24-2024 End: 01-24-2024 Patient encounter procedure Yanet Low [facility] Start: 01-16-2024 End: 01-16-2024 ambulatory JEREMI P HOUSE Facility:[facility] Cli jennifer Start: 01-01-2024 End: 01-01-2024 ambulatory JEREMI P HOUSE Facility:[facility] Cli jennifer Start: 12-30-2023 End: 12-30-2023 ambulatory Laci Moss Facility:[facility] Start: 12-30-2023 End: 12-30-2023 Pain Management Laci Moss [facility] Start: 12-12-2023 End: 12-12-2023 Patient encounter procedure DO Jeremi House Work Phone: [facility] Work Phone: Start: 12-12-2023 End: 12-12-2023 ambulatory DO Jeremi House Work Phone: [facility] Work Phone: Start: 12-10-2023 End: 12-10-2023 ambulatory Yanet Low Facility:[facility] Start: 12-10-2023 End: 12-10-2023 Patient encounter procedure Yanet Low [facility] Start: 11-18-2023 End: 11-18-2023 ambulatory PA-C Yanet Low Facility:[facility] Start: 11-18-2023 End: 11-18-2023 Pain Management Yanet Low [facility] Start: 10-24-2023 End: 10-24-2023 ambulatory DO Jeremi House Work Phone: [facility] Work Phone: Start: 10-24-2023 End: 10-24-2023 Discharged Recurring DO Jeremi House Work Phone: [facility] [place] Work Phone: Start: 10-15-2023 End: 10-15-2023 ambulatory Laci Moss Facility:[facility] Start: 10-15-2023 End: 10-15-2023 Pain Management Laci Moss [facility] Start: 10-02-2023 End: 10-02-2023 ambulatory JEREMI P HOUSE Facility:[facility] Cli jennifer Start: 09-19-2023 End: 09-19-2023 ambulatory DO Jeremi House Work Phone: [facility] Work Phone: Start: 09-19-2023 End: 09-19-2023 Discharged Recurring DO Jeremi House Work Phone: [facility] [place] Work Phone: Start: 09-12-2023 End: 09-12-2023 ambulatory Laci Moss Facility:[facility] Start: 09-12-2023 End: 09-12-2023 Pain Management Laci Moss [facility] Start: 08-22-2023 End: 08-22-2023 Patient encounter procedure DO Jeremi Marie Work Phone: [facility] [place] Work Phone: Start: 08-22-2023 End: 08-22-2023 ambulatory DO Jeremi Marie Work Phone: [facility] Work Phone: Start: 08-22-2023 Registered Recurring DO Abdelrahman s Cynthia Work Phone: [facility] [place] Work Phone: Start: 07-17-2023 End: 07-17-2023 Patient encounter procedure DO Jeremi Marie Work Phone: [facility] Neurosurgery Work Phone: Start: 12-19-2020 End: 12-20-[address] JEREMI MARIE Facility: Start: 11-30-2017 End: 11-30-2017 Emergency department patient visit [facility] Procedures Date Procedure Procedure Detail Performing Clinician Start: 06-12-2024 PULSE OXIMETRY, CONTINUOUS Bentley Vásquez MD Work Phone: Start: 12-30-2023 Injection of nerve r oot of lumbar spine using fluoroscopic guidance Yanet [employer] Comment on above: Relief 0% Start: 12-12-2023 X-ray of lumbar spin e, six views including bending views DO Jeremi Marie Work Phone: Start: 10-15-2023 Epidural injection o f lumbar spine using fluoroscopic guidance Yanet [employer] Comment on above: L4-L5 60% relief x 2 days Start: 11-30-2017 Assay of lipase NICO GIORDANO Start: 11-30-2017 Blood count complete auto&auto difrntl wbc NICO WEBB Start: 11-30-2017 Comprehensive metabo lic panel NICO WEBB Start: 11-30-2017 LACTIC ACID, PLASMA YESSI WEBB Start: 11-30-2017 TOX SCR, BLD, ED NICO WEBB Start: 11-30-2017 EKG 12-LEAD NICO HENRY Start: 11-30-2017 URINE DRUG SCREEN NICO WEBB Start: 11-30-2017 URINE RT REFLEX TO CULTURE NICO WEBB Start: 08-10-2005 Lipid 1996 panel - S gladis or Plasma Unk (Hist) ft (qualifier value) Rubens Moss Comment on above: 4th grade Knee region structur e (body structure) Laci Moss Plan of Treatment Date Care Activity Detail Author Start: 2038 Zoster Vaccines (1 o f 2) Zoster Vaccines (1 of 2) [facility] Start: 08-14-2024 End: 08-14-2024 Patient encounter procedure 08/14/2024 1:00 PM EDT Office Visit [facility] [address] [place] [address] [place] [address] [place] [address] 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, 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, G89.29] [facility]rology [facility] Comment on above: 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, M54.42, G89.29] Start: 06-17-2024 End: 06-17-2024 Patient encounter procedure 06/17/2024 11:00 AM EST Office Visit [facility] [address] [place] [address] Jessika Lainez PA-C [address] [place] [address] [facility] Start: 06-12-2024 Subsequent hospital visit by physician 06/12/2024 Hospital Encounter [facility] [place] [address] [place] [address] [place] [address] [place] [address] [facility] [place] Start: 06-12-2024 End: 06-12-2024 Septoplasty/submucous resecj w/wo cartilage grf SEPTOPLASTY, NOSE, WITH NASAL TURBINATE REDUCTION Deviated nasal septum Hypertrophy of inferior nasal turbinate Nasal congestion Nasal deformity 06/12/2024 8:40 AM EST [facility] Start: 04-17-2024 End: 04-17-2024 Patient encounter procedure 04/17/2024 2:20 PM EST Office Visit [facility] [address] [id number] Evette Thompson PA-C [address] [place] [address] Lumbar [facility]ine [facility] Comment on above: Lumbar Spine Start: 01-28-2024 Patient referral [facility] Work Phone: Start: 01-12-2024 Covid-19 Vaccine ( season) Covid-19 Vaccine ( season) [facility] Start: 01-12-2024 Influenza vaccination Influenza Vacc ine (#1) [facility] Start: 12-12-2023 X-ray of lumbar spin e, six views including bending views XR lumbar spine 6V w bending [facility] Start: 08-22-2023 Pyridoxine [Mass/volume] in Serum or Plasma [facility] Start: 08-22-2023 Rheumatoid factor [Units/volume] in Serum or Plasma [facility] Start: 08-22-2023 [facility] Start: 07-17-2023 Patient referral [facility] Work Phone: Start: 2023 Lipid panel [facility] Start: 2010 DTaP/Tdap/Td Vaccine s (1 - Tdap) DTaP/Tdap/Td Vaccines (1 - Tdap) [facility] Start: 2007 Hepatitis A Vaccines (1 of 2 - Risk 2-dose series) Hepatitis A Vaccines (1 of 2 - Risk 2-dose series) [facility] Start: 2007 Hepatitis B Vaccine (1 of 3 - 19+ 3-dose series) Hepatitis B Vaccine (1 of 3 - 19+ 3-dose series) [facility] Start: 2007 Hepatitis B Vaccines (1 of 3 - 19+ 3-dose series) Hepatitis B Vaccines (1 of 3 - 19+ 3-dose series) [facility] Start: 2007 Pneumococcal vaccination Pneumococcal Vaccine (1 of 2 - PCV) [facility] Start: 2007 Pneumococcal Vaccine : Pediatrics and At-Risk Adult Patients (1 of 2 - PCV) Pneumococcal Vaccine: Pediatrics and At-Risk Adult Patients (1 of 2 - PCV) [facility] Start: 2007 Urine microalbumin profile DTaP,Tdap,Td Vaccine (1 - Tdap) [facility] Start: 2006 Anxiety Screening Anxiety Screening [facility] Start: 2006 Depression Screening Depression Scre ening [facility] Start: 2006 Hepatitis C [facility] Start: 2006 HIV screening HIV Screening [facility] Start: 2001 Varicella vaccination Varicell a Vaccines (1 of 2 - 13+ 2-dose series) [facility] Start: 1994 Pneumococcal vaccination Pneumococcal Vaccine (1 of 2 - PCV) [facility] Start: 1989 MMR Vaccines (1 of 1 - Standard series) MMR Vaccines (1 of 1 - Standard series) [facility] Start: 1988 HIV screening HIV Screening [facility] Start: 1988 Lipid panel Lipid Panel [facility] Start: 1988 Yearly Adult Physical Yearly Adult P hysical [facility] Glucose measurement estimated from glycated hemoglobin [facility] Homogenous nuclear A b pattern [Titer] in Serum [facility] Nuclear Ab [Titer] i n Serum [facility] Patient referral [facility] Work Phone: Reagin Ab [Presence] in Serum by RPR [facility] Septoplasty/submucou s resecj w/wo cartilage grf SEPTOPLASTY, NOSE, WITH NASAL TURBINATE REDUCTION Deviated nasal septum Hypertrophy of inferior nasal turbinate Nasal congestion Nasal deformity [facility] XR Lumbar spine Views [facility] Payers Date Payer Category Payer Self-pay [id number] 2023 Medicaid [employer] [facility] [id number] 2023-Present [phone] [address] [place] [address] Medicaid [id number] 2023 Medicaid (Managed Care) 1.2. [id number] 2023 [facility] Health Insurance [facility] [id number] 1988 Unknown [id number] 2.16.840.1.543190.3.579.2. 593 1988 Unknown [id number] 2.16.840.1.721294.3.579.2. 727 1988 Unknown [id number] 2.16.840.1.986003.3.579.2. 727 1988 Unknown [id number] 2.16.840.1.609978.3.579.2. 727 1988 Unknown [id number] 2.16.840.1.039152.3.579.2. 727 1988 Unknown [id number] 2.16.840.1.999094.3.579.2. 727 1988 Unknown [id number] 2.16.840.1.170044.3.579.2. 727 1988 Unknown [id number] 2.16.840.1.966538.3.579.2. 1259 1988 Unknown [id number] 2.16.840.1.575944.3.579.2. 1245 1988 Unknown [id number] 2.16.840.1.362978.3.579.2. 1244 1988 Unknown [id number] 2.16.840.1.643939.3.579.2. 1244 1988 Unknown [id number] 2.16.840.1.328918.3.579.2. 718 1988 Unknown [id number] 2.16.840.1.000687.3.579.2. 718 1988 Unknown [id number] 2.16.840.1.058477.3.579.2. 718 1988 Unknown [id number] 2.16.840.1.204366.3.579.2. 718 1988 Unknown [id number] 2.16.840.1.878552.3.579.2. 718 1959 Unknown [id number] Unknown O [id number] Unknown [id number] 2.16.840.1.028735.3.579.2. 531 Unknown [id number] 2.16.840.1.655547.3.579.2. 531 Unknown [id number] 2.16.840.1.815956.3.579.2. 531 Unknown [id number] 2.16.840.1.372923.3.579.2. 531 Social History Date Type Detail Facility Start: 12-09-2017 Tobacco smoking stat us MIIS Smoker (finding) [facility] Start: 1990 Sex Assigned At Male F [facility] Start: 09-12-2023 Tobacco smoking status Heavy t obacco smoker (finding) [facility] Start: 02-25-2024 End: 05-21-2024 Sex Assigned At Male [facility] Start: 02-25-2024 End: 05-21-2024 Tobacco smoking [...] Sex assigned at [facility] Start: 12-27-2021 End: 06-16-2024 Alcoholic beverage intake Current non-drinker of alcohol (finding) [facility] National Score (1-100), lower number is lower risk 73 [facility] Start: 05-21-2024 Tobacco use and exposure User of smokeless tobacco [facility] Work Phone: Start: 05-21-2024 End: 06-18-2024 Alcoholic beverage intake Lifetime non-drinker (finding) [facility] Work Phone: Start: 05-11-2024 End: 06-18-2024 Exposure to SARS-CoV-2 (event) Not sure [facility] Functional Status Date Assessment Result Facility 01-24-2024 Functional Status N/A [facility] 12-30-2023 Functional Status N/A [facility] 11-18-2023 Functional Status N/A [facility] 10-15-2023 Functional Status N/A [facility] 09-12-2023 Functional Status N/A [facility] Clinical Notes 07-30-2023 to 07-15-2024 Jessika Lainez PA-C - 06/18/2024 11:15 AM Evette Almaguer APRN.BEER COOLER - 06/16/2024 2:20 PM ESTDischarge Roverto Sánchez MD - 06/12/2024 7:22 AM Kelvin Sánchez MD - 06/12/2024 7:22 AM EST Note Date & Type Note Facility 07-15-2024 Note - From: Jaylene Little LPN ([facility] Clinical Pool ([facility])) To: JEREMI MARIE DO; Sent: 07/15/2024 08:25:54 EST Subject: Med increase Caller Name: GILLES JANE; Caller Number: H , M Pt m stating that he needed refill for Clonazepam 1 mg BID, medication is supposed to be increased from 0.5 mg to 1 mg as discuss as last visit. Last fill for 0.5 mg was 06/16/24 From: JEREMI MARIE DO To: [facility] Clinical Pool ([facility]); Sent: 07/15/2024 08:34:44 EST Subject: RE: Med increase Caller Name: GILLES JANE; Caller Number: H , M okay on that increase for the new rx med updated and proposal sent to Dr Marie for refill [facility] 06-30-2024 Note Entered by PRATEEK MARIE DO on June 30, 2024 12:12:52 EST From: JEREMI MARIE DO To: [id number] Sent: 06/30/2024 12:12:51 EST Subject: Medication Management Submitted: Complete:vilazodone (vilazodone 40 mg oral tablet) Signed by JEREMI MARIE DO 06/30/2024 12:12:00 EST Approved with modifications: vilazodone (vilazodone 40 mg tablet) TAKE 1 TABLET BY MOUTH ONCE DAILY Qty: 30 tab(s) Days Supply: 30 Refills: 2 Substitutions Allowed Route To Pharmacy - [id number] Patient matched by JEREMI MARIE DO on 06/30/2024 12:12:17 EST From: [id number] To: JEREMI MARIE DO Sent: June 30, 2024 10:52:19 AM [employer] TE[employer] Subject: Medication Management Due: July 01, 2024 10:31:01 AM [employer] TECH On Hold Pending Signature Drug: vilazodone (vilazodone 40 mg oral tablet), TAKE 1 TABLET BY MOUTH ONCE DAILY Quantity: 30 tab(s) Days Supply: 30 Refills: 0 Substitutions Allowed Notes from Pharmacy: Dispensed Drug: vilazodone (vilazodone 40 mg oral tablet), TAKE 1 TABLET BY MOUTH ONCE DAILY Quantity: 30 tab(s) Days Supply: 30 Refills: 1 Substitutions Allowed Notes from Pharmacy: [facility] 06-18-2024 History of Presen t [...] Jessika Lainez PA-C documented in this encounter [facility] Work Phone: 06-16-2024 History of Presen [...] Year Saw Evette Thompson PA-C 04/17/2024: Gilles Jnae is a 34 year old male presenting [...] with CC of chronic back pain into [facility]. Notes sx since 18yo. Lumbar spine imaging with mild spondylosis without neural compression of significance Gilles Jane is not a candidate for surgery at this time. Surgery is not indicated [facility] Follow up with spine surgery: Not required I spent a total of 15 minutes on the date of the service which included preparing to see the patient, [id number] patient care, completing clinical documentation, obtaining and/or reviewing separately obtained history, performing a medically appropriate examination, counseling and educating the patient/family/caregiver, and independently interpreting results (not separately reported). SIGNATURE: Evette Singh APRN.CNP PATIENT NAME: Gilles Jane DATE: June 16, 2024 TIME: 2:55 PM PAGER: documented in this encounter [facility] 06-16-2024 Note HNO ID: [id number] Author: EVETTE SINGH APRN.BEER COOLER Service: ? Author Type: Nurse Practitioner Type: [...] with CC of chronic back pain into [facility]. Notes sx since 18yo. Lumbar spine imaging with mild spondylosis without neural compression of significance Gilles Jane is not a candidate for surgery at this time. Surgery is not indicated [facility] Follow up with spine surgery: Not required I spent a total of 15 minutes on the date of the service which included preparing to see the patient, [id number] patient care, completing clinical documentation, obtaining and/or reviewing separately obtained history, performing a medically appropriate examination, counseling and educating the patient/family/caregiver, and independently interpreting results (not separately reported). SIGNATURE: Evette Singh APRN.HASMUKH PATIENT NAME: Gilles Jane DATE: June 16, 2024 TIME: 2:55 PM PAGER: [facility] 06-12-2024 Hospital Discharg e instructions Jalen Rodrigez MD - 06/12/2024 7:25 AM EST NASAL SURGERY Important Phone Numbers Dr. Jalen Rodrigez: [phone] Evenings/Weekends Emergency: [phone] - please ask for the ENT resident [...] WASH HANDS THOROUGHLY!!! documented in this encounter [facility] Work Phone: 06-12-2024 Attending History and [...] grafting, and inferior turbinate reduction with lateralization. [facility] Work Phone: 06-12-2024 History and physical [...] reduction with lateralization. documented in this encounter [facility] Work Phone: 06-04-2024 Telephone encounter Note MRI is available on [facility] 06-04-2024 Miscellaneous Notes MRI is available on [employer] Received the following record(s) via fax. -Cathy - Report MR Lumbar Spine wo/w 03/29/23 Record(s) scanned into pt's chart. Lizbet Fried Pt called to check on his MRI imaging from [place]. It's not available on [facility] & no report scanned. Pt asked me to obtain imaging & report and update him and wanted to schedule another appt. Pls call back with update He will request that imaging be sent over to office for review. He will contact office when this is sent over. Consider VV with surgical JERICHO for review documented in this encounter [facility] 06-02-2024 Telephone encounter Note Received the following record(s) via fax. -Cathy - Report MR Lumbar Spine wo/w 03/29/23 Record(s) scanned into pt's chart. Lizbet Fried [facility] 05-29-2024 Telephone encounter Note Pt called to check on his MRI imaging from [place]. It's not available on [facility] & no report scanned. Pt asked me to obtain imaging & report and update him and wanted to schedule another appt. Pls call back with update He will request that imaging be sent over to office for review. He will contact office when this is sent over. Consider VV with surgical JERICHO for review [facility] 05-21-2024 History of Presen t illness [...] reduction with lateralization. documented in this encounter [facility] Work Phone: 05-21-2024 Miscellaneous Notes Addended by: YUMIKO FIGUEROA on: 05/21/2024 04:38 PM Modules accepted: Orders documented in this encounter [facility] Work Phone: 05-21-2024 Note Addended by: YUMIKO FIGUEROA on: 05/21/2024 04:38 PM Modules accepted: Orders [facility] Work Phone: 05-18-2024 Note - From: JEREMI MARIE DO To: [facility] Clinical Pool ([facility] Sent: 05/18/2024 10:21:27 EST Subject: FW: Medication Management Due Date/Time: 05/19/2024 10:14:00 EST Caller Name: GILLES JANE; Caller Number: H From: [facility][id number] To: JEREMI MARIE DO Sent: May 18, 2024 9:14:26 AM [employer] TECH Subject: Medication Management Due: May 19, 2024 12:07:14 AM [employer]YEWE[employer] MAN[employer]URING TECH On Hold Pending Signature Drug: clonazePAM (clonazePAM [...] 0 Substitutions Allowed Notes from Pharmacy: sent [facility] 05-14-2024 Note - From: JEREMI MARIE DO To: [facility] Clinical Pool ([facility]); Sent: 05/14/2024 12:04:59 EST Subject: FW: Medication Management Due Date/Time: 05/15/2024 11:53:00 EST Caller Name: GILLES JANE; Caller Number: H From: [facility] #72 To: JEREMI MARIE DO Sent: May 14, 2024 10:53:18 AM [employer] MANU[employer]URING TECH Subject: Medication Management Due: May 15, 2024 12:11:03 AM [employer]WEAR MANU[employer]URING TECH On Hold Pending Signature Drug: clonazePAM (clonazePAM 0.5 mg oral tablet), 1 tab(s) Oral BID Quantity: 60 tab(s) Days Supply: 0 Refills: 0 Substitutions Allowed Notes from Pharmacy: Dispensed Drug: clonazePAM (clonazePAM 0.5 mg oral tablet), TAKE 1 TABLET BY MOUTH TWICE DAILY Quantity: 60 tab(s) Days Supply: 30 Refills: 0 Substitutions Allowed Notes from Pharmacy: From: Fanny Raman To: [facility]72 Sent: 05/14/2024 16:19:40 EST Subject: FW: Medication Management Not Approved: proposed to provider clonazePAM (clonazepam 0.5 mg tablet) TAKE 1 TABLET BY MOUTH TWICE DAILY Qty: 60 tab(s) Days Supply: 30 Refills: 0 Substitutions Allowed Route To Pharmacy - [facility] #[id number] Signed by Fanny Raman [facility] 05-11-2024 Note - From: JEREMI MARIE DO To: [facility] Clinical Pool ([facility] Sent: 05/10/2024 14:13:26 EST Subject: FW: Medication Management Due Date/Time: 05/10/2024 19:04:00 EST Caller Name: GILLES JANE; Caller Number: From: [facility] #[id number] To: JEREMI MARIE DO Sent: May 07, 2024 6:04:58 PM [employer]WE[employer] MANU[employer]URING TECH Subject: Medication Management Due: May 08, 2024 12:02:07 AM EYEWEAR MANUFACTURING TECH On Hold Pending Signature Drug: clonazePAM (clonazePAM 0.5 mg oral tablet), 1 tab(s) Oral BID Quantity: 60 tab(s) Days Supply: 0 Refills: 0 Substitutions Allowed Notes from Pharmacy: Dispensed Drug: clonazePAM (clonazePAM 0.5 mg oral tablet), TAKE 1 TABLET BY MOUTH TWICE DAILY Quantity: 60 tab(s) Days Supply: 30 Refills: 0 Substitutions Allowed Notes from Pharmacy: From: Lina Meneses MA To: [facility]72 Sent: 05/11/2024 08:46:54 EST Subject: FW: Medication Management Not Approved: Refill not appropriate, proposal sent to provider clonazePAM (clonazepam 0.5 mg tablet) TAKE 1 TABLET BY MOUTH TWICE DAILY Qty: 60 tab(s) Days Supply: 30 Refills: 0 Substitutions Allowed Route To Pharmacy - [facility][id number] Signed by Lina Meneses MA [facility] 04-17-2024 Instructions Evette Thompson PA-C - 04/17/2024 3:11 PM EST Please obtain copy of lumbar MRI and bring it to appointment or mail to; Evette Thompson PA-C [address] / [address] [place] [address] OR have imaging location electronically upload MRI to [facility]. Thank you, Evette Thompson PA-C [phone] documented in this encounter [facility] 04-17-2024 Note HNO ID: [id number] Author: EVETTE THOMPSON PA-C Service: ? Author Type: Physician Beer Cooler Type: Progress Notes Filed: 04/17/2024 15:17 Note Text: SPINE SURGERY OUTPATIENT CONSULT This is an in-person visit. SERVICE DATE: 04/17/2024 PCP: No primary care provider on file. REFERRING PROVIDER: [place] [id number] Consult requested for an opinion regarding the [...] pain. 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 CMT: -Suboxone -Gabapentin 300 mg TID -Physical [...] Benign affect. MUSCULOSKEL (more content not included)... [facility] 04-17-2024 History of Presen t illness Narrative SPINE SURGERY OUTPATIENT CONSULT This is an in-person visit. SERVICE DATE: 04/17/2024 PCP: No primary care provider on file. REFERRING PROVIDER: [place] [id number] Consult requested for an opinion regarding the [...] pain. 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 CMT: -Suboxone -Gabapentin 300 mg TID -Physical [...] face time was 45 minutes. SIGNATURE: Evette Thmopson PA-C PATIENT NAME: Gilles Jane DATE: April 17, 2024 TIME: 2:58 PM PAGER:[phone] documented in this encounter [facility] 04-15-2024 History of Presen t illness [...] tablets TAKE BY MOUTH DIRECTED ON PACKAGE Samypine (SEROquel) 50 MG tablet vilazodone (Viibryd) 40 [...] see Dr Rodrigez documented in this encounter [facility] 04-13-2024 Note - From: JEREMI MARIE DO To: [facility] Clinical Pool ([facility] Sent: 04/13/2024 07:31:36 EST Subject: FW: Medication Management Due Date/Time: 04/13/2024 11:38:00 EST Caller Name: GILLES JANE; Caller Number: H From: [facility] #72 To: JEREMI MARIE DO Sent: April 10, 2024 10:38:07 AM EYEWEAR MANUFACTURING TECH Subject: Medication Management Due: April 11, 2024 12:19:32 AM EYEWEAR MANUFACTURING TECH On Hold Pending Signature Drug: clonazePAM (clonazePAM [...] Notes from Pharmacy: From: Fanny Raman To: [facility] #72 Sent: 04/13/2024 08:47:18 EST Subject: FW: Medication Management Not Approved: proposed to provider clonazePAM (clonazepam 0.5 mg tablet) TAKE 1 TABLET BY MOUTH TWICE DAILY Qty: 60 tab(s) Days Supply: 30 Refills: 0 Substitutions Allowed Route To [facility] #72 Signed by Fanny Raman Not Approved: proposed to provider clonazePAM (clonazepam 0.5 mg tablet) TAKE 1 TABLET BY MOUTH TWICE DAILY Qty: 60 tab(s) Days Supply: 30 Refills: 0 Substitutions Allowed Route To [facility] #72 Signed by Fanny Raman Not Approved: proposed to provider clonazePAM (clonazepam 0.5 mg tablet) TAKE 1 TABLET BY MOUTH TWICE DAILY Qty: 60 tab(s) Days Supply: 30 Refills: 0 Substitutions Allowed Route To [facility] #72 Signed by Danisha [facility] 04-01-2024 Note HNO ID: [id number] Author: JENNY HILLIARD APRN.BEER COOLER Service: ? Author Type: Nurse Practitioner Type: [...] on CD to visit (spine MRIs, xrays) [facility] 04-01-2024 History of Presen t illness [...] Health Provider or Pain Management Provider at [facility]? No If answer is YES please schedule [...] facility where the MRI/CT/myelogram was completed: [address] [address] MRI/CT/myelogram viewable in Epic: No If not, please provide [phone] to fax in imaging reports for review. Also, please inform patient to hand carry imaging disc to appointment. XR (spine) within 12 months: Yes If YES, please ask for the name/address of the facility where the XR was completed: [facility] [address] [place] [address] Dr. Pinzon's patients: Have you had previous [...] and/or physical therapy was completed Inj - [facility] - [address], [place] [address] PT - [facility] - [address] [place] [address] [facility] - [address], [place] [address] Have you tried any other kinds of [...] where the surgery was completed: Additional Comments [phone] documented in this encounter [facility] 2024 Note - From: JEREMI MARIE DO To: [facility] Clinical Pool ([facility]); Sent: 03/05/2024 16:00:43 EDT Subject: FW: Medication Management Due Date/Time: 2024 14:54:00 EDT Caller Name: GILLES JANE; Caller Number: H From: [facility] #72 To: JEREMI MARIE DO Sent: March [...] Notes from Pharmacy: From: Fanny Raman To: [facility]72 Sent: 2024 09:01:05 EDT Subject: FW: Medication Management Not Approved: proposed to provider gabapentin (gabapentin 300 mg capsule) TAKE 1 CAPSULE BY MOUTH THREE TIMES DAILY Qty: 90 cap(s) Days Supply: 30 Refills: 0 Substitutions Allowed Route To Pharmacy - [facility]72 Signed by Fanny Raman [facility] 02-25-2024 History of Presen t [...] disease 02/17/2024 Lumbar stenosis 02/17/2024 Mood disorder ([facility]) 02/17/2024 Neuropathy 02/17/2024 Lumbar radiculopathy 02/17/2024 Sacral [...] severe cartilaginous bowing documented in this encounter [facility] 02-11-2024 Note - From: JEREMI MARIE DO To: [facility] Clinical Pool ([facility]); Sent: 02/11/2024 11:54:36 EDT Subject: FW: Medication Management Due Date/Time: 02/12/2024 11:25:00 EDT Caller Name: GILLES JANE; Caller Number: From: [facility] #72 To: CYNTHIA JEREMI Rachel SANCHEZ Sent: February 11, 2024 10:25:35 AM CDT [...] Notes from Pharmacy: From: Fanny Raman To: [facility]72 Sent: 02/11/2024 12:02:46 EDT Subject: FW: Medication Management Not Approved: proposed to provider clonazePAM (clonazepam 0.5 mg tablet) TAKE 1 TABLET BY MOUTH TWICE DAILY Qty: 60 tab(s) Days Supply: 30 Refills: 0 Substitutions Allowed Route To Pharmacy - [facility] #72 Signed by Danisha Fanny [facility] 02-06-2024 Note HNO ID: [id number] Author: ?, ?, ? Service: ? Author Type: ? Type: Progress Notes Filed: 04/01/2024 14:11 Note Text: Patient name: Gilles Jane Are you being referred by a [facility] Provider or Pain Management Provider at [facility]? No If answer is YES please schedule [...] MRI/CT/myelogram was completed: [facility] - [address] [place] [address] MRI/CT/myelogram viewable in Epic: No If not, please provide [phone] to fax in imaging reports for review. Also, please inform patient to hand carry imaging disc to appointment. XR (spine) within 12 months: Yes If YES,? please ask for the name/address of the facility where the XR was completed: [address] [place] [id number] Dr. Pinzon's patients: Have you had previous [...] completed Inj - Salda[facility] Roberto - [address] [place] [address] [id number] [place] - [place] [address] [place] [address] [id number] [facility] - [address] [place] [id number] Have you tried any other kinds of [...] where the surgery was completed: Additional Comments [phone] [facility] 02-04-2024 Note - From: JEREMI MARIE DO To: [facility] Clinical Pool ([facility]); Sent: 02/03/2024 16:23:38 EDT Subject: FW: Medication Management Due Date/Time: 02/04/2024 15:09:00 EDT Caller Name: GILLES JANE; Caller Number: H From: [facility] #72 To: JEREMI MARIE DO Sent: February [...] Notes from Pharmacy: From: Fanny Raman To: [facility]72 Sent: 02/04/2024 08:27:41 EDT Subject: FW: Medication Management Not Approved: proposed to provider gabapentin (gabapentin 300 mg capsule) TAKE 1 CAPSULE BY MOUTH THREE TIMES DAILY Qty: 90 cap(s) Days Supply: 30 Refills: 0 Substitutions Allowed Route To Pharmacy - [facility] #72 Signed by Danisha [facility] 01-24-2024 Note Consultation Note Patient: GILLES JANE [...] He states that he was in the [place] ED recently and they were going to [...] list: All Problems Smoker / SNOMED CT 211779224 / Confirmed Added secondary to documentation in Social History. Anxiety / SNOMED CT 42021352 / Confirmed Depression / SNOMED CT 5370312721 / Confirmed Osteoarthritis / SNOMED CT 6558984163 / Confirmed Objective Vital Signs 01/24/2024 13:44 [...] cannot continue like this. Integumentary: Warm, Dry, Van Voorhis. Neurologic: Alert, Oriented. Psychiatric: Cooperative, Appropriate mood & affect. 14 point review of systems was negative unless otherwise noted. Results Review * Final Report * Reason For Exam M54.12 M54.2 ChangersCRIBE REPORT IMPRESSION: NO HIGH-GRADE NEUROFORAMINAL OR SPINAL [...] FINAL REPORT Dict (more content not included)... [facility] Comment on above: Result Comment: [...] He declines. He was recently at the [place] ED. I would like to get these [...] with us as needed. MARTÍN score: 80%. [facility] 08-19-2024 NoteOperative Report Diagnosis: M54.16, lumbar radiculopathy [...] and agrees to comply to currently prescribed/recommended therapies.[facility] Comment on above:Result Comment: Electronically Signed By: Laci Moss DO\.br\Date and Time Signed: 12/30/23 14:56 [id number] Evaluation + Plan note Extracted from: Title:Bilateral [...] Date:01/24/2024 01:15:00 PM Scheduled Provider:Yanet Low PA-C Location:FT.Pain [facility] Appointment Type:Pain Management - Follow Up (FT) [facility] 07-31-2024 Note From: JEREMI MARIE DO To: [facility] Clinical Pool ([facility]); Sent: 12/11/2023 11:56:05 EDT Subject: FW: Medication Management Due Date/Time: 12/12/2023 11:45:00 EDT Caller Name: GILLES JANE; Caller Number: H From: [facility][id number] To: JEREMI MARIE DO Sent: December 11, [...] from Pharmacy: From: Lina Meneses MA To: [facility] #[id number] Sent: 12/11/2023 13:39:16 EDT Subject: FW: Medication Management Not Approved: Refill not appropriate, proposal sent to provider clonazePAM (CLONAZEPAM 0.5 MG TABLET) take 1 tablet by mouth twice a day Qty: 60 tab(s) Days Supply: 30 Refills: 0 Substitutions Allowed Route To Pharmacy - [facility] #[id number] Signed by Lina Meneses [facility]07-18-2024 Note From: JEREMI MARIE DO To: [facility] Clinical Pool ([facility]); Sent: 11/28/2023 16:30:55 EDT Subject: FW: Medication Management Due Date/Time: 11/29/2023 15:43:00 EDT Caller Name: GILLES JANE; Caller Number: H From: [facility] #[id number] To: JEREMI MARIE DO Sent: November 28, [...] Pharmacy: From: Fanny Raman To: [facility] #[id number] Sent: 11/28/2023 17:19:25 EDT Subject: FW: Medication Management Not Approved: proposed to provider gabapentin (GABAPENTIN 300 MG CAPSULE) take 1 capsule by mouth three times a day Qty: 90 cap(s) Days Supply: 30 Refills: 0 Substitutions Allowed Route To Pharmacy - [facility][id number] Signed by Danisha [facility]07-08-2024 NoteConsultation Note Patient: GILLES JANE Age: 33 [...] list: All Problems Smoker / SNOMED CT 354356678 / Confirmed Added secondary to documentation in Social History. Anxiety / SNOMED CT 76953156 / Confirmed Depression / SNOMED CT 0776948377 / Confirmed Osteoarthritis / SNOMED CT 8037643934 / Confirmed Objective Vital Signs 11/18/2023 14:41 [...] leg raise Negative Randa's Integumentary: Warm, Dry, Van Voorhis. Neurologic: Alert, Oriented. Psychiatric: Cooperative, Appropriate mood [...] results. Patient is agreeab (more content not included)...[facility]Result Comment: Electronically Signed By: Yanet Low PA-C\.br\Date and Time Signed: 11/18/23 15:04 [id number] Evaluation + Plan noteExtracted from: Title:Pain Managment [...] is agreeable. Follow-up after. MARTÍN score: 62%. [facility]07-01-2024 Note From: JEREMI MARIE DO To: [facility] Clinical [place] ([facility]); Sent: 11/09/2023 11:52:39 EDT Subject: FW: Medication Management Due Date/Time: 11/09/2023 11:51:00 EDT Caller Name: GILLES JANE; Caller Number: H From: [facility][id number] To: JEREMI MARIE DO Sent: November 08, [...] Pharmacy: From: Fanny Raman To: [facility] #[id number] Sent: 11/11/2023 08:52:56 EDT Subject: FW: Medication Management Not Approved: proposed to provider clonazePAM (CLONAZEPAM 0.5 MG TABLET) take 1 tablet by mouth twice a day Qty: 60 tab(s) Days Supply: 30 Refills: 0 Substitutions Allowed Route To Pharmacy - [facility] #[id number] Signed by Danisha [facility]06-21-2024 Note From: JEREMI MARIE DO Cc: [facility] Clinical Pool ([facility] Sent: 10/31/2023 20:40:39 EDT Subject: FW: Medication Management Due Date/Time: 11/01/2023 18:43:00 EDT Caller Name: GILLES JNAE; Caller Number: H From: [id number] To: JEREMI MARIE DO Sent: October 31, [...] from Pharmacy: From: Susy Parra LPN To: [facility] #[id number] Sent: 11/01/2023 08:19:24 EDT Subject: FW: Medication Management Not Approved: proposal sent to provider gabapentin (GABAPENTIN 300 MG CAPSULE) take 1 capsule by mouth three times a day Qty: 90 cap(s) Days Supply: 30 Refills: 0 Substitutions Allowed Route To Pharmacy - [facility] #[id number] Signed by Susy Parra [facility]06-05-2024 Note [id number] NoteDiagnosis: M48.062, lumbar stenosis with neurogenic [...] the epidural space was confirmed using the zudn-ek-ekeavbdiqu technique and 2 cc of air. Injection [...] procedure, and agrees to continue currently prescribed/recommended therapies.[facility] Comment on above:Result Comment: Electronically Signed By: Laci Moss DO.br\Date and Time Signed: 10/15/23 15:14 [id number] Note From: JEREMI MARIE DO To: [facility] Clinical Pool ([facility] Sent: 10/10/2023 14:17:56 EDT Subject: FW: Medication Management Due Date/Time: 10/11/2023 12:32:00 EDT Caller Name: RYAN, GILLES; Caller Number: H From: [facility] #[id number] To: JEREMI MARIE DO Sent: October 10, [...] Pharmacy: From: Fanny Raman To: [facility] #[id number] Sent: 10/10/2023 16:25:15 EDT Subject: FW: Medication Management Not Approved: proposed to provider clonazePAM (CLONAZEPAM 0.5 MG TABLET) take 1 tablet by mouth twice a day Qty: 60 tab(s) Days Supply: 30 Refills: 0 Substitutions Allowed Route To Pharmacy - [facility] #[id number] Signed by Danisha [facility]05-20-2024 Note From: JEREMI MARIE DO To: [facility] Clinical Pool ([facility]); Sent: 09/30/2023 07:45:59 EDT Subject: FW: Medication Management Due Date/Time: 09/30/2023 11:11:00 EDT Caller Name: RYAN GILLES; Caller Number: H From: [facility] #[id number] To: JEREMI MARIE DO Sent: September 29, [...] Pharmacy: From: Fanny Raman To: [facility] #[id number] Sent: 09/30/2023 11:50:18 EDT Subject: FW: Medication Management Not Approved: proposed to provider gabapentin (GABAPENTIN 300 MG CAPSULE) take 1 capsule by mouth three times a day Qty: 90 cap(s) Days Supply: 30 Refills: 0 Substitutions Allowed Route To Pharmacy - [facility] #[id number] Signed by Danisha [facility]05-02-2024 Evaluation + Plan note Extracted from: [...] 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 [facility]04-18-2024 Note From: JEREMI MARIE DO To: [facility] Clinical [place] ([facility]); Sent: 08/29/2023 12:16:35 EDT Subject: FW: Medication Management Due Date/Time: 08/30/2023 11:21:00 EDT Caller Name: GILLES JANE; Caller Number: H From: [facility] #[id number] To: JEREMI MARIE DO Sent: August 29, [...] Pharmacy: From: Fanny Raman To: [facility] #[id number] Sent: 08/29/2023 13:12:35 EDT Subject: FW: Medication Management Not Approved: proposed to provider gabapentin (GABAPENTIN 300 MG CAPSULE) take 1 capsule by mouth three times a day Qty: 90 cap(s) Days Supply: 30 Refills: 0 Substitutions Allowed Route To Pharmacy - [facility] #[id number] Signed by Danisha [facility]04-05-2024 Evaluation + Plan note Extracted from: [...] the epidural space was confirmed using the wxlz-rs-aeqmisnjje technique and 2 cc of air. Injection [...] Date:11/18/2023 02:30:00 PM Scheduled Provider:Yanet Low PA-C Location:[facility] Appointment Type:Pain Management - Follow Up (FT) [facility]04-03-2024 Note From: JEREMI MARIE DO To: [facility] Clinical Pool ([facility]); Sent: 08/13/2023 16:05:42 EDT Subject: FW: Medication Management Due Date/Time: 08/14/2023 15:36:00 EDT Caller Name: GILLES JANE; Caller Number: H From: [facility] #[id number] To: JEREMI MARIE DO Sent: August 13, [...] Pharmacy: From: Fanny Raman To: [facility] #[id number] Sent: 08/14/2023 08:44:23 EDT Subject: FW: Medication Management Not Approved: proposed to provider for signature clonazePAM (CLONAZEPAM 0.5 MG TABLET) take 1 tablet by mouth twice a day Qty: 60 tab(s) Days Supply: 30 Refills: 0 Substitutions Allowed Route To Pharmacy - [facility] #[id number] Signed by Danisha [facility]03-19-2024 Note From: JEREMI MARIE DO To: [facility] Clinical Pool ([facility] Sent: 07/30/2023 13:51:47 EDT Subject: FW: Medication Management Due Date/Time: 07/31/2023 12:36:00 EDT Caller Name: GILLES JANE; Caller Number: H From: [facility] #[id number] To: JEREMI MARIE DO Sent: July 30, [...] Pharmacy: From: Fanny Raman To: [facility] #[id number] Sent: 07/30/2023 17:25:12 EDT Subject: FW: Medication Management Not Approved: PROPOSED TO PROVIDER FOR SIGNATURE gabapentin (GABAPENTIN 300 MG CAPSULE) take 1 capsule by mouth three times a day Qty: 90 cap(s) Days Supply: 30 Refills: 0 Substitutions Allowed Route To Pharmacy - [facility] #[id number] Signed by [facility]* Diagnosis Onset Date Resolution Status Lumbar degenerative disc disease acute Lumbar stenosis acute Mood disorder acute Neuropathy acute [facility] Work Phone: Evaluation noteNo assessment information available [facility] Work Phone: Evaluation note* Diagnosis Onset Date Resolution Status Lumbar radiculopathy acute Sacral radiculopathy acute [facility] Work Phone: Evaluation note* Diagnosis DNS (deviated nasal septum)- Primary Deviated nasal septum Hypertrophy of both inferior nasal turbinates [facility] Nasal obstruction- Primary Other diseases of nasal cavity and sinuses DNS (deviated nasal septum) Deviated nasal septum [facility] Diagnosis Chronic bilateral low back pain with bilateral sciatica- [facility] Deviated septum- Primary Deviated nasal [...] deformity of nose documented [facility] encounter [facility] [facility] Work Phone: Evaluation note* Diagnosis Nasal [...] other than cervical documented in this encounter [facility] Work Phone: Evaluation note* Diagnosis Chronic pain syndrome- Primary Chronic 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 [facility] Nasal deformity- Primary Acquired deformity of nose Nasal obstruction Other diseases of nasal cavity and sinuses Hypertrophy of inferior nasal turbinate Deviated nasal septum documented in this encounter [facility] Work Phone: Hospital course Narrative No data available for this section [facility] No data available for this section [facility] Discharge instructionsAmbulatory Orders* Referral to Neurosurgery Location: None [facility] Work Phone: Progress note No data available for this section [facility] N[facility] Auth/Cert Specialty Diagnoses / Procedures Referred By Sola berry Referred To Contact Diagnoses Deviated nasal septum Hypertrophy of inferior nasal turbinate Nasal congestion Nasal deformity Deviated nasal septum [J34.2] Hypertrophy of inferior nasal turbinate [J34.3] Nasal congestion [R09.81] Nasal deformity [M95.0] Procedures WI SEPTOPLASTY/SUBMUCOUS RESECJ W/WO CARTILAGE GRF WI CARTILAGE GRAFT NASAL SEPTUM WI REPAIR NASAL VESTIBULAR STENOSIS WI FRACTURE NASAL INFERIOR TURBINATE THERAPEUTIC WI ABLTJ SOF TISS INF TURBS UNI/BI SUPFC INTRAMURAL SEPTOPLASTY, INFERIOR TURBINATE REDUCTION, NASAL VALVE [place]PA[place], [place] [address] [place] [address] Phone: tel: fax: [facility] [address] [place] [address] Phone: tel: fax: Referral ID Status Reason Start Date Expiration Date Visits Re quested Visits Authorized [id number] 1 [facility] Work Phone: Summary Purpose Family History [...] Procedures Referred By Sola berry Referred To [facility] [place] Diagnoses Chronic 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 Procedures CONSULT TO [facility] PAIN) OFFICE/OUT[facility] 60 MINUTES Evette Singh APRN.BEER COOLER [address] [place] [address] Referral ID Status Reason Start Date Expiration Date Visits Requested Visits Authorized [id number] Pending Review PCP Requested Referral 06/16/2024 06/16/2025 1 1 Additional Source Comments (unrecognized sect ion and content) No Status Records FoundNo Status Records FoundNo Status Records FoundNo Status Records FoundNo Status Records FoundNo Status Records FoundNo Status Records FoundNo Status Records FoundNo Status Records Found INFORMATION SOURCE (unrecogn ized section and content) DATE CREATED AUTHOR 12/01/2017 [facility] DATE CREATED AUTHOR AUTHOR'S ORGANIZ ATION 12/30/2020 [facility] DATE CREATED AUTHOR AUTHOR'S ORGANIZ ATION 12/15/2023 [facility] DATE CREATED AUTHOR AUTHOR'S ORGANIZ ATION 01/28/2024 [facility] DATE CREATED AUTHOR AUTHOR'S ORGANIZ ATION 02/27/2024 [facility] EPIC DATE CREATED AUTHOR AUTHOR'S ORGANIZ ATION 06/18/2024 [facility] DATE CREATED AUTHOR AUTHOR'S ORGANIZ ATION 06/20/2024 [facility] DATE CREATED AUTHOR AUTHOR'S ORGANIZ ATION 06/22/2024 [facility] DATE CREATED AUTHOR AUTHOR'S ORGANIZ ATION 07/25/2024 [facility] Care Teams (unrecognized sec tion and content) [...] January 28, 2024 End: January 28, 2024 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 Start Date End Date Jessica Smith NP [address] [facility] [address] [place] [address] PCP - [facility] 08/12/23 Jeremi Marie MD [address] [place] [address] PCP - General Family Medicine 02/10/24 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 Start Date End Date Jessica Smith NP [address] [place] [address] PCP - [facility] 08/12/23 Jeremi Marie MD [address] [facility] [address] PCP - General Family Medicine 02/10/24 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 Start Date End Date Radha López, DESIGN TEACHER.BEER COOLER [address] [place] [address] Nurse Practitioner 02/06/24 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 Start Date End Date Jeremi Marie MD [address] [facility] [address] PCP - General [facility] Medicine 02/10/24 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 Start Date End Date Jeremi Marie MD [address] [facility] [address] PCP - General Family Medicine 02/10/24 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 Start Date End Date Radha López, DESIGN TEACHER.BEER COOLER [address] [place] [address] Nurse Practitioner 02/06/24 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 Start Date End Date Radha López, DESIGN TEACHER.BEER COOLER [address] [place] [address] Nurse Practitioner 02/06/24 Goals (unrecognized section and [...] or prosecute any alcohol or drug abuse patient.[facility] Hospital[facility] the event this information is protected by the Federal Confidentiality of Alcohol and Drug Abuse Patient Records regulations: The Federal rules restrict any use of the information to criminally investigate or prosecute any alcohol or drug abuse patient.[facility] Hospital[facility] the event this information is protected by the Federal Confidentiality of Alcohol and Drug Abuse Patient Records regulations: The Federal rules restrict any use of the information to criminally investigate or prosecute any alcohol or drug abuse patient.[facility] HospitalIn the event this information is protected by the Federal Confidentiality of Alcohol and Drug Abuse Patient Records regulations: The Federal rules restrict any use of the information to criminally investigate or prosecute any alcohol or drug abuse patient.[facility] Scheduled Active and Recently Administ ered [...] Rodrigez MD - Comment: part of local rao17kv marcaine.2cc epi2cc opj04du used) EPINEPHrine HCl (PF) (Adrenalin) injection (CANCELED) As needed, Starting on Sat06/12/24 at 0906, Intraprocedure 0906 (Given - Provid er: Jalen Rodrigez MD - Comment: part of local iez09av marcaine.2cc epi2cc mab57uc used) mupirocin (Bactroban) 2 % ointment (CANCELED) [...] Rodrigez MD - Comment: part of local nvt72za marcaine.2cc epi2cc bhl95dm used) FOR RECORDS PERTAINING TO PATIENTS WHO [...] BE BASED ON THE PRIMARY CLINICAL RECORDS. [employer] provides no warranty or guarantee of the accuracy or completeness of information in this document.
--- NOTE | 2024-07-25 20:21 | PC.NURSE ---
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 STARTED JOB 1 WEEK AGO AND DEVELOPED ITCHY RASH. PT WAS SEEN HERE 1 WEEK AGO AND PRESCRIBED MEDICATION. PT STATES TOOK MEDICATION AND GOT BETTER FOR A FEW DAY BUT NOW THE ITCHINESS AND RASH HAS RETURNED. 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
[2024-07-25] MEDS: CETIRIZINE HCL 10 MG TABLET 20 MG PO (20:35)
[2024-07-25] MEDS: FAMOTIDINE 20 MG TABLET 40 MG PO (20:35)
[2024-07-25] MEDS: DEXAMETHASONE SOD PHOS 10 MG/ML VIAL PO (20:37)
[2024-07-25] MEDS: HYDROXYZINE PAMOATE 25 MG CAPSULE PO (21:08)
--- NOTE | 2024-07-25 21:11 | ED_ITS ---
HPI HPI - General Adult General Chief complaint: Skin/Abscess/Foreign Body Stated complaint: RASH ON HANDS/ARMS Time Seen by Provider: 07/25/24 20:12 Source: patient Mode of arrival: walk-in History of Present Illness HPI narrative: 34-year-old male presents here with chief complaint of hives to bilateral forearms and hands. Recently with similar complaints and discharged home with hydralazine. He states he has been taking steroids and hydralazine recently but ran out of the medications. He states he is having allergic reaction to something he is working with. He denies any shortness of breath difficulty breathing. He states he is scratching bilateral feet and hands. Patient has scarring and old track torrez. He denies any recent usage and states he is not an IV drug user. Patient is currently on Suboxone. He states he did recently start a different medication of Suboxone that was approximately 3-4 maybe 5 weeks ago but nothing else has been new. He does have a history of anxiety as well. Patient's vital signs are stable he is not currently febrile. Related Data Home Medications ?Medication ?Instructions ?Recorded ?Confirmed buprenorphine 8 mg-naloxone 2 mg 1 tab sublingual BID 01/22/24 07/11/24 sublingual tablet clonazepam 0.5 mg tablet 0.5 mg PO BID 01/22/24 07/11/24 gabapentin 300 mg capsule 300 mg PO TID 01/22/24 07/11/24 quetiapine 50 mg tablet 50 mg PO BEDTIME 01/22/24 07/11/24 vilazodone 40 mg tablet 40 mg PO DAILY 01/22/24 07/11/24 Previous Rx's ?Medication ?Instructions ?Recorded famotidine 20 mg tablet (Pepcid) 20 mg PO BID 7 days #14 tabs 07/11/24 hydroxyzine pamoate 25 mg capsule 25 mg PO TID PRN itching 7 days 07/11/24 #21 caps prednisone 20 mg tablet 20 mg PO BID 5 days #10 tabs 07/11/24 hydroxyzine pamoate 25 mg capsule 25 mg PO TID PRN itching #20 caps 07/25/24 Allergies Allergy/AdvReac Type Severity Reaction Status Date / Time Penicillins Allergy Severe Anaphylaxis Verified 07/25/24 20:13 acetaminophen (From Vicodin) AdvReac Mild Hives Verified 07/25/24 20:13 hydrocodone (From Vicodin) AdvReac Mild Hives Verified 07/25/24 20:13 lorazepam (From Ativan) AdvReac Mild Confusion Verified 07/25/24 20:13 Opioid HPI Opioid Management Most Recent Opioid Data: Last Pain Scale 10 01/22/24 16:52 01/22/24 Review of Systems ROS Status of ROS 10 or more systems reviewed and unremark able except as noted in history and below PFSH PFSH Social History Little interest or pleasure in doing things: not at all Feeling down, depressed, or hopeless: not at all Exam Narrative Exam Narrative: Nurses note and vital signs reviewed and patient is not hypoxic. General: The patient appears distressed, scratching and rubbing his pant legs with his arms Skin: Warm, dry, no pallor noted. Hive formation noted to bilateral volar wrists palms both diffusely erythematous from patient constantly rubbing no skin peeling or sloughing. No petechiae patient has full motion of fingers and thumb bilateral hands without evidence of pain or infection. No evidence of burrowing or crusting . Age indeterminate scarring and track torrez greatest in left ac region. no abscess. Head: Normocephalic, atraumatic Neck: Supple, trachea mid-line, no tenderness, no lymphadenopathy Eye: Pupils are equal, round and reactive to light, EOMI Ears, Nose, Mouth, and Throat: external exam unremarkable. No lip or tongue swelling. uvula without swelling, voice is clear. Cardiovascular: Regular Rate and Rhythm Respiratory: Patient is in no distress, no accessory muscle use, lungs are clear to auscultation, no wheezing, rales or rhonchi. Chest Wall: no tenderness Back: non-tender, no CVA tenderness Musculoskeletal: normal ROM, no tenderness, no swelling GI: Normal bowel sounds, no tenderness to palpation, no masses appreciated. No rebound, guarding, or rigidity noted. Neurological: A&O x4 Psychiatric: Cooperative Constitutional Vital Signs, click to edit/add: Last Vital Signs Temp 98.1 F 07/25/24 20:13 Pulse 83 07/25/24 20:13 Resp 16 07/25/24 20:13 BP 144/91 H 07/25/24 20:13 Pulse Ox 97 07/25/24 20:13 O2 Del Method Room Air 07/25/24 20:13 Course Vital Signs Vital signs: Vital Signs Temperature 98.1 F 07/25/24 20:13 Pulse Rate 83 07/25/24 20:13 Respiratory Rate 16 07/25/24 20:13 Blood Pressure 144/91 H 07/25/24 20:13 Pulse Oximetry 97 07/25/24 20:13 Oxygen Delivery Method Room Air 07/25/24 20:13 Temperature 98.1 F 07/25/24 20:13 Pulse Rate 83 07/25/24 20:13 Respiratory Rate 16 07/25/24 20:13 Blood Pressure 144/91 H 07/25/24 20:13 Pulse Oximetry 97 07/25/24 20:13 Oxygen Delivery Method Room Air 07/25/24 20:13 Medical Decision Making MDM Narrative Medical decision making narrative: Here with a chief complaint of hives and itching. He previous medical history chart was reviewed and showed that he had been a previous IV drug user he denies to me. He states he is not had a history of substance abuse and he is on Suboxone. He states he has been accused of that previously here but denies it. Patient does have what appears to be healing track torrez in bilateral upper extremities. He denies any use here today. He is anxious and scratching his arms against his pant legs. He was medicated here with Pepcid Decadron and Zyrtec. He will be discharged home with Vistaril. Feeling better and he wanted to go home he had to go to work this evening. Patient is not hypoxic showed no signs of distress no stridor or lip swelling noted. Differential Diagnosis Differential Diagnosis: hives, allergic reaction, anxiety Medical Records Medical records reviewed: Yes I reviewed the patient's medical records Lab Data Lab results reviewed: Yes I reviewed the patient's lab results Discharge Plan Discharge Chief Complaint: Skin/Abscess/Foreign Body Clinical Impression: Urticaria Patient Disposition: Home, Self-Care Time of Disposition Decision: 21:10 Condition: Good Mode of Transportation: Private Vehicle Prescriptions / Home Meds: New hydroxyzine pamoate 25 mg capsule 25 mg PO TID PRN (Reason: itching) Qty: 20 0RF No Action clonazepam 0.5 mg tablet 0.5 mg PO BID gabapentin 300 mg capsule 300 mg PO TID buprenorphine-naloxone 8-2 mg tablet, sublingual 1 tab SUBLINGUAL BID quetiapine 50 mg tablet 50 mg PO BEDTIME vilazodone 40 mg tablet 40 mg PO DAILY prednisone 20 mg tablet 20 mg PO BID 5 Days Qty: 10 0RF hydroxyzine pamoate 25 mg capsule 25 mg PO TID PRN (Reason: itching) 7 Days Qty: 21 0RF famotidine [Pepcid] 20 mg tablet 20 mg PO BID 7 Days Qty: 14 0RF Print Language: Faroese Instructions: Urticaria (ED) Referrals: JOSÉ MANUEL MARIE [Primary Care Provider] - 1 week Discharge Date/Time: 07/25/24 21:17
== END 2024-07-25 21:17 | disposition home or self-care (01) ==
PROVIDERS: Emergency Provider Internal Medicine; PCP Family Medicine
DX: L50.9 Urticaria, unspecified (principal); F41.9 Anxiety disorder, unspecified; F11.20 Opioid dependence, uncomplicated
CPT/HCPCS: 99284; J1100; Q0177

== ENCOUNTER 2024-11-18 05:10 | Emergency (ER) | payer OTHER, SELFPAY ==
--- OUTSIDE RECORDS SUMMARY | 2024-08-05 08:56 | XMS_ITS | Continuity of Care Document ---
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 Name Role Phone Oscar Mitchell DMD Unavailable Unavailable Allergies, Adverse Reactions, Alerts Substance Reaction Status Criticality lorazepam Active No Information HYDROCODONE BITARTRATE Active No In formation acetaminophen Active No Information Penicillins Active No Information Medications Medication Instructions Dosage Effective Dates (start - stop) Status Comments gabapentin 100 mg capsule take 1 capsule by oral route 2 times every day 100 MG - Active Suboxone 8 mg-[address] 1 film by sublingual route every day allow to dissolve slowly in mouth without chewing or swallowing 1.00 film - Active Viibryd 40 mg tablet take 1 tablet by or al route every day with food 40 MG - Active clonazepam 0.5 mg tablet take 1 tablet by oral route 3 times every day 0.5 MG - Active Seroquel 50 mg tablet take 1 tablet by oral route 2 times every day 50 MG - Active Procedures Procedure Date Intraoral-periapical 1st Film Oral Hygiene Instruction Limited Oral Eval Extract; Erupted Th/exposted Rt 025 Extract; Erupted Th/exposted Rt -2 022 Extract; Erupted Th/exposted Rt 2 022 Extract; Erupted Th/exposted Rt -2 022 Extract; Erupted Th/exposted Rt Oct-20-2 022 Extract; Erupted Th/exposted Rt 20-2 022 Oral Hygiene Instruction Extract; Erupted Th/exposted Rt -2 022 Extract; Erupted Th/exposted Rt Extract; Erupted Th/exposted Rt Oral Hygiene Instruction Oral Hygiene Instruction Extract; Erupted Th/exposted Rt Extract; Erupted Th/exposted Rt Extract; Erupted Th/exposted Rt Extract; Erupted Th/exposted Rt Panoramic Film Tobacco Counseling Oral Hygiene Instruction Comp Oral Eval New/estab Patient 2021 Advance Directives Directive Yes / No Effective Date File Name No Information Encounters Encounter Description Practice Location Reason(s) For Visit Diagnoses Date Provider Providers Copied on Encounter [facility], [address] [place] [address], [id number], tel:[phone] Dental Clinic Dental ER (chief complaint) Encounter for screening for dental disorders Paula Moore. [address] [place] [address], [id number], [place]. tel:[phone] [facility], [address] [place] [address], [id number], [place] tel:[phone] Dental Clinic [place] (chief complaint) Encounter for screening for dental disorders [facility]. [address] [place] [address], [id number], . tel:[phone] [facility], [address] [place] [address], [id number], [place] tel:[phone] Dental Clinic EXt (chief complaint) Encounter for screening for dental disorders [facility]. [address] [place] [address], [id number], [place]. tel:[phone] [facility], [address] [place] [address], [id number], [place] tel:[phone] Dental Clinic ext (chief complaint) [facility] [address] [place] [address], [id number], [place]. tel:[phone] [facility], [address] [place] [address], [id number], [place] tel:[phone] Dental Clinic No Information Paula Moore. [address] [place], [place], [id number], [place]. tel:[phone] [facility], [address] [place] [address], [id number], [place] tel:[phone] Dental Clinic Dn (chief complaint) Encounter for screening for dental disorders Carson Murray. [address] [place] [address], [id number], [place]. tel:[phone] Family History Family Member Type Diagnosis Age At Onset No Information Payers Payer name Insurance type Covered green party ID Authorandreea sandhu(s) D [employer] [facility] [id number] D Medicaid [facility] [id number] Social History Type Description Quantity Date Captured Comments Alcohol Use Details Unknown Caffeine Use Details Unknown Tobacco Use Status Heavy cigarette smok er (20-39 cigs/day) Smoking Status Heavy tobacco smoker Sex Male Sexual Orientation Straight or heterosexual Gender Identity Male Vital Signs Date / Time: Height Weight BMI Pulse Rate Blood Pressure Temperature Respiratory Rate Body Surface Area Head Circumference Head Circ. Percentile Wt./Mitch. Percentile BMI percentile Pulse Ox Inhaled Ox 1:43 PM 103 /min 130/84 mm[Hg] Chief Complaint And Reason For Visit From encounter dated '08/05/2024 12:56'. Dental ER (chief complaint). Description: Dental ER Reason For Referral Reason For Referral No Information Plan Of Treatment Date Type Action Status Goal Influenza vaccine. Due on due Goal Tdap Vaccine. Due on 2024 due Goal PRAPARE ASSESSMENT. Due on due Goal Hep A. Due on du e Goal Tdap. Due on due Goal Depression screening. Due on due Goal Unhealthy drug use screening . Due on due Goal Hep A. Due on du e Goal Hepatitis C screening. Due o n due Goal RLP. Due on due Goal RLP. Due on due Goal Influenza vaccine. Due on Oc due Goal Tdap. Due on due Goal PRAPARE ASSESSMENT. Due on O due Goal Depression screening. Due on due Goal PRAPARE ASSESSMENT. Due on O due Goal RLP. Due on due Goal Depression screening. Due on due Goal Influenza vaccine. Due on Oc due Goal Tdap. Due on due Goal Influenza vaccine. Due on Se due Goal PRAPARE ASSESSMENT. Due on S due Goal Depression screening. Due on due Goal RLP. Due on due Goal Tdap. Due on due Goal Influenza vaccine. Due on Se due Goal PRAPARE ASSESSMENT. Due on S ep due Goal Depression screening. Due on due Goal RLP. Due on due Goal Tdap. Due on due Goal Tobacco cessation counseling completed History Of Present Illness Encounter Date Complaint History Of Prese nt Illness Dental ER Dental ER DE DE EXt ext ext Dn Dn Functional Status Date Functional Assessmen t No Information Instructions Date Instruction Additional Infor mation No Information Assessments Type Assessment Date No Information Patient Care Teams Name Effective Dates (start - stop) Status Members No Information
--- OUTSIDE RECORDS SUMMARY | 2024-10-26 13:45 | XMS_ITS ---
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 Appraiser Name Role Phone BAILEY WORTHINGTON Attending Unavailable HOUSE, JEREMI P Referring Unavailable BAILEY WORTHINGTON Attending Unavailable HOUSE, JEREMI P Primary Care [...] P Attending Unavailable HOUSE, DO JEREMI P Referring Unavailable HOUSE, JEREMI P Primary Care Unavailable Gerardo Mendoza Attending Unavailable HOUSE, DO JEREMI P Attending Unavailable HOUSE, JEREMI P Primary Care Unavailable HOUSE, JEREMI P Primary Care Unavailable Gerardo Mendoza Attending Unavailable HOUSE, JEREMI P Primary Care Unavailable HOUSE, DO JEREMI P Attending Unavailable HOUSE, DO JEREMI P Attending Unavailable HOUSE, JEREMI P Primary Care Unavailable SINAN RODRIGEZ Admitting Unavailable SINAN RODRIGEZ Attending Unavailable EVETTE THOMPSON Attending Unavailable KARIE LÓPEZ Referring Unavailable EVETTE JIMENEZ Attending Unavailable Lesvia Rodgers Attending Unavailable Ana Maria, Lesvia Admitting Unavailable House, Jeremi Primary Care Unavailable SINAN RODRIGEZ Attending Unavailable JESSIKA RODRIGUEZ Attending Unavailable Laci Moss Attending Unavailable Laci Moss Referring Unavailable Yanet Rodgers Admitting Unavailable Yanet Rodgers Attending Unavailable Rodgers, Yanet Referring Unavailable HOUSE, JEREMI P Referring Unavailable Yanet Rodgers Admitting Unavailable Yanet Rodgers Attending Unavailable PROBLEMS DATE TYPE CONDITION / CODE ATTENDING STATUS [facility] 06/18/2024 Admitting Diagnosis Other specified disorders of nose and nasal sinuses / J34.89(ICD-10) JESSIKA RODRIGUEZ [facility] 05/21/2024 Admitting Diagnosis Nasal congestion / R09.81(ICD-10) EL[facility] 05/21/2024 Admitting Diagnosis Deviated nasal septum / J34.2(ICD-10) [facility] 05/21/2024 Admitting Diagnosis 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 05/21/2024 Admitting Diagnosis Hypertrophy of nasal turbinates / J34.3(ICD-10) [facility] 05/21/2024 Admitting Diagnosis nasal obstruction / UNK(Unknown) [facility] 04/17/2024 Active Chronic bilatera l low back pain with bilateral sciatica / M54.42(ICD-10) EVETTE THOMPSON [facility] 04/17/2024 Active Chronic bilatera l low back pain with bilateral sciatica / M54.41(ICD-10) EVETTE THOMPSON [facility] 04/17/2024 Active Chronic bilatera l low back pain with bilateral sciatica / G89.29(ICD-10) EVETTE THOMPSON [facility] 12/12/2023 Unknown Unspecified mood [affective] disorder / F39(ICD-10) Ana Maria [facility] 12/12/2023 Unknown Polyneuropathy, unspecified / G62.9(ICD-10) Ana Maria [facility] 12/12/2023 Unknown Spinal stenosis, lumbar region without neurogenic claudication / M48.061(ICD-10) Ana Maria [facility] 12/12/2023 Unknown Other interverte bral disc degeneration, lumbar region / M51.36(ICD-10) Lesvia Rodgers Active [facility] PROCEDURES No Procedure Records Found RESULTS MEDICATION MANAGEMENT Observed: 11/11/19 10:28 AM Status: C Source: [facility] From: JEREMI MARIE DO To: [facility] Clinical Pool ([facility]); Sent: 11/10/2024 10:28:12 EDT Subject: FW: Medication Management Due Date/Time: 11/11/2024 10:26:00 EDT Caller Name: JOSE JANE; Caller Number: Rosa , M From: [facility] [id number] To: JEREMI MARIE DO Sent: November 10, 2024 9:26:59 AM CDT Subject: Medication Management Due: November 11, 2024 12:09:35 AM CDT On Hold Pending Signature Drug: clonazePAM (clonazePAM 1 mg oral tablet), TAKE 1 TABLET BY MOUTH 2 TIMES A DAY Quantity: 60 tab(s) Days Supply: 0 Refills: 0 Substitutions Allowed Notes from Pharmacy: Dispensed Drug: clonazePAM (clonazePAM 1 mg oral tablet), TAKE 1 TABLET BY MOUTH 2 TIMES A DAY Quantity: 60 tab(s) Days Supply: 30 Refills: 0 Substitutions Allowed Notes from Pharmacy: From: Fanny Medina To: [facility] [id number] Sent: 11/10/2024 10:38:15 EDT Subject: FW: Medication Management Not Approved: proposed to provider clonazePAM (clonazePAM 1 MG TABLET) TAKE 1 TABLET BY MOUTH 2 TIMES A DAY Qty: 60 tab(s) Days Supply: 30 Refills: 0 Substitutions Allowed Route To Pharmacy - [facility] [id number] Signed by Fanny Medina MEDICATION MANAGEMENT Observed: 10/13/19 10:19 AM Status: C Source: [facility] From: JEREMI MARIE DO To: [facility] Clinical Pool ([facility] Sent: 10/12/2024 10:19:35 EDT Subject: FW: Medication Management Due Date/Time: 10/13/2024 10:00:00 EDT Caller Name: JOSE JANE; Caller Number: Rosa , Mena From: [facility] [id number] To: JEREMI MARIE DO Sent: October 12, 2024 9:00:59 AM CDT Subject: Medication Management Due: October 13, 2024 12:03:16 AM CDT On Hold Pending Signature Drug: clonazePAM (clonazePAM 1 mg oral tablet), TAKE 1 TABLET BY MOUTH 2 TIMES A DAY Quantity: 60 tab(s) Days Supply: 0 Refills: 0 Substitutions Allowed Notes from Pharmacy: Dispensed Drug: clonazePAM (clonazePAM 1 mg oral tablet), TAKE 1 TABLET BY MOUTH 2 TIMES A DAY Quantity: 60 tab(s) Days Supply: 30 Refills: 0 Substitutions Allowed Notes from Pharmacy: From: Fanny Medina To: [facility] [id number] Sent: 10/12/2024 11:34:26 EDT Subject: FW: Medication Management Not Approved: proposed to provider clonazePAM (clonazePAM 1 MG TABLET) TAKE 1 TABLET BY MOUTH 2 TIMES A DAY Qty: 60 tab(s) Days Supply: 30 Refills: 0 Substitutions Allowed Route To Pharmacy - [facility] [id number] Signed by Fanny Medina MEDICATION MANAGEMENT Observed: 09/26/19 10:14 AM Status: F Source: [facility] Entered by JEREMI MARIE DO on September 25, 2024 10:14:18 EDT From: JEREMI MARIE DO To: [facility] [id number] Sent: 09/25/2024 10:14:18 EDT Subject: Medication Management Submitted: Complete:methylPREDNISolone (Medrol Dosepak 4 mg oral tablet) Signed by JEREMI MARIE DO 09/25/2024 10:14:00 EDT Submitted: Complete:methylPREDNISolone (Medrol Dosepak 4 mg oral tablet) Signed by JEREMI MARIE DO 09/25/2024 10:14:00 EDT Approved methylPREDNISolone (methylPREDNISolone 4 MG DOSEPK) TAKE BY MOUTH INSTRUCTED - PER PACKAGE INSTRUCTIONS Qty: 21 tab(s) Days Supply: 6 Refills: 0 Substitutions Allowed Route To Pharmacy - [facility] [id number] From: [facility] [id number] To: JEREMI MARIE DO Sent: September 24, 2024 2:28:43 PM CDT Subject: Medication Management Due: September 25, 2024 12:02:30 AM CDT On Hold Pending Signature Drug: methylPREDNISolone (Medrol Dosepak 4 mg oral tablet), TAKE BY MOUTH INSTRUCTED - PER PACKAGE INSTRUCTIONS Quantity: 21 tab(s) Days Supply: 0 Refills: 0 Substitutions Allowed Notes from Pharmacy: Dispensed Drug: methylPREDNISolone (MethylPREDNISolone Dose Pack 4 mg oral tablet), TAKE BY MOUTH INSTRUCTED - PER PACKAGE INSTRUCTIONS Quantity: 21 tab(s) Days Supply: 6 Refills: 0 Substitutions Allowed Notes from Pharmacy: MEDICATION MANAGEMENT Observed: 09/16/19 5:11 PM Status: F Source: [facility] Entered by JEREMI MARIE DO on September 15, 2024 17:11:55 EDT From: JEREMI MARIE DO To: [facility] [id number] Sent: 09/15/2024 17:11:55 EDT Subject: Medication Management Not Approved: Refill not appropriate, duplicate request gabapentin (GABAPENTIN 300 MG CAPSULE) TAKE 1 CAPSULE BY MOUTH 3 TIMES A DAY Qty: 90 cap(s) Days Supply: 30 Refills: 0 Substitutions Allowed Route To Pharmacy [facility] [id number] Not Approved: Refill not appropriate, duplicate request clonazePAM (clonazePAM 1 MG TABLET) TAKE 1 TABLET BY MOUTH 2 TIMES A DAY Qty: 60 tab(s) Days Supply: 30 Refills: 0 Substitutions Allowed Route To Pharmacy - [facility] [id number] From: [facility] [id number] To: JEREMI MARIE DO Sent: September 15, 2024 3:51:38 PM CDT Subject: Medication Management Due: September 16, 2024 10:25:12 AM CDT On Hold Pending Signature Drug: gabapentin (gabapentin 300 mg oral capsule), TAKE 1 CAPSULE BY MOUTH 3 TIMES A DAY Quantity: 90 cap(s) Days Supply: 0 Refills: 1 Substitutions Allowed Notes from Pharmacy: Dispensed Drug: gabapentin (gabapentin 300 mg oral capsule), TAKE 1 CAPSULE BY MOUTH 3 TIMES A DAY Quantity: 90 cap(s) Days Supply: 30 Refills: 0 Substitutions Allowed Notes from Pharmacy: On Hold Pending Signature Drug: clonazePAM (clonazePAM 1 mg oral tablet), TAKE 1 TABLET BY MOUTH 2 TIMES A DAY Quantity: 60 tab(s) Days Supply: 0 Refills: 0 Substitutions Allowed Notes from Pharmacy: Dispensed Drug: clonazePAM (clonazePAM 1 mg oral tablet), TAKE 1 TABLET BY MOUTH 2 TIMES A DAY Quantity: 60 tab(s) Days Supply: 30 Refills: 0 Substitutions Allowed Notes from Pharmacy: MEDICATION MANAGEMENT Observed: 08/19/19 7:41 AM Status: C Source: [facility] From: JEREMI MARIE DO To: [facility] Clinical Pool ([facility] Sent: 08/18/2024 07:41:35 EDT Subject: FW: Medication Management Due Date/Time: 08/18/2024 14:20:00 EDT Caller Name: JOSE JANE; Caller Number: Rosa , M From: [facility] [id number] To: JEREMI MARIE DO Sent: August 17, 2024 1:20:45 PM CDT Subject: Medication Management Due: August 18, 2024 12:10:11 AM CDT On Hold Pending Signature Drug: clonazePAM (clonazePAM 0.5 mg oral tablet), TAKE 1 TABLET BY MOUTH 2 TIMES A DAY Quantity: 60 tab(s) Days Supply: 0 Refills: 0 Substitutions Allowed Notes from Pharmacy: Dispensed Drug: clonazePAM (clonazePAM 0.5 mg oral tablet), TAKE 1 TABLET BY MOUTH 2 TIMES A DAY Quantity: 60 tab(s) Days Supply: 30 Refills: 0 Substitutions Allowed Notes from Pharmacy: From: Fanny Medina [facility] [id number] Sent: 08/18/2024 08:07:57 EDT Subject: FW: Medication Management Not Approved: Refill not appropriate, sent 08/18/2024 clonazePAM (clonazePAM 0.5 MG TABLET) TAKE 1 TABLET BY MOUTH 2 TIMES A DAY Qty: 60 tab(s) Days Supply: 30 Refills: 0 Substitutions Allowed Route To Pharmacy - [facility] [id number] Signed by Fanny Medina PATIENT LETTER Observed: 08/05/2024 3:16 PM Status: F Source: [facility] [id number]#1.00OTGTIFF OUTSIDE RECORDS Observed: 07/25/2024 8:37 AM Status: F Source: [facility] [id number]#1.00OTGTIFF OUTSIDE RECORDS Observed: 07/22/2024 10:11 AM Status: F Source: [facility] [id number]#1.00OTGTIFF MEDICATION MANAGEMENT Observed: 07/16/19 8:25 AM Status: C Source: [facility] From: Jaylene Little LPN ([facility] Clinical Pool ([facility])) To: JEREMI MARIE DO; Sent: 07/15/2024 08:25:54 EST Subject: Med increase Caller Name: JOSE JANE; Caller Number: H , M Pt m stating that he needed refill for Clonazepam 1 mg BID, medication is supposed to be increased from 0.5 mg to 1 mg as discuss as last visit. Last fill for 0.5 mg was 06/16/24 From: JEREIM MARIE DO To: [facility] Clinical Pool ([facility]); Sent: 07/15/2024 08:34:44 EST Subject: RE: Med increase Caller Name: JOSE JANE; Caller Number: H , M okay on that increase for the new rx med updated and proposal sent to Dr Marie for refill MEDICATION MANAGEMENT Observed: 06/30/19 12:12 PM Status: F Source: [facility] Entered by JEREMI MARIE DO on June 30, 2024 12:12:52 EST From: JEREMI MARIE DO To: [facility] Sent: 06/30/2024 12:12:51 EST Subject: Medication Management Submitted: Complete:vilazodone (vilazodone 40 mg oral tablet) Signed by JEREMI MARIE DO 06/30/2024 12:12:00 EST Approved with modifications: vilazodone (vilazodone 40 mg tablet) TAKE 1 TABLET BY MOUTH ONCE DAILY Qty: 30 tab(s) Days Supply: 30 Refills: 2 Substitutions Allowed Route To Pharmacy - [facility] Patient matched by JEREMI MARIE DO on 06/30/2024 12:12:17 EST From: [facility] To: JEREMI MARIE DO Sent: June 30, 2024 10:52:19 AM EDUCATIONAL THERAPY TEACHER Subject: Medication Management Due: July 01, 2024 10:31:01 AM EDUCATIONAL THERAPY TEACHER On Hold Pending Signature Drug: vilazodone (vilazodone 40 mg oral tablet), TAKE 1 TABLET BY MOUTH ONCE DAILY Quantity: 30 tab(s) Days Supply: 30 Refills: 0 Substitutions Allowed Notes from Pharmacy: Dispensed Drug: vilazodone (vilazodone 40 mg oral tablet), TAKE 1 TABLET BY MOUTH ONCE DAILY Quantity: 30 tab(s) Days Supply: 30 Refills: 1 Substitutions Allowed Notes from Pharmacy: CONTROLLED SUBSTANCES AGREEMENTS Observed: 06/23/2024 2:55 PM Status: F Source: [facility] [id number]#1.00OTGTIFF CNOV Observed: 06/16/2024 2:20 PM Status: COMPLETED Source: [facility] Office Visit (SPNSMN) JOSE JANE ([id number]) 1990 M Date Time Provider Department 06/16/24 2:20 PM EVETTE JIMENEZ SPNSMN During your visit today, we recorded the following information about you: Pulse Respiration Blood pressure Weight 75/minute 18/minute 123/68 67.5 kg Height 1.803 m Evette Jimenez, ACCOUNT MANAGER B2B.SPECIFICATIONS CHECKER 06/16/2024 4:49 PM Signed SPINE SURGERY NEW PATIENT This is an in person visit DATE OF SERVICE: June 16, 2024 This is an in-person visit. SUBJECTIVE HISTORY OF PRESENT ILLNESS: Jose Jane is a 34 year old male presenting with father. CHIEF COMPLAINT: chronic back pain into BLE PREVIOUS SPINAL SURGERY: None DURATION OF SYMPTOMS: Greater Than 1 Year Saw Evette Thompson PA-C 04/17/2024: Jose Jane is a 34 year old male presenting today with chronic back pain > bilateral leg pain. CT lumbar spine reviewed. Patient states that he does have lumbar MRI, which was done in June 2023. He will request that imaging be sent over to office for review. He will contact office when this is sent over. Consider VV with surgical JERICHO for review. Jose Jane will proceed with getting lumbar MRI [...] 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 Jose Jane is a 34 year old male with CC of chronic back pain into [facility]. Notes sx since 18yo. Lumbar spine imaging with mild spondylosis without neural compression of significance Jose Jane is not a candidate for surgery at this time. Surgery is not indicated [facility] Follow up with spine surgery: Not required I spent a total of 15 minutes on the date of the service which included preparing to see the patient, [id number] patient care, completing clinical documentation, obtaining and/or reviewing separately obtained history, performing a medically appropriate examination, counseling and educating the patient/family/caregiver, and independently interpreting results (not separately reported). 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 Problem List As Of Date 06/16/2024 Noted Resolved Scheuermann disease [M42.00] Smoker [F17.200] Follow-up and Disposition History for Encounter Date Provider Department Center 06/16/2024 [id number] JIMENEZ SPNSMN [facility] B[facility] Encounter Status:Closed by EVETTE JIMENEZ on 06/16/24 PROGRESS Observed: 06/16/2024 2:20 PM Status: COMPLETED Source: [facility] HNO ID: [id number] Author: EVETTE JIMENEZ APRN.CNP Service: ? Author Type: Nurse Practitioner Type: Progress Notes Filed: 06/16/2024 16:49 Note Text: SPINE SURGERY NEW PATIENT This is an in person visit DATE OF SERVICE: June 16, 2024 This is an in-person visit. SUBJECTIVE HISTORY OF PRESENT ILLNESS: Jose Jane is a 34 year old male presenting with father. CHIEF COMPLAINT: chronic back pain into BLE PREVIOUS SPINAL SURGERY: None DURATION OF SYMPTOMS: Greater Than 1 Year Saw Evette Thompson PA-C 04/17/2024: Jose Jane is a 34 year old male presenting today with chronic back pain > bilateral leg pain. CT lumbar spine reviewed. Patient states that he does have lumbar MRI, which was done in June 2023. He will request that imaging be sent over to office for review. He will contact office when this is sent over. Consider VV with surgical JERICHO for review. Jose Jane will proceed with getting lumbar MRI [...] 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 Jose Jane is a 34 year old male with CC of chronic back pain into BLE. Notes sx since 18yo. Lumbar spine imaging with mild spondylosis without neural compression of significance Jose Jane is not a candidate for surgery at this time. Surgery is not indicated [facility] Follow up with spine surgery: Not required I spent a total of 15 minutes on the date of the service which included preparing to see the patient, [id number]-nj-[id number] patient care, completing clinical documentation, obtaining and/or reviewing separately obtained history, performing a medically appropriate examination, counseling and educating the patient/family/caregiver, and independently interpreting results (not separately reported). SIGNATURE: Evette Jimenez APRN.CNP PATIENT NAME: Jose Jane DATE: June 16, 2024 TIME: 2:55 PM PAGER: DEMARCUS Observed: 05/29/2024 12:00 AM Status: COMPLETED Source: [facility] Telephone (NIQ) JOSE JANE ([id number]) 1990 M Date Time Provider Department 05/29/24 EVETTE THOMPSON During your visit today, we recorded the following information about you: Abi Fried 05/29/2024 9:58 AM Signed Pt called to check on his MRI imaging from [place]. It's not available on [employer] AND no report scanned. Pt asked me to obtain imaging AND report and update him and wanted to schedule another appt. Pls call back with update He will request that imaging be sent over to office for review. He will contact office when this is sent over. Consider VV with surgical JERICHO for review Abi Fried 06/02/2024 9:14 AM Signed Received the following record(s) via fax. -Cathy - Report MR Lumbar Spine wo/w 03/29/23 Record(s) scanned into pt's chart. Abi Alvares 06/04/2024 2:31 PM Signed MRI is available on [employer] Allergies As of Date: 05/29/2024 Noted Allergy Reaction LORAZEPAM 06/12/2013 7 - Swelling PENICILLINS 02/18/2002 VICODIN (HYDROCODONE-ACETAMINOPHE*06/12/2013 4 - Hives Date Reviewed: 04/17/2024 Reviewed by: Mi French OCCA - Fully Assessed Reason for Visit: Patient Question [5547] Prescriptions as of 06/04/2024 - clonazePAM (KLONOPIN) [...] disease [M42.00] Smoker [F17.200] Encounter Status:Closed by ABI FRIED on 06/04/24 MEDICATION MANAGEMENT Observed: 05/18/19 10:21 AM Status: C Source: [facility] From: JEREMI MARIE DO To: [facility] ([facility] Sent: 05/18/2024 10:21:27 EST Subject: FW: Medication Management Due Date/Time: 05/19/2024 10:14:00 EST Caller Name: JOSE JANE; Caller Number: H From: [id number] To: JEREMI MARIE DO Sent: May 18, 2024 9:14:26 AM EDUCATIONAL THERAPY TEACHER Subject: Medication Management Due: May 19, 2024 12:07:14 AM EDUCATIONAL THERAPY TEACHER On Hold Pending Signature Drug: clonazePAM (clonazePAM [...] 0 Substitutions Allowed Notes from Pharmacy: sent MEDICATION MANAGEMENT Observed: 05/14/19 12:04 PM Status: C Source: [facility] From: JEREMI MARIE DO To: [facility] ([facility] Sent: 05/14/2024 12:04:59 EST Subject: FW: Medication Management Due Date/Time: 05/15/2024 11:53:00 EST Caller Name: JOSE JANE; Caller Number: H From: [facility] To: JEREMI MARIE DO Sent: May 14, 2024 10:53:18 AM EDUCATIONAL THERAPY TEACHER Subject: Medication Management Due: May 15, 2024 12:11:03 AM EDUCATIONAL THERAPY TEACHER On Hold Pending Signature Drug: clonazePAM (clonazePAM 0.5 mg oral tablet), 1 tab(s) Oral BID Quantity: 60 tab(s) Days Supply: 0 Refills: 0 Substitutions Allowed Notes from Pharmacy: Dispensed Drug: clonazePAM (clonazePAM 0.5 mg oral tablet), TAKE 1 TABLET BY MOUTH TWICE DAILY Quantity: 60 tab(s) Days Supply: 30 Refills: 0 Substitutions Allowed Notes from Pharmacy: From: Fanny Raman To: [facility] Sent: 05/14/2024 16:19:40 EST Subject: FW: Medication Management Not Approved: proposed to provider clonazePAM (clonazepam 0.5 mg tablet) TAKE 1 TABLET BY MOUTH TWICE DAILY Qty: 60 tab(s) Days Supply: 30 Refills: 0 Substitutions Allowed Route To Pharmacy - [facility] Signed by Fanny Raman MEDICATION MANAGEMENT Observed: 05/10/20 24 2:13 PM Status: C Source: [facility] From: JEREMI MARIE DO To: [facility] Clinical Pool ([facility] Sent: 05/10/2024 14:13:26 EST Subject: FW: Medication Management Due Date/Time: 05/10/2024 19:04:00 EST Caller Name: JOSE JANE; Caller Number: H From: [facility] To: JEREMI MARIE DO Sent: May 07, 2024 6:04:58 PM EDUCATIONAL THERAPY TEACHER Subject: Medication Management Due: May 08, 2024 12:02:07 AM EDUCATIONAL THERAPY TEACHER On Hold Pending Signature Drug: clonazePAM (clonazePAM 0.5 mg oral tablet), 1 tab(s) Oral BID Quantity: 60 tab(s) Days Supply: 0 Refills: 0 Substitutions Allowed Notes from Pharmacy: Dispensed Drug: clonazePAM (clonazePAM 0.5 mg oral tablet), TAKE 1 TABLET BY MOUTH TWICE DAILY Quantity: 60 tab(s) Days Supply: 30 Refills: 0 Substitutions Allowed Notes from Pharmacy: From: Lina Meneses MA To: [facility] Sent: 05/11/2024 08:46:54 EST Subject: FW: Medication Management Not Approved: Refill not appropriate, proposal sent to provider clonazePAM (clonazepam 0.5 mg tablet) TAKE 1 TABLET BY MOUTH TWICE DAILY Qty: 60 tab(s) Days Supply: 30 Refills: 0 Substitutions Allowed Route To Pharmacy - [facility] Signed by Lina Meneses MA PROGRESS Observed: 04/17/2024 2:58 PM Status: COMPLETED Source: [facility] ID: [id number] Author: EVETTE THOMPSON PA-C Service: ? Author Type: Physician Chair Caner Type: Progress Notes Filed: 04/17/2024 15:17 Note Text: SPINE SURGERY OUTPATIENT CONSULT This is an in-person visit. SERVICE DATE: 04/17/2024 PCP: No primary care provider on file. REFERRING PROVIDER: [place] [id number] Consult requested for an opinion regarding the evaluation and treatment of back pain. My final impression and recommendations will be communicated back to the requesting physician by way of the shared medical record or letter via [place] mail. SUBJECTIVE Jose Jane is a 34 year old male [...] pain. 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 MUSCLE TONE: Normal. MOTOR: 5/5 [...] pain with bilateral sciatica (primary encounter diagnosis) Jose Jane is a 34 year old male presenting today with chronic back pain > bilateral leg pain. CT lumbar spine reviewed. Patient states that he does have lumbar MRI, which was done in June 2023. He will request that imaging be sent over to office for review. He will contact office when this is sent over. Consider VV with surgical JERICHO for review. Jose Jane will proceed with getting lumbar MRI uploaded to [facility] for review. 1. No Orders Entered Today 2. Follow up: Following above Imaging Ordered: None The majority of the visit was spent counseling and/or coordinating care for the patient. The patient was counseled regarding low back pain. Total face to face time was 45 minutes. SIGNATURE: Evette Thompson PA-C PATIENT NAME: Jose Jane DATE: April 17, 2024 TIME: 2:58 PM PAGER:[phone] CNOV Observed: 04/17/2024 2:20 PM Status: COMPLETED Source: [facility] Office Visit (SPNSMN) RYANJOSE Julissa ([id number]) 1990 M Date Time Provider Department 04/17/24 2:20 PM EVETTE THOMPSON During your visit today, we recorded the following information about you: Pulse Blood pressure Weight Height 92/minute 125/84 68.5 kg 1.803 m Evette Thompson PA-C 04/17/2024 3:17 PM Signed SPINE SURGERY OUTPATIENT CONSULT This is an in-person visit. SERVICE DATE: 04/17/2024 PCP: No primary care provider on file. REFERRING PROVIDER: [facility] [id number] Consult requested for an opinion regarding the evaluation and treatment of back pain. My final impression and recommendations will be communicated back to the requesting physician by way of the shared medical record or letter via US mail. SUBJECTIVE Jose Jane is a 34 year old male [...] pain. 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 MUSCLE TONE: Normal. MOTOR: 5/5 [...] pain with bilateral sciatica (primary encounter diagnosis) Jose Jane is a 34 year old male presenting today with chronic back pain > bilateral leg pain. CT lumbar spine reviewed. Patient states that he does have lumbar MRI, which was done in June 2023. He will request that imaging be sent over to office for review. He will contact office when this is sent over. Consider VV with surgical JERICHO for review. Jose Jane will proceed with getting lumbar MRI uploaded to [facility] for review. 1. No Orders Entered Today 2. Follow up: Following above Imaging Ordered: None The majority of the visit was spent counseling and/or coordinating care for the patient. The patient was counseled regarding low back pain. Total face to face time was 45 minutes. SIGNATURE: Evette Thompson PA-C PATIENT NAME: Jose Jane DATE: April 17, 2024 TIME: 2:58 PM PAGER:[phone] Evette Thompson PA-C 04/17/2024 3:11 PM Signed Please obtain copy of lumbar MRI and bring it to appointment or mail to; Evette Thompson PA-C [address] / [address] [place] [id number] OR have imaging location electronically upload MRI to [facility]. Thank you, Evette Thompson PA-C [phone] Referring Provider: KARIE LÓPEZ [[id number]] Allergies As of Date: 04/17/2024 Noted Allergy Reaction LORAZEPAM 06/12/2013 7 - Swelling PENICILLINS 02/18/2002 VICODIN (HYDROCODONE-ACETAMINOPHE*06/12/2013 4 - Hives Date Reviewed: 04/17/2024 Reviewed by: Mi French OCCA - Fully Assessed Reason for Visit: New Patient [172] Primary Visit Diagnosis:Chronic bilateral low back pain with bilateral sciatica [M54.42, M54.41, G89.29] Prescriptions as of 04/17/2024 - clonazePAM (KLONOPIN) 0.5 mg tablet Take [...] as directed. 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 Thank you, Evette Thompson PA-C [phone] Encounter Status:Closed by EVETTE THOMPSON on 04/17/24 MEDICATION MANAGEMENT Observed: 04/13/20 24 7:31 AM Status: C Source: [facility] From: JEREMI MARIE DO To: [facility] Clinical Pool ([facility]); Sent: 04/13/2024 07:31:36 EST Subject: FW: Medication Management Due Date/Time: 04/13/2024 11:38:00 EST Caller Name: JOSE JANE; Caller Number: H From: [facility]72 To: JEREMI MARIE DO Sent: April 10, 2024 10:38:07 AM EDUCATIONAL THERAPY TEACHER Subject: Medication Management Due: April 11, 2024 12:19:32 AM EDUCATIONAL THERAPY TEACHER On Hold Pending Signature Drug: clonazePAM (clonazePAM [...] Notes from Pharmacy: From: Fanny Raman To: [facility] #72 Sent: 04/13/2024 08:47:18 EST Subject: FW: Medication Management Not Approved: proposed to provider clonazePAM (clonazepam 0.5 mg tablet) TAKE 1 TABLET BY MOUTH TWICE DAILY Qty: 60 tab(s) Days Supply: 30 Refills: 0 Substitutions Allowed Route To Pharmacy - [facility] #72 Signed by Fanny Raman Not Approved: proposed to provider clonazePAM (clonazepam 0.5 mg tablet) TAKE 1 TABLET BY MOUTH TWICE DAILY Qty: 60 tab(s) Days Supply: 30 Refills: 0 Substitutions Allowed Route To Pharmacy - [facility] #72 Signed by Fanny Raman Not Approved: proposed to provider clonazePAM (clonazepam 0.5 mg tablet) TAKE 1 TABLET BY MOUTH TWICE DAILY Qty: 60 tab(s) Days Supply: 30 Refills: 0 Substitutions Allowed Route To Pharmacy - [facility] #72 Signed by Fanny Raman PROGRESS Observed: 04/01/2024 2:03 PM Status: COMPLETED Source: [facility] ID: [id number] Author: JENNY LUBIN APRN.SPECIFICATIONS CHECKER Service: ? Author Type: Nurse Practitioner Type: Progress Notes Filed: 04/01/2024 14:11 Note Text: Per Triage: Jose Jane is a 34 year old male that reports symptoms of LBP, pelvic pain, R>L leg pian, numbness, weakness, difficulty walking. Referring provider: Karie López MD Is this a 2nd opinion [...] on CD to visit (spine MRIs, xrays) MEDICATION MANAGEMENT Observed: 03/05/20 4:00 PM Status: C Source: [facility] From: JEREMI MARIE DO To: [facility] Clinical Pool ([facility]); Sent: 03/05/2024 16:00:43 EDT Subject: FW: Medication Management Due Date/Time: 2024 14:54:00 EDT Caller Name: JOSE JANE; Caller Number: H From: [facility] To: JEREMI MARIE DO Sent: March [...] Notes from Pharmacy: From: Fanny Raman To: [facility] Sent: 2024 09:01:05 EDT Subject: FW: Medication Management Not Approved: proposed to provider gabapentin (gabapentin 300 mg capsule) TAKE 1 CAPSULE BY MOUTH THREE TIMES DAILY Qty: 90 cap(s) Days Supply: 30 Refills: 0 Substitutions Allowed Route To Pharmacy - [facility] #72 Signed by Fanny Raman CONSULTATION/SPECIALIST NOTE Observed: 8:27 AM Status: F Source: [facility] [id number]#1.00OTGTIFF MEDICATION MANAGEMENT Observed: 02/11/20 11:54 AM Status: C Source: [facility] From: JEREMI MARIE DO To: [facility] Clinical Pool ([facility]); Sent: 02/11/2024 11:54:36 EDT Subject: FW: Medication Management Due Date/Time: 02/12/2024 11:25:00 EDT Caller Name: RYANJOSE; Caller Number: H From: [facility]72 To: JEREMI MARIE DO Sent: February [...] Notes from Pharmacy: From: Fanny Raman To: [facility]72 Sent: 02/11/2024 12:02:46 EDT Subject: FW: Medication Management Not Approved: proposed to provider clonazePAM (clonazepam 0.5 mg tablet) TAKE 1 TABLET BY MOUTH TWICE DAILY Qty: 60 tab(s) Days Supply: 30 Refills: 0 Substitutions Allowed Route To Pharmacy - [facility] #72 Signed by Fanny Raman PROGRESS Observed: 02/06/2024 10:13 AM Status: COMPLETED Source: [facility] HNO ID: [id number] Author: ?, ?, ? Service: ? Author Type: ? Type: Progress Notes Filed: 04/01/2024 14:11 Note Text: Patient name: Jose Jane Are you being referred by a [facility] Spine Health Provider or Pain Management Provider at [facility]? No If answer is YES please schedule directly with surgeon, triage does not need to be completed. Is this a self-referral No If not, who is the Referring Provider Karie López MD Is this a 2nd opinion from another spine surgeon? Yes Were you offered surgery? No MRI/CT/myelogram within 12 months? Yes If NO , please refer to medical spine or PCP to complete above imaging, triage does not need to be completed If YES,? please ask for the name/address of the facility where the MRI/CT/myelogram was completed: [address] [address] MRI/CT/myelogram viewable in Epic: No If not, please provide [phone] to fax in imaging reports for review. Also, please inform patient to hand carry imaging disc to appointment. XR (spine) within 12 months: Yes If YES,? please ask for the name/address of the facility where the XR was completed: [place] [address] [place] [address] Dr. Pinzon's patients: Have you had previous [...] completed Inj - [facility] - [address], [place] [address] PT - [facility] - [address] [place] [id number] [facility] - [address], [place] [phone] Have you tried any other kinds of [...] where the surgery was completed: Additional Comments [phone] MEDICATION MANAGEMENT Observed: 02/03/20 24 4:23 PM Status: C Source: [facility] From: JEREMI MARIE DO To: [facility] Clinical Pool ([facility] Sent: 02/03/2024 16:23:38 EDT Subject: FW: Medication Management Due Date/Time: 02/04/2024 15:09:00 EDT Caller Name: JOSE JANE; Caller Number: H From: [facility] To: JEREMI MARIE DO Sent: February [...] Notes from Pharmacy: From: Fanny Raman To: [facility]72 Sent: 02/04/2024 08:27:41 EDT Subject: FW: Medication Management Not Approved: proposed to provider gabapentin (gabapentin 300 mg capsule) TAKE 1 CAPSULE BY MOUTH THREE TIMES DAILY Qty: 90 cap(s) Days Supply: 30 Refills: 0 Substitutions Allowed Route To Pharmacy - [facility] #72 Signed by Fanny Raman CONSULTATION/SPECIALIST NOTE Observed: 0 01/28/2024 3:44 PM Status: F Source: [facility] [id number]#1.00OTGTIFF CONSULTATION/SPECIALIST NOTE Observed: 0 01/24/2024 3:38 PM Status: C Source: [facility] [id number]#1.00OTGTIFF CONSULTATION NOTE Observed: 01/24/2024 2:05 PM Status: F Source: [facility] Consultation Note Patient: JOSE JANE Age: 33 years Sex: Male : 1990 Associated Diagnoses: None Author: Yanet Rodgers PA-C Subjective Chief complaint 01/24/2024 13:44 EDT [...] He states that he was in the [place] ED recently and they were going to [...] list: All Problems Smoker / SNOMED CT 024897277 / Confirmed Added secondary to documentation in Social History. Anxiety / SNOMED CT 55583804 / Confirmed Depression / SNOMED CT 8775078443 / Confirmed Osteoarthritis / SNOMED CT 9024790821 / Confirmed Objective Vital Signs 01/24/2024 13:44 [...] cannot continue like this. Integumentary: Warm, Dry, [place]. Neurologic: Alert, Oriented. Psychiatric: Cooperative, Appropriate mood & affect. 14 point review of systems was negative unless otherwise noted. Results Review * Final Report * Reason For Exam M54.12 M54.2 Entertainment CruisesCRIBE REPORT IMPRESSION: NO HIGH-GRADE NEUROFORAMINAL OR SPINAL [...] tissues are grossly unremarkable. Ordering Provider: Yanet Rodgers Signature Line FINAL REPORT Dictated: 12/13/2023 11:48 am Carlos Figueroa DO Signed (Electronic Signature): 12/13/2023 11:48 am Signed by: Carlos Figueroa DO Transcribed by: MAGGI Technologist: IVETT Technical Comments None RAD REPORT This document has an image Result type: MRI Spine Cervical w/o Contrast Result date: December 10, 2023 18:51 EDT Result status: Auth (Verified) Result title: MRI Spine Cervical w/o Contrast Performed by: Carlos Figueroa DO on December 13, 2023 11:48 EDT Verified by: Carlos Figueroa DO on December 13, 2023 11:48 EDT Encounter info: [id number], Piotr Mejia, Outpatient, 12/10/2023 - 12/10/2023 Lumbar MRI. 07/19/2023. L4-5 disc bulge extending [...] He declines. He was recently at the [place] ED. I would like to get these [...] with us as needed. MARTÍN score: 80%. Result Comment: Electronical ly Signed By: Yanet Rodgers PA-C\.br\Date and Time Signed: 01/24/24 14:08 EDT OUTSIDE RECORDS Observed: 01/22/2024 12:11 AM Status: F Source: [facility] [id number]#1.00OTGTIFF OPERATIVE REPORT Observed: 12/30/2023 2:56 PM Status: F Source: [facility] Operative Report Diagnosis: M54.16, lumbar radiculopathy Procedure: [...] agrees to comply to currently prescribed/recommended therapies. Result Comment: Electronical ly Signed By: Laci Moss DO\isiah\Date and Time Signed: 12/30/23 14:56 EDT MAIN OR INTRAOPERATIVE RECORD Observed: 12/30/2023 2:50 PM Status: F Source: [facility] Main OR Intraoperative Recor d IntraOp Document Type FT Summary Primary Physician: Laci Moss DO Finalized Date/Time: 12/30/23 14:56:10 Pt. Name: JOSE JANE Julissa Gonsalez/Sex: 1990 Male Med Rec #: [id number] Physician: Laci Moss DO Financial #: [id number] Pt. Type: P Room/Bed: / Admit/Disch: 12/30/23 13:25:36 - Institution: Case Times FTPM Entry 1 Patient Times In Room 12/30/23 14:47:00 Out Room 12/30/23 14:57:00 Procedure Times Start 12/30/23 14:50:00 Stop 12/30/23 14:56:00 Anesthesia Times Last Modified By: Cliff QUINTANILLA, Zhanna Hollingsworth 12/30/23 14:56:06 Case Attendance FTPM Entry 1 Entry 2 Entry 3 Case Attendee Laci Moss DO, RN, Zhanna Dent RN, Susan Quinn Role Performed Surgeon - Primary Clinical Staff Anesthesiologist - Primary Scrub - Primary Time In 12/30/23 14:47:00 12/30/23 14:47:00 12/30/23 14:47:00 Time Out 12/30/23 14:57:00 12/30/23 14:57:00 12/30/23 14:57:00 Procedure TRANSFORAMINAL EPIDURAL TRANSFORAMINAL EPIDURAL TRANSFORAMINAL EPIDURAL STEROID STEROID STEROID INJECTIO(Bilateral) INJECTIO(Bilateral) INJECTIO(Bilateral) Comments Last Modified By: Cliff QUINTANILLA, Zhanna Coronado RN, Zhanna Gaytan RN 12/30/23 14:56:07 12/30/23 14:56:07 12/30/23 14:56:07 Entry 4 Case Attendee Cely Whitaker Role Performed Mechanics Handyman Time In 12/30/23 14:47:00 Time Out 12/30/23 [...] No Time Out Zhanna Coronado RN, Given Participants Filipe QUINTANILLA, Ajay Monroy DO, Bradford A., Ott, Amy [...] and tissue Entry 1 Skin Integrity Intact, [place], Warm, & Skin Abnormality No Dry Outcomes [...] Positioning Device Pillow Under Head Large, Safety Strap, Pillow Large Under Knees Press Points Checked Yes By Zhanna Coronado RN Outcomes Met? Yes Last Modified By: Zhanna Coronado RN 12/30/23 14:48:08 Post-Care Text: The patient is free from signs and symptoms of injury related to positioning Transport To [facility] Pre-Care Text: Transports according to individual needs. Evaluates for signs and symptoms of skin and tissue injury as a result of transfer or transport Entry 1 Via Cart By Zhanna Coronado RN Safety Precautions Safety Strap, Side Outcomes Met? Yes Rails Up Last Modified By: Zhanna Coronado RN 12/30/23 14:48:12 Post-Care Text: The patient is free from signs and symptoms of injury related to transfer/transport Skin Prep FTPM Pre-Care Text: Performs skin preparations Entry 1 Procedure TRANSFORAMINAL EPIDURAL Prep Area BLOCK INJECTION SITE STEROID INJECTIO(Bilateral) Prep Agents Chloraprep/Dry Prior to Start Dry Time 12/30/23 14:47:00 Draping Stop Dry Time 12/30/23 14:50:00 Hair Removal Methods Not Indicated By Susan Dent RN Outcomes Met? Yes Last Modified By: Zhanna Coronado RN 12/30/23 14:48:22 Post-Care Text: The patient is free from signs and symptoms of infection Departure From OR [facility] Pre-Care Text: Transports according to individual needs. Evaluates for signs and symptoms of skin and tissue injury as a result of transfer or transport. Entry 1 Via Cart Safety Precautions Safety Strap, Side Rails Up PostOp Destination PACU Transported By Zhanna Coronado RN Patient Status Stable Report Given Miguelina Schuler RN To/Hand Off Communication Skin. Condition Dry, Intact Airway Maintenance Oxygen in Use? No Outcomes Met? Yes Last Modified By: Zhanna Coronado RN 12/30/23 14:48:29 Post-Care Text: The patient is free from signs and symptoms of injury related to transfer/transport Dressing/Packing FTPM Pre-Care Text: Administers care to wound sites Entry 1 Type Dressing Site and Details 4x4 gauze dressing covered with Tegaderm Opsite to site Outcomes Met? Yes Last Modified By: Zhanna Coronado RN 12/30/23 14:48:50 Post-Care Text: The patient is free from signs and symptoms of infection Medication Administration FTPM Pre-Care Text: Verifies allergies, administers prescribed medications and solutions, administers prescribed antibiotic therapy and immunizing agents as ordered, evaluates response to medications Administers prescribed medications and solutions Entry 1 Route of Admin Block Expiration Date Yes Verified Ordered By Laci Moss DO Transcribed/To Zhanna Coronado RN Field By Administered By Laci Moss DO Outcomes Met? Yes Last Modified By: Zhanna Coronado RN 12/30/23 14:48:56 Post-Care Text: The patient received appropriate medication(s) safely administered during the perioperative period X-Rays & Images FTPM Pre-Care Text: Assess history of previous radiation exposure and implements protective measures Entry 1 X-Ray Type C-Arm Contrast Used? Yes Outcomes Met? Yes Last Modified By: Zhanna Coronado RN 12/30/23 14:49:03 Post-Care Text: The patient is free from signs and symptoms of radiation injury Case Comments <None> Finalized By: Zhanna Coronado RN Document Signatures Signed By: Zhanna Coronado RN 12/30/23 14:56 MAIN OR PREOPERATIVE RECORD Observed: 2:15 PM Status: F Source: [facility] Main OR Preoperative Record Holding Area Document Type FTPM Summary Primary Physician: Laci Moss DO Finalized Date/Time: 12/30/23 13:34:55 Pt. Name: JOSE JANE/Sex: 1990 Male Med Rec #: [id number] Physician: Laci Moss DO Financial #: [id number] Pt. Type: P Room/Bed: / Admit/Disch: 12/30/23 [...] Date/Time: 12/30/23 13:28:00 Results Reviewed Yovani darden 0291 Personal Items: Glasses Comments: Personal Items Glasses [...] Signed By: Armando Stuart RN 12/30/23 13:34 CONSULTATION/SPECIALIST NOTE Observed: 0 12/12/2023 3:19 PM Status: F Source: [facility] [id number]#1.00OTGTIFF XR LUMBAR SPINE 6V W BENDING Observed: 12/12/2023 3:17 PM Status: COMPLETED Source: [facility] [place] [address] XRay Report Signed Patient: Jose Jane MR#: [id number] 1409 : 1990 Acct:[id number] Age/Sex: 33 / M ADM Date: 12/12/23 Loc: XD Room: Type: [facility] Attending Dr: Lesvia ROJO Copies to: [...] Polo Jr., DSadiqOSadiq12/12/2023 3:18 PM Dictation Location: [place] [address] Transcribed By: [facility] 12/12/23 151 Dictated By: Reece Polo Jr, DO 12/12/23 1517 Signed By: <Electronically signed by Reece Polo Jr, DO in OV> 12/12/23 1518 MEDICATION MANAGEMENT Observed: 12/11/19 11:56 AM Status: C Source: [facility] From: JEREMI MARIE DO To: [facility] Clinical Pool ([facility] Sent: 12/11/2023 11:56:05 EDT Subject: FW: Medication Management Due Date/Time: 12/12/2023 11:45:00 EDT Caller Name: JOSE JANE; Caller Number: H From: [facility][id number] To: JEREMI MARIE DO Sent: December 11, [...] from Pharmacy: From: Lina Meneses MA To: [facility] #[id number] Sent: 12/11/2023 13:39:16 EDT Subject: FW: Medication Management Not Approved: Refill not appropriate, proposal sent to provider clonazePAM (CLONAZEPAM 0.5 MG TABLET) take 1 tablet by mouth twice a day Qty: 60 tab(s) Days Supply: 30 Refills: 0 Substitutions Allowed Route To Pharmacy - [facility] #[id number] Signed by Lina Meneses MA XR SPINE CERVICAL 4 OR 5 VIEWS Observed: 12/10/2023 6:49 PM Status: F Source: [facility] Exam Date/Time: 12/10/2023 19:04 EDT Reason for [...] soft tissues are unremarkable. Ordering Provider: Yanet Rodgers FINAL REPORT Dictated: 12/13/2023 1:47 pm Jostin Garza MD Signed (Electronic Signature): 12/13/2023 1:47 pm Signed by: Jostin Garza MD Transcribed by: MAGGI Technologist: SERGEY Technical Comments Radiation Dose: Ka,r in mGy = na DAP = na MRI SPINE CERVICAL W/O CONTRAST Observed: 12/10/2023 6:10 PM Status: F Source: [facility] Exam Date/Time: 12/10/2023 18:51 EDT Reason for [...] are grossly unremarkable. Report Ordering Provider: Yanet Rodgers FINAL REPORT Dictated: 12/13/2023 11:48 am Carlos Figueroa DO Signed (Electronic Signature): 12/13/2023 11:48 am Signed by: Carlos Figueroa DO Transcribed by: MAGGI Technologist: IVETT Technical Comments None RAD - MRI REPORT Observed: 12/10/2023 11:40 AM Status: F Source: [facility] [id number]#1.00OTGTIFF RAD - OTHER RADIOLOGY REPORT Observed: 12/10/2023 11:34 AM Status: F Source: [facility] [id number]#1.00OTGTIFF MEDICATION MANAGEMENT Observed: 11/28/19 4:30 PM Status: C Source: [facility] From: JEREMI MARIE DO To: [facility] Clinical Pool ([facility] Sent: 11/28/2023 16:30:55 EDT Subject: FW: Medication Management Due Date/Time: 11/29/2023 15:43:00 EDT Caller Name: JOSE JANE; Caller Number: H From: [facility][id number] To: JEREMI MARIE DO Sent: November 28, [...] Pharmacy: From: Fanny Raman To: [facility] #[id number] Sent: 11/28/2023 17:19:25 EDT Subject: FW: Medication Management Not Approved: proposed to provider gabapentin (GABAPENTIN 300 MG CAPSULE) take 1 capsule by mouth three times a day Qty: 90 cap(s) Days Supply: 30 Refills: 0 Substitutions Allowed Route To Pharmacy - [facility] #[id number] Signed by Fanny Raman INSURANCE Observed: 11/26/2023 11:29 AM Status: F Source: [facility] [id number]#1.00OTGTIFF INSURANCE Observed: 11/26/2023 11:09 AM Status: F Source: [facility] [id number]#1.00OTGTIFF MEDICATION MANAGEMENT Observed: 09/30/19 7:45 AM Status: C Source: [facility] From: JEREMI MARIE DO To: [facility] Clinical Pool ([facility] Sent: 09/30/2023 07:45:59 EDT Subject: FW: Medication Management Due Date/Time: 09/30/2023 11:11:00 EDT Caller Name: RYAN JOSE; Caller Number: H From: [facility] #[id number] To: JEREMI MARIE DO Sent: September 29, [...] Pharmacy: From: Fanny Raman To: [facility] #[id number] Sent: 09/30/2023 11:50:18 EDT Subject: FW: Medication Management Not Approved: proposed to provider gabapentin (GABAPENTIN 300 MG CAPSULE) take 1 capsule by mouth three times a day Qty: 90 cap(s) Days Supply: 30 Refills: 0 Substitutions Allowed Route To Pharmacy - [facility] #[id number] Signed by Fanny Raman MEDICATION MANAGEMENT Observed: 08/29/19 12:16 PM Status: C Source: [facility] From: JEREMI MARIE DO To: [facility] Clinical Pool ([facility] Sent: 08/29/2023 12:16:35 EDT Subject: FW: Medication Management Due Date/Time: 08/30/2023 11:21:00 EDT Caller Name: JOSE JANE; Caller Number: H From: [facility] #[id number] To: JEREMI MARIE DO Sent: August 29, [...] Pharmacy: From: Fanny Raman To: [facility] #[id number] Sent: 08/29/2023 13:12:35 EDT Subject: FW: Medication Management Not Approved: proposed to provider gabapentin (GABAPENTIN 300 MG CAPSULE) take 1 capsule by mouth three times a day Qty: 90 cap(s) Days Supply: 30 Refills: 0 Substitutions Allowed Route To Pharmacy - [facility] #[id number] Signed by Fanny Raman PATIENT LETTER Observed: 08/19/2023 4:11 PM Status: F Source: [facility] [id number]#1.00OTGTIFF MEDICATION MANAGEMENT Observed: 07/30/19 1:51 PM Status: C Source: [facility] From: JEREMI MARIE DO To: [facility] Clinical Pool ([facility]); Sent: 07/30/2023 13:51:47 EDT Subject: FW: Medication Management Due Date/Time: 07/31/2023 12:36:00 EDT Caller Name: JOSE JANE; Caller Number: H From: [id number] To: JEREMI MARIE DO Sent: July 30, [...] Pharmacy: From: Fanny Raman To: [facility][id number] Sent: 07/30/2023 17:25:12 EDT Subject: FW: Medication Management Not Approved: PROPOSED TO PROVIDER FOR SIGNATURE gabapentin (GABAPENTIN 300 MG CAPSULE) take 1 capsule by mouth three times a day Qty: 90 cap(s) Days Supply: 30 Refills: 0 Substitutions Allowed Route To Pharmacy - [id number] Signed by Fanny Raman OUTSIDE RECORDS Observed: 07/17/2023 3:57 PM Status: F Source: [facility] [id number] ALLERGIES DATE TYPE / CODE NAME / CODE REACTION SEVERITY SOURCE 01/28/2024 DRUG INGREDI/41 1401966(SN OMED CT) HYDROCODONE [facility] 01/28/2024 DRUG INGREDI/41 4639452(SN OMED CT) ACETAMINOPHEN [facility] 06/12/2013 DRUG INGREDI/41 4481969(SN OMED CT) LORAZEPAM Confusion~Swellin g [facility] 06/12/2013 DRUG/54246 1003(SNOME D CT) [facility] DRUG INGREDI/41 0901121(SN OMED CT) LORAZEPAM SWELLING [facility] 06/12/2013 DRUG/56513 1003(SNOME D CT) HYDROCODONE-ACETAMI [facility] 02/18/2002 Drug Class/4195 45699(SNOM ED CT) PENICILLINS Anaphylaxis High [facility] 02/18/2002 Drug Class/4195 52587(SNOM ED CT) PENICILLINS [facility] Drug/74270 1003(SNOME D CT) penicillin [id number] Unknown [facility] Drug/87606 1003(SNOME D CT) Ativan [id number] Unknown [facility] Drug/99979 1003(SNOME D CT) Vicodin anaphyl Unknown [facility] [id number] 06(SNOMED CT) penicillins [id number] Severe (Severity Modifier) (Qualifier Value) [facility] [id number] 06(SNOMED CT) Vicodin [id number] Severe (Severity Modifier) (Qualifier Value) [facility] [id number] 06(SNOMED CT) Ativan [id number] Mild (Qualifier Value) [facility] ENCOUNTERS ADMIT/DISCHARGE ACCOUNT NUMBER ADMITTING ENCOUNTER CLASS LOCATION SOURCE 10/26/2024/10/27/19 [id number] Ambulatory SURG CLINICBuildi ng:[facility] 10/12/2024/10/13/19 [id number] Ambulatory SURG CLINICBuildi ng: SURG [facility] 09/29/2024 [id number] Ambulatory OFCC ClinicBuildi ng: OFCC ClinicRoom: OFCC Room 1 [facility] 09/15/2024 [id number] Ambulatory OF[facility] ClinicBuildi ng: OFCC ClinicRoom: OFCC Room 2 [facility] 08/03/2024 [id number] Ambulatory OFCC ClinicBuildi ng: OFCC [facility] 07/30/2024/07/31/19 [id number] Ambulatory OFCC ClinicBuildi ng: OFCC [facility] 06/30/2024/06/30/19 [id number] Ambulatory OFCC ClinicBuildi ng:\.br\MH D [facility] 06/23/2024 [id number] Ambulatory OFCC ClinicBuildi ng:[facility] 06/18/2024/06/18/19 [id number] Ambulatory Building:[address] Ambulatory 06/16/2024/06/16/19 25 [id number] Ambulatory [facility] HospitalBuil ding:NSSP [facility] 06/12/2024/06/12/19 25 [id number] SINAN RODRIGEZ Amb[facility]: MANISHAWCLAIRE OOLBed: 7150 [facility] 05/21/2024/05/21/19 25 [id number] Ambulatory Building:[address] Ambulatory 04/17/2024/04/17/20 24 [id number] [facility] 04/15/2024/04/15/20 24 [id number] Ambulatory Building:[facility] 03/23/2024/03/23/20 24 [id number] Ambulatory OF[facility] ClinicBuildi ng: OFCC ClinicRoom: OFCC Room 1 [facility] 02/25/2024/02/25/20 24 [id number] Ambulatory Building:[facility] 01/24/2024/01/24/20 24 [id number] Yanet Rodgers Ambulatory [facility] :FT PMCRoom: DISCH [facility] 01/16/2024/01/16/20 24 [id number] Ambulatory OFCC ClinicBuildi ng: OFC Clinic [facility] 01/01/2024/01/01/20 24 [id number] Ambulatory OF[facility] ClinicBuildi ng:MH [facility] 12/30/2023/12/30/19 24 [id number] Ambulatory [facility] :FT OPS [facility] 12/12/2023/12/12/19 24 [id number] Lesvia Rodgers [facility] 12/10/2023/12/10/19 24 [id number] Yanet Rodgers Ambulatory [facility] :FT MR [facility] 10/02/2023/10/02/19 24 [id number] Ambulatory OFCC ClinicBuildi ng: OFC Clinic [facility] 07/02/2023/07/02/19 24 [id number] Ambulatory OFCC ClinicBuildi ng: OFCC ClinicRoom: OFCC Room 2 [facility] PAYERS ENCOUNTER GUARANTOR PAYER SUBSCRIBER SOURCE 10/26/2024 JOSE DELGADO: [id number] [address] [address]Vkv: () Primary Insurance:CARESOURCEPo licy Number: [id number] Date:0956-92-28Vocf Name:Medicaid [address] [address]XK: JOSE CHAVEZOB: [id number] [address] [place] [address]Fkm: () [facility] 10/12/2024 JOSE CHAVEZOB: E [address] [place] [address], [place] [address]Wjn: () Primary Insurance:CARESOURCEPo licy Number: [id number] Date:1719-33-96Read Name:Medicaid [address], [place] [address]FG: JOSE CRUZALPESHNDOB: [id number] [address] [place] [address], [place] [address]Mmz: () [facility] 09/29/2024 JOSE CHAVEZOB: E [address] [place] [address] [place] [address]Dtp: () Primary Insurance:CARESOURCEPo licy Number: [id number] Date:4663-85-31Ogzp Name:Medicaid [address], [place] [address]OH: JOSE JERINDOB: [id number] [place] [address]Ozc: () [facility] 09/15/2024 JOSE WILCOXNDOB: [id number] [address] [place] [address]Pbe: () Primary Insurance:CARESOURCEPo licy Number: [id number] Date:4853-25-03Seks Name:Medicaid [address], [place] [address]RO: JOSE WILCOXNDOB: [id number] [place] [address], [place] [address]Aho: () [facility] 08/03/2024 JOSE WILCOXNDOB: [id number] [address] [place] [address] [place] [address]Fgl: () Primary Insurance:CARESOURCEPo licy Number: [id number] Date:5382-72-96Qazo Name:Medicaid [address], [place] [address]YV: JOSEDAYSI WILCOXNDOB: [id number] [place] [address] [place] [address]Vcf: () [facility] 07/30/2024 JOSE CRUZEGANDOB: E [address] [place] [address] [place] [address]Rzm: () Primary Insurance:CARESOURCEPo licy Number: [id number] Date:2019-74-32Vvnf Name:Medicaid [address], [place] [address]GV: JOSE WILCOXNDOB: [id number] [address] [place] [address] [place] [address]Hln: () [facility] 06/23/2024 JOSE CRUZEGANDOB: [address] [place] [address] [place] [address]Tgh: () Primary Insurance:CARESOURCEPo licy Number: [id number] Date:4430-60-37Xnfq Name:Medicaid [address], [place] [address]YX: JOSE CRUZEGANDOB: [id number] [address] [place] [address] [place] [address]Nub: () [facility] 06/18/2024 JOSE KEEGANDOB: [id number] [address] [place] [address] [place] [address]Oqh: () Primary Insurance:CARESOURCEPo licy Number: [id number] Date:2023-04-12 JOSE CRUZEGANDOB: [id number] [address] [place] [address] [place] [address]Nen: () [facility] 06/16/2024 Primary Insurance:CARESOURCE MEDICAIDPolicy Number: [id number] Date:9961-71-24Rdhi Name:Nia Costa KATHYOB: [id number] [facility] [address], [place] [address] [facility] 06/12/2024 JOSE CHAVEZOB: [id number] [address] [address]Oev: () Primary Insurance:CARESOURCEPo licy Number: [id number] Date:2023-04-12 JOSE CHAVEZOB: [id number] [address] [place] [address]Ofz: () [facility] 05/21/2024 JOSE CHAVEZOB: [id number] [address] [place] [address]Ors: () Primary Insurance:CARESOURCEPo licy Number: [id number] Date:2023-04-13 JOSE CHAVEZOB: [id number] [address] [place] [address]Pty: () [facility] 04/17/2024 Primary Insurance:CARESOURCE MEDICAIDPolicy Number: [id number] Date:5374-29-06Phwn Name:Nia JOSE CHAVEZOB: [id number] [facility] [address], [place] [address] [facility] 04/15/2024 JOSE CHAVEZOB: [id number] [facility] [address] [place] [address]Xqg: () Primary Insurance:CARESOURCE MEDICAIDPolicy Number: [id number] Date:2023-04-12 JOSE CHAVEZOB: [id number] [facility] [address] [place] [address] [facility] 03/23/2024 JOSE CHAVEZOB: E [address] [address]Nws: (HP) Primary Insurance:CARESOURCEPo licy Number: [id number] Date:2792-45-87Vzce Name:Medicaid [address], [place] [address]PF: JOSE CHAVEZOB: [id number] [address] [address]Brn: (HP) [facility] 02/25/2024 JOSE CHAVEZOB: E [facility] [address] [address]Mtr: (HP) Primary Insurance:CARESOURCE MEDICAIDPolicy Number: [id number] Date:2023-04-12 JOSE CHAVEZOB: [id number] E [facility] [address] [address] [facility] 01/24/2024 JOSE CHAVEZOB: [place] [address] ETel: (HP) Primary Insurance:CARESOURCEPo licy Number: [id number] Date:6599-59-01HQ [address] [address]FG: JOSE SAENZ [facility] 01/16/2024 JOSE CHAVEZOB: [id number] [address] [address]Peu: (HP) Primary Insurance:CARESOURCEPo licy Number: [id number] Date:5235-52-21Mafi Name:Medicaid [address], [place] [address]LT: JOSE CHAVEZOB: [id number] [address]Zfn: (HP) [facility] 01/01/2024 JOSE CHAVEZOB: E [address] [address]Agl: () Primary Insurance:CARESOURCEPo licy Number: [id number] Date:2983-13-90Qidk Name:Medicaid [address] [address]YG: JOSE CHAVEZOB: [id number] [address] [address]Qpp: () [facility] 12/30/2023 JOSE CHAVEZOB: [id number] [place] [address] ETel: () Primary Insurance:CARESOURCEPo licy Number: [id number] Date:0082-68-21OT[address] [address]HS: JOSE SAENZ [facility] 12/12/2023 [address] [address]Wlt: () Primary Insurance:CaresourcePo licy Number: [id number] Date:8768-67-44Vlu[address] [address]KR: Jose ChavezOB: [id number] [address] [address]Jhc: () [facility] 12/12/2023 Secondary Insurance:Self PayPolicy Number: Effective Date:2023-12-12 [facility] 12/10/2023 JOSE CHAVEZOB: [id number] [place] [address] ETel: () Primary Insurance:CARESOURCEPo licy Number: [id number] Date:6119-06-26QG[address] [address]TV: [facility] 10/02/2023 JOSE CHAVEZOB: [id number] [address] [place] [address]Orl: () Primary Insurance:CARESOURCEPo licy Number: [id number] Date:4194-77-89Ahar Name:Medicaid [address], [place] [address]VI: JOSE CHAVEZOB: [id number] [address] [place] [address]Gvc: () [facility] 07/02/2023 JOSE CHAVEZOB: [id number] [address] [place] [address]Omc: () Primary Insurance:CARESOURCIRVINGo licy Number: [id number] Date:3483-51-50Xlde Name:Medicaid [address], [place] [address]HK: JOSE CHAVEZOB: [id number] [address] [place] [address]Nnw: () [facility]
[2024-11-18 05:23] VITALS: BP 155/91; PULSE 60; TEMP 37.1; O2SAT 98; BMI 20.8
--- OUTSIDE RECORDS SUMMARY | 2024-11-18 05:25 | XMS_ITS | Clinical Summary ---
Author Organization [facility] Address [id number] [place] [address] Care Team Providers Care Case Management Director Name Role Phone Jeremi Mccullough DO Primary Care Provider Allergies Active Allergy Reactions Criticality Noted Date Comments Lorazepam Confusion 12/09/2017 Penicillins Anaphylaxis High 12/09/2017 Hydrocodone-Acetaminophen Hives 12/09/2017 Medications buprenorphine-na loxone (SUBOXONE) 2-0.5 mg per SL tablet Place under the tongue daily. Active QUEtiapine (SEROquel) 100 mg tablet Take by mouth nightly. Active Active Problems No known active problems Social History Tobacco Use Types Packs/Day Years Used Date Smoking Tobacco: Every Day Cigarettes Smokeless Tobacco: Former Comments:also vapes Alcohol Use Standard Drinks/Week Comments Not Currently 0 (1 standard drink = 0.6 oz pur e alcohol) Childcare Answer Date Recorded Childcare Unknown 10/23/2018 Employment Answer Date Recorded Employment Unknown 10/23/2018 Purpose - Life Answer Date Recorded Purpose and direction in life Unknown Sex and Gender Information Value Date Recorded Sex Assigned at Not on file Legal Sex Male 2:43 AM EDT Gender Identity Not on file Sexual Orientation Not on file Last Filed Vital Signs Vital Sign Reading Time Taken Comments Blood Pressure 131/90 12/08/2020 12:06 PM EDT Pulse 53 12/08/2020 12:06 PM EDT Temperature 36.3 C (97.4 F) 12/08/2020 12:06 PM EDT Respiratory Rate 22 12/08/2020 12:06 PM EDT Oxygen Saturation 100% 12/08/2020 12:06 PM EDT Inhaled Oxygen Concentration - - Weight 72.6 kg (160 lb) 12/08/2020 12:06 PM EDT Height 172.7 cm (5' 8 ) 12/08/2020 12:06 PM EDT Body Mass Index 24.33 12/08/2020 12:06 PM EDT Plan of Treatment Health Maintenance Due Date Last Done Comments Depression Screening 2000 Tobacco Screening 2000 Adult BMI Screening 2006 DTaP,Tdap and Td Vaccines (1 - Tdap) 2007 Influenza Vaccine 01/11/2025 Medical Devices Not on file Insurance [employer] MEDICAID Care Teams Case Management Director Relationship Specialty Start Date End Date Jeremi Mccullough DO PCP - General Family Medicine 07/19/20
--- OUTSIDE RECORDS SUMMARY | 2024-11-18 05:25 | XMS_ITS | Clinical Summary ---
Author Organization [facility] Address [address] [place] [address] Care Team Providers Care Transit Worker Name Role Phone House, Jeremi Ramos MD Primary Care Provider [phone] Allergies Active Allergy Reactions Criticality Noted Date Comments Acetaminophen Hives 01/28/2024 Hydrocodone 01/28/2024 Other Reaction(s): Hives Hydrocodone-Acetaminophen Hives 06/12/2013 Lorazepam Swelling 06/12/2013 Other Reaction(s): Confusion, Drowsy Penicillins Anaphylaxis High 02/18/2002 Other Reaction(s): Hives Medications Acetaminophen 500 MG capsule Four times daily 4 Active buprenorphine-n aloxone (Suboxone) 8-2 MG SL tablet DISSOLVE ONE TABLET UNDER THE TONGUE TWICE DAILY 4 Active clonazePAM (KlonoPIN) 0.5 MG tablet 4 Active gabapentin (Neurontin) 300 MG capsule Three times daily 4 Active QUEtiapine (SEROquel) 50 MG tablet 4 Active vilazodone (Viibryd) 40 mg tablet Take 40 mg by mouth Daily 4 Active fluticasone (Flonase) 50 MCG/ACT nasal sprayIndication s:DNS (deviated nasal septum) Administer 2 sprays into each nostril Daily Shake gently. Before first use, prime pump. After use, clean tip and replace cap. 48 g 3 4 02/25/20 Active methylPREDNISol one (Medrol Dospak) 4 MG tablets TAKE BY MOUTH DIRECTED ON PACKAGE Active Active Problems Problem Noted Date Diagnosed Date DNS (deviated nasal septum) 02/25/2024 Hypertrophy of both inferior nasal turbinates Lumbar degenerative disc disease 02/17/2024 Lumbar stenosis 02/17/2024 Mood disorder 02/17/2024 Neuropathy 02/17/2024 Lumbar radiculopathy 02/17/2024 Sacral radiculopathy 02/17/2024 Scheuermann disease ([facility]) 02/17/2024 Smoker 02/17/2024 Family History Medical History Relation Name Comments Hypertension Father Cancer Mother Relation Name Status Comments Father Alive Mother Social History Tobacco Use Types Packs/Day Years Used Date Smoking Tobacco: Every Day Cigarettes Smokeless Tobacco: Former Chew Tobacco Cessation:Ready to Q uit: Not Asked; Counseling Given: Not Answered Alcohol Use Standard Drinks/Week Comments Not Currently 0 (1 standard drink = 0.6 oz pur e alcohol) Sex and Gender Information Value Date Recorded Sex Assigned at Not on file Legal Sex Male 7:03 PM EDT Gender Identity Not on file Sexual Orientation Not on file Last Filed Vital Signs Vital Sign Reading Time Taken Comments Blood Pressure 105/63 04/15/2024 2:31 PM EST Pulse - - Temperature - - Respiratory Rate - - Oxygen Saturation - - Inhaled Oxygen Concentration - - Weight 68.9 kg (152 lb) 04/15/2024 2:31 PM EST Height 177.8 cm (5' 10 ) 04/15/2024 2:31 PM EST Body Mass Index 21.81 04/15/2024 2:31 PM EST Plan of Treatment Not on file Insurance [employer] MEDICAID Care Teams Transit Worker Relationship Specialty Start Date End Date Jeremi Mccullough MD [address] [place] [address] PCP - General Family Medicine 02/10/24
--- OUTSIDE RECORDS SUMMARY | 2024-11-18 05:25 | XMS_ITS | Clinical Summary ---
Author Organization [facility] Address [address] [place] [address] Phone Care Team Providers Care [employer] Administrator Name Role Phone Unavailable Primary Care Provider Unavailabl e Allergies Active Allergy Reactions Criticality Noted Date Comments Hydrocodone Hives 01/28/2024 Other Reaction(s): Hives Lorazepam Confusion,Swelling 06/12/2013 Other Reaction(s): Confusion, Drowsy Penicillins Anaphylaxis High 02/18/2002 Other Reaction(s): Hives Medications vilazodone (Viibryd) 40 mg tablet Take 1 tablet (40 mg) by mouth once daily. Active buprenorphine-n aloxone (Suboxone) 8-2 mg SL tablet DISSOLVE ONE TABLET UNDER THE TONGUE TWICE DAILY Active QUEtiapine (SEROquel) 50 mg tablet Take 1 tablet (50 mg) by mouth once daily. Active gabapentin (Neurontin) 300 mg capsule Take 1 capsule (300 mg) by mouth 3 times a day. Active fluticasone (Flonase) 50 mcg/actuation nasal spray 2 sprays once daily. 4 02/25/20 25 Active acetaminophen (Tylenol 8 HOUR) 650 mg ER tablet Take 1 tablet (650 mg) by mouth every 8 hours if needed for mild pain (1 - 3). Do not crush, chew, or split. Active oxymetazoline 0.05 % nasal sprayIndication s:Nasal deformity,Devia faraz nasal septum,Nasal congestion Use as needed for post operative bleeding from the nose. 30 mL 5 Active Active Problems Problem Noted Date Diagnosed Date Nasal obstruction 06/18/2024 Opioid use disorder 06/12/2024 Anxiety 06/12/2024 Depression 06/12/2024 Osteoarthritis 06/12/2024 History of musculoskeletal cancer 06/12/2024 Spinal stenosis 06/12/2024 Deviated nasal septum 05/21/2024 Hypertrophy of inferior nasal turbinate 05/21/19 Nasal congestion 05/21/2024 Nasal deformity 05/21/2024 Social History Tobacco Use Types Packs/Day Years Used Date Smoking Tobacco: Every Day Cigarettes Smokeless Tobacco: Current Chew Alcohol Use Standard Drinks/Week Comments Never 0 (1 standard drink = 0.6 oz pur e alcohol) PHQ-2 Answer Date Recorded Patient Health Questionnaire-2 Score 0 06/18/2024 Sex and Gender Information Value Date Recorded Sex Assigned at Not on file Legal Sex Male 12:43 AM EST Gender Identity Not on file Sexual Orientation Not on file Last Filed Vital Signs Vital Sign Reading Time Taken Comments Blood Pressure 138/82 06/12/2024 11:25 AM EST Pulse 62 06/12/2024 11:25 AM EST Temperature 36.5 C (97.7 F) 06/12/2024 11:25 AM EST Respiratory Rate 16 06/12/2024 11:25 AM EST Oxygen Saturation 96% 06/12/2024 11:25 AM EST Inhaled Oxygen Concentration - - Weight 69.9 kg (154 lb) 06/18/2024 11:21 AM EST Height 177.8 cm (5' 10 ) 06/18/2024 11:21 AM EST Body Mass Index 22.1 06/18/2024 11:21 AM EST Plan of Treatment Health Maintenance Due Date Last Done Comments HIV Screening 1988 Lipid Panel 1988 Yearly Adult Physical 1988 MMR Vaccines (1 of 1 - Stand sarai series) 1989 Varicella Vaccines (1 of 2 - 13+ 2-dose series) 2001 Hepatitis C Screening 2006 Hepatitis B Vaccines (1 of 3 - 19+ 3-dose series) 2007 Pneumococcal Vaccine: Pediat rics and At-Risk Adult Patients (1 of 2 - PCV) 2007 DTaP/Tdap/Td Vaccines (1 - Tdap) 2010 COVID-19 Vaccine (1 - 2023-2 5 season) 2024 Influenza Vaccine (#1) 2025 Zoster Vaccines (1 of 2) 2038 HIB Vaccines Aged Out No longer eligi ble based on patient's age to complete this topic HPV Vaccines (No Doses Required) Completed Hepatitis A Vaccines Aged Out No long er eligible based on patient's age to complete this topic IPV Vaccines Aged Out No longer eligi ble based on patient's age to complete this topic Meningococcal Vaccine Aged Out No buddy yuliet eligible based on patient's age to complete this topic Rotavirus Vaccines Aged Out No longer eligible based on patient's age to complete this topic [facility] [place] [facility] [place]
--- OUTSIDE RECORDS SUMMARY | 2024-11-18 05:25 | XMS_ITS | Clinical Summary ---
Author Organization [facility] Address [facility] [place] [address] Care Team Providers [employer] Supervisor Name Role Phone Radha Snowden APRN.EQUIPMENT OR MACHINERY CLEANER Unavailable Allergies Active Allergy Reactions Criticality Noted Date Comments Lorazepam Swelling 06/12/2013 Penicillins 02/18/2002 Hydrocodone-Acetaminophen Hives 06/12/2013 Medications LIDOCAINE 5 %(700 mg/patch) as directed. 05/20/2013 Active clonazePAM (KLONOPIN) 0.5 mg tablet Take 0.5 mg by mouth two times a day. Active gabapentin (NEURONTIN) 300 mg capsule Take 300 mg by mouth three times a day. Active buprenorphine HCl/naloxone HCl (SUBOXONE SUBLINGUAL) See Instructions, Refill(s) 0, 2-8mg tab BID 09/12/2023 Active vilazodone (VIIBRYD) 40 mg tablet Take 40 mg by mouth once daily. Active QUEtiapine (SEROQUEL) 50 mg tablet Take 50 mg by mouth once daily. Active buprenorphine-n alOXone SL (SUBOXONE) 8-2 mg subl DISSOLVE ONE TABLET UNDER THE TONGUE TWICE DAILY 12/09/2017 Active Active Problems Problem Noted Date Diagnosed Date Scheuermann disease Smoker Family History Medical History Relation Comments DDD [Other] Mother Relation Status Comments Brother 1 Alive Brother 2 Alive Father Alive Mother Alive Sister Alive Social History Tobacco Use Types Packs/Day Years Used Date Smoking Tobacco: Every Day Cigarettes Tobacco Cessation:Ready to Q uit: Not Asked; Counseling Given: Not Answered Alcohol Use Standard Drinks/Week Comments No 0 (1 standard drink = 0.6 oz pur e alcohol) Area Deprivation Index Answer Date Rusty rded National Score (1-100), lowe r number is lower risk 73 04/17/2024 State Score (1-10), lower number is lower risk 6 04/17/2024 Data from: https://www.neighborhoodatlas.medicine.[facility].ed u/. Last address used for calculation [address] 04/17/2024 Sex and Gender Information Value Date Recorded Sex Assigned at Not on file Legal Sex Male 9:52 AM EST Gender Identity Not on file Sexual Orientation Not on file Occupation Industry Job Start Date Job End Date employed Not on file Not on file Not on file Last Filed Vital Signs Vital Sign Reading Time Taken Comments Blood Pressure 123/68 06/16/2024 3:16 PM EST Pulse 75 06/16/2024 3:16 PM EST Temperature - - Respiratory Rate 18 06/16/2024 3:16 PM EST Oxygen Saturation - - Inhaled Oxygen Concentration - - Weight 67.5 kg (148 lb 14.7 oz) 06/16/2024 3:16 PM EST Height 180.3 cm (5' 11 ) 06/16/2024 3:16 PM EST Body Mass Index 20.77 06/16/2024 3:16 PM EST Plan of Treatment Upcoming Encounters Date Type Department Care Team (Late st Contact Info) Description 01/01/2025 10:30 AM EDT Office Visit Neurology Pain [address] [place] [address] Madelyn Dillon, DAIRY HUSBANDMAN.EQUIPMENT OR MACHINERY CLEANER, DNP [address] [place] [address] new pt eval Health Maintenance Due Date Last Done Comments Anxiety Screening 2006 Depression Screening 2006 HIV Screening 2006 Hepatitis C Screening 2006 DTaP,Tdap,Td Vaccine (1 - Tdap) 2007 Hepatitis B Vaccine (1 of 3 - 19+ 3-dose series) 03/06 Pneumococcal Vaccine (1 of 2 - PCV) 2007 Lipid Screening 2023 08/10/2005 Covid-19 Vaccine (1 - season) 2024 Influenza Vaccine (#1) 2025 Procedures Procedure Name Priority Date/Time Associated Diagnosis Comments LIPID PANEL, FASTING Routine 08/10/2005 9:24 AM EST Abnormality Urination Other Specif from Last 3 Months or Most Recently Relevant to Health Maintenance Results * (ABNORMAL) LIPID PANEL BASIC (08/10/2005 9:24 AM EST) Triglyceride 50 30 - 149 mg/dL [facility] Cholesterol, Total 125 75 - 169 mg/dL [facility] HDL Cholesterol 28(A) >45 mg/dL [facility] VLDL Cholesterol 10 6 - 40 mg/dL [facility] LDL Cholesterol, Calculated 87 50 - 109 mg/dL [facility] Fasting Time 10 hrs [facility] TC:HDL Ratio 4.46 1.00 - 5.00 [facility] LDL:HDL Ratio 3.11 0.50 - 3.55 [facility] Blood specimen (specimen) BLOOD SPECIMEN / Unknown 08/10/2005 9:24 AM EST [facility] LABORATORY Final Result Performing Organization Address City/State/[facility] Co de Phone Number [facility] [address] [place] [address] from Last 3 Months or Most Recently Relevant to Health Maintenance Insurance [facility] Care Teams [employer] Supervisor Relationship Specialty Start Date End Date Radha Snowden APRN.EQUIPMENT OR MACHINERY CLEANER [address] [place] [address] Nurse Practitioner 02/06/24
--- NOTE | 2024-11-18 05:33 | US_ITS ---
The [address] [address] Patient Name: JOSE DAVIS MRN: [id number] date: 1990 Sex: M Assigned Patient Location: ED.MAIN Current Patient Location: ED.MAIN Accession/Order Number: [id number] Exam Date: 11/18/2024 08:14 Report Date: 11/18/2024 08:17 At the request of: URMILA REYES MD Procedure: US scrotum doppler SCROTAL ULTRASOUND WITH DUPLEX IMAGING CLINICAL DATA: Right lower abdomen and testicular pain COMPARISON: None The right testis measures 4.0 x 2.8 x 2.1 cm. The left testis measures 3.8 x 2.8 x 1.8 cm. There is normal testicular echogenicity. No intratesticular masses are identified. There is documentation of bilateral duplex and color Doppler testicular blood flow. The epididymal heads are similar in size. There is a small cyst on the left measuring 7 x 5 x 6 mm. There is a tiny left hydrocele and a trace amount of fluid adjacent to the body of the epididymis on the right. US/US scrotum doppler IMPRESSION: NO INTRATESTICULAR MASS OR TORSION. SMALL LEFT EPIDIDYMAL CYSTS AND TINY HYDROCELE. Impression dictated by: Ciarra Jerez M.D. 11/18/2024 8:17 AM Dictation Location: [place] [address] Electronically authenticated by: [id number] Y Date: 11/18/2024 08:17
--- NOTE | 2024-11-18 05:34 | ED_ITS ---
HPI HPI - General Adult General Chief complaint: Back Pain/Injury Stated complaint: PAIN IN RIGHT SIDE AND BACK Time Seen by Provider: 11/18/24 05:31 Source: patient Mode of arrival: walk-in Limitations: no limitations History of Present Illness HPI narrative: Patient is a 34-year-old male who is presenting to the ER with pain out of proportion to right lower back, right flank, right lower quadrant, right testicle. Patient says that pain started yesterday, and worsened at 9 PM. Patient states the pain has been continuous, not intermittent. No history of kidney stones. Patient does take 2 a milligrams Suboxone daily for chronic pain. Patient states he has had chronic pain like this in his right lower back in the past, but states today is worse. Patient feels the pain radiates into the right testicle and also states the right testicle hurts as well. Patient is writhing in pain, yelling, moaning. Patient father is at bedside. Patient still has his gallbladder and appendix. Patient has no history of kidney stone. Patient has no testicular history. Patient is taking his Suboxone daily. Patient does not believe he is constipated but has been constipated before with Suboxone. Patient currently not working. Patient has done no heavy lifting, twisting or turning recently. Patient was brought to the ER by his father. All systems are negative except as noted/marked. All systems reviewed and otherwise negative. Nurses note and vital signs reviewed and patient is not hypoxic. General: The patient appears moderate distress secondary to pain, writhing in bed, pain out of proportion to right lower back, right lower quadrant, right testicle, moaning, not staying in a standing position. Patient is resting uncomfortably on cart. Patient is not toxic, lethargic, or listless Skin: Warm, dry, no pallor noted. There is no rash noted. No petechiae, purpura. No rash, no signs of shingles, no signs of ecchymosis, trauma or rash to right lower back, right flank, right lower quadrant. Head: Normocephalic, atraumatic Eye: Normal conjunctiva, no drainage, EOMI. PERRL Ears, Nose, Mouth, and Throat: oral mucosa is moist. Extremely poor dentition, multiple areas of dental caries, missing half of his teeth, multiple black eroded teeth, mild gingivitis, no ANUG, no obvious signs of periapical abscess, no tongue laceration, no posterior pharyngeal erythema, exudate, petechiae. Nares patent. Mouth without vesicles. Cardiovascular: Regular Rate and Rhythm, no murmur, gallop, rub Respiratory: Patient is in no distress, no accessory muscle use, lungs are clear to auscultation, no wheezing, rales or rhonchi Back: Patient has moderate to severe right paralumbar tenderness to palpation, moderate right piriformis tenderness to palpation, moderate right lower quadrant tenderness to palpation. Non-tender, no CVA tenderness bilaterally to percussion. No CT LS midline pain GI: Patient has moderate right lower quadrant tenderness to palpation, moderate right flank tenderness palpation, mild peritoneal signs, otherwise no tenderness to palpation, no masses appreciated. No rebound, positive guarding, mild rigidity noted but patient is flexing his muscles secondary to pain as he is writhing in the bed. No distention : Patient is circumcised, patient has moderate tenderness to palpation to the superior and posterior aspect of his right testicle. Normal cremaster reflex. No rash, lesions, vesicles, no other acute pathology to penis, scrotum, or perineum. Negative hernia bilateral. Mild to moderate right inguinal tenderness to palpation, no left inguinal tenderness to palpation. No hernia palpated however. Musculoskeletal: Patient has full range of motion of all of the extremities, no motor, sensory, or focal neurological deficits Neurological: A&O x4, normal speech Psychiatric: Cooperative Related Data Home Medications ?Medication ?Instructions ?Recorded ?Confirmed buprenorphine 8 mg-naloxone 2 mg 1 tab sublingual BID 01/22/24 07/11/24 sublingual tablet clonazepam 0.5 mg tablet 0.5 mg PO BID 01/22/2407/11 gabapentin 300 mg capsule 300 mg PO TID 01/22/2407/11 quetiapine 50 mg tablet 50 mg PO BEDTIME 01/22/24 vilazodone 40 mg tablet 40 mg PO DAILY 01/22/2406/06 Previous Rx's ?Medication ?Instructions ?Recorded famotidine 20 mg tablet (Pepcid) 20 mg PO BID 7 days # 14 tabs 07/11/24 hydroxyzine pamoate 25 mg capsule 25 mg PO TID PRN itc anna 7 days 07/11/24 #21 caps prednisone 20 mg tablet 20 mg PO BID 5 days #10 tabs 07/11/24 hydroxyzine pamoate 25 mg capsule 25 mg PO TID PRN itc anna #20 caps 07/25/24 Allergies Allergy/AdvReac Type Severity Reaction Status Date / Time Penicillins Allergy Severe Anaphylaxis Verified 11/18/24 05:17 acetaminophen (From Vicodin) AdvReac Mild Hives Verified 11/18/24 05:17 hydrocodone (From Vicodin) AdvReac Mild Hives Verified 11/18/24 05:17 lorazepam (From Ativan) AdvReac Mild Confusion Verified 11/18/24 05:17 Opioid HPI Opioid Management Most Recent Opioid Data: Last Pain Scale 8 Today, 06:24 Last MAR Pain Assessment Today, 05:52 PFSH PFSH Social History Little interest or pleasure in doing things: not at all Feeling down, depressed, or hopeless: not at all Exam Constitutional Vital Signs, click to edit/add: Last Vital Signs Temp 98.8 F 11/18/24 05:23 Pulse 58 L 11/18/24 06:22 Resp 18 11/18/24 06:22 BP 135/82 11/18/24 06:22 Pulse Ox 98 11/18/24 06:22 O2 Del Method Room Air 11/18/24 05:23 Course Vital Signs Vital signs: Vital Signs Temperature 98.8 F 11/18/24 05:23 Pulse Rate 60 11/18/24 05:23 Respiratory Rate 18 11/18/24 05:23 Blood Pressure 155/91 H 11/18/24 05:23 Pulse Oximetry 98 11/18/24 05:23 Oxygen Delivery Method Room Air 11/18/24 05:23 Temperature 98.8 F 11/18/24 05:23 Pulse Rate 58 L 11/18/24 06:22 Respiratory Rate 18 11/18/24 06:22 Blood Pressure 135/82 11/18/24 06:22 Pulse Oximetry 98 11/18/24 06:22 Oxygen Delivery Method Room Air 11/18/24 05:23 Medical Decision Making MDM Narrative Medical decision making narrative: Patient seen and examined: I agree, pain medication. Patient takes Suboxone 8 mg twice a day. Patient will be given 1 dose of IV Dilaudid secondary to his narcotic and opiate dependence. Patient given Toradol. IV fluids. Patient with ultrasound and CT. Ultrasound has been called in at 5:30 AM to rule out testicular torsion. Differential diagnosis includes but is not limited to: Testicular torsion, epididymitis, constipation, appendicitis, chronic pain, lumbar radiculopathy, kidney stone, volvulus, obstruction, mesenteric ischemia. Diagnostics and management: Patient will have laboratory studies Relevant laboratory interpretation: 0600 phone call was made from laboratory, patient white blood cell count is 30. Patient will have CT of the abdomen pelvis done with IV contrast now instead of without contrast. Radiological studies: Please see the formal radiological report. Reevaluation: 0600 patient is being medicated, and then patient will be going to CT of the abdomen pelvis. retail merchandiser technician has been called in as well to rule out torsion. 0650 patient is aware of white blood cells at 30. Preliminary report from commercial kitchen service technician shows possible up with the middle cyst, but no obvious signs of torsion, epididymitis, or any other significant acute signs of infection. Patient is aware of dilated bowel in the CT of his abdomen pelvis. Lactic acid normal. White blood cell 30. Patient stated the pain medication took the edge off. Patient says last night he took Bentyl at 10 PM. He also used milk of magnesia yesterday trying to have a bowel movement. He stated that he did have a soft stool yesterday. Patient says he does have intermittent constipation with Suboxone that he takes daily. Shared decision making: I discussed with the patient the necessary laboratory findings and radiological findings. Social barriers to healthcare: There are no food insecurities, there is no issue with transportation, there are no insurance barriers. Disposition: I discussed with the patient and his father who are allowed to talk about his medical care with them giving him IV pain medication, nausea medication, ultrasound, CAT scan, lab work. Patient will be transition to Dr. Hardy at 7 AM to follow-up with CT report, and perform bowel disposition. Ultrasound report is pending as well Lab Data Labs: Lab Results 11/18/24 Range/Units 05:40 WBC 30.2 H* (4.0-11.0) 10^3/uL RBC 3.99 L (4.70-6.10) 10^6/uL Hgb 11.0 L (14.0-18.0) g/dL Hct 34.0 L (42.0-54.0) % MCV 85.2 (80.0-94.0) fL MCH 27.6 (25.9-34.0) pg MCHC 32.4 (29.9-35.2) g/dL RDW 15.1 H (11.0-15.0) % Plt Count 525 H (150-450) 10^3/uL MPV 9.0 L (9.5-13.5) fL Seg Neuts % (Manual) 95.0 H (43.0-75.0) Lymphocytes % (Manual) 2.0 L (20.5-60.0) % Monocytes % (Manual) 4.0 (1.7-12.0) % Eosinophils % (Manual) 0.0 L (0.9-7.0) % Basophils % (Manual) 0.0 L (0.2-2.0) % Neutrophils # (Manual) 28.69 H (1.4-6.5) 10^3/uL Lymphocytes # (Manual) 0.60 L (1.20-3.80) 10^3/uL Monocytes # (Manual) 1.20 H (0.30-0.80) 10^3/uL Eosinophils # (Manual) 0.00 (0.00-0.70) 10^3/uL Basophils # (Manual) 0.00 (0.00-0.10) 10^3/uL Sodium 132 L (136-145) mmol/L Potassium 4.5 (3.5-5.1) mmol/L Chloride 97 L (98-107) mmol/L Carbon Dioxide 27.3 (21.0-32.0) mmol/L Anion Gap 12.2 BUN 11.0 (7.0-18.0) mg/dL Creatinine 0.68 L (0.70-1.30) mg/dL Est GFR ( Amer) >60 (>=60 mL/min/1.73m^2) Est GFR (Non-Af Amer) >60 (>=60 mL/min/1.73m^2) BUN/Creatinine Ratio 16.2 Glucose 155 H (74-106) mg/dL Lactate 1.9 (0.4-2.0) mmol/L Calcium 8.9 (8.5-10.1) mg/dL Total Bilirubin 0.7 (0.2-1.0) mg/dL AST 22 (15-37) U/L ALT 39 (16-63) U/L Alkaline Phosphatase 138 H (46-116) U/L Total Protein 7.5 (6.4-8.2) g/dL Albumin 3.2 L (3.4-5.0) g/dL Globulin 4.3 g/dL Albumin/Globulin Ratio 0.7 Lipase <10.0 L (16.0-77.0) U/L Discharge Plan Discharge Chief Complaint: Back Pain/Injury Clinical Impression: Right lumbar pain, Testicular pain, right, Acute right lower quadrant pain, Leukocytosis Prescriptions / Home Meds: No Action clonazepam 0.5 mg tablet 0.5 mg PO BID gabapentin 300 mg capsule 300 mg PO TID buprenorphine-naloxone 8-2 mg tablet, sublingual 1 tab SUBLINGUAL BID quetiapine 50 mg tablet 50 mg PO BEDTIME vilazodone 40 mg tablet 40 mg PO DAILY prednisone 20 mg tablet 20 mg PO BID 5 Days Qty: 10 0RF hydroxyzine pamoate 25 mg capsule 25 mg PO TID PRN (Reason: itching) 7 Days Qty: 21 0RF famotidine [Pepcid] 20 mg tablet 20 mg PO BID 7 Days Qty: 14 0RF hydroxyzine pamoate 25 mg capsule 25 mg PO TID PRN (Reason: itching) Qty: 20 0RF Print Language: Georgian Referrals: JOSÉ MANUEL MARIE [Primary Care Provider, Family Practice] - 1 week
[2024-11-18 05:51] LABS: Hematocrit 34.0 % (42.0-54.0); Hemoglobin 11.0 g/dL (14.0-18.0); Mean Corpuscular HGB Conc 32.4 g/dL (29.9-35.2); Mean Corpuscular Hemoglobin 27.6 pg (25.9-34.0); Mean Corpuscular Volume 85.2 fL (80.0-94.0); Platelet Count 525 10^3/uL (150-450); Red Blood Count 3.99 10^6/uL (4.70-6.10)
[2024-11-18] MEDS: KETOROLAC TROMETHAMINE 30 MG/ML VIAL 15 MG IVP (05:52)
[2024-11-18 06:00] LABS: White Blood Count 30.2 10^3/uL (4.0-11.0)
--- NOTE | 2024-11-18 06:04 | CT_ITS ---
The [address] [address] Patient Name: JOSE DAVIS MRN: [id number] date: 1990 Sex: M Assigned Patient Location: ER Current Patient Location: .[facility] Accession/Order Number: [id number] Exam Date: 11/18/2024 08:18 Report Date: 11/18/2024 08:35 At the request of: URMILA REYES MD Procedure: CT abdomen pelvis w con CT ABDOMEN AND PELVIS WITH CONTRAST CLINICAL DATA: Right lower quadrant and flank pain. COMPARISON: CT lumbar spine 01/22/2024 Spiral images were obtained through the abdomen and pelvis following 100 mL of Omnipaque 300. This CT exam was performed using one or more following dose reduction techniques: Automated exposure control, adjustment of the mA and/or kV according to patient size, or use of iterative reconstruction technique. Limited cuts through the lung bases show bilateral, predominantly dependent atelectasis. No calcified gallstones are identified. Slight biliary prominence is again seen. No choledocholithiasis is noted. There are no intrahepatic masses. The spleen, pancreas and adrenal glands show no acute findings. The renal nephrograms are symmetric. No hydronephrosis is identified. No ureteral dilatation or stones are noted. The abdominal aorta is normal caliber. No obvious adenopathy is visualized within limits of paucity of intraperitoneal fat. No ascites is seen. There is mild fluid within the stomach. The small bowel loops are normal in caliber. There is stool within the right colon. There is gaseous distention of the transverse colon through the splenic flexure. The remainder of the descending colon is decompressed. Similar degenerative changes are present at the spine with several Schmorl's nodes. Images through the pelvis show no dilated small bowel though there are some loops which contain fluid. There is fluid and stool at the cecum. There is a potential short segment of the appendix which is visualized. It shows no dilatation though otherwise assessment is limited by paucity of fat. The distal colon is decompressed. No diverticular disease is seen. The urinary bladder is not well-distended and there is apparent slight wall thickening though no intraluminal abnormalities. A trace amount of dependent free fluid is identified. CT/CT abdomen pelvis w con IMPRESSION: SLIGHT BILIARY PROMINENCE OF UNKNOWN ETIOLOGY. NO OBSTRUCTIVE UROPATHY. GASEOUS DISTENTION OF THE TRANSVERSE COLON. TRACE AMOUNT OF FREE PELVIC FLUID. NO OTHER ACUTE FINDINGS WITHIN LIMITS OF PAUCITY OF INTRAPERITONEAL FAT. Impression dictated by: Ciarra Jerez M.D. 11/18/2024 8:35 AM Dictation Location: [place] [address] Electronically authenticated by: [id number] Y Date: 11/18/2024 08:35
[2024-11-18 06:09] LABS: Lactate/Lactic Acid 1.9 mmol/L (0.4-2.0)
[2024-11-18 06:14] LABS: Basophils Abs Manual 0.00 10^3/uL (0.00-0.10); Basophils Percent Manual 0.0 % (0.2-2.0); Eosinophils Absolute Manual 0.00 10^3/uL (0.00-0.70); Eosinophils Percent Manual 0.0 % (0.9-7.0); Lymphocytes Absolute Manual 0.60 10^3/uL (1.20-3.80); Lymphocytes Percent Manual 2.0 % (20.5-60.0); Monocytes Absolute Manual 1.20 10^3/uL (0.30-0.80); Monocytes Percent Manual 4.0 % (1.7-12.0); Segmented Neut Absolute Manual 28.69 10^3/uL (1.4-6.5); Segmented Neutrophils % Manual 95.0 (43.0-75.0)
[2024-11-18 06:16] LABS: Alanine Aminotransferase 39 U/L (16-63); Albumin Globulin Ratio 0.7; Albumin Level 3.2 g/dL (3.4-5.0); Alkaline Phosphatase 138 U/L (46-116); Anion Gap 12.2; Aspartate Amino Transferase 22 U/L (15-37); Blood Urea Nitrogen 11.0 mg/dL (7.0-18.0); Calcium 8.9 mg/dL (8.5-10.1); Carbon Dioxide 27.3 mmol/L (21.0-32.0); Chloride 97 mmol/L (98-107); Estimated GFR (African America >60 (>=60 mL/min/1.73m^2); Estimated GFR (Non-African Ame >60 (>=60 mL/min/1.73m^2); Globulin 4.3 g/dL; Glucose 155 mg/dL (74-106); Lipase <10.0 U/L (16.0-77.0); Potassium 4.5 mmol/L (3.5-5.1); Sodium 132 mmol/L (136-145); Total Protein 7.5 g/dL (6.4-8.2)
[2024-11-18 06:22] VITALS: BP 135/82; PULSE 58; O2SAT 98
[2024-11-18] MEDS: HYDROMORPHONE HCL 1 MG/ML CARTRIDGE IV (06:24)
[2024-11-18] MEDS: DICYCLOMINE HCL 20 MG/2 ML VIAL IM (07:09)
[2024-11-18 08:53] LABS: Glucose Urine UA NEGATIVE (NEGATIVE)
[2024-11-18 09:02] LABS: Cast Seen? NONE SEEN #/LPF (NONE SEEN); Crystals Seen? None Seen #/HPF (None Seen)
[2024-11-18 09:03] LABS: Cannabinoid Screen Urine POSITIVE (NEGATIVE); Methamphetamines Screen Urine NEGATIVE (NEGATIVE); Urine Culture Indicated NO
[2024-11-18 09:04] LABS: Tricyclic Antidepressant Urine NEGATIVE (NEGATIVE)
--- NOTE | 2024-11-18 10:35 | MR_ITS ---
The [address] [address] Patient Name: JOSE DAVIS MRN: [id number] date: 1990 Sex: M Assigned Patient Location: ER Current Patient Location: ER Accession/Order Number: [id number] Exam Date: 11/18/2024 11:47 Report Date: 11/18/2024 11:54 At the request of: KAMRAN PEGUERO MD Procedure: MR lumbar spine wo con MR lumbar spine wo con 11/18/2024 11:35 AM SIGNS AND SYMPTOMS: Acute low back pain, leukocytosis PROTOCOL: Multiplanar multisequence MR images of the lumbar spine without IV contrast COMPARISON: 03/29/2023 FINDINGS: The bones of the lumbar spine are in anatomic alignment. There is preservation of vertebral body heights. There is disc desiccation with mild to moderate disc height loss at L1-L2, L2-3, and L3-L4. There is mild disc height loss at L4-5. Schmorl's node formation is noted in the endplates from T11 through L5. The bone marrow is hypoattenuating on T1 suggesting retrograde conversion. An underlying lymphoproliferative process is not excluded. The conus terminates at the inferior endplate of the L1 vertebral body level. No epidural or paraspinous fluid collection is appreciated. At T12-L1: There is a normal disc, central canal, and neural foramen. At L1-L2: There is a broad-based disc bulge with facet hypertrophy. There is mild spinal canal stenosis without significant neural foraminal narrowing. This is similar to the prior exam. At L2-L3: There is a broad-based disc bulge with facet hypertrophy contributing to mild to moderate spinal canal narrowing. No significant neural foraminal narrowing. This is unchanged. At L3-L4: There is a broad-based disc bulge with facet hypertrophy with facet hypertrophy and a small left-sided facet effusion. There is mild spinal canal narrowing with mild left and moderate neural foraminal narrowing. This is slightly worse when compared to the prior exam. At L4-L5: There is a broad-based disc bulge with facet hypertrophy contributing to mild spinal canal stenosis with moderate to severe left and moderate right neural foraminal narrowing similar to the prior exam with mild mass effect on the exiting left L4 nerve roots. At L5-S1: There is a broad-based disc bulge with a more prominent left subarticular to lateral component. There is moderate to severe left neural foraminal narrowing with minimal spinal canal narrowing. There is mild mass effect on the exiting left L5 nerve roots similar to the prior exam. MR/MR lumbar spine wo con IMPRESSION: At L3-L4: There is a broad-based disc bulge with facet hypertrophy with facet hypertrophy and a small left-sided facet effusion. There is mild spinal canal narrowing with mild left and moderate neural foraminal narrowing. This is slightly worse when compared to the prior exam. At L4-L5: There is a broad-based disc bulge with facet hypertrophy contributing to mild spinal canal stenosis with moderate to severe left and moderate right neural foraminal narrowing similar to the prior exam with mild mass effect on the exiting left L4 nerve roots. At L5-S1: There is a broad-based disc bulge with a more prominent left subarticular to lateral component. There is moderate to severe left neural foraminal narrowing with minimal spinal canal narrowing. There is mild mass effect on the exiting left L5 nerve roots similar to the prior exam. The bone marrow is hypoattenuating on T1 suggesting retrograde conversion. An underlying lymphoproliferative process is not excluded. Impression dictated by: Roman Guadarrama M.D. 11/18/2024 11:54 AM Dictation Location: [facility] Electronically authenticated by: [id number] Y Date: 11/18/2024 11:54
[2024-11-18] MEDS: KETOROLAC TROMETHAMINE 30 MG/ML VIAL IVP (10:52)
--- NOTE | 2024-11-18 12:17 | ED.GENADUL1 ---
HPI HPI - General Adult General Chief complaint: Back Pain/Injury Stated complaint: PAIN IN RIGHT SIDE AND BACK Time Seen by Provider: 11/18/24 05:31 Source: patient Mode of arrival: walk-in Limitations: no limitations History of Present Illness HPI narrative: 34-year-old male presents to the emergency department for a chief complaint of back and groin area pain. He was initially seen by Dr. Amaya and signed out to me after discussing the case with him thoroughly. Please see his full history and physical exam. Related Data Home Medications ?Medication ?Instructions ?Recorded ?Confirmed buprenorphine 8 mg-naloxone 2 mg 1 tab sublingual BID 01/22/24 07/11/24 sublingual tablet clonazepam 0.5 mg tablet 0.5 mg PO BID 01/22/24 07/11/24 gabapentin 300 mg capsule 300 mg PO TID 01/22/24 07/11/24 quetiapine 50 mg tablet 50 mg PO BEDTIME 01/22/24 07/11/24 vilazodone 40 mg tablet 40 mg PO DAILY 01/22/24 07/11/24 Previous Rx's ?Medication ?Instructions ?Recorded famotidine 20 mg tablet (Pepcid) 20 mg PO BID 7 days #14 tabs 07/11/24 hydroxyzine pamoate 25 mg capsule 25 mg PO TID PRN itching 7 days 07/11/24 #21 caps prednisone 20 mg tablet 20 mg PO BID 5 days #10 tabs 07/11/24 hydroxyzine pamoate 25 mg capsule 25 mg PO TID PRN itching #20 caps 07/25/24 methocarbamol 750 mg tablet 750 mg PO Q6H PRN pain #20 tabs 11/18/24 prednisone 10 mg tablet See Rx Instructions .Route 11/18/24 .COMPLEX #30 tabs Allergies Allergy/AdvReac Type Severity Reaction Status Date / Time Penicillins Allergy Severe Anaphylaxis Verified 11/18/24 05:17 acetaminophen (From Vicodin) AdvReac Mild Hives Verified 11/18/24 05:17 hydrocodone (From Vicodin) AdvReac Mild Hives Verified 11/18/24 05:17 lorazepam (From Ativan) AdvReac Mild Confusion Verified 11/18/24 05:17 Opioid HPI Opioid Management Most Recent Opioid Data: Last Pain Scale 8 Today, 06:24 Last MAR Pain Assessment Today, 05:52 Ur Phencyclidine Scrn, (NEGATIVE) Negative Today, 08:40 PFSH PFSH Social History Little interest or pleasure in doing things: not at all Feeling down, depressed, or hopeless: not at all Exam Constitutional Vital Signs, click to edit/add: Last Vital Signs Temp 98.8 F 11/18/24 05:23 Pulse 58 L 11/18/24 06:22 Resp 18 11/18/24 06:22 BP 135/82 11/18/24 06:22 Pulse Ox 98 11/18/24 06:22 O2 Del Method Room Air 11/18/24 05:23 Course Vital Signs Vital signs: Vital Signs Temperature 98.8 F 11/18/24 05:23 Pulse Rate 60 11/18/24 05:23 Respiratory Rate 18 11/18/24 05:23 Blood Pressure 155/91 H 11/18/24 05:23 Pulse Oximetry 98 11/18/24 05:23 Oxygen Delivery Method Room Air 11/18/24 05:23 Temperature 98.8 F 11/18/24 05:23 Pulse Rate 58 L 11/18/24 06:22 Respiratory Rate 18 11/18/24 06:22 Blood Pressure 135/82 11/18/24 06:22 Pulse Oximetry 98 11/18/24 06:22 Oxygen Delivery Method Room Air 11/18/24 05:23 Medical Decision Making MDM Narrative Medical decision making narrative: CT of abdomen shows gas-filled transverse colon but no acute findings. WBC was 30,000. MRI was ordered to rule out an epidural abscess and this showed bulging disks but no other acute findings. He takes Suboxone already and was discharged home on prednisone and Robaxin. He will follow-up with his physician. He states he is trying to get into [facility] pain management. Treatment diagnosis and follow-up were discussed with the patient. Differential Diagnosis Differential Diagnosis: Kidney stone, testicular torsion, epidural abscess, spinal stenosis Lab Data Lab results reviewed: Yes I reviewed the patient's lab results Labs: Lab Results 11/18/24 11/18/24 Range/Units 05:40 08:40 WBC 30.2 H* (4.0-11.0) 10^3/uL RBC 3.99 L (4.70-6.10) 10^6/uL Hgb 11.0 L (14.0-18.0) g/dL Hct 34.0 L (42.0-54.0) % MCV 85.2 (80.0-94.0) fL MCH 27.6 (25.9-34.0) pg MCHC 32.4 (29.9-35.2) g/dL RDW 15.1 H (11.0-15.0) % Plt Count 525 H (150-450) 10^3/uL MPV 9.0 L (9.5-13.5) fL Seg Neuts % (Manual) 95.0 H (43.0-75.0) Lymphocytes % (Manual) 2.0 L (20.5-60.0) % Monocytes % (Manual) 4.0 (1.7-12.0) % Eosinophils % (Manual) 0.0 L (0.9-7.0) % Basophils % (Manual) 0.0 L (0.2-2.0) % Neutrophils # (Manual) 28.69 H (1.4-6.5) 10^3/uL Lymphocytes # (Manual) 0.60 L (1.20-3.80) 10^3/uL Monocytes # (Manual) 1.20 H (0.30-0.80) 10^3/uL Eosinophils # (Manual) 0.00 (0.00-0.70) 10^3/uL Basophils # (Manual) 0.00 (0.00-0.10) 10^3/uL Sodium 132 L (136-145) mmol/L Potassium 4.5 (3.5-5.1) mmol/L Chloride 97 L (98-107) mmol/L Carbon Dioxide 27.3 (21.0-32.0) mmol/L Anion Gap 12.2 BUN 11.0 (7.0-18.0) mg/dL Creatinine 0.68 L (0.70-1.30) mg/dL Est GFR ( Amer) >60 (>=60 mL/min/1.73m^2) Est GFR (Non-Af Amer) >60 (>=60 mL/min/1.73m^2) BUN/Creatinine Ratio 16.2 Glucose 155 H (74-106) mg/dL Lactate 1.9 (0.4-2.0) mmol/L Calcium 8.9 (8.5-10.1) mg/dL Total Bilirubin 0.7 (0.2-1.0) mg/dL AST 22 (15-37) U/L ALT 39 (16-63) U/L Alkaline Phosphatase 138 H (46-116) U/L Total Protein 7.5 (6.4-8.2) g/dL Albumin 3.2 L (3.4-5.0) g/dL Globulin 4.3 g/dL Albumin/Globulin Ratio 0.7 Lipase <10.0 L (16.0-77.0) U/L Urine Color Lt. yellow (YELLOW) Urine Clarity Clear (CLEAR) Urine pH 7.0 (5.0-9.0) Ur Specific [place] <=1.005 A (1.005-1.025) Urine Protein Trace (NEG/TRACE) mg/dL Urine Glucose (UA) Negative (NEGATIVE) mg/dL Urine Ketones Negative (NEGATIVE) mg/dL Urine Occult Blood Negative (NEGATIVE) Urine Nitrite Negative (NEGATIVE) Urine Bilirubin Negative (NEGATIVE) Urine Urobilinogen 0.2 (0.2-1.0) EU/dL Ur Leukocyte Esterase Negative (NEGATIVE) Urine RBC 0-2 (0-2) #/HPF Urine WBC None seen (NONE SEEN) #/HPF Ur Squamous Epith Cells Rare (NONE/RARE) #/LPF Urine Crystals None seen (None Seen) #/HPF Urine Bacteria Trace A (NONE SEEN) #/HPF Urine Casts None seen (NONE SEEN) #/LPF Urine Mucus None seen (NONE SEEN) Urine Sperm Seen Ur Culture Indicated? No Urine Opiates Screen Positive A (NEGATIVE) Ur Buprenorphine Scrn Positive A (NEGATIVE) Ur Oxycodone Screen Negative (NEGATIVE) Urine Methadone Screen Negative (NEGATIVE) Ur Barbiturates Screen Negative (NEGATIVE) U Tricyclic Antidepress Negative (NEGATIVE) Ur Phencyclidine Scrn Negative (NEGATIVE) Ur Amphetamines Screen Negative (NEGATIVE) U Methamphetamines Scrn Negative (NEGATIVE) U Benzodiazepines Scrn Negative (NEGATIVE) Urine Cocaine Screen Negative (NEGATIVE) U Cannabinoids Screen Positive A (NEGATIVE) Imaging Data CT scan - abdomen: Radiologist's impression: ITS Impressions Scrotum Ultrasound 11/18/24 05:33 IMPRESSION: NO INTRATESTICULAR MASS OR TORSION. SMALL LEFT EPIDIDYMAL CYSTS AND TINY HYDROCELE. Impression dictated by: Ciarra Jerez M.D. 11/18/2024 8:17 AM Dictation Location: [place] [address] Electronically authenticated by: [id number] Y Date: 11/18/2024 08:17 Lumbar Spine MRI 11/18/24 10:35 IMPRESSION: At L3-L4: There is a broad-based disc bulge with facet hypertrophy with facet hypertrophy and a small left-sided facet effusion. There is mild spinal canal narrowing with mild left and moderate neural foraminal narrowing. This is slightly worse when compared to the prior exam. At L4-L5: There is a broad-based disc bulge with facet hypertrophy contributing to mild spinal canal stenosis with moderate to severe left and moderate right neural foraminal narrowing similar to the prior exam with mild mass effect on the exiting left L4 nerve roots. At L5-S1: There is a broad-based disc bulge with a more prominent left subarticular to lateral component. There is moderate to severe left neural foraminal narrowing with minimal spinal canal narrowing. There is mild mass effect on the exiting left L5 nerve roots similar to the prior exam. The bone marrow is hypoattenuating on T1 suggesting retrograde conversion. An underlying lymphoproliferative process is not excluded. Impression dictated by: Roman Guadarrama M.D. 11/18/2024 11:54 AM Dictation Location: [place] [address] Electronically authenticated by: [id number] Y Date: 11/18/2024 11:54 Discharge Plan Discharge Chief Complaint: Back Pain/Injury Clinical Impression: Right lumbar pain, Leukocytosis Patient Disposition: Home, Self-Care Time of Disposition Decision: 12:16 Condition: Good Mode of Transportation: Private Vehicle Prescriptions / Home Meds: New prednisone 10 mg tablet See Rx Instructions .ROUTE .COMPLEX Qty: 30 0RF Rx Instructions: 4 by mouth daily for three days then 3 by mouth daily for three days then 2 by mouth daily for three days then 1 by mouth daily for three days methocarbamol 750 mg tablet 750 mg PO Q6H PRN (Reason: pain) Qty: 20 0RF No Action clonazepam 0.5 mg tablet 0.5 mg PO BID gabapentin 300 mg capsule 300 mg PO TID buprenorphine-naloxone 8-2 mg tablet, sublingual 1 tab SUBLINGUAL BID quetiapine 50 mg tablet 50 mg PO BEDTIME vilazodone 40 mg tablet 40 mg PO DAILY prednisone 20 mg tablet 20 mg PO BID 5 Days Qty: 10 0RF hydroxyzine pamoate 25 mg capsule 25 mg PO TID PRN (Reason: itching) 7 Days Qty: 21 0RF famotidine [Pepcid] 20 mg tablet 20 mg PO BID 7 Days Qty: 14 0RF hydroxyzine pamoate 25 mg capsule 25 mg PO TID PRN (Reason: itching) Qty: 20 0RF Print Language: Tamazight Instructions: Acute Low Back Pain (ED), Leukocytosis (ED) Referrals: JOSÉ MANUEL MARIE [Primary Care Provider, Family Practice] - 1 week
== END 2024-11-18 12:28 | disposition home or self-care (01) ==
PROVIDERS: Emergency Medicine; Emergency Provider Emergency Medicine; PCP Family Medicine
DX: M54.50 Low back pain, unspecified (principal); D72.829 Elevated white blood cell count, unspecified; M51.369 Other intervertebral disc degeneration, lumbar region without mention of lumbar back pain or lower extremity pain; M48.061 Spinal stenosis, lumbar region without neurogenic claudication; F11.20 Opioid dependence, uncomplicated; G89.29 Other chronic pain; R10.31 Right lower quadrant pain; N50.811 Right testicular pain
CPT/HCPCS: 36415; 72148; 74177; 76870; 80053; 80307; 81001; 83605; 83690; 85007; 85027; 93976; 96372; 96374; 96375; 96376; 99285; J0500; J1171; J1885; J2405; Q9967

== ENCOUNTER 2024-11-18 16:25 | Inpatient (IN) | payer OTHER, SELFPAY ==
[2024-11-18 16:31] VITALS: BP 154/78; PULSE 77; TEMP 37.2; O2SAT 97
--- NOTE | 2024-11-18 16:56 | ED.GENADUL1 ---
HPI HPI - General Adult General Chief complaint: Back Pain/Injury Stated complaint: BACK PAIN Time Seen by Provider: 11/18/24 16:46 Source: patient and family Mode of arrival: walk-in Limitations: no limitations History of Present Illness HPI narrative: 34-year-old old male presents to the emergency department for low back pain. He had been seen this morning and had a workup that included a negative scrotal ultrasound. CT of the abdomen showed some gaseous distention of the transverse colon but no colitis or diverticulitis. MRI showed 3 bulging disks but no evidence of an abscess or disc herniation. His pain got worse so he came back. He states it is severe and continuous. He states he has gotten flareups like this in the past. Related Data Home Medications ?Medication ?Instructions ?Recorded ?Confirmed buprenorphine 8 mg-naloxone 2 mg 1 tab sublingual BID 01/22/24 11/18/24 sublingual tablet gabapentin 300 mg capsule 300 mg PO TID 01/22/24 11/18/24 quetiapine 50 mg tablet 50 mg PO BEDTIME 01/22/24 11/18/24 vilazodone 40 mg tablet 40 mg PO DAILY 01/22/24 11/18/24 Allergies Allergy/AdvReac Type Severity Reaction Status Date / Time Penicillins Allergy Severe Anaphylaxis Verified 11/18/24 16:35 acetaminophen (From Vicodin) AdvReac Mild Hives Verified 11/18/24 16:35 hydrocodone (From Vicodin) AdvReac Mild Hives Verified 11/18/24 16:35 lorazepam (From Ativan) AdvReac Mild Confusion Verified 11/18/24 16:35 Opioid HPI Opioid Management Most Recent Opioid Data: Last Pain Scale 8 Today, 06:24 Last JUL Pain Assessment Today, 05:52 Ur Phencyclidine Scrn, (NEGATIVE) Negative Today, 08:40 Review of Systems ROS Narrative A ten point review of systems is negative except as noted above. PFSH PFSH Social History Little interest or pleasure in doing things: not at all Feeling down, depressed, or hopeless: not at all Exam Narrative Exam Narrative: Nurses note and vital signs reviewed and patient is not hypoxic. General: The patient is moaning and is laying facedown on the cart Skin: Warm, dry, no pallor noted. There is no rash noted. Head: Normocephalic, atraumatic Eye: Normal conjunctiva, no drainage Ears, Nose, Mouth, and Throat: oral mucosa is moist. Nares patent. Cardiovascular: Regular Rate and Rhythm Respiratory: Patient is in no distress, no accessory muscle use, lungs are clear to auscultation, no wheezing, rales or rhonchi Back: No bruise or rash or palpable tenderness GI: Soft and nontender Musculoskeletal: The patient has no evidence of calf tenderness, no pitting edema, symmetrical pulses noted bilaterally Neurological: Awake and alert. Motor strength intact in his lower extremities. He came in ambulating slowly with a limp. Psychiatric: Cooperative Constitutional Vital Signs, click to edit/add: Last Vital Signs Temp 98.9 F 11/18/24 16:31 Pulse 77 11/18/24 16:31 Resp 18 11/18/24 16:31 BP 154/78 H 11/18/24 16:31 Pulse Ox 97 11/18/24 16:31 Course Vital Signs Vital signs: Vital Signs Temperature 98.9 F 11/18/24 16:31 Pulse Rate 77 11/18/24 16:31 Respiratory Rate 18 11/18/24 16:31 Blood Pressure 154/78 H 11/18/24 16:31 Pulse Oximetry 97 11/18/24 16:31 Temperature 98.9 F 11/18/24 16:31 Pulse Rate 77 11/18/24 16:31 Respiratory Rate 18 11/18/24 16:31 Blood Pressure 154/78 H 11/18/24 16:31 Pulse Oximetry 97 11/18/24 16:31 Medical Decision Making MDM Narrative Medical decision making narrative: Workup from earlier today was reviewed. I spoke to Dr. Velasquez and we will admit the patient for observation and pain control. Blood cultures and CRP are pending as well as a repeat CBC. Differential Diagnosis Differential Diagnosis: Lumbar radiculopathy, herniated disc, bulging disc, epidural abscess Discharge Plan Discharge Chief Complaint: Back Pain/Injury Clinical Impression: Intractable back pain Patient Disposition: Admitted as Observation Time of Disposition Decision: 16:55 Condition: Fair
[2024-11-18 17:16] LABS: Hematocrit 32.7 % (42.0-54.0); Hemoglobin 10.8 g/dL (14.0-18.0); Mean Corpuscular HGB Conc 33.0 g/dL (29.9-35.2); Mean Corpuscular Hemoglobin 27.9 pg (25.9-34.0); Mean Corpuscular Volume 84.5 fL (80.0-94.0); Platelet Count 523 10^3/uL (150-450); Red Blood Count 3.87 10^6/uL (4.70-6.10)
[2024-11-18 17:20] LABS: White Blood Count 30.6 10^3/uL (4.0-11.0)
[2024-11-18] MEDS: ORPHENADRINE 60 MG/2 ML VIAL IV (17:20)
[2024-11-18] MEDS: KETOROLAC TROMETHAMINE 30 MG/ML VIAL IVP (17:20)
[2024-11-18 17:33] LABS: Segmented Neut Absolute Manual 29.37 10^3/uL (1.4-6.5); Segmented Neutrophils % Manual 96.0 (43.0-75.0)
[2024-11-18 17:34] LABS: Basophils Abs Manual 0.00 10^3/uL (0.00-0.10); Basophils Percent Manual 0.0 % (0.2-2.0); Eosinophils Absolute Manual 0.00 10^3/uL (0.00-0.70); Eosinophils Percent Manual 0.0 % (0.9-7.0); Lymphocytes Absolute Manual 0.61 10^3/uL (1.20-3.80); Lymphocytes Percent Manual 2.0 % (20.5-60.0); Monocytes Absolute Manual 0.61 10^3/uL (0.30-0.80); Monocytes Percent Manual 2.0 % (1.7-12.0)
[2024-11-18 17:41] VITALS: BMI 21.2
[2024-11-18 17:42] VITALS: BP 141/73; PULSE 66; TEMP 37.4; O2SAT 92
[2024-11-18 17:50] VITALS: BP 146/83; TEMP 36.8; O2SAT 92
[2024-11-18 18:06] LABS: Magnesium 1.8 mg/dL (1.8-2.4)
[2024-11-18] MEDS: HYDROMORPHONE HCL 0.5 MG/0.5 ML SYRINGE IV ×2 (19:01→23:48)
[2024-11-18 19:42] VITALS: BP 140/75; PULSE 84; TEMP 37.4; O2SAT 97
[2024-11-18 20:03] VITALS: PULSE 71; O2SAT 97
[2024-11-18] MEDS: VANCOMYCIN HCL 1,500 MG in 0.9 % SODIUM CHLORIDE 500 ML 250 MG IV (21:07)
[2024-11-18] MEDS: ACETAMINOPHEN 500 MG TABLET 1000 MG PO (21:07)
[2024-11-18] MEDS: CYCLOBENZAPRINE HCL 10 MG TABLET PO (21:07)
[2024-11-18 22:04] LABS: Lactate/Lactic Acid 1.5 mmol/L (0.4-2.0)
--- OUTSIDE RECORDS SUMMARY | 2024-11-18 22:06 | XMS_ITS | CCD ---
Author Organization [facility] CliniSyma Care Team Providers Care Flexo Press Operator Name Role Phone NICO WEBB Unavailable Unavailable LYNN BOOKER Unavailable Unavailable HOUSE, DR BLOOD Attending Unavailable HOUSE, DR BLOOD Consulting Unavailable HOUSE, DR BLOOD Primary Care Unavailable HOUSE, DR BLOOD Admitting Unavailable Jamel, DO Blood Primary Care Provider MD Kareem Crocker Attending Provider ALIA Low Attending Provider JEREMI MARIE Primary Care Physician [phone] DO Jeremi Marie Primary Care Provider MD Kareem Crocker Attending Provider DO Laci Moss Attending Provider DO Jeremi Marie Primary Care Provider [phone] ALIA Low Attending Provider Laci Elder Admitting [...] Unavailable Laci Moss Referring Unavailable House, DO Jeremi Primary Care Provider BAILEY WORTHINGTON Attending Unavailable HOUSE, JEREMI Rachel Referring Unavailable Sarah MEHTA, Jessica Costa Unavailable Jamel PETTY, Jeremi Ramos Primary Care Provider Isi DUST CONTROL ENGINEER.AWNING MAKER, Radha Unavailable Unavailable Primary Care Provider UnavailEVETTE Covarrubias S Attending Unavailable ALEXANDEROVSKALBERT, RADHA Referring Unavailable JAY, EVETTE Attending Unavailable ELIA, JALEN Costa Admitting Unavailable ELIA, JALEN C Attending Unavailable ELIA, JALEN C Attending Unavailable SALLOUHA, JESSIKA Attending Unavailable HOUSE, JEREMI P Primary Care [...] Unavailable HOUSE, JEREMI P Primary Care Unavailable Kelly, Gerardo Attending Unavailable HOUSE, JEREMI P Primary Care Unavailable Kelly, Gerardo Attending Unavailable HOUSE, JEREMI P Primary Care Unavailable HOUSE, DO JEREMI P Referring Unavailable HOUSE, DO JEREMI P Attending Unavailable HOUSE, JEREMI P Primary Care Unavailable Allergies Allergy Classification Reported Allergen(s) Allergy Type Date of Onset Reaction(s) Facility Acetaminophen (1 source) Acetaminophen Drug Allergy 12-10-19 18 [facility] Benzodiazepines (1 source) LORazepam Drug Allergy 12-10-19 18 Drowsy [facility] Opioid Agonists (1 source) HYDROcodone Drug Allergy 12-10-19 18 [facility] Penicillins (antibiotic) (1 source) Penicillins Drug Allergy 12-10-19 18 [facility] (3 sources) Acetaminophen / HYDROcodone; Translations: [Vicodin] Drug Allergy 12-19-19 15 [facility] (3 sources) LORazepam; Translations: [Ativan] Drug Allergy 12-19-19 15 [facility] (16 sources) Penicillins; Translations: [penicillins] Drug allergy (disorder) 02-19-20 02 Pharyngeal swelling (finding) [facility] (14 sources) Acetaminophen; Translations: [acetaminophen] Drug Allergy 12-10-19 18 [facility] (17 sources) HYDROcodone; Translations: [hydrocodone] Drug Allergy 12-10-19 18 [facility] (20 sources) LORazepam; Translations: [Lorazepam] Drug Allergy 06-12-19 14 Nausea and vomiting (disorder), Swelling, Confusion [facility] Comment on above: NAUSEA (11 sources) Acetaminophen / HYDROcodone; Translations: [acetaminophen-hy drocodone] Drug Allergy 06-12-19 Swelling (finding), [facility] (1 source) Penicillins Drug allergy (disorder) 12-12-19 [facility] Repository (8 sources) Acetaminophen / HYDROcodone; Translations: [HYDROCODONE-ACET AMINOPHEN] Drug Allergy 06-12-19 14 [facility] (6 sources) Penicillins Drug Intolerance 02-19-20 02 Anaphylaxis [facility] (7 sources) Penicillins Propensity to adverse reactions 02-19-20 02 Anaphylaxis [facility] (1 source) Penicillin; Translations: [penicillin] Drug Allergy [facility] Repository Medications Current Medications Medication Drug Class(es) [...] sources) Start: 06-12-2024 End: 07-12-2024 sodium chloride (Barry) 0.65 % nasal spray Indications: Nasal congestion [...] Test Name Value Interpretation Reference Range Facility Patient Letteron 08-17-2024 Patient Letter [id number][facility] 08-05-2024 Outside Records [id number]#1.00[facility] Outside Recordson 07-22-2024 Outside Records [id number]#1.00[facility] Controlled Substances Agreem entson 06-24-2024 Controlled Substances Agreements [id number]#[facility]-16-2024 CNOV Office Visit (SPNSMN ) GILLES JANE ([id number]) 1990 M Date Time Provider Department 06/16/24 2:20 PM EVETTE SINGH SPNSMN During your visit today, we recorded the following information about you: Pulse Respiration Blood pressure Weight 75/minute 18/minute 123/68 67.5 kg Height 1.803 m Evette Singh APRN.HASMUKH 06/16/2024 4:49 PM Signed SPINE SURGERY NEW [...] with CC of chronic back pain into [facility]. Notes sx since 18yo. Lumbar [...] which included preparing to see the patient, [id number] patient care, completing clinical documentation, obtaining and/or [...] - Hives Date Reviewed: 06/16/2024 Reviewed by: Haresh, Lyudmila, MA - Fully Assessed Reason for Visit: Established Patient [175] Primary Visit Diagnosis:Chronic pain syndrome [G89.4] Other Visit Diagnosis: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, M54.42, G89.29] Order(s):CONSULT TO CENTER (more content not included)... Normal [facility] CNPNon 05-29-2024 CNPN Telephone (NIQ) GILLES JANE ([id number]) 1990 M Date Time Provider Department 05/29/24 EVETTE THOMPSON NIOsman During your visit today, we recorded the following information about you: Lizbet Parra 05/29/2024 9:58 AM Signed Pt called to check on his MRI imaging from [facility]. It's not available on [facility] AND no report scanned. Pt asked me to obtain imaging AND report and update him and wanted to schedule another appt. Pls call back with update He will request that imaging be sent over to office for review. He will contact office when this is sent over. Consider VV with surgical JERICHO for review Lizbet Parra 06/02/2024 9:14 AM Signed Received the following record(s) via fax. -Cathy - Report MR Lumbar Spine wo/w 03/29/23 Record(s) scanned into pt's chart. Lizbet Alvares 06/04/2024 2:31 PM Signed MRI is available on [facility] Allergies As of Date: 05/29/2024 Noted Allergy Reaction LORAZEPAM 06/12/2013 7 - Swelling PENICILLINS 02/18/2002 VICODIN (HYDROCODONE-ACETAMINOPHE* 4 - Hives Date Reviewed: 04/17/2024 Reviewed by: Mi French OCCA - Fully Assessed Reason for Visit: Patient Question [1817] Prescriptions as of 06/04/2024 - clonazePAM (KLONOPIN) [...] [M42.00] Smoker [F17.200] Encounter Status:Closed by LIZBET PARRA on 06/04/24 [facility] CNOVon 04-17-2024 CNOV Office Visit (SPNSMN ) GILLES JANE ([id number]) 1990 M Date Time Provider Department 04/17/24 [...] provider on file. 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 CMT: -Suboxone -Gabapentin 300 mg TID -Physical [...] 125/84 Pu (more content not included)... Normal [facility] Consultation/Specialist Note on 03-04-2024 Consultation/Special ist Note [id number]#1.00OTGTIFF [facility] Consultation/Specialist Note on 01-29-2024 Consultation/Special ist Note [id number]#1.00OTGTIFF [facility] Consultation/Special ist Note [id number]#1.00OTGTIFF [facility] Outside Recordson 01-23-2024 Outside Records [id number][facility]24 Insurance [id number]#[facility] Intraoperative Recor don 12-30-2023 Main OR Intraoperative Record Main OR Intraoperative Record IntraOp Document Type FTPM Summary Primary Physician: Laci Moss DO Finalized Date/Time: 12/30/23 14:56:10 Pt. Name: GILLES JANE/Sex: 1990 Male Med Rec #: [id number] Physician: Laci Moss DO Financial #: [id number] Pt. Type: P Room/Bed: / Admit/Disch: 12/30/23 13:25:36 - Institution: Case Times FTPM Entry 1 Patient Times In Room 12/30/23 14:47:00 Out Room 12/30/23 14:57:00 Procedure Times Start 12/30/23 14:50:00 Stop 12/30/23 14:56:00 Anesthesia Times Last Modified By: Cliff QUINTANILLA, Zhanna Hollingsworth 12/30/23 14:56:06 Case Attendance FTPM Entry 1 Entry 2 Entry 3 Case Attendee Laci Moss DO, RN, Zhanna Dent RN, [facility] Role Performed Surgeon - Primary Director Of Casework Services - Primary Scrub - Primary Time In 12/30/23 14:47:00 12/30/23 14:47:00 12/30/23 14:47:00 Time Out 12/30/23 14:57:00 12/30/23 14:57:00 12/30/23 14:57:00 Procedure TRANSFORAMINAL EPIDURAL TRANSFORAMINAL EPIDURAL TRANSFORAMINAL EPIDURAL STEROID STEROID STEROID INJECTIO(Bilateral) INJECTIO(Bilateral) INJECTIO(Bilateral) Comments Last Modified By: Cliff QUINTANILLA, Zhanna Coronado RN, Zhanna Coronado RN, Zhanna Hollingsworth 12/30/23 14:56:07 12/30/23 14:56:07 12/30/23 14:56:07 Entry 4 Case Attendee Cely Whitaker Role Performed Ophthalmologist Time In 12/30/23 14:47:00 Time Out 12/30/23 [...] and tissue Entry 1 Skin Integrity Intact, [place], Warm, & Skin Abnormality No Dry Outcomes [...] Safety Stra (more content not included)... Normal [facility] Main OR Preoperative Recordo n 12-30-2023 Main OR Preoperative Record Main OR Preoperative Record Holding Area Document Type FTPM Summary Primary Physician: Laci Moss DO Finalized Date/Time: 12/30/23 13:34:55 Pt. Name: GILLES JANE/Sex: 1990 Male Med Rec #: [id number] Physician: Laci Moss DO Financial #: [id number] Pt. Type: P Room/Bed: / Admit/Disch: 12/30/23 [...] Midnight: No Date/Time: 12/30/23 13:28:00 Results Reviewed TRISHAparisa Hollingsworth katalina 0930 Personal Items: Glasses Comments: Personal Items [...] By: Armando Stuart RN 12/30/23 13:34 Normal [facility] Rad - MRI Reporton Rad - MRI Report [id number]#1.00OTGTIFF [facility] Rad - Other Radiology Report on 12-16-2023 Rad - Other Radiology Report [id number]#1.00OTGTIFF [facility] MRI Spine Cervical w/o Contr felice 12-13-2023 [...] are grossly unremarkable. Report Ordering Provider: Yanet Lwo FINAL REPORT Dictated: 12/13/2023 11:48 am Carlos Figueroa DO Signed (Electronic Signature): 12/13/2023 11:48 am Signed by: Carlos Figueroa DO Transcribed by: MAGGI Technologist: IVETT Technical Comments None Normal [facility] XR Spine Cervical 4 or 5 [...] soft tissues are unremarkable. Ordering Provider: Yanet Lwo FINAL REPORT Dictated: 12/13/2023 1:47 pm Jostin Garza MD Signed (Electronic Signature): 12/13/2023 1:47 pm Signed by: Jostin Garza MD Transcribed by: MAGGI Technologist: SERGEY Technical Comments Radiation Dose: Ka,r in mGy = na DAP = na Normal [facility] Consultation/Specialist Note on 12-12-2023 Consultation/Special ist Note [id number]#1.00OTGTIFF [facility] Insuranceon 12-12-2023 Insurance [id number]#1.00OTGTIFF [facility] XR lumbar spine 6V w bending on 12-12-2023 XR lumbar spine 6V w bending [facility] Main [place] [address] [place] [address] XRay Report Signed Patient: Gilles Jane MR#: [id number] 1409 : 1990 Acct:[id number] Age/Sex: 33 / M ADM Date: 12/12/23 Loc: XD Room: Type: [facility] Attending Dr: Lesvia ROJO Copies to: ALIA [...] PROCESS. Impression dictated by: Reece Polo Jr., D.OSadiq12/12/2023 3:18 PM Dictation Location: [place] [address] Transcribed By: [facility] 12/12/23 1518 Dictated By: Reece Polo Jr, DO 12/12/23 1517 Signed By: 12/12/23 1518 Normal [facility] Outside Recordson 11-29-2023 Outside Records [id number]#1.00OTGTIFF Normal [facility] Outside Records Officeon Outside Records Office [id number]#1.00TIFF Normal [facility] Consent for Procedure/Surger yon 10-16-2023 Consent for Procedure/Surgery [id number]#1.00TIFF Normal [facility] Discharge Instructionson Discharge Instructions [id number]#1.00TIFF Normal [facility] IntraOperative Documentson 0 10-16-2023 IntraOperative Documents [id number]#1.00TIFF Normal [facility] IntraOperative Documents [id number]#1.00TIFF Normal [facility] Consent for Treatmenton Consent for Treatment [id number]#1.00TIFF Normal [facility] Main OR Intraoperative Recor don 10-15-2023 Main OR Intraoperative Record IntraOp Document Type FTPM Summary Primary Physician: Laci Moss DO Finalized Date/Time: 10/15/23 15:13:45 Pt. Name: GILLES JANE/Sex: 1990 Male Med Rec #: [id number] Physician: Laci Moss DO Financial #: [id number] Pt. Type: P Room/Bed: / Admit/Disch: 10/15/23 [...] RN, Saira Role Performed Surgeon - Primary Director Of Casework Services - Primary Scrub - Primary Time In 10/15/23 15:08:00 10/15/23 15:08:00 10/15/23 15:08:00 Time Out 10/15/23 15:14:00 10/15/23 15:14:00 10/15/23 15:14:00 Procedure LUMBAR EPIDURAL STEROID LUMBAR EPIDURAL STEROID LUMBAR EPIDURAL STEROID INJECTION(.) INJECTION(.) INJECTION(.) Comments Last Modified By: Cliff QUINTANILLA, Zhanna Coronado RN, Zhanna Coronado RN, Zhanna Hollingsworth 10/15/23 15:13:35 10/15/23 15:13:35 10/15/23 15:13:35 Entry 4 Entry 5 Case Attendee Hamida Nickerson RT, Krishan Ramos Role Performed Ophthalmologist Ophthalmologist Time In 10/15/23 15:08:00 10/15/23 15:08:00 Time [...] PreOp Antibiotic No Time Out Cliff QUINTANILLA, Harsha Ansari RN, Ajay Chávez DO, Bradford A., Daniel, Alissa M, Roll RT, Krishan P Time Out Complete 10/15/23 15:08:00 Outcomes [...] and tissue Entry 1 Skin Integrity Intact, [place], Warm, and Skin Abnormality No Dry Outcomes [...] Device Pillow (more content not included)... Normal [facility] Main OR Preoperative Recordo n 10-15-2023 Main OR Preoperative Record Holding Area Document Type FTPM Summary Primary Physician: Laci Moss DO Finalized Date/Time: 10/15/23 14:01:15 Pt. Name: GILLES JANE /Sex: 1990 Male Med Rec #: [id number] Physician: Laci Moss DO Financial #: [id number] Pt. Type: P Room/Bed: / Admit/Disch: 10/15/23 [...] Signed By: Elyse Badillo RN 10/15/23 14:01 [facility] Outside Records Officeon Outside Records Office [id number]#1.00TIFF Normal [facility] Patient Correspondenceon Patient Correspondence [id number]#1.00TIFF Normal [facility] Insurance Correspondence Off iceon 09-24-2023 Insurance Correspondence Office [id number]#2.00TIFF Normal [facility] Orders Officeon 09-18-2023 Orders Office [id number]#1.00TIFF Normal [facility] Outside Records Officeon Outside Records Office [id number]#1.00TIFF [facility] Consent for Treatmenton Consent for Treatment [id number]#1.00TIFF Normal [facility] Consultation Noteon 09-12-19 Consultation Note Patient [...] 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 [facility] Comment on above: Result Comment: Elec tronically Signed By: Laci Moss DO\Date and Time Signed: 09/12/23 12:36 EDT HIPAA Forms Officeon 024 HIPAA Forms Office [id number]#1.00TIFF Normal [facility] Legal Correspondence Officeo n 09-12-2023 Legal Correspondence Office [id number]#1.00TIFF Normal [facility] Legal Correspondence Office [id number]#1.00TIFF Normal [facility] Office/Clinic Note-Physician on 09-12-2023 Office/Clinic Note-Physician [id number]#1.00TIFF Normal [facility] Patient Correspondenceon Patient Correspondence [id number]#1.00TIFF Normal [facility] Patient Correspondence [id number]#1.00TIFF Normal [facility] Patient Correspondence [id number]#1.00TIFF Normal [facility] Patient Correspondence [id number]#1.00TIFF Normal [facility] Patient Correspondence [id number]#1.00TIFF Normal [facility] Patient History Officeon Patient History Office [id number]#1.00TIFF Normal [facility] Physician Orderon 09-12-2023 Physician Order [id number]#1.00TIFF Normal [facility] Outside Records Officeon Outside Records Office [id number]#1.00TIFF Normal [facility] Radiology Outside Office 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 Performed By: #### A NA, VITB6, RPR W RFX, RA #### [facility] , #### CRP, [id number], TSH3, T4F, A1C WTH eA, ESR #### [address] [place] Antinuclear Antibodieson 08-22-2023 Antinuclear Abs, IFA Negative Normal . [facility] Comment on above: Result Comment: Nega tive <1:80 Borderline 1:80 Positive >1:80 ICAP nomenclature: AC-0 For more information about Hep-2 cell patterns use ANApatterns.org, the official website for the International Consensus on Antinuclear Antibody ([place]) Patterns (ICAP). Performed at: [address] [id number] Shore Worker: Reuben Couch PhD, Phone: [phone] Performed By: #### A NA, VITB6, RPR W RFX, RA #### [facility] , #### CRP, [id number], TSH3, T4F, A1C WTH eA, ESR #### [address] C reactive protein [Mass/vol ume] in Serum or PlasmaOrdered By: Lesvia Low on 08-22-2023 CRP [Mass/Vol] < 0.5 mg/dL 0.0-0.5 [facility] C-Reactive Proteinon 024 CRP [Mass/Vol] mg/L Normal 0.0-0.5 [facility] Comment on above: Performed By: #### A NA, VITB6, RPR W RFX, RA #### [facility] , #### CRP, [id number], TSH3, T4F, A1C WTH eA, ESR #### [address] Erythrocyte Sedimentation Ra sandeep 08-22-2023 ESR (Bld) [Velocity] 8 mm/h Normal 0-14 [facility] Comment on above: Result Comment: PERF ORMED BY: [place] [address] PATHOLOGIST SPARE FIXER BRENDA MOE M.D. Performed By: #### A NA, VITB6, RPR W RFX, RA #### [facility] , #### CRP, [id number], TSH3, T4F, A1C WT eA, ESR #### [address] Erythrocyte sedimentation ra te by Photometric methodOrdered By: Lesvia Low on 08-22-2023 ESR Photometric method (Bld) [Velocity] 8 mm/hr 0-14 [facility] Folate [Mass/volume] in Seru m or PlasmaOrdered By: Lesvia Low on 08-22-2023 Folate [Mass/Vol] 39.0 ng/mL >5.[address] [facility] Comment on above: Folate reference ran ge: >5.9 ng/mlThe WHO technical consultation on folate and vitamin [id number] has determined that folate concentrations lessthan 4 ng/ml are considered deficient. Glucose mean value [Mass/vol ume] in Blood Estimated from glycated hemoglobinOrdered By: Lesvia Low on 08-22-2023 Average glucose Estimated from glycated hemoglobin (Bld) [Mass/Vol] 111 mg/dL [facility] Hemoglobin A1c percentageOrd ered By: Lesvia Low on 08-22-2023 HbA1c (Bld) [Mass fraction] 5.5 % Normal 4.3-5.6 [facility] Comment on above: Increased risk for d iabetes: 5.7 - 6.4diabetes: >6.4glycemic control for adults with diabetes: <7.0 Result Comment: Incr eased risk for diabetes: 5.7 - 6.4 diabetes: >6.4 glycemic control for adults with diabetes: <7.0 Performed By: #### A NA, VITB6, RPR W RFX, RA #### [facility] , #### CRP, [id number], TSH3, T4F, A1C WTH eA, ESR #### [facility] [address] [place] [address] [place] RPR w/rfx to Quant TP Abson 08-22-2023 RPR, Rfx Quant RPR Non-Reactive Normal Non Reactive [facility] Comment on above: Result Comment: Perf ormed at: - [facility] [address] [id number] [place] Worker: Reuben Couch PhD, Phone: [phone] PERFORMED BY: [place] [address] PATHOLOGIST SPARE FIXER BRENDA MOE M.D. Performed By: #### A NA, VITB6, RPR W RFX, RA #### [facility] , #### CRP, [id number], TSH3, T4F, A1C WTH eA, ESR #### [facility] [address] [place] [address] [place] Reagin Ab [Presence] in Seru m by RPROrdered By: Lesvia Low on 08-22-2023 Reagin Ab RPR Ql (S) Non-Reactive Non Reactive [facility] Comment on above: Performed at: - [facility] [address] [id number] Director: Reuben Couch PhD, Phone: [phone] Rheumatoid Factoron 08-22-19 24 Rheumatoid Factor <10.0 Normal <14.0 [facility] Comment on above: Result Comment: [facility] [id number] [place] Worker: Reuben Couch PhD, Phone: [phone] Performed By: #### A NA, VITB6, RPR W RFX, RA #### [facility] , #### CRP, [id number], TSH3, T4F, A1C WTH eA, ESR #### [address] Serum homogeneous pattern an tinuclear antibody ([place]) titerOrdered By: Lesvia Low on 08-22-2023 Homogenous nuclear Ab pattern (S) [Titer] N/A [facility] Serum nuclear antibody titer Ordered By: Lesvia Low on 08-22-2023 Nuclear Ab (S) [Titer] Negative . [facility] Comment on above: Negative <1:80 Borjane 1:80 Positive >1:80ICAP nomenclature: AC-0For more information about Hep-2 cell patterns useANApatterns.org, the official website for theInternational Consensus on Antinuclear Antibody ([place])Patterns (ICAP).Performed at: [facility] [employer] [id number] Director: Reuben Couch PhD, Phone: [phone] Serum or plasma pyridoxine m easurement (mass/volume)Ordered By: Lesvia Low on 08-22-2023 Pyridoxine [Mass/Vol] 31.5 ug/L 3.4-65.2 [facility] Comment on above: This test was develo ped and its performance characteristicsdetermined by [employer]. It has not been cleared orapproved by the Food and Drug Administration. Deficiency: <3.4 Marginal: 3.4 - 5.1 Adequate: >5.1Performed at: [facility] [place], [place] [id number] Director: Houston Bobo MD, Phone: [phone] Serum or plasma rheumatoid f actor measurement (units/volume)Ordered By: Lesvia Low on 08-22-2023 Rheumatoid factor Qn [IU]/mL <14.0 [facility] Comment on above: Performed at: [address] [id number] Director: Reuben Couch PhD, Phone: [phone] Thyrotropin [Units/volume] i n Serum or PlasmaOrdered By: Lesvia Low on 08-22-2023 TSH Qn 1.29 m[IU]/L Normal 0.45-5.33 [facility] Comment on above: Result Comment: PERF ORMED BY: [place] [address] PATHOLOGIST SPARE FIXER BRENDA MOE M.D. Performed By: #### A NA, VITB6, RPR W RFX, RA #### [facility] , #### CRP, [id number], TSH3, T4F, A1C WTH eA, ESR #### [facility] [address] [place] [address] Thyroxine (T4) free [Mass/vo lume] in Serum or PlasmaOrdered By: Lesvia Low on 08-22-2023 Free T4 [Mass/Vol] 0.90 ng/dL Normal 0.61-1.12 [facility] Comment on above: Performed By: #### A NA, VITB6, RPR W RFX, RA #### [facility] , #### CRP, [id number], TSH3, T4F, A1C WT eA, ESR #### [facility] [address] [place] [address] Vit. B12/Folate Profileon Folate 39.0 ng/mL Normal >5.9 [facility] Comment on above: Result Comment: Khadra te reference range: >5.9 ng/ml The WHO technical consultation on folate and vitamin b12 deficiencies has determined that folate concentrations less than 4 ng/ml are considered deficient. Performed By: #### A NA, VITB6, RPR W RFX, RA #### [facility] , #### CRP, [id number], TSH3, T4F, A1C WTH eA, ESR #### [address] Vitamin B12 ser/plasOrdered By: Lesvia Low on 08-22-2023 Cobalamin (Vitamin B12) [Mass/Vol] 710 pg/mL Normal 180-914 [facility] Comment on above: Performed By: #### A NA, VITB6, RPR W RFX, RA #### [facility] , #### CRP, [id number], TSH3, T4F, A1C WT eA, ESR #### [address] Vitamin B6on 08-22-2023 Vitamin B6 31.5 Normal 3.4-65.2 [facility] Comment on above: Result Comment: This test was developed and its performance characteristics determined by [facility]. It has not been cleared or approved by the Food and Drug Administration. Deficiency: <3.4 Marginal: 3.4 - 5.1 Adequate: >5.1 Performed at: [address] [id number] [place] Worker: Houston Bobo MD, Phone: [phone] PERFORMED BY: [place] [address] PATHOLOGIST SPARE FIXER BRENDA MOE M.D. Performed By: #### A NA, VITB6, RPR W RFX, RA #### [facility] , #### CRP, [id number], TSH3, T4F, A1C WTH eA, ESR #### [address] Covid-19 PCR (CVDTBH)on SARS-CoV-2 (COVID-19) RNA JAHAIRA+probe Ql (Unsp spec) Not detected Normal NOT DETECTED [facility] Comment on above: Result Comment: This test is not yet approved or cleared by the [place] FDA. When there are no FDA-approved or cleared tests available, and other criteria are met, FDA can make tests available under an emergency access mechanism called an Emergency Use Authorization (EUA). The EUA for this test is supported by the [place] of Health and Human Service's (HHS's) declaration [...] Performed By: #### C AMY, CVDTB #### [facility] [address] [place] [address] Renetta Lafleur SYMPTOMATIC COVID-19 ANTIGEN on 12-19-2020 EUA Statement SEE BELOW Normal [facility] Comment on above: Result Comment: [...] is revoked sooner. Performed By: #### C PRIYANKAAGS, CVDTB #### [facility] [address] [place] [address] Renetta Lafleur SARS-CoV-2 (COVID-19) RNA JAHAIRA+probe Ql (Unsp spec) Negative Normal NEGATIVE [facility] Comment on above: Result Comment: CONF IRMATION BY PCR PENDING PER CDC GUIDELINES/ SYMPTOMATIC PATIENT. Performed By: #### C VDAGS, CVDTBH #### [facility] [address] [place], [place] [address] Renetta Lafleur CBC with Diffon 11-30-2017 Abs. Basophil 0.10 k/uL Normal 0.0-0.2 [facility] Comment on above: Performed By: #### C DP, CP, LIP, EDTOX ####[facility] [place] [address] Abs.Neutrophil (Seg) 6.70 k/uL Normal 1.3-9.1 [facility] Comment on above: Performed By: #### C DP, CP, LIP, EDTOX ####[address] [address] Basophils/100 WBC Auto (Bld) 1 % Normal 0-2 [facility] Comment on above: Performed By: #### C DP, CP, LIP, EDTOX ####[facility] [place] [address] Eosinophils 0.10 10*3/uL Normal 0.0-0.4 [facility] Comment on above: Performed By: #### C DP, CP, LIP, EDTOX ####[address] [address] Eosinophils/100 leukocytes 2 % Normal 0-4 [facility] Comment on above: Performed By: #### C DP, CP, LIP, EDTOX ####[address] [address] Erythrocyte distribution width Auto Ratio (RBC) 12.7 % Normal 11.5-14.9 [facility] Comment on above: Performed By: #### C DP, CP, LIP, EDTOX ####[facility] [place] [address] Erythrocytes (RBC) 4.38 10*6/uL Low 4.5-5.9 [facility] Comment on above: Performed By: #### C DP, CP, LIP, EDTOX ####[facility] [place] [address] Hematocrit (HCT) 39.1 % Low 41-53 [facility] Comment on above: Performed By: #### C DP, CP, LIP, EDTOX ####[facility] [place], [place] [address] [address] Hemoglobin mass conc (Bld) 13.2 g/dL Low 13.5-17.5 [facility] Comment on above: Performed By: #### C DP, CP, LIP, EDTOX ####[facility] [facility] [place] [address] Lymphocytes 1.80 10*3/uL Normal 1.0-4.8 [facility] Comment on above: Performed By: #### C DP, CP, LIP, EDTOX ####[facility] [facility] [place] [address] Lymphocytes/100 leukocytes 19 % Low 24-44 [facility] Comment on above: Performed By: #### C DP, CP, LIP, EDTOX ####[facility] [place] [address] MCH 30.1 pg Normal 26-34 [facility] Comment on above: Performed By: #### C DP, CP, LIP, EDTOX ####[facility] [place] [address] MCHC mass conc (RBC) 33.7 g/dL Normal 31-37 [facility] Comment on above: Performed By: #### C DP, CP, LIP, EDTOX ####[facility] [place] [address] MCV 89.3 fL Normal 80-100 [facility] Comment on above: Performed By: #### C DP, CP, LIP, EDTOX ####[facility] [place] [address] Monocytes 0.60 10*3/uL Normal 0.1-1.3 [facility] Comment on above: Performed By: #### C DP, CP, LIP, EDTOX ####[address] [address] Monocytes/100 leukocytes 7 % Normal 1-7 [facility] Comment on above: Performed By: #### C DP, CP, LIP, EDTOX ####[address] [address] Neutrophil (Seg) 71 % High 36-66 [facility] Comment on above: Performed By: #### C DP, CP, LIP, EDTOX ####[address] [address] Platelet mean volume (PMV) 7.7 fL Normal 6.0-12.0 [facility] Comment on above: Performed By: #### C DP, CP, LIP, EDTOX ####[address] [address] Platelets 249 10*3/uL Normal 150-450 [facility] Comment on above: Performed By: #### C DP, CP, LIP, EDTOX ####[address] [address] WBC (Leukocytes) 9.3 10*3/uL Normal 3.5-11.0 [facility] Comment on above: Performed By: #### C DP, CP, LIP, EDTOX ####[address] [address] Abs.Imm.Granulocyte NOT REPORTED Normal 0.00-0.[address] [facility] Comment on above: Performed By: #### C DP, CP, LIP, EDTOX ####[address] [address] Auto Diff Performed NOT REPORTED Normal [facility] Comment on above: Performed By: #### C DP, CP, LIP, EDTOX ####[address] [address] Erythrocyte morphology NOT REPORTED Normal [facility] Comment on above: Performed By: #### C DP, CP, LIP, EDTOX ####[address] [address] Immature granulocytes #/vol (Bld) NOT REPORTED Normal 0 [facility] Comment on above: Performed By: #### C DP, CP, LIP, EDTOX ####[address] [address] NRBC Automated NOT REPORTED Normal [facility] Comment on above: Performed By: #### C DP, CP, LIP, EDTOX ####[address] [address] Platelets NOT REPORTED Normal [facility] Comment on above: Performed By: #### C DP, CP, LIP, EDTOX ####[address] [address] WBC Morphology NOT REPORTED Normal [facility] Comment on above: Performed By: #### C DP, CP, LIP, EDTOX ####[address] [address] Comp Metabolic Profon 2017 (cont.) Normal [facility] Comment on above: Result Comment: Aver age GFR for 20-29 years old: 116 mL/min/1.73sq mChronic Kidney Disease: <60 mL/min/1.73sq mKidney failure: <15 mL/min/1.73sq meGFR calculated using average adult body mass. Additional eGFR calculator available at:http://www.[employer]/multiple_crcl_2012.htm Performed By: #### C DP, CP, LIP, EDTOX ####[address] [address] Alanine aminotransferase (ALT) 26 U/L Normal 5-41 [facility] Comment on above: Performed By: #### C DP, CP, LIP, EDTOX ####[address] [address] Albumin 4.1 g/dL Normal 3.5-5.2 [facility] Comment on above: Performed By: #### C DP, CP, LIP, EDTOX ####[address] [address] Alkaline Phos 78 U/L Normal 40-129 [facility] Comment on above: Performed By: #### C DP, CP, LIP, EDTOX ####[address] [address] Anion gap 12 mmol/L Normal 9-17 [facility] Comment on above: Performed By: #### C DP, CP, LIP, EDTOX ####[address] [address] Aspartate aminotransferase (AST) 24 U/L Normal <40 [facility] Comment on above: Performed By: #### C DP, CP, LIP, EDTOX ####[facility] [place] [address] Bilirubin Ql (U) 0.56 mg/dL Normal 0.3-1.2 [facility] Comment on above: Performed By: #### C DP, CP, LIP, EDTOX ####[place] [address] [place] [address] Calcium 9.0 mg/dL Normal 8.6-10.4 [facility] Comment on above: Performed By: #### C DP, CP, LIP, EDTOX ####[address] [place] [address] Chloride 103 mmol/L Normal 98-107 [facility] Comment on above: Performed By: #### C DP, CP, LIP, EDTOX ####[address] [place] [address] CO2 24 mmol/L Normal 20-31 [facility] Comment on above: Performed By: #### C DP, CP, LIP, EDTOX ####[address] [place] [address] Creatinine 0.62 mg/dL Low 0.70-1.20 [facility] Comment on above: Performed By: #### C DP, CP, LIP, EDTOX ####[place] [address] [place] [address] GFR, Amer >60 Normal >60 [facility] Comment on above: Performed By: #### C DP, CP, LIP, EDTOX ####[place] [address] [place] [address] GFR,non Amer >60 Normal >60 [facility] Comment on above: Performed By: #### C DP, CP, LIP, EDTOX ####[address] [place] [address] Glucose mass conc 80 mg/dL Normal 70-99 [facility] Comment on above: Performed By: #### C DP, CP, LIP, EDTOX ####[facility] [place] [address] Potassium molar conc 4.0 mmol/L Normal 3.7-5.3 [facility] Comment on above: Performed By: #### C DP, CP, LIP, EDTOX ####[facility] [place] [address] Protein 6.4 g/dL Normal 6.4-8.3 [facility] Comment on above: Performed By: #### C DP, CP, LIP, EDTOX ####[facility] [facility] [address] [address] Sodium 139 mmol/L Normal 135-144 [facility] Comment on above: Performed By: #### C DP, CP, LIP, EDTOX ####[facility] [place] [address] Urea nitrogen 15 mg/dL Normal 6-20 [facility] Comment on above: Performed By: #### C DP, CP, LIP, EDTOX ####[facility] [place] [address] Albumin/Globulin Ratio NOT REPORTED Normal 1.0-2.5 [facility] Comment on above: Performed By: #### C DP, CP, LIP, EDTOX ####[facility] [place] [address] BUN/CRE Ratio NOT REPORTED Normal 9-20 [facility] Comment on above: Performed By: #### C DP, CP, LIP, EDTOX ####[facility] [place] [address] Staging: NOT REPORTED Normal [facility] Comment on above: Performed By: #### C DP, CP, LIP, EDTOX ####[address] [address] Drug Scr, Abuse, Uron 2017 Amphetamine(s),Ur Negative Normal NEG [facility] Comment on above: Result Comment: (Pos itive cutoff 1000 ng/mL) Performed By: #### U AX, SORAIDA ####[address] [address] Barbiturate(s),Ur Negative Normal NEG [facility] Comment on above: Result Comment: (Pos itive cutoff 200 ng/mL) Performed By: #### U AX, SORAIDA ####[address] [address] Base excess Negative Normal NEG [facility] Comment on above: Result Comment: (Pos itive cutoff 300 ng/mL) Performed By: #### U AX, SORAIDA ####[address] [address] Benzodiazepine(s) Negative Normal NEG [facility] Comment on above: Result Comment: (Pos itive cutoff 200 ng/mL) Performed By: #### U AX, SORAIDA ####[address] [address] Cannabinoid(s),Ur Negative Normal NEG [facility] Comment on above: Result Comment: (Pos itive cutoff 50 ng/mL) Performed By: #### U AX, SORAIDA ####[address] [address] Interpretive Info Assay provides medic al screening only. The absence of expected drug(s) and/or Normal [facility] Comment on above: Result Comment: meta bolite(s) may indicate diluted or adulterated urine, limitations of testing or timing of collection.Testing for legal purposes should be confirmed by another method. To request confirmation of test result, please call the lab within 7 days of sample submission. Performed By: #### U AX, SORAIDA ####[address] [address] Opiate(s), Ur Negative Normal NEG [facility] Comment on above: Result Comment: (Pos itive cutoff 300 ng/mL) Performed By: #### U AX, SORAIDA ####[address] [address] Oxycodone, Urine Negative Normal NEG [facility] Comment on above: Result Comment: (Pos itive cutoff 100 ng/mL) Performed By: #### U AX, SORAIDA ####[address] [address] Phencyclidine, Ur Negative Normal NEG [facility] Comment on above: Result Comment: (Pos itive cutoff 25 ng/mL) Performed By: #### U AX, SORAIDA ####[address] [address] Urine, methadone presence Negative Normal NEG [facility] Comment on above: Result Comment: (Pos itive cutoff 300 ng/mL) Performed By: #### U AX, SORAIDA ####[address] [address] Buprenorphrine, Ur NOT REPORTED Normal NEG [facility] Comment on above: Performed By: #### U AX, SORAIDA ####[address] [address] MDMA, Urine NOT REPORTED Normal NEG [facility] Comment on above: Performed By: #### U AX, SORAIDA ####[address] [place] [address] Methamphetamine, Ur NOT REPORTED Normal NEG [facility] Comment on above: Performed By: #### U AX, SORAIDA ####[address] [address] Propoxyphene,Urine NOT REPORTED Normal NEG [facility] Comment on above: Performed By: #### U AX, SORAIDA ####[address] [address] Urine, tricyclic antidepressants NOT REPORTED Normal NEG [facility] Comment on above: Performed By: #### U AX, SORAIDA ####[address] [address] Lactic Acidon 2018 Lactate 0.5 mmol/L Normal 0.5-2.2 [facility] Comment on above: Performed By: #### L ACTIC ####[address] [address] Lactic Acid,Whole Bl NOT REPORTED Normal 0.7-2.1 [facility] Comment on above: Performed By: #### L ACTIC ####[address] [address] Lipaseon 2018 Lipase 9 U/L Low 13-60 [facility] Comment on above: Performed By: #### C DP, CP, LIP, EDTOX ####[address] [address] Tox Scr, Bld, EDon 8 Acetaminophen mass conc <5 Low 10-30 [facility] Comment on above: Performed By: #### C DP, CP, LIP, EDTOX ####[address] [address] Salicylate <1 Low 3-10 [facility] Comment on above: Performed By: #### C DP, CP, LIP, EDTOX ####[address] [address] Ethanol mg/dL Normal <10 [facility] Comment on above: Performed By: #### C DP, CP, LIP, EDTOX ####[address] [address] Ethanol percent <0.010 Normal [facility] Comment on above: Performed By: #### C DP, CP, LIP, EDTOX ####[address] [address] UA w/Reflex Cultureon 2017 Acetoacetic Acid,Ur Negative Normal NEG [facility] Comment on above: Performed By: #### U AX, SORAIDA ####[address] [address] Bilirubin, SemiQt,Ur Negative Normal NEG [facility] Comment on above: Performed By: #### U AX, SORAIDA ####[address] [address] Color YELLOW Normal YEL [facility] Comment on above: Performed By: #### U AX, SORAIDA ####[address] [address] Comment Microscopic exam not performed based on chemical results unless requested in Normal [facility] Comment on above: Result Comment: orig inal order. Performed By: #### U AX, SORAIDA ####[address] [address] Glucose,Semi-qnt,Ur Negative Normal NEG [facility] Comment on above: Performed By: #### U AX, SORAIDA ####[place] [address] [facility] [place] [address] Hemoglobin, Ur Negative Normal NEG [facility] Comment on above: Performed By: #### U AX, SORAIDA ####[address] [address] Leuckocyte Esterase Negative Normal NEG [facility] Comment on above: Performed By: #### U AX, SORAIDA ####[facility] [place] [address] Nitrite,Ur Negative Normal NEG [facility] Comment on above: Performed By: #### U AX, SORAIDA ####[address] [address] PH,Ur 6.5 Normal 5.0-8.0 [facility] Comment on above: Performed By: #### U AX, SORAIDA ####[address] [address] Protein, Semi-qnt,Ur Negative Normal NEG [facility] Comment on above: Performed By: #### U AX, SORAIDA ####[address] [place] [address] Spec. [place],Ur 1.003 Normal 1.000-1.030 [facility] Comment on above: Performed By: #### U AX, SORAIDA ####[facility] [place] [address] Turbidity CLEAR Normal CLEAR [facility] Comment on above: Performed By: #### U AX, SORAIDA ####[address] [address] Urobilinogen,Ur Normal Normal NORM [facility] Comment on above: Performed By: #### U AX, SORAIDA ####[place] [address] [place] [address] Vital Signs Date Time Vital Sign Value Performing Clinician Facility 06-18-2024 11:21-0500 Body height 177.8 cm Jessika Lainez PA-C Work Phone: [facility] 06-18-2024 11:21-0500 Body mass index (BMI) [Ratio] 22.1 kg/m2 Jessika MAC-Julissa Work Phone: [facility] 06-18-2024 11:21-0500 Body weight 69.85 kg Jessika MAC-Julissa Work Phone: [facility] 06-16-2024 15:16-0500 Body height 180.3 cm Evette Samantha DUST CONTROL ENGINEER.AWNING [employer]KER Work Phone: [facility] 06-16-2024 15:16-0500 Body mass index (BMI) [Ratio] 20.77 kg/m2 Evette Samantha DUST CONTROL ENGINEER.AWNING MAKER Work Phone: [facility] 06-16-2024 15:16-0500 Body weight 67.55 kg Evette Samantha DUST CONTROL ENGINEER.AWNING MAKER Work Phone: [facility] 06-16-2024 15:16-0500 Diastolic blood pressure 68 mm[Hg] Evette Samantha DUST CONTROL ENGINEER.AWNING MAKER Work Phone: [facility] 06-16-2024 15:16-0500 Heart rate 75 /min Evette Samantha DUST CONTROL ENGINEER.AWNING MAKER Work Phone: [facility] 06-16-2024 15:16-0500 Respiratory rate 18 /min Evette Samantha DUST CONTROL ENGINEER.AWNING MAKER Work Phone: [facility] 06-16-2024 15:16-0500 Systolic blood pressure 123 mm[Hg] Evette Samantha DUST CONTROL ENGINEER.AWNING MAKER Work Phone: [facility] 06-12-2024 11:25-0500 Body temperature 97.7 [degF] Jalen Patel MD Work Phone: [phone] [place] [address] 06-12-2024 11:25-0500 Diastolic blood pressure 82 mm[Hg] Jalen Patel MD Work Phone: 5(463)[phone] [place] [address] 06-12-2024 11:25-0500 Heart rate 62 /min Jalen Patel MD Work Phone: 0(398)[phone] [place] [address] 06-12-2024 11:25-0500 Respiratory rate 16 /min Jalen Patel MD Work Phone: 5(449)[phone] [place] [address] 06-12-2024 11:25-0500 SaO2% (BldA) [Mass fraction] 96 % Jalen Patel MD Work Phone: 0(010)887-855583 [place] [address] 06-12-2024 11:25-0500 Systolic blood pressure 138 mm[Hg] Jalen Patel MD Work Phone: 5(415)534-336283 [place] [address] 06-12-2024 07:34-0500 Body height 177.8 cm Jalen Patel MD Work Phone: 3(864)[phone] [place] [address] 06-12-2024 07:34-0500 Body mass index (BMI) [Ratio] 21.98 kg/m2 Jalen Patel MD Work Phone: 1(447)[phone] [place] [address] 06-12-2024 07:34-0500 Body weight 69.5 kg Jalen Patel MD Work Phone: 9(435)[phone] [place] [address] 05-21-2024 15:17-0500 Body height 172.7 cm Jalen Patel MD Work Phone: 5(302)[phone] [place] [address] 05-21-2024 15:17-0500 Body mass index (BMI) [Ratio] 22.06 kg/m2 Jalen Patel MD Work Phone: [phone])[phone] [place] [address] 05-21-2024 15:17-0500 Body weight 65.82 kg Jalen Patel MD Work Phone: 2([phone])[phone] [place] [address] 04-17-2024 14:46-0500 Body height 180.3 cm Evette [place] PA-C Work Phone: [facility] 04-17-2024 14:46-0500 Body mass index (BMI) [Ratio] 21.06 kg/m2 Evette [place] PA-C Work Phone: [facility] 04-17-2024 14:46-0500 Body weight 68.49 kg Evette Jay PA-C Work Phone: [facility] 04-17-2024 14:46-0500 Diastolic blood pressure 84 mm[Hg] Evette [place] PA-C Work Phone: [facility] 04-17-2024 14:46-0500 Heart rate 92 /min Evette [place] PA-C Work Phone: [facility] 04-17-2024 14:46-0500 Systolic blood pressure 125 mm[Hg] Evette Jay PA-C Work Phone: [facility] 04-15-2024 14:31-0500 Body height 177.8 cm Bailey Worthington MD Work Phone: [facility] 04-15-2024 14:31-0500 Body mass index (BMI) [Ratio] 21.81 kg/m2 Bailey Worthington MD Work Phone: [facility] 04-15-2024 14:31-0500 Body weight 68.95 kg Bailey Worthington MD Work Phone: [facility] 04-15-2024 14:31-0500 Diastolic blood pressure 63 mm[Hg] Bailey Worthington MD Work Phone: [facility] 04-15-2024 14:31-0500 Systolic blood pressure 105 mm[Hg] Bailey Worthington MD Work Phone: [facility] 02-25-2024 13:54-0400 Body height 177.8 cm Bailey Worthington MD Work Phone: [facility] 02-25-2024 13:54-0400 Body mass index (BMI) [Ratio] 21.24 kg/m2 Bailey Worthington MD Work Phone: [facility] 02-25-2024 13:54-0400 Body weight 67.13 kg Bailey Worthington MD Work Phone: [facility] 02-25-2024 13:54-0400 Diastolic blood pressure 60 mm[Hg] Bailey Worthington MD Work Phone: [facility] 02-25-2024 13:54-0400 Systolic blood pressure 103 mm[Hg] Bailey Worthington MD Work Phone: [facility] 01-28-2024 09:36-0400 Body height 177.8 cm DO Jeremi Jamel Work Phone: [facility] 01-28-2024 09:36-0400 Body mass index (BMI) [Ratio] 20.7 kg/m2 DO Jeremi House Work Phone: [facility] 01-28-2024 09:36-0400 Body weight 65.77 kg DO Jeremi Jamel Work Phone: [facility] 01-24-2024 13:44-0400 Diastolic blood pressure 99 mm[Hg] Yanet Low [facility] 01-24-2024 13:44-0400 Heart rate 129 /min Yanet Low [facility] 01-24-2024 13:44-0400 Mean blood pressure 109 mm[Hg] Yanet Low [facility] 01-24-2024 13:44-0400 Respiratory rate 20 /min Yanet [employer] [facility] 01-24-2024 13:44-0400 Systolic blood pressure 129 mm[Hg] Yanet Low [facility] 12-30-2023 14:58-0400 Heart rate 73 /min Laci Moss [facility] 12-30-2023 14:58-0400 SaO2% (BldA) [Mass fraction] 95 % Aguero Ajay [facility] 12-30-2023 14:58-0400 Diastolic blood pressure 82 mm[Hg] Laci Moss [facility] 12-30-2023 14:58-0400 Mean blood pressure 93 mm[Hg] Laci Moss [facility] 12-30-2023 14:58-0400 Systolic blood pressure 115 mm[Hg] Laci Moss [facility] 12-30-2023 14:58-0400 Respiratory rate 16 /min Aguero Ajay [facility] 12-30-2023 14:49-0400 Diastolic blood pressure 75 mm[Hg] Laci Ajay [facility] 12-30-2023 14:49-0400 Heart rate 74 /min Laci Moss [facility] 12-30-2023 14:49-0400 SaO2% (BldA) [Mass fraction] 98 % Aguero Ajay [facility] 12-30-2023 14:49-0400 Systolic blood pressure 124 mm[Hg] Aguero Ajay [facility] 12-30-2023 13:29-0400 Heart rate 98 /min Laci Ajay [facility] 12-30-2023 13:29-0400 SaO2% (BldA) [Mass fraction] 95 % Laci Moss [facility] 12-30-2023 13:29-0400 Body temperature 98.06 [degF] Laci Moss [facility] 12-30-2023 13:28-0400 Diastolic blood pressure 64 mm[Hg] Laci Moss [facility] 12-30-2023 13:28-0400 Mean blood pressure 87 mm[Hg] Laci Moss [facility] 12-30-2023 13:28-0400 Systolic blood pressure 134 mm[Hg] Laci Moss [facility] 12-30-2023 13:27-0400 Respiratory rate 14 /min Laci Moss [facility] 12-12-2023 12:59-0400 Body weight 67.13 kg DO Jeremi Marie Work Phone: [facility] 11-18-2023 14:41-0400 Diastolic blood pressure 84 mm[Hg] Yanet Low [facility] 11-18-2023 14:41-0400 Heart rate 103 /min Yanet Low [facility] 11-18-2023 14:41-0400 Mean blood pressure 99 mm[Hg] Yanet Low [facility] 11-18-2023 14:41-0400 Respiratory rate 14 /min Yanet Low [facility] 11-18-2023 14:41-0400 Systolic blood pressure 130 mm[Hg] Yanet Low [facility] 10-15-2023 15:17-0400 Heart rate 60 /min Laci Moss [facility] 10-15-2023 15:17-0400 SaO2% (BldA) [Mass fraction] 98 % Laci Moss [facility] 10-15-2023 15:17-0400 Diastolic blood pressure 68 mm[Hg] Laci Moss [facility] 10-15-2023 15:17-0400 Mean blood pressure 87 mm[Hg] Laci Moss [facility] 10-15-2023 15:17-0400 Systolic blood pressure 125 mm[Hg] Laci Moss [facility] 10-15-2023 15:17-0400 Respiratory rate 16 /min Laci Moss [facility] 10-15-2023 15:12-0400 Diastolic blood pressure 78 mm[Hg] Laci Moss [facility] 10-15-2023 15:12-0400 Heart rate 61 /min Laci Moss [facility] 10-15-2023 15:12-0400 SaO2% (BldA) [Mass fraction] 99 % Laci Moss [facility] 10-15-2023 15:12-0400 Systolic blood pressure 120 mm[Hg] Laci Moss [facility] 10-15-2023 13:51-0400 Heart rate 106 /min Laci Moss [facility] 10-15-2023 13:51-0400 SaO2% (BldA) [Mass fraction] 96 % Laci Moss [facility] 10-15-2023 13:50-0400 Diastolic blood pressure 86 mm[Hg] Laci Moss [facility] 10-15-2023 13:50-0400 Mean blood pressure 104 mm[Hg] Laci Moss [facility] 10-15-2023 13:50-0400 Systolic blood pressure 138 mm[Hg] Laci Moss [facility] 10-15-2023 13:50-0400 Body temperature 98.06 [degF] Laci Moss [facility] 10-15-2023 13:50-0400 Respiratory rate 16 /min Aguero Ajay [facility] 09-12-2023 10:52-0400 Diastolic blood pressure 74 mm[Hg] Laci Moss [facility] 09-12-2023 10:52-0400 Heart rate 86 /min Laci Moss [facility] 09-12-2023 10:52-0400 Mean blood pressure 90 mm[Hg] Laci Moss [facility] 09-12-2023 10:52-0400 Respiratory rate 16 /min Laci Moss [facility] 09-12-2023 10:52-0400 Systolic blood pressure 122 mm[Hg] Laci Moss [facility] 07-17-2023 11:15-0500 Body height 177.8 cm DO Jeremi Marie Work Phone: [facility] 07-17-2023 11:15-0500 Body mass index (BMI) [Ratio] 22.6 kg/m2 DO Jeremi House Work Phone: [facility] 07-17-2023 11:15-0500 Body weight 71.66 kg DO Jeremi House Work Phone: [facility] Encounters Encounter Date Encounter Type Care Provider Facility Start: 10-26-2024 End: 10-26-2024 ambulatory [facility] Facility: [facility] Start: 10-12-2024 End: 10-12-2024 ambulatory [facility] Facility: [facility] Start: 09-29-2024 ambulatory JEREMI P HOUSE Facilit y:[facility] Start: 09-15-2024 ambulatory JEREMI P HOUSE Facilit y:[facility] Start: 08-03-2024 ambulatory JEREMI P HOUSE Facilit y:[facility] Start: 07-30-2024 End: 07-30-2024 ambulatory JEREMI P HOUSE Facility:[facility] Cli jennifer Start: 06-30-2024 End: 06-30-2024 ambulatory JEREMI P HOUSE Facility:[facility] Cli jennifer Start: 06-23-2024 ambulatory DO JEREMI P HOUSE Faci lity:[facility] Start: 06-18-2024 End: 06-18-2024 ambulatory [facility] Start: 06-18-2024 End: 06-18-2024 Postop follow up visit related to original px Jessika Lainez PA-C Work Phone: [facility] Comment on above: Nasal deformity (Noemí elisabet Dx); Nasal obstruction; Hypertrophy of inferior nasal turbinate; Deviated nasal septum Start: 06-16-2024 End: 06-16-2024 ambulatory EVETTETERESITA SINGH Facility:[facility] Start: 06-16-2024 End: 06-16-2024 Patient encounter procedure Evette Singh DUST CONTROL ENGINEER.AWNING MAKER Work Phone: [facility] Comment on above: Chronic pain syndrom e (Primary Dx); Chronic 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 Start: 06-12-2024 End: 06-12-2024 ambulatory [facility] Start: 06-12-2024 End: 06-12-2024 Subsequent hospital visit by physician Jalen Patel MD Work Phone: [facility] Comment on above: Nasal congestion (Pr imary Dx); Deviated nasal septum; Nasal deformity Start: 05-29-2024 End: 06-04-2024 Telephone encounter Evette Thompson PA-C Work Phone: Neurology Comment on above: Patient Question Start: 05-21-2024 End: 05-21-2024 ambulatory [facility] Ambulatory Start: 05-21-2024 End: 05-21-2024 Office consultation new/estab patient 40 min Jalen Patel MD Work Phone: [facility] Comment on above: Deviated septum (Noemí elisabet Dx); Deviated nasal septum; Nasal alar collapse; Hypertrophy of inferior nasal turbinate; Nasal congestion; Nasal obstruction; Nasal deformity; Difficulty breathing Start: 04-17-2024 End: 04-17-2024 ambulatory RADHA LÓPEZ Facility:[facility] Start: 04-17-2024 End: 04-17-2024 Patient encounter procedure Evette Thompson PA-C Work Phone: [facility] Comment on above: Chronic bilateral lo w back pain with bilateral sciatica (Primary Dx) Start: 04-15-2024 End: 04-15-2024 Office outpatient visit 15 minutes Bailey Worthington MD Work Phone: [facility] Comment on above: Nasal obstruction (P rimary Dx); DNS (deviated nasal septum) Start: 04-15-2024 End: 04-15-2024 Bamboo flowsdaniel Worthington MD Work Phone: [facility] Start: 04-15-2024 End: 04-15-2024 Bammaríao timi Worthington MD Work Phone: [facility] Start: 03-23-2024 End: 03-23-2024 ambulatory [facility] Facility:[facility]ennifer Start: 02-25-2024 End: 02-25-2024 Bammaríao timi Worthington MD Work Phone: [facility] Start: 02-25-2024 End: 02-25-2024 Bammaríao timi Worthington MD Work Phone: [facility] [...] Neurology Start: 01-28-2024 End: 01-28-2024 ambulatory DO [facility] Work Phone: [facility] Work Phone: Start: 01-28-2024 End: 01-28-2024 Patient encounter procedure DO [facility] Work Phone: [facility] Work Phone: Start: 01-24-2024 End: 01-24-2024 ambulatory JEREMI P HOUSE Facility:[facility] Start: 01-24-2024 End: 01-24-2024 Patient encounter procedure Yanet Low [facility] Start: 01-16-2024 End: 01-16-2024 ambulatory DO JEREMI P HOUSE Facility:[facility] Cli jennifer Start: 01-01-2024 End: 01-01-2024 ambulatory DO JEREMI P HOUSE Facility:[facility] Cli jennifer Start: 12-30-2023 End: 12-30-2023 ambulatory Laci Moss Facility:[facility] Start: 12-30-2023 End: 12-30-2023 Pain Management Laci Moss [facility] Start: 12-12-2023 End: 12-12-2023 Patient encounter procedure DO Jeremi House Work Phone: [facility] Work Phone: Start: 12-12-2023 End: 12-12-2023 ambulatory DO Jeremi House Work Phone: [facility] Work Phone: Start: 12-10-2023 End: 12-10-2023 ambulatory Yanet Low Facility:[facility] Start: 12-10-2023 End: 12-10-2023 Patient encounter procedure Yanet Low [facility] Start: 11-18-2023 End: 11-18-2023 ambulatory PA-C Yanet Low Facility:[facility] Start: 11-18-2023 End: 11-18-2023 Pain Management Yanet Low [facility] Start: 10-24-2023 End: 10-24-2023 ambulatory DO Jeremi House Work Phone: [facility] Work Phone: Start: 10-24-2023 End: 10-24-2023 Discharged Recurring DO Jeremi House Work Phone: [facility] [place] Work Phone: Start: 10-15-2023 End: 10-15-2023 ambulatory Laci Moss Facility:[facility] Start: 10-15-2023 End: 10-15-2023 Pain Management Laci Moss [facility] Start: 09-19-2023 End: 09-19-2023 ambulatory DO Jeremi House Work Phone: [facility] Work Phone: Start: 09-19-2023 End: 09-19-2023 Discharged Recurring DO Jeremi House Work Phone: [facility] [place] Work Phone: Start: 09-12-2023 End: 09-12-2023 ambulatory Laci Moss Facility:[facility] Start: 09-12-2023 End: 09-12-2023 Pain Management Laci Moss [facility] Start: 08-22-2023 End: 08-22-2023 Patient encounter procedure DO Jeremi House Work Phone: [facility] [place] Work Phone: Start: 08-22-2023 End: 08-22-2023 ambulatory DO Jeremi House Work Phone: [facility] Work Phone: Start: 08-22-2023 Registered Recurring DO Abdelrahman s House Work Phone: [facility] [place] Work Phone: Start: 07-17-2023 End: 07-17-2023 Patient encounter procedure DO Jeremi House Work Phone: [facility] Work Phone: Start: 12-19-2020 End: 12-20-[address] JEREMI MARIE Facility:[facility] Start: 11-30-2017 End: 11-30-2017 Emergency department patient visit NICO TRACEY [facility] Procedures Date Procedure Procedure Detail Performing Clinician Start: 06-12-2024 PULSE OXIMETRY, CONTINUOUS Bentley Vásquez MD Work Phone: Start: 12-30-2023 Injection of nerve r oot of lumbar spine using fluoroscopic guidance [place] Comment on above: Relief 0% Start: 12-12-2023 X-ray of lumbar spin e, six views including bending views DO Jeremi Marie Work Phone: Start: 10-15-2023 Epidural injection o f lumbar spine using fluoroscopic guidance [place] Comment on above: L4-L5 60% relief x 2 days Start: 11-30-2017 Assay of lipase NICO GIORDANO Start: 11-30-2017 Blood count complete auto&auto difrntl wbc NICO WEBB Start: 11-30-2017 Comprehensive metabo lic panel NICO WEBB Start: 11-30-2017 LACTIC ACID, PLASMA YESSI EWBB Start: 11-30-2017 TOX SCR, BLD, ED NICO [...] f 2) Zoster Vaccines (1 of 2) [facility] Start: 08-14-2024 End: 04-04-2025 Patient encounter procedure 08/14/2024 1:00 PM EDT Office Visit [facility] [address] [place] [address] [place] [address] [place], [place] [id number] 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, 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, G89.29] [facility] Comment on above: 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, 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, G89.29] Start: 06-17-2024 End: 06-17-2024 Patient encounter procedure 06/17/2024 11:00 AM EST Office Visit [facility] [address] [place] [address] Jessika Lainez PA-C [address] [place] [address] [facility] Start: 06-12-2024 Subsequent hospital visit by physician 06/12/2024 Hospital Encounter [facility] OR [address] [place] [address] [place] [address] [place] [address] [facility] OR Start: 06-12-2024 End: 06-12-2024 Septoplasty/submucous resecj w/wo cartilage grf SEPTOPLASTY, NOSE, WITH NASAL TURBINATE REDUCTION Deviated nasal septum Hypertrophy of inferior nasal turbinate Nasal congestion Nasal deformity 06/12/2024 8:40 AM EST [facility] Start: 04-17-2024 End: 04-17-2024 Patient encounter procedure 04/17/2024 2:20 PM EST Office Visit [facility] [address] [place] [address] Evette Thompson PA-C [address] [place], [place] [id number] Lumbar [facility]ine [facility] Comment on above: Lumbar Spine Start: 01-28-2024 Patient referral [facility] Work Phone: Start: 01-12-2024 Covid-19 Vaccine ( season) Covid-19 Vaccine ( season) [facility] Start: 01-12-2024 Influenza vaccination Influenza Vacc ine (#1) [facility] Start: 12-12-2023 X-ray of lumbar spin e, six views including bending views XR lumbar spine 6V w bending [facility] Start: 08-22-2023 Pyridoxine [Mass/volume] in Serum or Plasma [facility] Start: 08-22-2023 Rheumatoid factor [Units/volume] in Serum or Plasma [facility] Start: 08-22-2023 [facility] Start: 07-17-2023 Patient referral [facility] Work Phone: Start: 2023 Lipid panel Lipid Screening [facility] Start: 2010 DTaP/Tdap/Td Vaccine s (1 - Tdap) DTaP/Tdap/Td Vaccines (1 - Tdap) [facility] Start: 2007 Hepatitis A Vaccines (1 of 2 - Risk 2-dose series) Hepatitis A Vaccines (1 of 2 - Risk 2-dose series) [facility] Start: 2007 Hepatitis B Vaccine (1 of 3 - 19+ 3-dose series) Hepatitis B Vaccine (1 of 3 - 19+ 3-dose series) [facility] Start: 2007 Hepatitis B Vaccines (1 of 3 - 19+ 3-dose series) Hepatitis B Vaccines (1 of 3 - 19+ 3-dose series) [facility] Start: 2007 Pneumococcal vaccination Pneumococcal Vaccine (1 of 2 - PCV) [facility] Start: 2007 Pneumococcal Vaccine : Pediatrics and At-Risk Adult Patients (1 of 2 - PCV) Pneumococcal Vaccine: Pediatrics and At-Risk Adult Patients (1 of 2 - PCV) [facility] Start: 2007 Urine microalbumin profile DTaP,Tdap,Td Vaccine (1 - Tdap) [facility] Start: 2006 Anxiety Screening Anxiety Screening [facility] Start: 2006 Depression Screening Depression Scre gwen [facility] Start: 2006 Hepatitis C screening Hepatitis C Sc kierra [facility] Start: 2006 HIV screening HIV Screening [facility] Start: 2001 Varicella vaccination Varicell a Vaccines (1 of 2 - 13+ 2-dose series) [facility] Start: 1994 Pneumococcal vaccination Pneumococcal Vaccine (1 of 2 - PCV) [facility] Start: 1989 MMR Vaccines (1 of 1 - Standard series) MMR Vaccines (1 of 1 - Standard series) [facility] Start: 1988 HIV screening HIV Screening [facility] Start: 1988 Lipid panel Lipid Panel [facility] Start: 1988 Yearly Adult Physical Yearly Adult P hysical [facility] Glucose measurement estimated from glycated hemoglobin [facility] Homogenous nuclear A b pattern [Titer] in Serum [facility] Nuclear Ab [Titer] i n Serum [facility] Patient referral [facility] Work Phone: Reagin Ab [Presence] in Serum by RPR [facility] Septoplasty/submucou s resecj w/wo cartilage grf SEPTOPLASTY, NOSE, WITH NASAL TURBINATE REDUCTION Deviated nasal septum Hypertrophy of inferior nasal turbinate Nasal congestion Nasal deformity [facility] XR Lumbar spine Views [facility] Payers Date Payer Category Payer Self-pay [id number] 2023 Medicaid [employer] [id number] 2023-Present [phone] [address] [place] [address] Medicaid [id number] 2023 Medicaid (Managed Care) 1.2. [id number] 2023 Private Health Insurance [facility] MEDICAID [id number] 1988 Unknown [id number] 2.16.840.1.480877.3.579.2. 593 1988 Unknown [id number] 2.16.840.1.075378.3.579.2. 727 1988 Unknown [id number] 2.16.840.1.838041.3.579.2. 727 1988 Unknown [id number] 2.16.840.1.587647.3.579.2. 727 1988 Unknown [id number] 2.16.840.1.428126.3.579.2. 727 1988 Unknown [id number] 2.16.840.1.570722.3.579.2. 727 1988 Unknown [id number] 2.16.840.1.891718.3.579.2. 727 1988 Unknown [id number] 2.16.840.1.831320.3.579.2. 1259 1988 Unknown [id number] 2.16.840.1.268587.3.579.2. 1245 1988 Unknown [id number] 2.16.840.1.678623.3.579.2. 1244 1988 Unknown [id number] 2.16.840.1.970104.3.579.2. 1244 1988 Unknown [id number] 2.16.840.1.177605.3.579.2. 718 1988 Unknown [id number] 2.16.840.1.516497.3.579.2. 718 1988 Unknown [id number] 2.16.840.1.296478.3.579.2. 718 1988 Unknown [id number] 2.16.840.1.442386.3.579.2. 718 1988 Unknown [id number] 2.16.840.1.501751.3.579.2. 1988 Unknown [id number] 2.16.840.1.050030.3.579.2. 718 1988 Unknown [id number] 2.16840.1.417832.3.579.2. 718 1988 Unknown [id number] 2.840.1.581337.3.579.2. 718 1988 Unknown [id number] 2.16840.1.141753.3.579.2. 718 1988 Unknown [id number] 2.16.840.1.263043.3.579.2. 718 1959 Unknown [id number] Unknown [facility] [id number] Unknown [id number] 2.16840.1.214523.3.579.2. 531 Unknown [id number] 2.16840.1.196548.3.579.2. 531 Unknown [id number] 2.16.840.1.303636.3.579.2. 531 Unknown [id number] 2.16840.1.046356.3.579.2. 531 Social History Date Type Detail Facility Start: 12-09-2017 [facility] Start: 1990 Sex Assigned At Male [facility] Start: 09-12-2023 Tobacco smoking status Heavy t obacco smoker (finding) [facility] Start: 02-25-2024 End: 05-21-2024 Sex Assigned At Male [facility] Start: 02-25-2024 End: 05-21-2024 Tobacco smoking [...] [facility] Start: 12-27-2021 End: 06-16-2024 Alcoholic beverage intake Current non-drinker of alcohol (finding) [facility] National Score (1-100), lower number is lower risk 73 [facility] Start: 05-21-2024 Tobacco use and exposure User of smokeless tobacco [facility] Work Phone: Start: 05-21-2024 End: 06-18-2024 Alcoholic beverage intake Lifetime non-drinker (finding) [facility] Work Phone: Start: 05-11-2024 End: 06-18-2024 Exposure to SARS-CoV-2 (event) Not sure [facility] Functional Status Date Assessment Result Facility 01-24-2024 Functional Status N/A [facility] 12-30-2023 Functional Status N/A [facility] 11-18-2023 Functional Status N/A [facility] 10-15-2023 Functional Status N/A [facility] 09-12-2023 Functional Status N/A [facility] Clinical Notes 08-16-2023 to 11-10-2024 Jessika Lainez PA-C - 06/18/2024 11:15 AM Evette Almaguer APRN.AWNING MAKER - 06/16/2024 2:20 PM ESTDischamadelyn Sánchez MD - 06/12/2024 7:22 AM Kelvin Sánchez MD - 06/12/2024 7:22 AM EST Note Date & Type Note Facility 11-10-2024 Note - From: JEREMI MARIE DO To: [facility] Clinical Pool ([facility]); Sent: 11/10/2024 10:28:12 EDT Subject: FW: Medication Management Due Date/Time: 11/11/2024 10:26:00 EDT Caller Name: GILLES JANE; Caller Number: Rosa , Mena --------- From: [facility] [id number] To: JEREMI MARIE DO Sent: November 10, [...] Refills: 0 Substitutions Allowed Notes from Pharmacy: --------- [facility]: Fanny Medina [facility] [id number] Sent: 11/10/2024 10:38:15 EDT Subject: FW: Medication Management Not Approved: proposed to provider clonazePAM (clonazePAM 1 MG TABLET) TAKE 1 TABLET BY MOUTH 2 TIMES A DAY Qty: 60 tab(s) Days Supply: 30 Refills: 0 Substitutions Allowed Route To Pharmacy - [facility] [id number] Signed by Fanny Medina [facility] 10-12-2024 Note - From: JEREMI MARIE DO To: [facility] Clinical Pool ([facility]); Sent: 10/12/2024 10:19:35 EDT Subject: FW: Medication Management Due Date/Time: 10/13/2024 10:00:00 EDT Caller Name: GILLES JANE; Caller Number: , M --------- From: [facility] [id number] To: JEREMI MARIE DO Sent: October 12, [...] Refills: 0 Substitutions Allowed Notes from Pharmacy: --------- From: Fanny Medina To: [facility] [id number] Sent: 10/12/2024 11:34:26 EDT Subject: FW: Medication Management Not Approved: proposed to provider clonazePAM (clonazePAM 1 MG TABLET) TAKE 1 TABLET BY MOUTH 2 TIMES A DAY Qty: 60 tab(s) Days Supply: 30 Refills: 0 Substitutions Allowed Route To Pharmacy - [facility] [id number] Signed by Carol Fanny [facility] 09-25-2024 Note Entered by PRATEEK MARIE DO on September 25, 2024 10:14:18 EDT From: JEREMI MARIE DO To: [facility] [id number] Sent: 09/25/2024 10:14:18 EDT Subject: Medication Management [...] 0 Substitutions Allowed Route To Pharmacy - [facility] [id number] --------- From: [facility] [id number] To: JEREMI MARIE DO Sent: September 24, [...] Refills: 0 Substitutions Allowed Notes from Pharmacy: --------- [facility] 09-15-2024 Note Entered by PRATEEK MARIE DO on September 15, 2024 17:11:55 EDT From: JEREMI MARIE DO To: [facility] [phone] Sent: 09/15/2024 17:11:55 EDT Subject: Medication Management Not Approved: Refill not appropriate, duplicate request gabapentin (GABAPENTIN 300 MG CAPSULE) TAKE 1 CAPSULE BY MOUTH 3 TIMES A DAY Qty: 90 cap(s) Days Supply: 30 Refills: 0 Substitutions Allowed Route To Pharmacy - [place] [id number] Not Approved: Refill not appropriate, duplicate request clonazePAM (clonazePAM 1 MG TABLET) TAKE 1 TABLET BY MOUTH 2 TIMES A DAY Qty: 60 tab(s) Days Supply: 30 Refills: 0 Substitutions Allowed Route To Pharmacy - [place] [phone] --------- From: [place] [phone] To: JEREMI MARIE DO Sent: September 15, [...] Refills: 0 Substitutions Allowed Notes from Pharmacy: --------- [facility] 08-18-2024 Note - From: JEREMI MARIE DO To: [facility] Clinical Pool ([facility]); Sent: 08/18/2024 07:41:35 EDT Subject: FW: Medication Management Due Date/Time: 08/18/2024 14:20:00 EDT Caller Name: GILLES JANE; Caller Number: Rosa , Mena --------- From: [facility] [id number] To: JEREMI MARIE DO Sent: August 17, [...] Refills: 0 Substitutions Allowed Notes from Pharmacy: --------- [facility]: Fanny Medina [facility] [id number] Sent: 08/18/2024 08:07:57 EDT Subject: FW: Medication Management Not Approved: Refill not appropriate, sent 08/18/2024 clonazePAM (clonazePAM 0.5 MG TABLET) TAKE 1 TABLET BY MOUTH 2 TIMES A DAY Qty: 60 tab(s) Days Supply: 30 Refills: 0 Substitutions Allowed Route To Pharmacy - [facility] [id number] [facility] [place] Note - From: Jaylene Little LPN ([facility] Clinical Pool ([facility])) To: JEREMI MARIE DO; Sent: 07/15/2024 08:25:54 EST Subject: Med increase Caller Name: GILLES JANE; Caller Number: H , M Pt lvm stating that he needed refill for Clonazepam 1 mg BID, medication is supposed to be increased from 0.5 mg to 1 mg as discuss as last visit. Last fill for 0.5 mg was 06/16/24 From: JEREMI MARIE DO To: [facility] Clinical Pool ([facility]); Sent: 07/15/2024 08:34:44 EST Subject: RE: Med increase Caller Name: GILLES JANE; Caller Number: H , M okay on that increase for the new rx med updated and proposal sent to Dr Marie for refill [facility] 06-30-2024 Note Entered by PRATEEK MARIE DO on June 30, 2024 12:12:52 EST From: JEREMI MARIE DO To: [id number] Sent: 06/30/2024 12:12:51 EST Subject: Medication Management Submitted: Complete:vilazodone (vilazodone 40 mg oral tablet) Signed by JEREMI MARIE DO 06/30/2024 12:12:00 EST Approved with modifications: vilazodone (vilazodone 40 mg tablet) TAKE 1 TABLET BY MOUTH ONCE DAILY Qty: 30 tab(s) Days Supply: 30 Refills: 2 Substitutions Allowed Route To Pharmacy - [facility] #[id number] Patient matched by JEREMI MARIE DO on 06/30/2024 12:12:17 EST --------- From: [id number] To: JEREMI MARIE DO Sent: June 30, 2024 10:52:19 AM CREATIVE ENGAGEMENT DIRECTOR Subject: Medication Management Due: July 01, 2024 10:31:01 AM CREATIVE ENGAGEMENT DIRECTOR On Hold Pending Signature Drug: vilazodone (vilazodone 40 mg oral tablet), TAKE 1 TABLET BY MOUTH ONCE DAILY Quantity: 30 tab(s) Days Supply: 30 Refills: 0 Substitutions Allowed Notes from Pharmacy: Dispensed Drug: vilazodone (vilazodone 40 mg oral tablet), TAKE 1 TABLET BY MOUTH ONCE DAILY Quantity: 30 tab(s) Days Supply: 30 Refills: 1 Substitutions Allowed Notes from Pharmacy: --------- [facility] 06-18-2024 History of Present illness Narrative Images from the original note [...] Jessika Lainez PA-C documented in this encounter [facility] Work Phone: 06-16-2024 History of Present illness Narrative SPINE SURGERY NEW PATIENT This [...] which included preparing to see the patient, [id number] patient care, completing clinical documentation, obtaining and/or reviewing separately obtained history, performing a medically appropriate examination, counseling and educating the patient/family/caregiver, and independently interpreting results (not separately reported). SIGNATURE: Evette Singh APRN.CNP PATIENT NAME: Gilles Jane DATE: June 16, 2024 TIME: 2:55 PM PAGER: documented in this encounter [facility] 06-16-2024 Note HNO ID: [id number] Author: EVETTE SINGH APRN.CNP Service: ? Author [...] VV with surgical JERICHO for review. Gilles Costa Buck will proceed with getting lumbar MRI uploaded [...] which included preparing to see the patient, cwqr-fo-[id number] patient care, completing clinical documentation, obtaining and/or reviewing separately obtained history, performing a medically appropriate examination, counseling and educating the patient/family/caregiver, and independently interpreting results (not separately reported). SIGNATURE: Evette Singh APRN.HASMUKH PATIENT NAME: Gilles Jane DATE: June 16, 2024 TIME: 2:55 PM PAGER: [facility] 06-12-2024 Hospital Discharge instructions Jalen Patel MD - 06/12/2024 7:25 AM EST NASAL SURGERY Important Phone Numbers Dr. Jalen Patel: [phone] Evenings/Weekends Emergency: [phone] - please ask for the ENT resident [...] WASH HANDS THOROUGHLY!!! documented in this encounter [facility] Work Phone: 06-12-2024 Attending History and physical note H&P reviewed. The patient was examined and there are no changes to the H&P. Cosigned by Jalen Patel MD at 06/12/2024 8:43 AM EST Source Note - Jalen Patel MD - 05/21/2024 2:30 PM EST Images [...] grafting, and inferior turbinate reduction with lateralization. [facility] Work Phone: 06-12-2024 History and physical note H&P reviewed. The patient was examined and there are no changes to the H&P. Cosigned by Jalen Patel MD at 06/12/2024 8:43 AM EST Source Note - Jalen Patel MD - 05/21/2024 2:30 PM EST Images from the original note were not included. Facial Plastic & Reconstructive Surgery Reason for consult: Nasal obstruction Referring provider: Dr. Worthington, CHRISS Chief Complaint: Obstructed breathing 34yo male with [...] reduction with lateralization. documented in this encounter [facility] Work Phone: 06-04-2024 Telephone encounter Note MRI is available on [facility] 06-04-2024 Miscellaneous Notes MRI is available on Epic Received the following record(s) via fax. -[facility] - Report MR Lumbar Spine wo/w 03/29/23 Record(s) scanned into pt's chart. Lizbet Parra Pt called to check on his MRI imaging from [facility]. It's not available on EPIC & no report scanned. Pt asked me to obtain imaging & report and update him and wanted to schedule another appt. Pls call back with update He will request that imaging be sent over to office for review. He will contact office when this is sent over. Consider VV with surgical JERICHO for review documented in this encounter [facility] 06-02-2024 Telephone encounter Note Received the following record(s) via fax. -[facility] - Report MR Lumbar Spine wo/w 03/29/23 Record(s) scanned into pt's chart. Lizbet Parra [facility] 05-29-2024 Telephone encounter Note Pt called to check on his MRI imaging from [facility]. It's not available on EPIC & no report scanned. Pt asked me to obtain imaging & report and update him and wanted to schedule another appt. Pls call back with update He will request that imaging be sent over to office for review. He will contact office when this is sent over. Consider VV with surgical JERICHO for review [facility] 05-21-2024 History of Present illness Narrative Images from the original note [...] reduction with lateralization. documented in this encounter [facility] Work Phone: 05-21-2024 Miscellaneous Notes Addended by: YUMIKO FIGUEROA on: 05/21/2024 04:38 PM Modules accepted: Orders documented in this encounter [facility] Work Phone: 05-21-2024 Note Addended by: YUMIKO FIGUEROA on: 05/21/2024 04:38 PM Modules accepted: Orders [facility] Work Phone: 05-18-2024 Note - From: JEREMI MARIE DO To: [facility] Sent: 05/18/2024 10:21:27 EST Subject: FW: Medication Management Due Date/Time: 05/19/2024 10:14:00 EST Caller Name: GILLES JANE; Caller Number: H --------- From: [id number] To: JEREMI MARIE DO Sent: May 18, 2024 9:14:26 AM CREATIVE ENGAGEMENT DIRECTOR Subject: Medication Management Due: May 19, 2024 12:07:14 AM CREATIVE ENGAGEMENT DIRECTOR On Hold Pending Signature Drug: clonazePAM (clonazePAM 0.5 mg oral tablet), 1 tab(s) Oral BID,x3 day(s),Instr:To last 3 days Quantity: 6 tab(s) Days Supply: 0 Refills: 0 Substitutions Allowed Notes from Pharmacy: Dispensed Drug: clonazePAM (clonazePAM 0.5 mg oral tablet), TAKE 1 TABLET BY MOUTH TWICE DAILY FOR 3 DAYS Quantity: 6 tab(s) Days Supply: 3 Refills: 0 Substitutions Allowed Notes from Pharmacy: --------- sent [facility] 05-14-2024 Note - From: JEREMI MARIE DO To: [facility] Clinical Pool ([facility]); Sent: 05/14/2024 12:04:59 EST Subject: FW: Medication Management Due Date/Time: 05/15/2024 11:53:00 EST Caller Name: GILLES JANE; Caller Number: H --------- From: [facility][id number] To: JEREMI MARIE DO Sent: May 14, 2024 10:53:18 AM CREATIVE ENGAGEMENT DIRECTOR Subject: Medication Management Due: May 15, 2024 12:11:03 AM CREATIVE ENGAGEMENT DIRECTOR On Hold Pending Signature Drug: clonazePAM (clonazePAM 0.5 mg oral tablet), 1 tab(s) Oral BID Quantity: 60 tab(s) Days Supply: 0 Refills: 0 Substitutions Allowed Notes from Pharmacy: Dispensed Drug: clonazePAM (clonazePAM 0.5 mg oral tablet), TAKE 1 TABLET BY MOUTH TWICE DAILY Quantity: 60 tab(s) Days Supply: 30 Refills: 0 Substitutions Allowed Notes from Pharmacy: --------- From: Fanny Raman To: [facility][id number] Sent: 05/14/2024 16:19:40 EST Subject: FW: Medication Management Not Approved: proposed to provider clonazePAM (clonazepam 0.5 mg tablet) TAKE 1 TABLET BY MOUTH TWICE DAILY Qty: 60 tab(s) Days Supply: 30 Refills: 0 Substitutions Allowed Route To Pharmacy - [facility] #[id number] Signed by Fanny Raman [facility] 05-11-2024 Note - From: JEREMI MARIE DO To: [facility] Clinical [facility] ([facility]); Sent: 05/10/2024 14:13:26 EST Subject: FW: Medication Management Due Date/Time: 05/10/2024 19:04:00 EST Caller Name: GILLES JANE; Caller Number: H --------- From: [facility][id number] To: JEREMI MARIE DO Sent: May 07, 2024 6:04:58 PM CREATIVE ENGAGEMENT DIRECTOR Subject: Medication Management Due: May 08, 2024 12:02:07 AM CREATIVE ENGAGEMENT DIRECTOR On Hold Pending Signature Drug: clonazePAM (clonazePAM 0.5 mg oral tablet), 1 tab(s) Oral BID Quantity: 60 tab(s) Days Supply: 0 Refills: 0 Substitutions Allowed Notes from Pharmacy: Dispensed Drug: clonazePAM (clonazePAM 0.5 mg oral tablet), TAKE 1 TABLET BY MOUTH TWICE DAILY Quantity: 60 tab(s) Days Supply: 30 Refills: 0 Substitutions Allowed Notes from Pharmacy: --------- From: Lina Meneses MA To: [facility][id number] Sent: 05/11/2024 08:46:54 EST Subject: FW: Medication Management Not Approved: Refill not appropriate, proposal sent to provider clonazePAM (clonazepam 0.5 mg tablet) TAKE 1 TABLET BY MOUTH TWICE DAILY Qty: 60 tab(s) Days Supply: 30 Refills: 0 Substitutions Allowed Route To Pharmacy - [facility] #[id number] Signed by Lina Meneses MA [facility] 04-17-2024 Instructions Evette Thompson PA-C - 04/17/2024 3:11 PM EST Please obtain copy of lumbar MRI and bring it to appointment or mail to; Evette Thompson PA-C [id number] / [address] [address] OR have imaging location electronically upload MRI to CC. Thank you, Evette Thompson PA-C [phone] documented in this encounter [facility] 04-17-2024 Note HNO ID: [id number] Author: EVETTE THOMPSON PA-C Service: ? Author Type: Physician Rehabilitation Manager Type: Progress Notes Filed: 04/17/2024 15:17 Note Text: SPINE SURGERY OUTPATIENT CONSULT This is an in-person visit. SERVICE DATE: 04/17/2024 PCP: No primary care provider on file. REFERRING PROVIDER: Radha Barreto [facility] [id number] Consult requested for an opinion regarding the evaluation and treatment of back pain. My final impression and recommendations will be communicated back to the requesting physician by way of the shared medical record or letter via US mail. 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 CMT: -Suboxone -Gabapentin 300 mg TID -Physical Therapy (Multiple courses) -Lumbar Epidural Steroid Injections (Multiple) -Lumbar Radiofrequency Ablation (Multiple) PRECIPITATING EVENT: None DURATION OF SYMPTOMS: Greater Than 1 Year PAIN EVALUATION 04/17/2024 1432 Pain Level: 5 Pain Location: Back Description: Sharp;Shooting;Tingling;Numbness; Aching;Tightness Duration Amount of Time: 16 Duration Units: [...] Benign affect. MUSCULOSKEL (more content not included)... [facility] 04-17-2024 History of Present illness Narrative SPINE SURGERY OUTPATIENT CONSULT This is an in-person visit. SERVICE DATE: 04/17/2024 PCP: No primary care provider on file. 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.] Past Surgical History: Procedure Laterality Date COLONOSCOPY 2014 FOOT SURGERY around 4th grade [employer] [...] deviation I will have him see Dr Patel documented in this encounter [facility] 04-13-2024 Note - From: JEREMI MARIE DO To: [facility] Clinical Pool ([facility]); Sent: 04/13/2024 07:31:36 EST Subject: FW: Medication Management Due Date/Time: 04/13/2024 11:38:00 EST Caller Name: GILLES JANE; Caller Number: Rosa --------- From: [id number] To: JEREMI MARIE DO Sent: April 10, 2024 10:38:07 AM CREATIVE ENGAGEMENT DIRECTOR Subject: Medication Management Due: April 11, 2024 12:19:32 AM CREATIVE ENGAGEMENT DIRECTOR On Hold Pending Signature Drug: clonazePAM (clonazePAM [...] Refills: 0 Substitutions Allowed Notes from Pharmacy: --------- From: Fanny Raman To: [facility][id number] Sent: 04/13/2024 08:47:18 EST Subject: FW: Medication Management Not Approved: proposed to provider clonazePAM (clonazepam 0.5 mg tablet) TAKE 1 TABLET BY MOUTH TWICE DAILY Qty: 60 tab(s) Days Supply: 30 Refills: 0 Substitutions Allowed Route To [facility][id number] Signed by Fanny Raman Not Approved: proposed to provider clonazePAM (clonazepam 0.5 mg tablet) TAKE 1 TABLET BY MOUTH TWICE DAILY Qty: 60 tab(s) Days Supply: 30 Refills: 0 Substitutions Allowed Route To [facility] #72 Signed by Fanny Raman Not Approved: proposed to provider clonazePAM (clonazepam 0.5 mg tablet) TAKE 1 TABLET BY MOUTH TWICE DAILY Qty: 60 tab(s) Days Supply: 30 Refills: 0 Substitutions Allowed Route To [facility][id number] Signed by Fanny Raman [facility] 04-01-2024 Note HNO ID: [id number] Author: JENNY HILLIARD APRN.AWNING MAKER Service: ? Author Type: Nurse Practitioner Type: [...] on CD to visit (spine MRIs, xrays) [facility] 04-01-2024 History of Present illness Narrative Per Triage: Gilles Jane is [...] Health Provider or Pain Management Provider at [facility]? No If answer is YES please schedule directly with surgeon, triage does not need to be completed. Is this a self-referral No If not, who is the Referring Provider Radha Lópze MD Is this a 2nd opinion from another spine surgeon? Yes Were you offered surgery? No MRI/CT/myelogram within 12 months? Yes If NO , please refer to medical spine or PCP to complete above imaging, triage does not need to be completed If YES, please ask for the name/address of the facility where the MRI/CT/myelogram was completed: [facility] - [address] [place] [address] MRI/CT/myelogram viewable in Epic: No If not, please provide [phone] to fax in imaging reports for review. Also, please inform patient to hand carry imaging disc to appointment. XR (spine) within 12 months: Yes If YES, please ask for the name/address of the facility where the XR was completed[address] [place] [id number] Dr. Pinzon's patients: Have you had previous [...] completed Inj - [facility] - [address] [place] [address] PT - [place] [address] [address] [place] [id number] [facility] - [address], [place] [id number] Have you tried any other kinds of [...] where the surgery was completed: Additional Comments [phone] documented in this encounter [facility] 2024 Note - From: JEREMI MARIE DO To: [facility] Clinical Pool ([facility]); Sent: 03/05/2024 16:00:43 EDT Subject: FW: Medication Management Due Date/Time: 2024 14:54:00 EDT Caller Name: GILLES JANE; Caller Number: H --------- From: [id number] To: JEREMI MARIE DO Sent: March [...] Refills: 0 Substitutions Allowed Notes from Pharmacy: --------- From: Fanny Raman To: [facility] Sent: 2024 09:01:05 EDT Subject: FW: Medication Management Not Approved: proposed to provider gabapentin (gabapentin 300 mg capsule) TAKE 1 CAPSULE BY MOUTH THREE TIMES DAILY Qty: 90 cap(s) Days Supply: 30 Refills: 0 Substitutions Allowed [facility] To [facility] - [id number] History of Present illness Narrative Subjective Patient ID: Gilles Jane [...] severe cartilaginous bowing documented in this encounter [facility] 02-11-2024 Note - From: JEREMI MARIE DO To: [facility] Clinical Pool ([facility]); Sent: 02/11/2024 11:54:36 EDT Subject: FW: Medication Management Due Date/Time: 02/12/2024 11:25:00 EDT Caller Name: GILLES JANE; Caller Number: H --------- From: [id number] To: JEREMI MARIE DO Sent: February [...] Refills: 0 Substitutions Allowed Notes from Pharmacy: --------- From: Fanny Raman To: [facility] Sent: 02/11/2024 12:02:46 EDT Subject: FW: Medication Management Not Approved: proposed to provider clonazePAM (clonazepam 0.5 mg tablet) TAKE 1 TABLET BY MOUTH TWICE DAILY Qty: 60 tab(s) Days Supply: 30 Refills: 0 Substitutions Allowed Route To Pharmacy - [facility][id number] Signed by Fanny Raman [facility] 02-06-2024 Note HNO ID: [id number] Author: ?, ?, ? Service: ? Author Type: ? Type: Progress Notes Filed: 04/01/2024 14:11 Note Text: Patient name: Gilles Jane Are you being referred by a [place] for Spine Health Provider or Pain Management Provider at [facility]? No If answer is YES please [...] the facility where the MRI/CT/myelogram was completed: [address] [address] MRI/CT/myelogram viewable in [facility]: No If not, please provide [phone] to fax in imaging reports for review. Also, please inform patient to hand carry imaging disc to appointment. XR (spine) within 12 months: Yes If YES,? please ask for the name/address of the facility where the XR was completed: [place] [address] [place] [address] Dr. Pinzon's patients: Have you had previous [...] physical therapy was completed Inj - [facility] - [address] [facility] [address], [place] [address] PT - [facility] - [address] [facility] [address] [facility] [address] [place] [address] [facility] - [address], [place] [address] Have you tried any other kinds of [...] where the surgery was completed: Additional Comments [phone] [facility] 02-04-2024 Note - From: JEREMI MARIE DO To: [facility] Clinical Pool ([facility]); Sent: 02/03/2024 16:23:38 EDT Subject: FW: Medication Management Due Date/Time: 02/04/2024 15:09:00 EDT Caller Name: GILLES JANE; Caller Number: H --------- From: [id number] To: JEREMI MARIE DO Sent: February [...] Refills: 0 Substitutions Allowed Notes from Pharmacy: --------- From: Fanny Raman To: [facility] Sent: 02/04/2024 08:27:41 EDT Subject: FW: Medication Management Not Approved: proposed to provider gabapentin (gabapentin 300 mg capsule) TAKE 1 CAPSULE BY MOUTH THREE TIMES DAILY Qty: 90 cap(s) Days Supply: 30 Refills: 0 Substitutions Allowed Route To Pharmacy - [facility][id number] Signed by Fanny Raman [facility] 01-24-2024 Note Consultation Note Patient: GILLES JANE [...] He states that he was in the [facility] ED recently and they were going to [...] list: All Problems Smoker / SNOMED CT 597084883 / Confirmed Added secondary to documentation in Social History. Anxiety / SNOMED CT 47097201 / Confirmed Depression / SNOMED CT 4904520196 / Confirmed Osteoarthritis / SNOMED CT 7533608080 / Confirmed Objective Vital Signs 01/24/2024 13:44 [...] cannot continue like this. Integumentary: Warm, Dry, [place]. Neurologic: Alert, Oriented. Psychiatric: Cooperative, Appropriate mood & affect. 14 point review of systems was negative unless otherwise noted. Results Review * Final Report * Reason For Exam M54.12 M54.2 EthicsGame REPORT IMPRESSION: NO HIGH-GRADE NEUROFORAMINAL OR SPINAL [...] FINAL REPORT Dict (more content not included)... [facility] Comment on above: Result Comment: Elec [...] He declines. He was recently at the [facility] ED. I would like to get these [...] with us as needed. MARTÍN score: 80%. [facility] 08-19-2024 NoteOperative Report Diagnosis: M54.16, lumbar radiculopathy [...] and agrees to comply to currently prescribed/recommended therapies.[facility] Comment on above:Result Comment: Electronically Signed By: Laci Moss DO\.br\Date and Time Signed: 12/30/23 14:56 [id number] Evaluation + Plan note Extracted from: Title:Bilateral [...] Date:01/24/2024 01:15:00 PM Scheduled Provider:Yanet Low PA-C Location:[facility] Appointment Type:Pain Management - Follow Up (FT) [facility] 07-31-2024 Note From: JEREMI MARIE DO To: [facility] Clinical Pool ([facility]); Sent: 12/11/2023 11:56:05 EDT Subject: FW: Medication Management Due Date/Time: 12/12/2023 11:45:00 EDT Caller Name: GILLES JANE; Caller Number: H From: [id number] To: JEREMI MARIE DO Sent: December 11, [...] From: Lina Meneses MA To: [id number] Sent: 12/11/2023 13:39:16 EDT Subject: FW: Medication Management Not Approved: Refill not appropriate, proposal sent to provider clonazePAM (CLONAZEPAM 0.5 MG TABLET) take 1 tablet by mouth twice a day Qty: 60 tab(s) Days Supply: 30 Refills: 0 Substitutions Allowed Route To Pharmacy - [facility] #[id number] Signed by Lina Meneses [facility]07-18-2024 Note From: JEREMI MARIE DO To: [facility] Clinical [facility] Sent: 11/28/2023 16:30:55 EDT Subject: FW: Medication Management Due Date/Time: 11/29/2023 15:43:00 EDT Caller Name: GILLES JANE; Caller Number: Rosa From: [id number] To: JEREMI MARIE DO Sent: November 28, [...] Notes from Pharmacy: From: Fanny Raman To: [facility] #[id number] Sent: 11/28/2023 17:19:25 EDT Subject: FW: Medication Management Not Approved: proposed to provider gabapentin (GABAPENTIN 300 MG CAPSULE) take 1 capsule by mouth three times a day Qty: 90 cap(s) Days Supply: 30 Refills: 0 Substitutions Allowed Route To Pharmacy - [facility] #[id number] Signed by Danisha [facility]07-08-2024 NoteConsultation Note Patient: GILLES JANE Age: [...] list: All Problems Smoker / SNOMED CT 364945949 / Confirmed Added secondary to documentation in Social History. Anxiety / SNOMED CT 84960901 / Confirmed Depression / SNOMED CT 0900347428 / Confirmed Osteoarthritis / SNOMED CT 1899353216 / Confirmed Objective Vital Signs 11/18/2023 14:41 [...] leg raise Negative Randa's Integumentary: Warm, Dry, [place]. Neurologic: Alert, Oriented. Psychiatric: Cooperative, Appropriate mood [...] results. Patient is agreeab (more content not included)...[facility]Result Comment: Electronically Signed By: Yanet Low PA-C\.sendy\Date and Time Signed: 11/18/23 15:04 [id number] Evaluation + Plan noteExtracted from: Title:Pain Managment [...] is agreeable. Follow-up after. MARTÍN score: 62%. [facility]06-05-2024 Note [id number]2023 NoteDiagnosis: M48.062, lumbar stenosis [...] the epidural space was confirmed using the xkkm-ac-fsqkwbhnfk technique and 2 cc of air. 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 [facility]04-05-2024 Evaluation + Plan noteExtracted from: Title:L4/5 interlaminar epid ural steroid injection [...] the epidural space was confirmed using the xkjw-gs-zkncgwgqel technique and 2 cc of air. Injection [...] Date:11/18/2023 02:30:00 PM Scheduled Provider:Yanet Low PA-C Location:[facility] Appointment Type:Pain Management - Follow Up (FT) [facility] Diagnosis Onset Date Resolution Status Lumbar degenerative disc disease acute Lumbar stenosis acute Mood disorder acute Neuropathy acute [facility] Work Phone: Evaluation noteNo assessment information available [facility] Work Phone: Evaluation note* Diagnosis Onset Date Resolution Status Lumbar radiculopathy acute Sacral radiculopathy acute [facility] Work Phone: Evaluation note* Diagnosis DNS (deviated nasal septum)- Primary Deviated nasal septum Hypertrophy of both inferior nasal turbinates documented in this encounter [facility]* Diagnosis Nasal obstruction- Primary Other diseases of nasal cavity and sinuses DNS (deviated nasal septum) Deviated nasal septum documented in this encounter [facility] HealthcareEvaluation note* Diagnosis Chronic bilateral low back pain with bilateral sciatica- Primary [facility] Diagnosis Deviated septum- Primary Deviated [...] deformity of nose documented in this encounter [facility] Work Phone: Evaluation note* Diagnosis Nasal congestion- [...] other than cervical documented in this encounter [facility] Work Phone: Evaluation note* Diagnosis Chronic pain syndrome- Primary Chronic 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 [facility] Diagnosis Nasal deformity- Primary Acquired deformity of nose Nasal obstruction Other diseases of nasal cavity and sinuses Hypertrophy of inferior nasal turbinate Deviated nasal septum documented in this encounter [facility] Work Phone: Hospital course Narrative No data available for this section [facility] No data available for this section [facility] Discharge instructionsAmbulatory Orders* Referral to Neurosurgery Location: None [facility] Work Phone: Progress note No data available for this section [facility] Narr[facility]* Auth/Cert Specialty Diagnoses / Procedures Referred By Sola berry Referred To Contact Diagnoses Deviated nasal septum Hypertrophy of inferior nasal turbinate Nasal congestion Nasal deformity Deviated nasal septum [J34.2] Hypertrophy of inferior nasal turbinate [J34.3] Nasal congestion [R09.81] Nasal deformity [M95.0] Procedures WA SEPTOPLASTY/SUBMUCOUS RESECJ W/WO CARTILAGE GRF WA CARTILAGE GRAFT NASAL SEPTUM WA REPAIR NASAL VESTIBULAR STENOSIS WA FRACTURE NASAL INFERIOR TURBINATE THERAPEUTIC WA ABLTJ SOF TISS INF TURBS UNI/BI SUPFC INTRAMURAL SEPTOPLASTY, INFERIOR TURBINATE REDUCTION, NASAL VALVE REPA[place], [place] [address] [place] [address] Phone: tel: fax: [facility] OR [address] [place] [address] Phone: tel: fax: Referral ID Status Reason Start Date Expiration Date Visits Re quested Visits Authorized [id number] 1 1 [facility] Work Phone: Summary Purpose Family History No [...] Referred By Sola berry Referred To Contact [facility] Diagnoses Chronic 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 Procedures CONSULT TO [facility]IN) OFFICE/OUTPATIENT [facility] 60 MINUTES Evette Singh APRN.AWNING MAKER [address] [place] [address] Referral ID Status Reason Start Date Expiration Date Visits Requested Visits Authorized [id number] Pending Review PCP Requested Referral 06/16/2024 06/16/2025 1 1 Additional Source Comments (unrecognized sect ion and content) No Status Records FoundNo Status Records FoundNo Status Records FoundNo Status Records FoundNo Status Records FoundNo Status Records FoundNo Status Records FoundNo Status Records FoundNo Status Records Found INFORMATION SOURCE (unrecogn ized section and content) DATE CREATED AUTHOR 12/01/2017 [facility] DATE CREATED AUTHOR AUTHOR'S ORGANIZ ATION 12/30/2020 [facility] DATE CREATED AUTHOR AUTHOR'S ORGANIZ ATION 12/15/2023 [facility] DATE CREATED AUTHOR AUTHOR'S ORGANIZ ATION 01/28/2024 [facility] DATE CREATED AUTHOR AUTHOR'S ORGANIZ ATION 02/27/2024 [facility] EPIC DATE CREATED AUTHOR AUTHOR'S ORGANIZ ATION 06/18/2024 [facility] DATE CREATED AUTHOR AUTHOR'S ORGANIZ ATION 06/20/2024 [facility] DATE CREATED AUTHOR AUTHOR'S ORGANIZ ATION 06/22/2024 [facility] DATE CREATED AUTHOR AUTHOR'S ORGANIZ ATION 11/12/2024 [facility] Care Teams (unrecognized sec tion and [...] January 28, 2024 End: January 28, 2024 Flexo Press Operator Relationship Specialty Start Date End Date Jessica Smith NP [address] [place] [address] [facility] 08/12/23 Jeremi Marie MD [address] [place] [address] PCP - General Family Medicine 02/10/24 Flexo Press Operator Relationship Specialty Start Date End Date Jessica Smith NP [address] [place] [address] [place] [address] PCP - [facility] 08/12/23 Jeremi Marie MD [address] [place] [address] PCP - General Family Medicine 02/10/24 Flexo Press Operator Relationship Specialty Start Date End Date Radha López, DUST CONTROL ENGINEER.AWNING MAKER [address] [place] [address] Nurse Practitioner 02/06/24 Flexo Press Operator Relationship Specialty Start Date End Date Jeremi Marie MD [address] [place] [address] PCP - General Family Medicine 02/10/24 Flexo Press Operator Relationship Specialty Start Date End Date Jeremi Marie MD [address] [place] [facility] [address] PCP - General Family Medicine 02/10/24 Flexo Press Operator Relationship Specialty Start Date End Date Radha López, DUST CONTROL ENGINEER.AWNING MAKER [address] [place] [address] Nurse Practitioner 02/06/24 Flexo Press Operator Relationship Specialty Start Date End Date Radha López, DUST CONTROL ENGINEER.AWNING MAKER [address] [place] [address] Nurse Practitioner 02/06/24 Goals (unrecognized section and [...] or prosecute any alcohol or drug abuse patient.[facility] the event this information is protected by the Federal Confidentiality of Alcohol and Drug Abuse Patient Records regulations: The Federal rules restrict any use of the information to criminally investigate or prosecute any alcohol or drug abuse patient.[facility] Hospital[facility] the event this information is protected by the Federal Confidentiality of Alcohol and Drug Abuse Patient Records regulations: The Federal rules restrict any use of the information to criminally investigate or prosecute any alcohol or drug abuse patient.[facility] Hospital[facility] the event this information is protected by the Federal Confidentiality of Alcohol and Drug Abuse Patient Records regulations: The Federal rules restrict any use of the information to criminally investigate or prosecute any alcohol or drug abuse patient.[facility] Scheduled Active and Recently Administ ered [...] Intraprocedure 0905 (Given - Provid er: Jalen Patel MD) BUPivacaine HCl (Marcaine) 0.5 % (5 mg/mL) injection (CANCELED) As needed, Starting on Sat06/12/24 at 0908, Intraprocedure 0908 (Given - Provid er: Jalen Patel MD - Comment: part of local lsy85oi marcaine.2cc epi2cc xsi75qd used) EPINEPHrine HCl (PF) (Adrenalin) injection (CANCELED) As needed, Starting on Sat06/12/24 at 0906, Intraprocedure 0906 (Given - Provid er: Jalen Patel MD - Comment: part of local zlu22tq marcaine.2cc epi2cc tdj14xl used) mupirocin (Bactroban) 2 % ointment (CANCELED) As needed, Starting on Sat06/12/24 at 0906, Intraprocedure 0906 (Given - Provid er: Jalen Patel MD) ondansetron (Zofran) injection 4 mg 4 [...] Intraprocedure 0907 (Given - Provid er: Jalen Patel MD) sodium chloride 0.9 % irrigation solution (CANCELED) As needed, Starting on Sat06/12/24 at 0908, Intraprocedure 0908 (Given - Provid er: Jalen Patel MD) tranexamic acid (Cyklokapron) injection (CANCELED) As needed, Starting on Sat06/12/24 at 0908, Intraprocedure 0908 (Given - Provid er: Jalen Patel MD - Comment: part of local iau51ba marcaine.2cc epi2cc utx10xe used) FOR RECORDS PERTAINING TO PATIENTS WHO [...] BE BASED ON THE PRIMARY CLINICAL RECORDS. [employer] provides no warranty or guarantee of the accuracy or completeness of information in this document.
[2024-11-18] MEDS: KETOROLAC TROMETHAMINE 30 MG/ML VIAL 15 MG IVP (22:39)
[2024-11-18] MEDS: LEVOFLOXACIN IN DEXTROSE 5 % 750 MG/150 ML PREMIX 100 MG IV (22:39)
[2024-11-18] MEDS: 0.9 % SODIUM CHLORIDE 1,000 ML 150 ML IV (22:39)
[2024-11-18 23:41] VITALS: BP 131/69; PULSE 60; TEMP 36.7; O2SAT 97
[2024-11-19] VITALS (9 sets, daily range): BP systolic 126–148; BP diastolic 72–76; PULSE 63–100; TEMP 36.6–37.6; O2SAT 90–98
[2024-11-19] MEDS: VANCOMYCIN HCL 1,000 MG in 0.9 % SODIUM CHLORIDE 500 ML 250 MG IV (03:54)
[2024-11-19] MEDS: HYDROMORPHONE HCL 0.5 MG/0.5 ML SYRINGE IV ×2 (03:54→08:43)
[2024-11-19] MEDS: ACETAMINOPHEN 500 MG TABLET 1000 MG PO ×3 (05:07→22:03)
[2024-11-19] MEDS: CYCLOBENZAPRINE HCL 10 MG TABLET PO ×3 (05:07→22:03)
[2024-11-19 05:15] LABS: Hematocrit 29.8 % (42.0-54.0); Hemoglobin 9.6 g/dL (14.0-18.0); Mean Corpuscular HGB Conc 32.2 g/dL (29.9-35.2); Mean Corpuscular Hemoglobin 27.4 pg (25.9-34.0); Mean Corpuscular Volume 84.9 fL (80.0-94.0); Platelet Count 358 10^3/uL (150-450); Red Blood Count 3.51 10^6/uL (4.70-6.10); White Blood Count 20.9 10^3/uL (4.0-11.0)
[2024-11-19 05:55] LABS: Alanine Aminotransferase 24 U/L (16-63); Albumin Globulin Ratio 0.6; Albumin Level 2.4 g/dL (3.4-5.0); Alkaline Phosphatase 118 U/L (46-116); Anion Gap 13.4; Aspartate Amino Transferase 15 U/L (15-37); Blood Urea Nitrogen 14.0 mg/dL (7.0-18.0); Calcium 8.8 mg/dL (8.5-10.1); Carbon Dioxide 26.7 mmol/L (21.0-32.0); Chloride 100 mmol/L (98-107); Estimated GFR (African America >60 (>=60 mL/min/1.73m^2); Estimated GFR (Non-African Ame >60 (>=60 mL/min/1.73m^2); Globulin 4.2 g/dL; Glucose 112 mg/dL (74-106); Potassium 4.1 mmol/L (3.5-5.1); Sodium 136 mmol/L (136-145); Total Protein 6.6 g/dL (6.4-8.2)
[2024-11-19] MEDS: KETOROLAC TROMETHAMINE 30 MG/ML VIAL 15 MG IVP (06:17)
[2024-11-19] MEDS: 0.9 % SODIUM CHLORIDE 1,000 ML 150 ML IV (08:44)
--- NOTE | 2024-11-19 09:15 | MR_ITS ---
The [address] [address] Patient Name: JOSE DAVIS MRN: [id number] date: 1990 Sex: M Assigned Patient Location: [place] Current Patient Location: [place] Accession/Order Number: [id number] Exam Date: 11/19/2024 18:10 Report Date: 11/19/2024 18:12 At the request of: PERFECTO PERES MD Procedure: MR lumbar spine w con MRI lumbar spine performed without contrast INDICATION: Severe pain, elevated white blood count, rule out discitis or vertebral abscess COMPARISON: MRI lumbar spine 11/18/2024 FINDINGS: Stable multilevel degenerative changes as clinically on recent performed noncontrast MRI. No pathologic enhancement identified involving the bones, disc spaces or within the canal. No loculated collections identified. Diffusely diminished marrow signal. MR/MR lumbar spine w con IMPRESSION: Negative for discitis, osteomyelitis or abscess. Diffusely diminished marrow signal can be seen with red marrow conversion or infiltrate process. Correlate with CBC. Impression dictated by: Humberto Gaston M.D. 11/19/2024 6:12 PM Dictation Location: [place] [address] Electronically authenticated by: [id number] Y Date: 11/19/2024 18:12
--- NOTE | 2024-11-19 09:15 | MR_ITS ---
The [address] [address] Patient Name: JOSE DAVIS MRN: [id number] date: 1990 Sex: M Assigned Patient Location: MS Current Patient Location: [place] Accession/Order Number: [id number] Exam Date: 11/19/2024 18:03 Report Date: 11/19/2024 18:10 At the request of: PERFECTO PERES MD Procedure: MR thoracic spine wo/w con MRI thoracic spine performed without and with contrast INDICATION: Severe pain, elevated white blood count, rule out discitis/abscess COMPARISON: None FINDINGS: Diffusely diminished marrow signal identified which can BE seen with red marrow conversion or an infiltrative process. Otherwise the vertebral heights maintained. No evidence of vertebral edema. Multilevel Schmorl's node deformities T3-L1. No significant disc disease, disc protrusion central canal or neural from narrowing identified. The thoracic cord demonstrate normal signal and morphology. No abnormal enhancement within the cord, canal or involving the vertebral bodies or paraspinal soft tissues as visualized. MR/MR thoracic spine wo/w con IMPRESSION: Negative for discitis/osteomyelitis or epidural abscess.. No significant central canal or neural foraminal narrowing identified. Diffusely diminished marrow signal can be seen with red marrow conversion or an infiltrative process. Please correlate with CBC and history. Impression dictated by: Humberto Gaston M.D. 11/19/2024 6:10 PM Dictation Location: [place] [address] Electronically authenticated by: [id number] Y Date: 11/19/2024 18:10
[2024-11-19] MEDS: HYDROMORPHONE HCL 0.5 MG/0.5 ML SYRINGE 1 MG IV ×2 (09:28→13:33)
[2024-11-19] MEDS: VANCOMYCIN HCL 1,000 MG in 0.9 % SODIUM CHLORIDE 250 ML 250 MG IV ×2 (09:29→17:51)
[2024-11-19 10:46] LABS: A. calcoaceticus-baumannii Cpx NOT DETECTED (NOT DETECTE); Bacteroides fragilis NOT DETECTED (NOT DETECTE); Candida auris NOT DETECTED (NOT DETECTE); Candida glabrata NOT DETECTED (NOT DETECTE); Enterococcus faecalis NOT DETECTED (NOT DETECTE); Enterococcus faecium NOT DETECTED (NOT DETECTE); Klebsiella aerogenes NOT DETECTED (NOT DETECTE); Klebsiella pneumoniae group NOT DETECTED (NOT DETECTE); Proteus spp. NOT DETECTED (NOT DETECTE); Salmonella spp. NOT DETECTED (NOT DETECTE); Staphylococcus epidermidis NOT DETECTED (NOT DETECTE); Staphylococcus lugdunensis NOT DETECTED (NOT DETECTE); Staphylococcus spp. NOT DETECTED (NOT DETECTE); Stenotrophomonas maltophilia NOT DETECTED (NOT DETECTE); Streptococcus pyogenes NOT DETECTED (NOT DETECTE); Streptococcus spp. NOT DETECTED (NOT DETECTE)
[2024-11-19] MEDS: ENOXAPARIN SODIUM 40 MG/0.4 ML SYRINGE SUBQ (11:17)
[2024-11-19] MEDS: DIAZEPAM 2 MG TABLET PO ×2 (11:17→19:05)
--- NOTE | 2024-11-19 11:20 | PM.HP ---
HPI H&P: HPI History of Present Illness Chief complaint: INTRACTABLE BACK PAIN Narrative: Mr. Jane is a 34-year-old gentleman with known history of chronic back pain. Patient came in with worsening severe acute back pain. No recent fall or trauma. Patient is on Suboxone. Patient was seen in the emergency room department and discharged home. Patient returned back to the emergency room complaining of severe back pain. I received a call from the emergency room physician this time and I had accepted to admit him to the medical floor for further evaluation and pain management. Patient had elevated white count at 30,000. Patient also had MRI of the lumbar spine without contrast which does not show any discitis or epidural abscess but positive for multiple abnormalities which may be chronic in nature. Please refer to MRI report for details. Patient continues to have severe back pain. He denies any chest pain, shortness of breath. No rash. No other infectious site or location is noted. Opioid HPI Opioid Management Most Recent Pain and Opioid Data: Last Pain Scale 4 Today, 10:27 Last Pain Assessment 11/18/24, 18:00 Last MAR Pain Assessment 11/18/24, 17:20 Last ORT Total Score 2 11/18/24, 17:41 Last ORT Risk Category Low Risk 11/18/24, 17:41 Ur Phencyclidine Scrn, (NEGATIVE) Negative 11/18/24, 08:40 [facility] Medical History (Updated 11/19/24 @ 11:22 by Mathieu Velasquez MD) History of chronic back pain ?Z87.39 - Personal history of other diseases of the musculoskeletal system and connective tissue (ICD-10) Social History Highest level of school completed/degree received: Associate degree: occupational, technical, vocational program Little interest or pleasure in doing things: not at all Feeling down, depressed, or hopeless: not at all Meds Home Medications and Allergies Home Medications ?Medication ?Instructions ?Recorded ?Confirmed ?Type buprenorphine 8 mg-naloxone 2 mg 1 tab sublingual BID 01/22/24 11/18/24 History sublingual tablet gabapentin 300 mg capsule 300 mg PO TID 01/22/24 11/18/24 History quetiapine 50 mg tablet 50 mg PO BEDTIME 01/22/24 11/18/24 History vilazodone 40 mg tablet 40 mg PO DAILY 01/22/24 11/18/24 History clonazepam 1 mg tablet 1 mg PO Q12H 11/18/24 11/18/24 History fluticasone propionate 50 1 spray intranasal Q12H 11/18/24 11/18/24 History mcg/actuation nasal spray,suspension Allergies Allergy/AdvReac Type Severity Reaction Status Date / Time Penicillins Allergy Severe Anaphylaxis Verified 11/18/24 16:35 acetaminophen (From Vicodin) AdvReac Mild Hives Verified 11/18/24 16:35 hydrocodone (From Vicodin) AdvReac Mild Hives Verified 11/18/24 16:35 lorazepam (From Ativan) AdvReac Mild Confusion Verified 11/18/24 16:35 Exam Narrative Exam Narrative: Patient is lying in bed in severe distress. Patient has tenderness in the lumbar spine, lower thoracic and paraspinal muscle spasm. Chest is clear, heart is regular. Abdomen is soft. Patient has multiple teeth cavities but no gum swelling or tenderness. Constitutional Vital Signs, click to edit/add: Last Vital Signs Temp 98.9 F 11/19/24 11:11 Pulse 79 11/19/24 11:11 Resp 16 11/19/24 11:11 BP 148/76 H 11/19/24 11:11 Pulse Ox 95 11/19/24 11:11 O2 Del Method Room Air 11/19/24 11:11 Results Labs Labs: Short CBC 11/18/24 11/19/24 Range/Units 17:09 04:54 WBC 30.6 H* 20.9 H (4.0-11.0) 10^3/uL Hgb 10.8 L 9.6 L (14.0-18.0) g/dL Hct 32.7 L 29.8 L (42.0-54.0) % Plt Count 523 H 358 (150-450) 10^3/uL BMP 11/19/24 04:54 Sodium 136 Potassium 4.1 Chloride 100 Carbon Dioxide 26.7 BUN 14.0 Creatinine 0.82 Glucose 112 H Calcium 8.8 Liver Function 11/19/24 Range/Units 04:54 Total Bilirubin 0.7 (0.2-1.0) mg/dL AST 15 (15-37) U/L ALT 24 (16-63) U/L Alkaline Phosphatase 118 H (46-116) U/L Albumin 2.4 L (3.4-5.0) g/dL Assessment and Plan Assessment and Plan (1) Sepsis: (2) Intractable back pain: (3) Lumbar radiculopathy: Plan Sepsis present on admission. Elevated white count. I requested CRP which came back elevated. Patient is having acute on chronic severe back pain. MRI of the lumbar spine was completed in the emergency room department without contrast. Does not show any discitis or epidural. I started him on vancomycin and Levaquin as patient has anaphylactic reaction to penicillin I requested MRI of the lumbar and thoracic with contrast to rule out epidural or discitis. Patient denies any intravenous drug use however patient has multiple teeth cavities which could be source of bacteremia. Requested blood culture. Acute on chronic back pain, intractable I started patient on combination of pain multimodality regimen including but not limited to Dilaudid, oxycodone, Flexeril, Tylenol and Toradol. MRI of the thoracic and lumbar spine to exclude acute pathology DVT prophylaxis Lovenox subcu. Patient status is dynamic and evolutionary therefore the aforementioned assessment and plan may or may not be complete or conclusive. The patient would likely require to have additional workup, investigation, therapeutic intervention and consultation that will be determined based on the clinical progression and follow-up test results
[2024-11-19 12:14] LABS: CTX-M NOT DETECTED (NOT DETECTE); IMP NOT DETECTED (NOT DETECTE); KPC NOT DETECTED (NOT DETECTE); NDM NOT DETECTED (NOT DETECTE); OXA-48-like NOT DETECTED (NOT DETECTE); Source Blood; VIM NOT DETECTED (NOT DETECTE)
[2024-11-19 12:16] LABS: Enterobacterales DETECTED (NOT DETECTE); Serratia marcescens DETECTED (NOT DETECTE)
--- NOTE | 2024-11-19 12:21 | PM.EN ---
Event Note Event Note: Patient went down for the MRI. 15 minutes after the start of MRI, patient reported having severe pain and could not complete the study. Given the significance of knowing whether he spinal infection, I would prescribe additional pain medication to allow for an MRI to be completed.
[2024-11-19] MEDS: OXYCODONE HCL 5 MG TABLET PO (12:22)
[2024-11-19] MEDS: IMIPENEM/CILASTATIN SODIUM 1,000 MG in 0.9 % SODIUM CHLORIDE 100 ML 100 MG IV ×2 (14:22→22:03)
[2024-11-19] MEDS: KETOROLAC TROMETHAMINE 30 MG/ML VIAL IVP ×2 (14:22→23:31)
[2024-11-19] MEDS: HYDROMORPHONE HCL 1 MG/ML CARTRIDGE 2 MG IV (16:56)
[2024-11-19] MEDS: HYDROMORPHONE HCL 1 MG/ML CARTRIDGE IV ×2 (19:06→22:07)
[2024-11-20] VITALS (7 sets, daily range): BP systolic 126–137; BP diastolic 66–74; PULSE 59–84; TEMP 36.7–37.4; O2SAT 90–100
--- NOTE | 2024-11-20 03:35 | CA_ITS ---
Patient Name: JOSE DAVIS MR#: [id number] : 1990 Exam Date: 11/20/2024 Ordering Doctor: PERFECTO PERES ECHOCARDIOGRAM REPORT PROCEDURE: CA ECHO DOPPLER COMPLETE INDICATIONS: Bacteremia r/o endocarditis COMPARISON: None. DESCRIPTION: COMPLETE ECHOCARDIOGRAM Real-time transthoracic echocardiography with 2D, M-mode, spectral and color flow Doppler performed. QUALITY: Technical quality was good. LEFT VENTRICLE: Normal chamber size. Normal left ventricular wall thickness. Calculated left ventricular ejection fraction is 65%. LV EF: Normal left ventricular ejection fraction, (>55%). DIASTOLIC: Normal diastolic function. ATRIAL SEPTUM: Visually appears intact. LEFT ATRIUM: Normal chamber size. RIGHT ATRIUM: Normal chamber size. RIGHT VENTRICLE: Normal chamber size. Normal right ventricular systolic function. TRICUSPID VALVE: Normal mobility and thickness. No stenosis with no regurgitation. MITRAL VALVE: Normal mobility and thickness. No evidence of mitral valve stenosis. There is no mitral annular calcification. No mitral regurgitation. AORTIC VALVE: Normal trileaflet appearance. No visible sclerosis. Normal leaflet mobility. No evidence of aortic valve stenosis. No aortic regurgitation. AORTIC ROOT: Normal diameter and appearance. PULMONIC VALVE: Normal thickness and mobility. No stenosis. Trivial regurgitation. PERICARDIUM: Trivial pericardial effusion is noted IVC: IVC is dilated (2.5 cm), it collapses more than 50% PLEURA: CONCLUSION: Normal left ventricle cavity size, wall thickness, and systolic function without wall motion abnormalities, ejection fraction 65% Normal left ventricular diastolic function Normal right ventricle size and systolic function No significant valvular abnormalities Trivial pericardial effusion Dilated IVC with respiratory collapse more than 50% consistent with RAP 8 mmHg Adult Echocardiography Procedure Report Left Ventricle LVEDD (3.7 - 5.6 cm): 5.52 cm LVESD (2.2 - 4.0 cm): 3.73 cm LVIVS thickness (0.6 - 1.2 cm): 1.10 cm LVPW thickness (0.5 - 1.0 cm): 0.99 cm e': 0.16 m/s E - e': 6.01 LVOT Max Gradient: 8.12 mm[Hg] LVOT Area (cm2): 1.42 m/s Peak Velocity (LVOT): 1.42 m/s Mean Velocity (LVOT): 0.95 m/s LVOT Diameter 2.80 cm Left Ventricular Ejection Fraction: 64.61 % Left Atrium LA Volume Index (2D A2C): 34.11 ml/m2 Left Atrium Systolic Dimension: 4.00 cm Mitral Valve MV E to A Ratio: 1.61 MV Max Gradient: MV Mean Gradient: Mitral Valve A-Wave Peak Velocity: 0.61 m/s Mitral Valve E-Wave Peak Velocity: 0.98 m/s Cardiovascular Orifice Area: Right Ventricle RV Internal Diastolic Dimension: Aorta AO Root Diam: 3.36 cm Ascending Ao Diam: Aortic Valve AoV Area (Peak Zia): 6.16 cm2, 6.16 cm2 AoV Area (VTI): 5.60 cm2, 5.60 cm2 Deceleration [place]: Pressure Half-Time: Peak Velocity(Antegrade Flow): 1.42 m/s Peak Gradient(Antegrade Flow): 8.08 mm[Hg] Mean Velocity(Antegrade Flow): 0.93 m/s Mean Gradient(Antegrade Flow): 4.05 mm[Hg] Velocity Time Integral: 32.04 cm Tricuspid Valve Peak Velocity (Regurgitant Flow): Peak Velocity: Pulmonic Valve Mean Gradient: Mean Velocity: Peak Velocity: Peak Gradient: 6.88 mm[Hg], 8.54 mm[Hg] Right Atrium Right Atrium Systolic Pressure: 48.02 ml, 48.02 ml Dictated by: David Poole MD on 11/20/2024 at 17:50 Approved by: David Poole MD on 11/20/2024 at 17:57
[2024-11-20] MEDS: HYDROMORPHONE HCL 1 MG/ML CARTRIDGE IV ×2 (03:47→16:00)
[2024-11-20] MEDS: IMIPENEM/CILASTATIN SODIUM 1,000 MG in 0.9 % SODIUM CHLORIDE 100 ML 100 MG IV ×2 (05:48→15:07)
[2024-11-20] MEDS: CYCLOBENZAPRINE HCL 10 MG TABLET PO ×3 (05:48→21:50)
[2024-11-20] MEDS: ACETAMINOPHEN 500 MG TABLET 1000 MG PO ×3 (05:48→21:50)
[2024-11-20] MEDS: DIAZEPAM 2 MG TABLET PO ×3 (05:48→20:18)
[2024-11-20] MEDS: KETOROLAC TROMETHAMINE 30 MG/ML VIAL IVP ×3 (05:50→20:18)
[2024-11-20 06:07] LABS: Hematocrit 29.8 % (42.0-54.0); Hemoglobin 9.5 g/dL (14.0-18.0); Mean Corpuscular HGB Conc 31.9 g/dL (29.9-35.2); Mean Corpuscular Hemoglobin 27.1 pg (25.9-34.0); Mean Corpuscular Volume 85.1 fL (80.0-94.0); Platelet Count 367 10^3/uL (150-450); Red Blood Count 3.50 10^6/uL (4.70-6.10); White Blood Count 16.9 10^3/uL (4.0-11.0)
[2024-11-20 06:28] LABS: Alanine Aminotransferase 19 U/L (16-63); Albumin Globulin Ratio 0.6; Albumin Level 2.2 g/dL (3.4-5.0); Alkaline Phosphatase 128 U/L (46-116); Anion Gap 12.2; Aspartate Amino Transferase 13 U/L (15-37); Blood Urea Nitrogen 15.0 mg/dL (7.0-18.0); Calcium 8.8 mg/dL (8.5-10.1); Carbon Dioxide 26.7 mmol/L (21.0-32.0); Chloride 100 mmol/L (98-107); Estimated GFR (African America >60 (>=60 mL/min/1.73m^2); Estimated GFR (Non-African Ame >60 (>=60 mL/min/1.73m^2); Globulin 4.0 g/dL; Glucose 88 mg/dL (74-106); Potassium 3.9 mmol/L (3.5-5.1); Sodium 135 mmol/L (136-145); Total Protein 6.2 g/dL (6.4-8.2)
[2024-11-20] MEDS: OXYCODONE HCL 5 MG TABLET PO (08:42)
[2024-11-20] MEDS: ENOXAPARIN SODIUM 40 MG/0.4 ML SYRINGE SUBQ (08:42)
--- NOTE | 2024-11-20 11:45 | PM.PN ---
Progress Note: Subjective Subjective Interval history: Persistent back pain. Less intense than before. Exam Narrative Exam Narrative: Patient is lying in bed in severe distress. Patient has tenderness in the lumbar spine, lower thoracic and paraspinal muscle spasm. Chest is clear, heart is regular. Abdomen is soft. Patient has multiple teeth cavities but no gum swelling or tenderness. Constitutional Vital Signs, click to edit/add: Last Vital Signs Temp 98.7 F 11/20/24 07:54 Pulse 59 L 11/20/24 07:54 Resp 16 11/20/24 07:54 BP 135/66 11/20/24 07:54 Pulse Ox 93 L 11/20/24 07:54 O2 Del Method Room Air 11/20/24 07:54 Progress Note: Objective Labs Labs: Short CBC 11/20/24 Range/Units 05:15 WBC 16.9 H (4.0-11.0) 10^3/uL Hgb 9.5 L (14.0-18.0) g/dL Hct 29.8 L (42.0-54.0) % Plt Count 367 (150-450) 10^3/uL BMP 11/20/24 05:15 Sodium 135 L Potassium 3.9 Chloride 100 Carbon Dioxide 26.7 BUN 15.0 Creatinine 0.61 L Glucose 88 Calcium 8.8 Liver Function 11/20/24 Range/Units 05:15 Total Bilirubin 0.7 (0.2-1.0) mg/dL AST 13 L (15-37) U/L ALT 19 (16-63) U/L Alkaline Phosphatase 128 H (46-116) U/L Albumin 2.2 L (3.4-5.0) g/dL Progress Note: A&P Assessment and Plan (1) Sepsis: (2) Intractable back pain: (3) Lumbar radiculopathy: Plan Sepsis present on admission. Elevated white count. I requested CRP which came back elevated. Bacteremia. Blood culture came back positive for Serratia Patient is having acute on chronic severe back pain. MRI of the lumbar spine was completed in the emergency room department without contrast. Does not show any discitis or epidural. I started him on vancomycin and Levaquin as patient has anaphylactic reaction to penicillin I requested MRI of the lumbar and thoracic with contrast to rule out epidural or discitis. These came back negative for discitis or epidural abscess. Patient denies any intravenous drug use however patient has multiple teeth cavities which could be source of bacteremia. His antibiotic was changed yesterday from vancomycin and Levaquin to Primaxin. Requested repeat blood culture today to ensure clearance Requested echocardiogram to rule out endocarditis although less likely No altered mental status or neck rigidity to suggest meningitis Negative MRI may not exclude entirely the possibility of early spinal infectious process. Repeat MRI in a week or 2 may be indicated. Acute on chronic back pain, intractable I started patient on combination of pain multimodality regimen including but not limited to Dilaudid, oxycodone, Flexeril, Tylenol and Toradol. MRI showed multilevel disc degeneration and neural foraminal narrowing No discitis or epidural seen on CT. His acute back pain could be related to disc, neuroforaminal narrowing. Continue pain management If his pain does not improve over the next 24 to. Hours I will transfer him to [place] for spine surgery consultation. DVT prophylaxis Lovenox subcu.
--- NOTE | 2024-11-20 16:41 | DIETREC ---
Pt w/poor PO intakes d/t severe back pain. Recommend 237 mL Ensure High PRO BID and 30 mL PRO-stat BID. Recommendation [place] texted to Dr. Velasquez.
--- NOTE | 2024-11-20 20:05 | PC.NURSE ---
Entered patients room and patient became loud and agitated with RN. Discussed pain medication options and patient got loud, crying, and stated you guys are not even helping me . Educated patient on medications available and which one helped earlier for his pain. Patient continued to get loud yelling out. Offered PRN medications, ice or heat to aid in pain management. Call light with in reach and ice water offered.
--- NOTE | 2024-11-20 21:50 | PC.NURSE ---
Rn entered patients room with second nurse to given scheduled medications. Patient stated antibiotic makes me feel worse RN attempted to discuss symptoms patient was having regarding antibiotic and conversation kept circling back to pain control. Patient became angry yelling at RN. [employer] explained to patient I didn't want to give something that was going to make him ill and wanted to know what his symptoms for antibiotic was. Patient kept yelling you just don't care, just give me whatever the DR ordered Therapeutic conversation attempted. Patient's agitation increased and patient requested AMA form. Dr notified
--- NOTE | 2024-11-20 22:00 | PC.NURSE ---
Nursing supervisor sunglasses to patient room @ [id number] to discuss pain management plan. Patient visibly upset and using vulgar language. Reports Tomorrow I am out of here. Attempted several times to inquire about the effectiveness of the medications received, patient states you all just think I'm an addict. Attempted to provide emotional support. Patient declines vitals and assessment at this time.
--- NOTE | 2024-11-20 22:16 | PC.NURSE ---
Primary nurse asked for assistance to get vitals and give ABX to patient. Patient was stating the ABX made him not feel good. Primary nurse was asking about the effects of the ABX to the patient when he became agitated. Patient started swearing and become increasingly angry due to his increased pain. Primary nurse spoke with patient about medication to help with the pain and the ABX. Coordinator Of Health Services spoke with patient about his suboxone. Patient has missed his suboxone 8-2 for the past 6 doses. Patient was informed that we can provide the suboxone for him and patient refused. Patient stated that he was just going to go home and take it and wanted to sign out AMA. Suboxone was offered here again in the hospital. Patient stated he just wanted to go and wants his belongings and the AMA form. Iv was removed. AMA form provided. Patient refused to sign. AMA form read out loud to patient and he verbally agreed. Security came to room and escorted patient out of the hospital.
--- NOTE | 2024-11-21 10:02 | PM.DS1 ---
DS: Providers Provider Date of admission: 11/19/24 11:26 Primary care physician: JOSÉ MANUEL MARIE DS: Diagnosis Discharge Diagnosis (1) Sepsis: (2) Intractable back pain: (3) Lumbar radiculopathy: (4) Bacteremia: Plan As listed above and others that are not listed DS: Summary Status at Discharge Cognitive/behavioral status at discharge: Mr. Jane is a 34-year-old gentleman who came to the emergency room with lower back pain and was found to have leukocytosis and elevated CRP. Sepsis present on admission. Elevated white count. I requested CRP which came back elevated. Bacteremia. Blood culture came back positive for Serratia Patient is having acute on chronic severe back pain. MRI of the lumbar spine was completed in the emergency room department without contrast. Does not show any discitis or epidural. I started him on vancomycin and Levaquin as patient has anaphylactic reaction to penicillin I requested MRI of the lumbar and thoracic with contrast to rule out epidural or discitis. These came back negative for discitis or epidural abscess. Patient denies any intravenous drug use however patient has multiple teeth cavities which could be source of bacteremia. His antibiotic was changed on 11/19 from vancomycin and Levaquin to Primaxin. Requested repeat blood culture 11/20 to ensure clearance Requested echocardiogram to rule out endocarditis although less likely No altered mental status or neck rigidity to suggest meningitis Negative MRI may not exclude entirely the possibility of early spinal infectious process. Repeat MRI in a week or 2 may be indicated. Acute on chronic back pain, intractable I started patient on combination of pain multimodality regimen including but not limited to Dilaudid, oxycodone, Flexeril, Tylenol and Toradol. MRI showed multilevel disc degeneration and neural foraminal narrowing No discitis or epidural seen on CT. His acute back pain could be related to disc, neuroforaminal narrowing. Continue pain management My plan was to transfer him to [facility] if there is no improvement of back pain within 24 to 48 hours to be seen by spine surgery team. Unfortunately no spine surgeon would operate on him for the herniated disc or neural foraminal narrowing as long as he is bacteremic DVT prophylaxis Lovenox subcu. Anger, agitation and disrespectful to staff. His nurse Yumiko informed me on the second day of admission that the patient had been disrespectful to her. I had to spend 20 minutes on the day trying to securities counselor patient about the importance of compliance and cooperation with nursing staff. I made it very clear to patient that he needs to respect is caregivers most importantly is the primary nurse. Patient changed his attitude and became respectful and collegial up until last evening when he became angry and started using vulgar language as reported by his nurse. Patient subsequently decided to leave AGAINST MEDICAL ADVICE last evening even though I made it very clear to him yesterday morning that his blood culture is positive and that he would need intravenous antibiotic otherwise this could be fatal. This morning 11/21, I called the patient home at the number listed [phone] trying to convince him to come back to [facility] to resume intravenous antibiotic infusion or go to another institution if he is not happy at [facility] but at least he would need continuation of intravenous antibiotic. Unfortunately, patient did not answer the phone. I left a message for him urging him to seek medical attention at the nearest emergency room to resume intravenous antibiotic Treatment: Time Spent with Patient Time attestation: Total time spent providing and/or coordinating discharge services: Exam Constitutional Vital Signs, click to edit/add: Last Vital Signs Temp 99.3 F 11/20/24 22:00 Pulse 61 11/20/24 16:04 Resp 16 11/20/24 16:04 BP 135/74 11/20/24 22:00 Pulse Ox 90 L 11/20/24 21:49 O2 Del Method Room Air 11/20/24 16:04 DS: Data Data Completed and Pending Labs on day of discharge: Preliminary micro results at discharge 11/18/24 16:03 Blood Culture Result 1 - Preliminary Blood 11/18/24 17:09 Aerobic Susc Result 2 - Preliminary Blood - Left Forearm Gram negative s[place]ia 11/18/24 17:03 Aerobic Susc Result 2 - Preliminary Blood - Right Antecubital Discharge Plan Discharge Disposition: Left Against Medical Advice Condition: Fair Assessment: IV removed Discharge Date/Time: 11/20/24 22:10
--- NOTE | 2024-11-23 11:24 | PC.NURSE ---
Follow up appt. with Dr. Mccullough on . 11/26 @ 2:15pm [phone]
--- NOTE | 2024-11-23 15:03 | CM.DCFOLLOWU ---
1st attempt 11/23/24, no answer
--- NOTE | 2024-11-24 14:49 | CM.DCFOLLOWU ---
2nd attempt 11/24/24, no answer
--- NOTE | 2024-11-25 13:54 | CM.DCFOLLOWU ---
3rd attempt 11/25/24, no answer
== END 2024-11-20 22:10 | disposition left against medical advice (07) | DRG 720 ==
LOC: ER 16:55 → MS 17:31
PROVIDERS: Admitting Provider Internal Medicine; Emergency Provider Emergency Medicine; PCP Family Medicine; Visit Provider Internal Medicine
DX: A41.53 Sepsis due to Serratia (principal); Z53.29 Procedure and treatment not carried out because of patient's decision for other reasons; M54.16 Radiculopathy, lumbar region; M54.50 Low back pain, unspecified; K02.9 Dental caries, unspecified; G89.29 Other chronic pain; F11.20 Opioid dependence, uncomplicated; R79.82 Elevated C-reactive protein (CRP); R45.4 Irritability and anger; R45.1 Restlessness and agitation
CPT/HCPCS: 36415; 72149; 72157; 80053; 83605; 83735; 85007; 85027; 86140; 87040; 87150; 87186; 93306; 96365; 96366; 96368; 96375; 96376; 99285; A9575; G0378; J0743; J1171; J1650; J1885; J2360; J3370